=== PATIENT | female | born 1945 | race Caucasian/White ===

== ENCOUNTER 2018-09-28 13:22 | Inpatient (IN) ==
[2018-09-28] MEDS ORDERED: CARDIZEM IV ONE (13:48)
[2018-09-28] MEDS ORDERED: CARDIZEM 125 MG in NS 100 ML IV SCH (14:00)
[2018-09-28] MEDS ORDERED: NS 1,000 ML ONE ×2 (14:07→18:38)
[2018-09-28] MEDS ORDERED: CARDIZEM ONE (14:07)
--- NOTE | 2018-09-28 14:13 | EKG Report ---
Test Performed on : 09/28/2018 1:27:31 PM Test Reason : chest pain Blood Pressure : / mmHG Vent. Rate : 190 BPM Atrial Rate : 208 BPM P-R Int : 000 ms QRS Dur : 066 ms QT Int : 228 ms P-R-T Axes : 000 063 233 degrees QTc Int : 405 ms Atrial fibrillation. with rapid ventricular response. ST & T wave abnormality, consider inferolateral ischemia Abnormal ECG When compared with ECG of 30-JAN-2018 00:57, Atrial fibrillation. has replaced Sinus rhythm. Vent. rate has increased BY 126 BPM Non-specific change in ST segment in Inferior leads ST now depressed in Lateral leads T wave inversion now evident in Inferior leads T wave inversion now evident in Lateral leads Unconfirmed Result
[2018-09-28] MEDS ORDERED: LANOXIN ONE (14:17)
[2018-09-28 14:20] LABS: BASO# 0.04 X1000 (0.0-0.2); BASO% 0.3 % (0.0-0.8); EOS# 0.08 X1000 (0.0-0.7); EOS% 0.6 % (0.0-10.0); HEMATOCRIT 37.1 % (37.0-47.0); HEMOGLOBIN 11.2 g/dL (12.0-16.0); IMM GRAN# 0.05 X1000 (0.0-0.04); IMM GRAN% 0.4 % (0.0-0.5); LYMPH% 14.4 % (20.5-51.1); MCH 25.8 PG (27-31); MCHC 30.2 g/dL (33-37); MCV 85.5 FL (81-99); MONO# 1.48 X1000 (0.11-0.59); MONO% 10.7 % (1.7-9.3); MPV 10.1 FL (7.4-10.4); NEUT# 10.22 X1000 (1.4-6.5); NEUT% 73.6 % (42.2-75.2); PLT 475 X1000 (130-400); RBC 4.34 XMIL (4.2-5.4); RDW 17.5 % (11.5-14.5); WBC 13.87 X1000 (4.8-10.8)
[2018-09-28] MEDS ORDERED: LANOXIN IV ONE ×2 (14:21→18:23)
[2018-09-28] MEDS ORDERED: LOPRESSOR IV ONE ×2 (14:21→14:46)
--- NOTE | 2018-09-28 14:23 | Diag Imaging Result Doc PS360 ---
EXAM: CHEST-1 VIEW HISTORY: chest pain TECHNIQUE: Chest single view COMPARISON: 01/30/2018 FINDINGS: Poor inspiratory effort. There is vascular distention. No consolidation. No pleural effusions identified. Right hemidiaphragm is elevated. There is a left-sided pacemaker. IMPRESSION: Mild pulmonary edema. Electronically signed by Avery Morales 09/28/2018 2:21 PM
[2018-09-28] MEDS ORDERED: LOPRESSOR ONE (14:29)
[2018-09-28 14:38] LABS: INR 1.07; PROTIME 14.8 Seconds (11.0-16.0); PTT HEPARIN PROTOCOL 30.7 Seconds
[2018-09-28 14:48] LABS: ALB/GLOB RATIO 1.6; ALBUMIN 3.9 g/dL (3.5-5.0); CALCIUM 7.5 mg/dL (8.8-10.2); POTASSIUM 3.5 mmol/L (3.5-5.1); TOTAL BILIRUBIN 0.81 mg/dL (0.20-1.00); TOTAL PROTEIN 6.4 g/dL (6.3-8.3)
[2018-09-28 14:51] LABS: URINE SOURCE CATH
[2018-09-28 15:00] LABS: BILIRUBIN URINE SMALL (NEGATIVE); BLOOD URINE SMALL (NEGATIVE); COLOR YELLOW; GLUCOSE URINE NEGATIVE (NEGATIVE); KETONE URINE TRACE mg/dL (NEGATIVE); LEUKOCYTES URINE MODERATE (NEGATIVE); NITRITE URINE NEGATIVE (NEGATIVE); PH URINE 5.5; PROTEIN URINE TRACE mg/dL (NEGATIVE); SP GRAVITY URINE 1.013; TURBIDITY URINE HAZY (CLEAR); UROBILINOGEN URINE 4 mg/dL (NORMAL)
[2018-09-28 15:01] LABS: UR EPITHELIAL CELLS >10 /HPF (<10); URINE BACTERIA 4+ /HPF; URINE RBC <10 /HPF (<10); URINE WBC <10 /HPF (<10)
[2018-09-28] MEDS: LEVOPHED 8 MG in D5 1/2 NS 250 ML IV SCH ×2 (15:29→16:08)
[2018-09-28] MEDS ORDERED: LOVENOX 1 MG/KG SUBQ ONE (16:09)
[2018-09-28] MEDS ORDERED: LOVENOX SUBQ ONE (16:30)
[2018-09-28] MEDS ORDERED: CORDARONE 360 MG/D5W 360 MG/200 ML IV.SOLN IV ONE (18:24)
--- NOTE | 2018-09-28 18:56 | PROVIDER DOCUMENTATION ---
This chart was entered by Mary Villareal Scribe, acting as scribe for Tera Maddox MD. HPI-Chest Pain - General Chief Complaint: Chest Pain Stated Complaint: chest pain Time Seen by Provider: 09/28/18 13:30 Source: patient, EMS Unable to obtain history due to:: urgency Allergies/Adverse Reactions: Patient Allergies Allergy/AdvReac Type Severity Reaction Status Date / Time No Known Allergies Allergy Verified 09/28/18 14:08 Home Medications: Home Medication List Medication Instructions Recorded Confirmed Last Taken Type Baclofen 20 mg PO Q6H 04/29/17 01/30/18 04/28/17 History CephALEXIN [Keflex] 250 mg PO DAILY 04/29/17 01/30/18 04/28/17 History Duloxetine [Cymbalta] 60 mg PO DAILY 04/29/17 01/30/18 04/28/17 History Fexofenadine [Faina] 180 mg PO DAILY 04/29/17 01/30/18 04/28/17 History Furosemide [Lasix] 40 mg PO DAILY 04/29/17 01/30/18 04/28/17 History LISINOpril [Prinivil] 5 mg PO DAILY 04/29/17 01/30/18 04/28/17 History Metoprolol [Lopressor] 25 mg PO DAILY 04/29/17 01/30/18 04/28/17 History Pantoprazole [Protonix] 40 mg PO HS 04/29/17 01/30/18 04/28/17 History ATORVAstatin [Lipitor] 10 mg PO DAILY 01/30/18 01/30/18 Unknown History Folic Acid 1 mg PO DAILY 01/30/18 01/30/18 Unknown History Furosemide [Lasix] 40 mg PO DAILY #30 tab 01/30/18 Unknown Rx Levofloxacin [Levaquin] 750 mg PO DAILY #7 tab 01/30/18 Unknown Rx Methotrexate 10 mg PO DIRECTED 01/30/18 01/30/18 Unknown History Potassium Chloride 20 meq PO DAILY 01/30/18 01/30/18 Unknown History Prednisone 1 mg PO EVERY OTHER DAY 01/30/18 01/30/18 Unknown History - History of Present Illness-CP Nature of Presenting Problem: 73 yof presents to the ed via ems with unknown afib with rvr. per ems pt fell at snf this am and c/o chest pain, when pt was checked it was noted afib with rvr Location: reports: substernal Chest Pain Radiation: reports: no radiation Quality of Pain: reports: dull Severity in ED: moderate Onset/Duration: this afternoon Timing: still present, intermittent Context/Activities at Onset: reports: light activity Modifying Factors: improves with: nothing Associated Symptoms: denies: abdominal pain, diaphoresis, dizziness, shortness of breath, syncope, vomiting Nitro Today/Relief: no nitro taken today Aspirin Treatment Today: 325 mg x 1, provided by ED Similar Symptoms Previously?: No Recently Seen Here or By Another Healthcare Provider: Yes Review of Systems - Adult - REVIEW OF SYSTEMS - ADULT ROS:: limited per condition Constitutional: denies: chills, fever Eyes: reports: no symptoms reported Ears, Nose, Mouth & Throat: reports: no symptoms reported Cardiovascular: reports: see HPI, chest pain, irregular heart rate, palpitations . denies: syncope Respiratory: denies: cough, shortness of breath, wheezing Gastrointestinal: denies: abdominal pain, diarrhea, nausea, vomiting Genitourinary: reports: see HPI, frequent UTI's Musculoskeletal: denies: back pain, neck pain Integumentary: reports: no symptoms reported Neurological: denies: dizziness/vertigo, headache/migraines, loss of balance, numbness, paresthesia, seizure, slurred speech Psychiatric: reports: no symptoms reported Endocrine: reports: no symptoms reported Hematologic/Lymphatic: reports: no symptoms reported Allergic/Immunologic: reports: no symptoms reported All Other Systems: Reviewed and Negative Past History - Adult - PAST MEDICAL HISTORY-ADULT Review of Records: reports: Old Records Reviewed, Nursing Assessment Review, Medications Reviewed, Social history reviewed & non-contributory. Cardiovascular: reports: HTN, hyperlipidemia, pacemaker Respiratory: reports: denies history Gastrointestinal: reports: denies history Obstetrical/Gynecological: reports: denies history Genitourinary: reports: chronic UTI's Musculoskeletal: reports: arthritis, chronic pain Neurological: reports: CVA, stroke deficits Psychiatric: reports: denies history - PRIOR SURGERIES/PROCEDURES Surgical/Procedure History: reports: reviewed, not pertinent - IMMUNIZATION STATUS Childhood Immunizations: See Nurse Assessment Flu Vaccine: See Nurse Assessment - FAMILY HISTORY Family History: reviewed, not pertinent - SOCIAL HISTORY Smoking: non-smoker Substance Use: denies Living Situation: care facility Physical Exam-General - PHYSICAL EXAM-ADULT Initial Vital Signs Reviewed: Yes - CONSTITUTIONAL General Appearance: alert, mild distress - EYES Eyes: PERRL/EOMI, pink conjunctivae - HEAD, EARS, NOSE, MOUTH & THROAT HENMT: moist mucous membranes, normal ENT inspection - NECK Neck: non-tender, full range of motion, supple, normal inspection - RESPIRATORY Respiratory: chest non-tender, lungs clear, normal breath sounds - CARDIOVASCULAR Cardiovascular: normal peripheral pulses, irregularly irregular (afib with rvr) - GASTROINTESTINAL (ABDOMEN) Abdominal Exam: normal bowel sounds, soft, no organomegaly, no pulsatile mass - LYMPHATIC Lymphatic: no adenopathy - MUSCULOSKELETAL Back Exam: normal inspection, no CVA tenderness, no vertebral tenderness Extremity: normal inspection, no calf tenderness, pelvis stable, swelling (BLE edema) - SKIN Integumentary: normal turgor, warm/dry, pallor - NEUROLOGIC Neurologic: grossly normal, no motor/sensory deficits - PSYCHIATRIC Psych/Mental Status: normal mood/affect, normal thought content, normal thought process, oriented x 3 - HEART Score HEART Score: History: Moderately Suspicious HEART Score: ECG: Non-Specific Repolarization Disturbance/LBBB/PM HEART Score: Age: > or = 65 Years HEART Score: Risk Factors for Atherosclerotic Disease: 1 or 2 Risk Factors HEART Score: Troponin: < or = Normal Limit Total HEART Score:: 5 Progress - PLAN OF CARE/RESULTS Progress/Plan/Lab Results: Vital Signs - 8 hr 09/28/18 14:23 09/28/18 14:26 09/28/18 14:30 Pulse Rate 156 H 145 H 133 H Respiratory Rate Blood Pressure 112/77 O2 Sat by Pulse Oximetry 99 99 09/28/18 14:31 09/28/18 14:37 09/28/18 14:38 Pulse Rate 147 H 153 H 147 H Respiratory Rate Blood Pressure 112/68 99/76 O2 Sat by Pulse Oximetry 98 100 100 09/28/18 14:40 09/28/18 14:46 09/28/18 14:50 Pulse Rate 158 H 165 H 164 H Respiratory Rate Blood Pressure 102/63 O2 Sat by Pulse Oximetry 100 98 99 09/28/18 15:00 09/28/18 15:01 09/28/18 15:02 Pulse Rate 169 H 163 H 146 H Respiratory Rate Blood Pressure 72/49 81/46 O2 Sat by Pulse Oximetry 99 99 99 09/28/18 15:10 09/28/18 15:11 09/28/18 15:14 Pulse Rate 171 H 157 H 155 H Respiratory Rate 17 15 20 Blood Pressure 66/56 88/76 O2 Sat by Pulse Oximetry 95 95 98 09/28/18 15:15 09/28/18 15:20 09/28/18 15:21 Pulse Rate 144 H 169 H 182 H Respiratory Rate 19 15 18 Blood Pressure 93/71 67/58 O2 Sat by Pulse Oximetry 94 L 96 95 09/28/18 15:25 09/28/18 15:29 09/28/18 15:30 Pulse Rate 169 H 169 H 169 H Respiratory Rate 17 17 16 Blood Pressure 63/48 94/64 O2 Sat by Pulse Oximetry 94 L 97 98 09/28/18 15:31 09/28/18 15:37 09/28/18 15:40 Pulse Rate 170 H 163 H 149 H Respiratory Rate 16 22 25 H Blood Pressure 116/98 139/96 O2 Sat by Pulse Oximetry 98 99 99 09/28/18 15:41 09/28/18 15:46 Pulse Rate 161 H 137 H Respiratory Rate 24 21 Blood Pressure 165/95 169/109 O2 Sat by Pulse Oximetry 97 98 Laboratory Results - last 24 hr 09/28/18 09/28/18 09/28/18 14:06 14:06 14:06 WBC 13.87 H RBC 4.34 Hgb 11.2 L Hct 37.1 MCV 85.5 MCH 25.8 L MCHC 30.2 L RDW Std Deviation 17.5 H Plt Count 475 H MPV 10.1 Immature Gran % (Auto) 0.4 Neut % (Auto) 73.6 Lymph % (Auto) 14.4 L [place] % (Auto) 10.7 H Eos % (Auto) 0.6 Baso % (Auto) 0.3 Immature Gran # (Auto) 0.05 H Neut # (Auto) 10.22 H Lymph # (Auto) 2.00 [place] # (Auto) 1.48 H Eos # (Auto) 0.08 Baso # (Auto) 0.04 PT INR PTT (Heparin Protocol) Sodium 145 Potassium 3.5 Chloride 101 Carbon Dioxide 24 L Anion Gap 20 BUN 16 Creatinine 1.0 H Estimated GFR/1.73 m2 54 BUN/Creatinine Ratio 16 Glucose 148 H Calculated Osmolality 293 Calcium 7.5 L Total Bilirubin 0.81 AST 11 ALT 10 Alkaline Phosphatase 143 H Troponin T Zvh-[id number]-Ecvzozeyijl Pept 6252 H Total Protein 6.4 Albumin 3.9 Globulin 2.5 Albumin/Globulin Ratio 1.6 Urine Source Urine Color Urine Turbidity Urine pH Ur Specific [place] Urine Protein Ur Glucose (Stick) Ur Ketones (Stick) Urine Blood Urine Nitrite Urine Bilirubin Urobilinogen Dipstick Urine Leukocytes Urine WBC (Auto) Urine RBC (Auto) U Epithel Cells (Auto) Urine Bacteria (Auto) 09/28/18 09/28/18 09/28/18 14:06 14:06 14:46 WBC RBC Hgb Hct MCV MCH MCHC RDW Std Deviation Plt Count MPV Immature Gran % (Auto) Neut % (Auto) Lymph % (Auto) [place] % (Auto) Eos % (Auto) Baso % (Auto) Immature Gran # (Auto) Neut # (Auto) Lymph # (Auto) [place] # (Auto) Eos # (Auto) Baso # (Auto) PT 14.8 INR 1.07 PTT (Heparin Protocol) 30.7 Sodium Potassium Chloride Carbon Dioxide Anion Gap BUN Creatinine Estimated GFR/1.73 m2 BUN/Creatinine Ratio Glucose Calculated Osmolality Calcium Total Bilirubin AST ALT Alkaline Phosphatase Troponin T 0.024 Gmm-R-Sfahxgwlcuw Pept Total Protein Albumin Globulin Albumin/Globulin Ratio Urine Source CATH Urine Color YELLOW Urine Turbidity HAZY Urine pH 5.5 Ur Specific [place] 1.013 Urine Protein TRACE A Ur Glucose (Stick) NEGATIVE Ur Ketones (Stick) TRACE A Urine Blood SMALL A Urine Nitrite NEGATIVE Urine Bilirubin SMALL A Urobilinogen Dipstick 4 A Urine Leukocytes MODERATE A Urine WBC (Auto) <10 Urine RBC (Auto) <10 U Epithel Cells (Auto) >10 A Urine Bacteria (Auto) 4+ Orders Category Date Time Status Admit - [facility] Routine AdmDCTranf 09/28/18 17:09 Active Activity - Up with Assistance ORDERED Care 09/28/18 17:09 Active Intake and Output-Strict ORDERED Care 09/28/18 17:09 Active Nursing- MD Consult Request ROUTINE Care 09/28/18 17:29 Active Vital Signs Order Q 4-HR ASSESS Care 09/28/18 17:09 Active Z-Document. for Tele Applied ORDERED Care 09/28/18 17:14 Active Physician/Provider Consults Routine Cons 09/28/18 17:29 Ordered Heart Healthy Diet Diet 09/28/18 17:14 Active cxr [CHEST-1 VIEW] [RAD] Stat Exams 09/28/18 13:46 Completed CBC WITH ELECTRONIC DIFF [HEME] Stat Lab 09/28/18 14:06 Completed CBC WITH NO DIFF [HEME] Routine Lab 09/29/18 05:00 Uncollected CK PROFILE [SP CHEM] Q6H Lab 09/28/18 18:00 Uncollected CK PROFILE [SP CHEM] Q6H Lab 09/29/18 00:00 Uncollected COMPREHENSIVE METABOLIC PANEL [CHEM] Routine Lab 09/29/18 05:00 Uncollected COMPREHENSIVE METABOLIC PANEL [CHEM] Stat Lab 09/28/18 14:06 Completed PRO B-NATRIURETIC PEPTIDE Stat Lab 09/28/18 14:06 Completed PT [PROTIME WITH INR] [COAG] Stat Lab 09/28/18 14:06 Completed PTT HEPARIN PROTOCOL [COAG] Stat Lab 09/28/18 14:06 Completed TROPONIN T Q6H Lab 09/28/18 18:00 Uncollected TROPONIN T Q6H Lab 09/29/18 00:00 Uncollected TROPONIN T Stat Lab 09/28/18 14:06 Completed TSH Timed Lab 09/28/18 18:00 Uncollected URINALYSIS [URINALYSIS] Stat Lab 09/28/18 14:46 Completed 0.9% Sodium Chloride Inj [Ns] 1,000 ml Med 09/28/18 14:07 Discontinued .ROUTE As directed 0.9% Sodium Chloride Inj [Ns] 100 ml Med 09/28/18 14:00 Discontinued Diltiazem [Cardizem] 125 mg IV As Directed mls/hr Dextrose 5%-0.45% NaCl Inj [D5 1/2 Ns] 250 ml Med 09/28/18 15:15 Active Norepinephrine [Levophed] 8 mg IV As Directed mls/hr Digoxin [Lanoxin] Med 09/28/18 14:21 Discontinued 250 microgm IV NOW ONE Digoxin [Lanoxin] Med 09/28/18 14:17 Discontinued 500 microgm .ROUTE .STK-MED ONE Diltiazem [Cardizem] Med 09/28/18 13:48 Discontinued 20 mg IV NOW ONE Diltiazem [Cardizem] Med 09/28/18 14:07 Discontinued 25 mg .ROUTE .STK-MED ONE Enoxaparin 1 mg/kg [Lovenox 1 mg/kg] Med 09/28/18 16:09 Discontinued 1 each SUBQ NOW ONE Enoxaparin [Lovenox] Med 09/28/18 16:30 Discontinued 110 mg SUBQ NOW ONE Metoprolol [Lopressor] Med 09/28/18 14:29 Discontinued 5 mg .ROUTE .STK-MED ONE Metoprolol [Lopressor] Med 09/28/18 14:21 Discontinued 5 mg IV NOW ONE Metoprolol [Lopressor] Med 09/28/18 14:46 Discontinued 5 mg IV NOW ONE Telemetry [OM.EQ] Routine Oth 09/28/18 17:09 Active EKG [EKG] Stat Ther 09/28/18 13:45 Draft EKG [EKG] Stat Ther 09/29/18 08:00 Ordered Echo Spec/Color Dop W/O Contra Routine Ther 09/29/18 08:[address] Stout called back advising to give Digoxin 0.5mg and start amiodarone drip. Also advised was to do lopressor 5mg iv q5 for added rate control as needed. This was also discussed with Dr Astorga. Result Diagrams: 09/28/18 14:06 09/28/18 14:06 - REASSESSMENT Reassessment #1 Time Reassessed: 13:55 Status: unchanged Reassessment Comment: at bedside Reassessment #2 Time Reassessed: 14:34 Status: improving Reassessment Comment: HR 156 down from 193 Reassessment #3 Time Reassessed: 15:13 (66/56 HR 162) Status: worsening Reassessment Comment: at bedside - EKG 1 Time of EKG reading by physician:: 13:27 EKG Read and Signed by:: Tera Maddox EKG Interpretation (*Must complete 3 of following elements*): Abnormal Rate: 190 Rhythm: afib with rvr [place]: normal QRS: normal SD Interval: normal Prior EKG Comparison: no prior EKG Comments: st and t wave abnormality, consider inferolateral ischemia - XRAY 1 XRAY: Bilateral XRAY Study: Chest Impression: See EMR Report (EXAM: CHEST-1 VIEW HISTORY: chest pain TECHNIQUE: Chest single view COMPARISON: 01/30/2018 FINDINGS: Poor inspiratory effort. There is vascular distention. No consolidation. No pleural effusions identified. Right hemidiaphragm is elevated. There is a left-sided pacemaker. IMPRESSION: Mild pulmonary edema. Electronically signed by Avery Morales 09/28/2018 2:21 PM 09/28/18 1421 Interpreting Physician: Avery Morales MD Dictated Date/Time: 09/28/18 1420 cc: Tera Maddox MD; Jose M Spivey MD) - CONSULTS/PCP/HOSPITALIST Notification #1 *Consult/PCP/Hospitalist*: spoke with estelle NIEVES for cardio Time Discussed: 14:33 Reason/Comments: phone consult Consult Disposition: other (Pt discussed with Estelle for Cardiology Dr Boyd who advised to try digoxin and lopressor. Pt had improved slightly with Hr coming down to 140-160's. Shortly after pts HR increased back to 180's and cardio was again called for recommendation. I was told that they (Estelle Herrera NP) was reluctant to make further recommendations until official consult was made. Pt was discussed with Isabel NIEVES for Hospitalist who agreed to admit.) #2 Consult: hospitalist Time Discussed: 15:53 Reason/Comments: afib Consult Disposition: Admit #3 Consult: Dr Stout Time Discussed: 18:00 Reason/Comments: Paged. Departure - Departure Date of Disposition Decision: 09/28/18 Time of Disposition Decision: 15:56 (chest pain) DIAGNOSIS: Chest pain Qualifiers: Chest pain type: unspecified Qualified Code(s): R07.9 - Chest pain, unspecified Afib Qualifiers: Atrial fibrillation type: unspecified Qualified Code(s): I48.91 - Unspecified atrial fibrillation CHF (congestive heart failure) Qualifiers: Heart failure type: unspecified Heart failure chronicity: unspecified Qualified Code(s): I50.9 - Heart failure, unspecified Disposition: ADMITTED INPATIENT 09 Certified Medical Emergency: Emergent Condition: Stable - Critical Care Note This patient required my direct & personal management of CC.: Yes Total Time (mins): 42 Critical Care Statement: This patient required my direct personal management to treat or rule out processes, the absence of which, could potentiallly result in sudden, clinically significant life or limb threatening deterioration. Attestation - Physician/ LILY Attestation Patient care was provided by Advanced Practice Provider:: No The physician spent face to face time with patient:: Yes Advanced Practice Provider documentation review:: Supervising physician onsite and consulted in the evaluation and care of this patient. The physician did have a face to face encounter with the patient. This chart was documented by the indicated scribe, (Mary Villareal Scribe) and accurately reflects the services I performed and decisions made by me, Tera Maddox MD, as attested by the provider's signature.
--- NOTE | 2018-09-28 19:07 | HISTORY AND PHYSICAL ---
CHIEF COMPLAINT: Tachycardia and chest pain. HISTORY OF PRESENT ILLNESS: This is a 73-year-old female who lives at a local assisted living, who was reportedly in her normal state of health. She was found by the assisted living staff to be short of breath, complaining of chest pain and she had tachycardia; therefore, EMS was called and she was brought in for evaluation. On arrival to the emergency room, she was found to be in atrial fibrillation/RVR with rates in the 130s to 150s. Blood pressures were in the 60s, 70s, 80s systolic. norepinephrine was started per the ER MD for an increase in blood pressure. Chest x-ray showed mild pulmonary edema. PAST MEDICAL HISTORY: 1. 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 2. Hyperlipidemia. 3. Hypertension. 4. Reported recurrent UTI. 5. Rheumatoid arthritis. PAST SURGICAL HISTORY: Pacemaker, although at this point we are unsure exactly what led to this. SOCIAL HISTORY: She denies alcohol, tobacco or illicit drug use. She does live at an assisted living facility locally. ALLERGIES: No known drug allergies. HOME MEDICATIONS: A list will be obtained by the nursing staff. Once verified, we will review and restart as appropriate. REVIEW OF SYSTEMS: Discussed with the patient, with pertinent positives stated in the HPI. She denied any dizziness or syncope, any productive cough, nausea, vomiting, diarrhea, constipation or black or bloody vomitus or stools, any hematuria, dysuria, frequency or urgency. PHYSICAL EXAMINATION: GENERAL: A 73-year-old female who is lying in the bed in no distress. VITAL SIGNS: Blood pressure is 165/90 with a heart rate of 137, respirations are 21, temperature is 97.8 degrees, with O2 saturations 97% to 99%. CARDIOVASCULAR: Irregularly irregular rate and rhythm. S1 and S2 appreciated. PULMONARY: Breath sounds are diminished. Chest rises and falls symmetrically with respiration. Chest wall is nontender to palpation. GASTROINTESTINAL: Abdomen is soft, nontender, nondistended. Bowel sounds in all 4 quadrants. NEUROLOGIC: She is alert. She appears oriented, although speech is hard to follow. She does follow commands. She nods yes and no, and attempts to answer questions. LABORATORY DATA: WBC is 13.8 with hemoglobin 11.2, hematocrit 37.1 and platelets of 475,000. INR is 1.07. Sodium 145, potassium 3.5, BUN 16, creatinine 1 with a glucose of 148. ProBNP is 6252. Urinalysis reveals moderate leukocytes with less than 10 white and red blood cells. She does have greater than 10 epithelial cells, which very well could be consistent with contamination. It is noted she does have a history of Klebsiella UTI, but this was in 2018. DIAGNOSTIC DATA: Chest x-ray revealed mild pulmonary edema. ASSESSMENT AND PLAN: 1. New-onset atrial fibrillation with rapid ventricular response. We have consulted Dr. Stout with Cardiology. She will be admitted to intensive care unit, placed on telemetry. We will continue with the current medications. 2. History of cerebrovascular accident. Aware. 3. Leukocytosis. She does have a history of urinary tract infection. We will obtain a urine culture. 4. Presumed urinary tract infection. She is noted to have extended-spectrum beta-lactamase- positive Klebsiella urinary tract infection in 01/2018. She was susceptible to Levaquin and amikacin. We will obtain blood cultures, urine cultures, and start Levaquin. Further antibiotics will be culture-driven. 5. Hypertension. At present she is hypotensive. 6. Hyperlipidemia. Aware. We will obtain an electrocardiogram in the morning, as well as an echocardiogram. Of note, the patient is scheduled for a Lexiscan on 10/11 through Cardiology. Further treatments pending hospital course. Dictated by CHASE Huntley for Mundo Delvalle MD This chart was documented by, CHASE Huntley and accurately reflects the services performed, treatment plan and medical decisions as attested by the providers signature Mundo Delvalle MD. 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
[2018-09-28] MEDS ORDERED: LOPRESSOR IV PRN (19:44)
[2018-09-28] MEDS ORDERED: NS 250 ML IV ONE (19:47)
[2018-09-28] MEDS ORDERED: 1/2 NS 500 ML IV SCH (20:00)
[2018-09-28] MEDS ORDERED: 1/2 NS 1,000 ML IV SCH (20:00)
--- NOTE | 2018-09-28 20:05 | CONSULTATION ---
DATE OF CONSULTATION: 09/28/2018 IMPRESSION: 1. New onset atrial fibrillation with rapid ventricular rate. Patient with low blood pressure during periods of elevated heart rate. 2. 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 3. Hypertension. 4. Hyperlipidemia. 5. Rheumatoid arthritis. 6. Recurrent urinary tract infections. 7. Status post dual-chamber permanent pacemaker. ALLERGIES: She has no known drug allergies. MEDICATIONS PRIOR TO ADMISSION: As listed. SOCIAL HISTORY: 1. She currently resides in a halfway. She does not smoke nor use alcohol. She does have a past history of previous cigarette use. 2. Status post permanent pacemaker. RECOMMENDATIONS: 1. Give additional intravenous digoxin. 2. Given tendency for low blood pressure, initiate intravenous amiodarone for rate control. 3. Intravenous metoprolol as needed. 4. Gentle intravenous hydration. Clinically, she does not appear to be in volume overload and appears to be possibly dry. HISTORY: This 73-year-old white female, with past history of hypertension, hyperlipidemia, previous cerebrovascular accident with right hemiparesis and abnormal speech, who resides in a halfway, was transferred to the hospital after she developed sudden weakness and shortness of breath. She was found to have tachycardia. EMS was summoned and brought her to the emergency room. She was found to be in atrial fibrillation with rapid ventricular rate. Blood pressure was low. The patient was given digoxin and Lopressor. Despite this, she continued with tachycardia and was started on pressor support. She has subsequently been started on intravenous amiodarone. Additional intravenous digoxin has been given as well as intravenous metoprolol. Heart rate is starting to come down. She denies any chest pain to me. She is not aware of any previous cardiac problems. She reports that she has had a tendency for being thirsty for several days. PAST MEDICAL HISTORY: 1. Hypertension. 2. Hyperlipidemia. 3. Previous cerebrovascular accident with right hemiparesis and abnormal speech. 4. Rheumatoid arthritis. 5. Current urinary tract infections. 6. Status post permanent pacemaker with dual-chamber device. FAMILY HISTORY: Negative for premature coronary disease. REVIEW OF SYSTEMS: Pulmonary: Noteworthy for dyspnea, starting abruptly this morning. There has been no orthopnea. Gastrointestinal: Negative. Constitutional: Negative. Remainder of review of systems negative/noncontributory, with 14 total systems reviewed. PHYSICAL EXAMINATION: General: This is an obese elderly white female in no distress. Vital Signs: Blood pressure 142/67, heart rate 140 and irregular, with electrocardiogram monitor showing atrial fibrillation, and oxygen saturation 99% on room air. HEENT: Extraocular movements intact. Mucous membranes are dry. Neck: Supple. Neck veins are flat. Chest: Clear to auscultation. Cardiac: Irregular tachycardia without appreciable murmur or gallop. Abdomen: Soft. Bowel sounds are normal. Extremities: Chronic venous stasis changes, more so in the right lower extremity. There is trace edema, more so in the right lower extremity. Neurologic: Reveals her to be alert and oriented. Speech is slurred/dysarthric. Right hemiparesis is present. PERTINENT DATA: A 12-lead electrocardiogram demonstrates atrial fibrillation with rapid ventricular rate and nonspecific ST and T-wave abnormality. Laboratory data includes white blood cell count 13.87, hematocrit 37.1, hemoglobin 11.2, platelet count 475,000. Prothrombin time 14.8, INR 1.07, PTT 30.7. Sodium 145, potassium 3.5, chloride 101, carbon dioxide 24, BUN 16, creatinine 1.0, glucose 148. Troponin T is 0.024. Albumin 3.9. Chest x-ray is poor inspiration. There are no acute infiltrates appreciated. cc: Cirilo Stout MD
[2018-09-29] MEDS ORDERED: CORDARONE 540 MG in D5W 289.2 ML IV ONE (00:24)
[2018-09-29 06:55] LABS: HEMATOCRIT 33.6 % (37.0-47.0); HEMOGLOBIN 9.9 g/dL (12.0-16.0); MCH 25.5 PG (27-31); MCHC 29.5 g/dL (33-37); MCV 86.6 FL (81-99); MPV 10.3 FL (7.4-10.4); RBC 3.88 XMIL (4.2-5.4); RDW 17.3 % (11.5-14.5); WBC 12.93 X1000 (4.8-10.8)
--- NOTE | 2018-09-29 07:32 | EKG Report ---
Test Performed on : 09/29/2018 06:48:24 AM Test Reason : a fib, rvr Blood Pressure : / mmHG Vent. Rate : 068 BPM Atrial Rate : 068 BPM P-R Int : 172 ms QRS Dur : 066 ms QT Int : 436 ms P-R-T Axes : 000 071 127 degrees QTc Int : 463 ms Atrial-paced rhythm Septal infarct , age undetermined Abnormal ECG When compared with ECG of 28-SEP-2018 13:27, (Unconfirmed) Electronic atrial pacemaker has replaced Atrial fibrillation. Vent. rate has decreased BY 122 BPM T wave inversion no longer evident in Lateral leads Confirmed by Melissa LEIJA, Juan Carlos ([id number]) on 09/29/2018 8:53:55 AM
[2018-09-29 07:33] LABS: AGAP 17; ALB/GLOB RATIO 1.5; ALBUMIN 3.4 g/dL (3.5-5.0); ALKALINE PHOSPHATASE 129 U/L (32-104); BUN 13 mg/dL (8-22); CHLORIDE 103 mmol/L (98-107); COSMO 293; CREATININE 0.6 mg/dL (0.5-0.9); ESTIMATED GFR > 60; GLUCOSE 245 mg/dL (70-104); GOT 11 U/L (10-30); GPT 10 U/L (10-36); POTASSIUM 3.7 mmol/L (3.5-5.1); SODIUM 143 mmol/L (136-145); TCO2 23 mmol/L (25-35); TOTAL BILIRUBIN 1.23 mg/dL (0.20-1.00); TOTAL PROTEIN 5.6 g/dL (6.3-8.3)
[2018-09-29 07:55] LABS: CALCIUM 6.7 mg/dL (8.8-10.2)
[2018-09-29] MEDS ORDERED: 1/2 NS 1,000 ML IV SCH (09:22)
[2018-09-29] MEDS: LIORESAL PO SCH ×3 (09:45→21:33)
[2018-09-29] MEDS ORDERED: CYMBALTA PO SCH (09:45)
--- NOTE | 2018-09-29 09:50 | PROGRESS NOTE ---
DATE: 09/29/2018 SUBJECTIVE: The patient is lying comfortably in bed, she is still complaining of some shortness of breath but compared with yesterday she feels much better. She is tolerating p.o. She has expressive aphasia due to previous stroke, right-sided hemiparesis, as well. Cardiology Department on board. Rate controlled. OBJECTIVE: Vital Signs: Temperature 97.9 degrees, pulse 82, respiratory rate 18, blood pressure 159/77, oxygen saturation 100% on 2 L of nasal cannula. HEENT: Head normocephalic. No trauma. PERRLA. Neck: Supple. No JVD. No masses. Central trachea. Chest: Coarse breath sounds bilaterally with some rhonchi at the bases. Abdomen: Soft, nontender, nondistended. No hepatosplenomegaly. Extremities: No edema, no clubbing, no cyanosis. Neurological: The patient is alert. She is following commands, but she has expressive aphasia and right-sided hemiparesis. LABORATORY: WBC 12.9, hemoglobin 9.9, hematocrit 33.6, platelets 378,000. Sodium 143, potassium 3.7, chloride 103, bicarbonate 23, BUN 13, creatinine 0.6, glucose 245, calcium 6.7, AST 11, ALT 10, alkaline phosphatase 129, albumin 3.4. ASSESSMENT AND PLAN: 1. New onset atrial fibrillation with RVR. Cardiology Department following this patient closely. She was placed on a amiodarone drip and the rate has been controlled. Blood pressure was dropping yesterday and we used Levophed to keep it elevated, but now she is off pressors. We will continue with the same management. She is tolerating p.o. as well. She seems to be hydrated. I will decrease the IV fluids from 75 to 21 just to keep a little bit running and hopefully in the future, I will stop it completely. 2. History of CVA with right-sided hemiparesis and expressive aphasia. Aware. 3. Leukocytosis likely secondary to urinary tract infection. Urinalysis showed bacteria 4+ with moderate leukocyte count. I will ask for a urine culture. 4. Hypocalcemia. Albumin level is 3.4, so probably the calcium is low but I will get an ionized calcium to rule it out. 5. Possible urinary tract infection. She had a past medical history of ESBL Klebsiella pneumonia urinary tract infection. As per the patient, she does not have symptoms at this moment, so I will wait for the urine culture. Urinalysis did not show nitrates and the WBC count was less than 10. I will repeat the urinalysis and as well in the near future. 6. Hypertension. Actually the patient was hypotensive. We will monitor for now. 7. Hyperlipidemia. Aware. This patient seems to be doing better. She is tolerating p.o. Rate controlled. Blood pressure is stable. I will continue following the recommendations of Cardiology Department. We will reconcile the medications so I can put this patient back on her home medications. At this moment, her rate is atrial and paced. I will wait for the ionized calcium. cc: Mundo Delvalle MD
--- NOTE | 2018-09-29 10:00 | Diag Imaging Result Doc PS360 ---
EXAM: CHEST-PORTABLE 09/29/2018 HISTORY: SOB TECHNIQUE: AP portable at 0952 COMMENT: The inspiration is suboptimal. There is some ill-defined perihilar opacity bilaterally which may indicate mild pulmonary edema. Overall the appearance the chest has not changed significantly since 09/28/2018. IMPRESSION: Minimal pulmonary edema. Electronically signed by Melquiades Maldonado 09/29/2018 9:58 AM
[2018-09-29] MEDS: CYMBALTA PO SCH (11:21)
--- NOTE | 2018-09-29 13:47 | ECHO REPORT ---
ORDER DATE: 09/29/2018 INDICATION: Chest pain, tachycardia, atrial fibrillation, obesity, history of stroke, hypertension, hyperlipidemia. FINDINGS: 1. The right atrium appears normal in size at 3 cm. Linear echodensity consistent with device leads is noted in the right heart chambers. 2. Mild tricuspid regurgitation with RV systolic pressure of 46. 3. There is questionable mild dilation of the right ventricle with normal RV size. 4. Trace pulmonic insufficiency. 5. Mild left atrial enlargement with a dimension of 4.1 cm. 6. No mitral valve prolapse. Mild mitral regurgitation. No mitral stenosis. 7. Normal LV size, end-diastolic dimension of 4.6 cm. Endocardial borders are difficult to visualize and I do not believe there is any significant degree of left ventricular hypertrophy. Normal LV systolic function. Estimated EF of 55% with normal wall motion. 8. The aortic valve opens well. It is trileaflet. There is no evidence of stenosis or insufficiency. 9. The aorta appears normal in visualized segments. 10. No pericardial effusion seen. 11. Patient appears to be in sinus rhythm during the course of this study. cc: MD Rula Whitehead CRNP
[2018-09-29] MEDS ORDERED: CALCIUM GLUCONATE 4.65 MEQ in NS 50 ML IV ONE (13:57)
--- NOTE | 2018-09-29 18:45 | PROGRESS NOTE ---
DATE: 09/29/2018 CARDIOLOGY FOLLOWUP NOTE: SUBJECTIVE: Patient continues without chest discomfort or dyspnea. She has converted back to sinus rhythm. OBJECTIVE: Vital Signs: Blood pressure 140/82, heart rate 92. Oxygen saturation 97-98%. There is no significant jugular venous distention. Chest is clear to auscultation. Cardiac: Reveals a regular rate and rhythm without appreciable murmur or gallop. Extremities without edema. LABORATORY DATA: Includes a white blood cell count of 12.93, hematocrit 33.6, hemoglobin 9.9, platelet count 378,000. Sodium 143, potassium 3.7, chloride 103, carbon dioxide 23, BUN 13, creatinine 0.6, glucose 245. Albumin 3.4. Initial troponin 0.01. Followup troponin 0.025. Echocardiography indicates mild tricuspid regurgitation with mild pulmonary hypertension. Pacemaker lead evident in right ventricle. Normal left ventricular ejection fraction and wall motion. IMPRESSION: 1. Atrial fibrillation with rapid ventricular rate. Patient has converted back to sinus rhythm. 2. Status post previous cerebrovascular accident with right-sided hemiparesis and abnormal speech. 3. Hypertension. 4. Hyperlipidemia. 5. Rheumatoid arthritis. 6. Status post dual-chamber permanent pacemaker. RECOMMENDATIONS: 1. Transition to oral amiodarone to suppress atrial fibrillation. 2. Continue Lovenox for now. 3. Consideration to be given to long-term anticoagulation with Eliquis. cc: Cirilo Stout MD
[2018-09-29] MEDS ORDERED: CALMOSEPTINE OINTMENT TOP PRN (19:36)
[2018-09-29] MEDS ORDERED: ZOFRAN IV PRN (19:51)
[2018-09-29] MEDS: ROCEPHIN 1 GM in NS 50 ML IV SCH (20:01)
[2018-09-29] MEDS ORDERED: LOVENOX SUBQ SCH (21:00)
[2018-09-29] MEDS: PROTONIX PO SCH (21:33)
[2018-09-29] MEDS: LIPITOR PO SCH (21:33)
[2018-09-30] MEDS: LIORESAL PO SCH ×4 (04:04→21:04)
--- NOTE | 2018-09-30 06:46 | Diag Imaging Result Doc PS360 ---
EXAM: CHEST-PORTABLE HISTORY: dyspnea TECHNIQUE: Portable chest single view COMPARISON: 09/29/2018 FINDINGS: Improved inspiratory effort. There is pulmonary edema. Heart is borderline mildly prominent. Small left pleural effusion. The right hemidiaphragm is elevated. There is a left-sided pacemaker. IMPRESSION: Pulmonary edema Electronically signed by Avery Morales 09/30/2018 6:44 AM
[2018-09-30 08:05] LABS: BASO# 0.02 X1000 (0.0-0.2); BASO% 0.2 % (0.0-0.8); EOS# 0.12 X1000 (0.0-0.7); HEMATOCRIT 30.9 % (37.0-47.0); HEMOGLOBIN 9.2 g/dL (12.0-16.0); IMM GRAN# 0.02 X1000 (0.0-0.04); IMM GRAN% 0.2 % (0.0-0.5); LYMPH# 0.89 X1000 (1.2-3.4); LYMPH% 7.6 % (20.5-51.1); MCH 25.8 PG (27-31); MCHC 29.8 g/dL (33-37); MCV 86.6 FL (81-99); MONO# 0.76 X1000 (0.11-0.59); MONO% 6.5 % (1.7-9.3); MPV 9.7 FL (7.4-10.4); NEUT# 9.86 X1000 (1.4-6.5); NEUT% 84.5 % (42.2-75.2); PLT 345 X1000 (130-400); RBC 3.57 XMIL (4.2-5.4); RDW 17.2 % (11.5-14.5); WBC 11.67 X1000 (4.8-10.8)
--- NOTE | 2018-09-30 08:21 | PROGRESS NOTE ---
DATE: 09/30/2018 SUBJECTIVE: This patient is not complaining of chest pain or shortness of breath. Chest x-ray showed pulmonary edema and left-sided pacemaker, small left pleural effusion. I will put this patient on Lasix 40 IV daily. She is on Lasix at home 40 p.o. daily. Since this patient was admitted due to atrial fibrillation with RVR. She was placed on anticoagulation, and I will stop the Lovenox and put her on Eliquis twice a day 5 mg b.i.d. Pending lab work. OBJECTIVE: Vital Signs: Temperature 98.8 degrees, pulse 93, respiratory rate 20, blood pressure 131/58, oxygen saturation 96% on 2 L of nasal cannula. HEENT: Head normocephalic, no trauma. PERRLA. Neck: Supple. No JVD. No masses. Central trachea. Chest: Coarse breath sounds bilaterally with some rhonchi and rales at the bases. Abdomen: Soft, nontender, nondistended. No hepatosplenomegaly. Extremities: No edema, no clubbing, no cyanosis. Neurological examination: The patient is alert. She is following commands. She is able to answer all my questions, she is able to say yes and no, she is following commands. She has a previous stroke with right-sided hemiparesis. LABORATORY: Pending lab work at this moment. ASSESSMENT AND PLAN: 1. New onset atrial fibrillation with rapid ventricular response. Cardiology Department following this patient. She was placed on amiodarone and I will transition this patient from Lovenox to Eliquis 5 mg oral twice a day; she is tolerating oral. No chest pain or shortness of breath. 2. Right lower extremity redness with possible cellulitis. I will place this patient on ceftriaxone. White blood cell count is slightly elevated at 13 two days ago and 12.9 yesterday, but it looks like she has been taking prednisone at home. We also ordered a venous Doppler ultrasound to rule out deep vein thrombosis. 3. History of cerebrovascular accident with right-sided hemiparesis and expressive aphasia, aware. 4. Leukocytosis. There is a possibility of cellulitis and urinary tract infection, even though the urine culture has been negative. We will continue with ceftriaxone. 5. Hypocalcemia. Calcium has been replaced yesterday. 6. Possible urinary tract infection as above. 7. Hypertension; actually this patient was hypotensive upon admission. At this moment, the blood pressure has been stable, mostly in the 120s today. It looks like it dropped a little bit during the night to the 80s and 90s. 8. Hyperlipidemia, aware. CRITICAL CARE TIME: 35 minutes. cc: Mundo Delvalle MD
[2018-09-30 08:57] LABS: AGAP 12; BUN 5 mg/dL (8-22); CHLORIDE 104 mmol/L (98-107); COSMO 284; CREATININE 0.6 mg/dL (0.5-0.9); ESTIMATED GFR > 60; GLUCOSE 162 mg/dL (70-104); POTASSIUM 3.2 mmol/L (3.5-5.1); SODIUM 142 mmol/L (136-145); TCO2 26 mmol/L (25-35)
[2018-09-30] MEDS: LASIX IV SCH (08:57)
[2018-09-30] MEDS: CORDARONE PO SCH ×3 (08:58→16:49)
[2018-09-30] MEDS: CYMBALTA PO SCH (08:58)
[2018-09-30] MEDS: ELIQUIS PO SCH ×2 (08:58→20:35)
[2018-09-30] MEDS: FOLIC ACID PO SCH (08:58)
[2018-09-30] MEDS ORDERED: CALCIUM GLUCONATE 4.65 MEQ in NS 50 ML IV ONE (10:11)
[2018-09-30] MEDS ORDERED: KLOR-CON PO ONE (10:12)
--- NOTE | 2018-09-30 15:49 | PROGRESS NOTE ---
DATE: 09/30/2018 SUBJECTIVE: Patient continues without chest discomfort or dyspnea on supplemental oxygen per nasal cannula. OBJECTIVE: Vital Signs: Blood pressure 126/66, heart rate 90 with ECG monitor showing sinus rhythm. Oxygen saturation 99 to 100 percent on nasal cannula oxygen at 2 L/minute. There is no significant jugular venous distention. Chest: Is clear to auscultation bilaterally. Cardiac exam: Reveals a regular rate and rhythm without appreciable murmur or gallop. There is no evidence of peripheral edema. LABORATORY DATA: Includes a white blood cell count 11.67, hematocrit 30.9, hemoglobin 9.2, platelet count 345,000. Sodium 142, potassium 3.2, chloride 104, carbon dioxide 26, BUN 5, creatinine 0.6, glucose 162. IMPRESSION: 1. Atrial fibrillation with rapid ventricular rate. Patient has converted back to sinus rhythm on intravenous amiodarone. She continues on oral amiodarone. 2. Status post previous cerebrovascular accident with right-sided hemiparesis and abnormal speech. 3. Suspect congestive heart failure with preserved left ventricular ejection fraction currently. The patient being diuresed. 4. Hypertension. 5. Hyperlipidemia. 6. Rheumatoid arthritis. 7. Status post dual chamber pacemaker. RECOMMENDATIONS: 1. Continue oral amiodarone. 2. Continue Lovenox for now. 3. Conservative cardiovascular plans overall. Consider merits of long-term anticoagulation with Eliquis. cc: Cirilo Stout MD
[2018-09-30] MEDS: ROCEPHIN 1 GM in NS 50 ML IV SCH (20:34)
[2018-09-30] MEDS: PROTONIX PO SCH (20:35)
[2018-09-30] MEDS: LIPITOR PO SCH (20:35)
[2018-10-01] MEDS: LIORESAL PO SCH ×4 (04:45→20:26)
[2018-10-01 06:21] LABS: BASO# 0.02 X1000 (0.0-0.2); BASO% 0.2 % (0.0-0.8); EOS# 0.33 X1000 (0.0-0.7); EOS% 3.1 % (0.0-10.0); HEMATOCRIT 30.9 % (37.0-47.0); HEMOGLOBIN 9.2 g/dL (12.0-16.0); IMM GRAN# 0.02 X1000 (0.0-0.04); IMM GRAN% 0.2 % (0.0-0.5); LYMPH# 0.97 X1000 (1.2-3.4); LYMPH% 9.2 % (20.5-51.1); MCH 25.8 PG (27-31); MCHC 29.8 g/dL (33-37); MCV 86.8 FL (81-99); MONO# 1.03 X1000 (0.11-0.59); MONO% 9.8 % (1.7-9.3); MPV 10.1 FL (7.4-10.4); NEUT# 8.14 X1000 (1.4-6.5); NEUT% 77.5 % (42.2-75.2); PLT 322 X1000 (130-400); RBC 3.56 XMIL (4.2-5.4); RDW 17.1 % (11.5-14.5); WBC 10.51 X1000 (4.8-10.8)
[2018-10-01 07:16] LABS: AGAP 15; ALB/GLOB RATIO 1.2; ALBUMIN 3.1 g/dL (3.5-5.0); ALKALINE PHOSPHATASE 122 U/L (32-104); BUN 5 mg/dL (8-22); CALCIUM 7.2 mg/dL (8.8-10.2); CHLORIDE 99 mmol/L (98-107); COSMO 281; CREATININE 0.5 mg/dL (0.5-0.9); ESTIMATED GFR > 60; GLUCOSE 151 mg/dL (70-104); GOT 9 U/L (10-30); GPT 9 U/L (10-36); MAGNESIUM 1.1 mg/dL (1.5-2.7); POTASSIUM 3.1 mmol/L (3.5-5.1); SODIUM 141 mmol/L (136-145); TCO2 27 mmol/L (25-35); TOTAL BILIRUBIN 2.18 mg/dL (0.20-1.00); TOTAL PROTEIN 5.7 g/dL (6.3-8.3)
[2018-10-01] MEDS ORDERED: MAGNESIUM SULFATE 2 GM/S.W.I. 2 GM/50 ML IVPB IV ONE (07:24)
[2018-10-01] MEDS ORDERED: KLOR-CON PO ONE (07:24)
[2018-10-01] MEDS: LASIX IV SCH (08:08)
[2018-10-01] MEDS: INVANZ 1 GM/NS 1 GM/50 ML IVPB IV SCH (08:09)
[2018-10-01] MEDS: CYMBALTA PO SCH (08:09)
[2018-10-01] MEDS: FOLIC ACID PO SCH (08:09)
[2018-10-01] MEDS: CORDARONE PO SCH ×3 (08:10→18:35)
[2018-10-01] MEDS: ELIQUIS PO SCH ×2 (08:10→20:26)
--- NOTE | 2018-10-01 10:50 | PROGRESS NOTE ---
DATE: 10/01/2018 SUBJECTIVE: This patient is not complaining of chest pain or shortness of breath. She is feeling better. She has a paced rhythm. She is tolerating p.o. I do believe she is okay to be transferred to the floor. OBJECTIVE: Vital Signs: Temperature 97.4 degrees, pulse 84, respiratory rate 18, blood pressure 159/90, oxygen saturation 98 on 2 L of nasal cannula. HEENT: Head normocephalic, no trauma. PERRLA. Neck: Supple. No JVD. No masses. Central trachea. Chest: Coarse breath sounds at the bases with some rhonchi at the bases as well. Abdomen: Soft, nontender, nondistended. No hepatosplenomegaly. Extremities: No edema, no clubbing, no cyanosis. Neurological examination: The patient is alert. She is following commands. She is able to answer my questions with a yes or no answer. She had a previous stroke with right-sided hemiparesis and speech problems. LABORATORY: WBC 10.5, hemoglobin 9.2, hematocrit 30.9, platelet 322. Sodium 141, potassium 3.1, chloride 99, bicarbonate 27. BUN 5, creatinine 0.5, glucose 151, calcium 7.2, magnesium 1.1. AST 9, ALT 9, alkaline phosphatase 122, albumin 3.1. MICROBIOLOGY: Urine culture showed E coli ESBL positive. ASSESSMENT AND PLAN: 1. New onset atrial fibrillation with rapid ventricular response. Cardiology Department following this patient. She was placed on amiodarone, now she is on Eliquis 5 mg twice a day. No chest pain or shortness of breath. 2. Right lower extremity redness with possible cellulitis. Continue with antibiotics. White blood count is normal today. 3. Extended spectrum beta lactamase Escherichia coli urinary tract infection. I have placed this patient on ertapenem, and I will continue with the same management. 4. History of cerebrovascular accident with right-sided hemiparesis and expressive aphasia, aware. 5. Leukocytosis, resolved. 6. Hypocalcemia. This is better. We will continue to monitor. 7. Hypertension. Actually, this patient was hypotensive upon admission, and at that moment she received some pressors. At this moment, the blood pressure has been mostly in the 140s, 150s. I will continue to monitor for now. 8. Hyperlipidemia, aware. 9. Hypokalemia with hypomagnesemia. I will replace both electrolytes. cc: Mundo Delvalle MD
[2018-10-01] MEDS: LIPITOR PO SCH (20:26)
[2018-10-01] MEDS: PROTONIX PO SCH (20:26)
[2018-10-01] MEDS: TYLENOL PO PRN (23:55)
[2018-10-02] MEDS: LIORESAL PO SCH ×4 (05:59→21:31)
--- NOTE | 2018-10-02 07:28 | Diag Imaging Result Doc PS360 ---
EXAM: CHEST-PORTABLE HISTORY: dyspnea TECHNIQUE: Portable chest single view COMPARISON: 09/30/2018 FINDINGS: Poor inspiratory effort. No cardiomegaly. There is a left-sided pacemaker. Pulmonary edema remains. No pleural effusions identified. Mild elevation of the right hemidiaphragm. IMPRESSION: No improvement in the pulmonary edema. Electronically signed by Avery Morales 10/02/2018 7:25 AM
[2018-10-02 07:54] LABS: AGAP 11; ALB/GLOB RATIO 1.1; ALBUMIN 3.2 g/dL (3.5-5.0); ALKALINE PHOSPHATASE 132 U/L (32-104); BUN 6 mg/dL (8-22); CALCIUM 7.6 mg/dL (8.8-10.2); CHLORIDE 103 mmol/L (98-107); COSMO 287; CREATININE 0.6 mg/dL (0.5-0.9); ESTIMATED GFR > 60; GLUCOSE 138 mg/dL (70-104); GOT 9 U/L (10-30); GPT 8 U/L (10-36); POTASSIUM 3.7 mmol/L (3.5-5.1); SODIUM 144 mmol/L (136-145); TCO2 30 mmol/L (25-35); TOTAL BILIRUBIN 1.55 mg/dL (0.20-1.00); TOTAL PROTEIN 6.2 g/dL (6.3-8.3)
[2018-10-02] MEDS: FOLIC ACID PO SCH (09:51)
[2018-10-02] MEDS: INVANZ 1 GM/NS 1 GM/50 ML IVPB IV SCH (09:52)
[2018-10-02] MEDS: CYMBALTA PO SCH (09:52)
[2018-10-02] MEDS: CORDARONE PO SCH ×3 (09:52→17:36)
[2018-10-02] MEDS: ELIQUIS PO SCH ×2 (09:53→21:31)
[2018-10-02] MEDS: LASIX IV SCH ×2 (09:53→21:31)
--- NOTE | 2018-10-02 13:38 | PROGRESS NOTE ---
DATE: 10/02/2018 SUBJECTIVE: This patient seems to be doing better, she is complaining of some shortness of breath, x-ray showed pulmonary edema. I have increased the dose of the Lasix from once a day to twice a day IV and also I will place a Sheldon catheter, I will monitor this patient vital signs and output. OBJECTIVE: Vital Signs: Temperature 98.4 degrees, pulse 76, respiratory rate 15, blood pressure 137/59, oxygen saturation 98 on 2 L of nasal cannula. HEENT: Head normocephalic. No trauma. PERRLA. Neck: Supple. No JVD. No masses. Central trachea. Chest: Coarse breath sounds at the bases with some rhonchi at the bases as well. Abdomen: Soft, nontender, nondistended. No hepatosplenomegaly. Extremities: No edema, no clubbing, no cyanosis. Neurologic: The patient is alert. She is following commands. She is able to answer some of my questions with yes or no answer. She has a previous stroke with right-sided hemiparesis and speech problems, expressive aphasia. LABORATORY: Sodium 144, potassium 3.7, chloride 103, bicarbonate 30, BUN 6, creatinine 0.6, glucose 138, calcium 7.6, AST 9, ALT 8, alkaline phosphatase 132, albumin 3.2. ASSESSMENT AND PLAN: 1. New onset atrial fibrillation with rapid ventricular response, Cardiology Department following this patient. Now she has been placed on amiodarone. She is on Eliquis twice a day. No chest pain but a little bit of shortness of breath and pulmonary edema on the new x-ray. 2. Right lower extremity redness with possible cellulitis. Continue with antibiotics. 3. Extended spectrum beta-lactamase Escherichia coli. I have placed this patient on ertapenem, continue with same management. 4. History of cerebrovascular accident with right-sided hemiparesis and expressive aphasia, aware. 5. Leukocytosis resolved. 6. Hypocalcemia. This is better. We will continue to monitor. 7. Hypertension, stable. 8. Hyperlipidemia, aware. 9. Hypokalemia with hypomagnesemia. INCOMPLETE REPORT -- DICTATION ENDS HERE. cc: Mundo Delvalle MD
[2018-10-02] MEDS: LIPITOR PO SCH (21:30)
[2018-10-02] MEDS: PROTONIX PO SCH (21:31)
[2018-10-03] MEDS: CORDARONE PO SCH ×2 (05:33→18:13)
[2018-10-03] MEDS: LIORESAL PO SCH ×4 (05:33→22:46)
--- NOTE | 2018-10-03 07:04 | Diag Imaging Result Doc PS360 ---
EXAM: CHEST-PORTABLE HISTORY: dyspnea TECHNIQUE: Portable chest single view COMPARISON: 10/02/2018 FINDINGS: The lungs are slightly better expanded on the current study. The right hemidiaphragm is elevated. No cardiomegaly. There is vascular distention. No pleural effusions identified. There is a left-sided pacemaker. IMPRESSION: Improved inspiratory effort. No change in the pulmonary edema. Electronically signed by Avery Morales 10/03/2018 7:02 AM
[2018-10-03 07:29] LABS: BASO# 0.02 X1000 (0.0-0.2); BASO% 0.2 % (0.0-0.8); EOS# 0.38 X1000 (0.0-0.7); EOS% 3.6 % (0.0-10.0); HEMATOCRIT 31.5 % (37.0-47.0); HEMOGLOBIN 9.4 g/dL (12.0-16.0); IMM GRAN# 0.04 X1000 (0.0-0.04); IMM GRAN% 0.4 % (0.0-0.5); LYMPH# 1.12 X1000 (1.2-3.4); LYMPH% 10.7 % (20.5-51.1); MCH 26.2 PG (27-31); MCHC 29.8 g/dL (33-37); MCV 87.7 FL (81-99); MONO# 0.98 X1000 (0.11-0.59); MONO% 9.4 % (1.7-9.3); MPV 9.8 FL (7.4-10.4); NEUT# 7.88 X1000 (1.4-6.5); NEUT% 75.7 % (42.2-75.2); PLT 390 X1000 (130-400); RBC 3.59 XMIL (4.2-5.4); RDW 17.4 % (11.5-14.5); WBC 10.42 X1000 (4.8-10.8)
[2018-10-03 07:48] LABS: AGAP 12; ALB/GLOB RATIO 1.1; ALBUMIN 3.2 g/dL (3.5-5.0); ALKALINE PHOSPHATASE 129 U/L (32-104); BUN 9 mg/dL (8-22); CALCIUM 7.3 mg/dL (8.8-10.2); CHLORIDE 94 mmol/L (98-107); COSMO 278; CREATININE 0.6 mg/dL (0.5-0.9); ESTIMATED GFR > 60; GLUCOSE 168 mg/dL (70-104); GOT 10 U/L (10-30); GPT 8 U/L (10-36); MAGNESIUM 1.5 mg/dL (1.5-2.7); POTASSIUM 3.5 mmol/L (3.5-5.1); SODIUM 138 mmol/L (136-145); TCO2 32 mmol/L (25-35); TOTAL BILIRUBIN 1.05 mg/dL (0.20-1.00); TOTAL PROTEIN 6.1 g/dL (6.3-8.3)
[2018-10-03] MEDS: INVANZ 1 GM/NS 1 GM/50 ML IVPB IV SCH (08:31)
[2018-10-03] MEDS: CYMBALTA PO SCH (08:31)
[2018-10-03] MEDS: LASIX IV SCH ×2 (08:31→22:46)
[2018-10-03] MEDS: FOLIC ACID PO SCH (08:31)
[2018-10-03] MEDS: ELIQUIS PO SCH ×2 (08:32→22:46)
--- NOTE | 2018-10-03 08:55 | PROGRESS NOTE ---
DATE: 10/03/2018 SUBJECTIVE: This patient is feeling better but she is still complaining of shortness of breath. X-ray still shows pulmonary edema. I will repeat the chest x-ray tomorrow again. I increased the dose of the Lasix yesterday. Kidney function has been stable. She is tolerating p.o. Heart rate has been stable as well as the vital signs. She is not on home O2. OBJECTIVE: Vital Signs: Temperature 98.2 degrees, pulse 80, respiratory rate 18, blood pressure 121/53, oxygen saturation 97% on 2 L of nasal cannula. HEENT: Head normocephalic no trauma PERRLA. Neck: Supple. No JVD. No masses. Central trachea. Chest: Coarse breath sounds bilaterally with some rhonchi and rales at the bases. Abdomen: Soft, nontender, nondistended. No hepatosplenomegaly. Extremities: No edema, no clubbing, no cyanosis. Neurological: The patient is alert. She is following commands. She is able to answer some of my questions with a yes and no answer. She had a previous stroke with right-sided hemiparesis and expressive aphasia. LABORATORY: WBC 10.4, hemoglobin 9.4, hematocrit 31.5, platelets 390,000. Sodium 138, potassium 3.5, chloride 94, bicarbonate 32, BUN 9, creatinine 0.6 glucose 168, calcium 7.3, albumin 3.4. ASSESSMENT AND PLAN: 1. New onset atrial fibrillation with rapid ventricular rate. Cardiology Department following this patient. She has been placed on amiodarone and Eliquis. She is not complaining of chest pain, but she is complaining of shortness of breath. There is pulmonary edema on the x-ray. I will repeat the x-ray tomorrow. I have increased the dose of the Lasix yesterday. I will monitor the urine output. A Sheldon catheter has been placed as well. 2. Right lower extremity redness with possible cellulitis, continue with antibiotics. 3. Extended spectrum Beta lactamase Escherichia coli. I have placed this patient on Ertapenem. I will continue with the same management. Infectious Disease Department has been consulted. 4. History of cerebrovascular accident with right-sided hemiparesis and expressive aphasia, aware. 5. Leukocytosis, resolved. 6. Hypocalcemia better. 7. Hypertension, stable. 8. Hyperlipidemia, aware. 9. Hypokalemia with hypomagnesemia, resolved. 10. We will continue diuresing this patient. I do believe she will be ready to go home in the next 48 hours if all the symptoms resolve. She is not on home O2. Pending Infectious Disease department recommendations. I have requested physical therapy evaluation as well. cc: Mundo Delvalle MD
[2018-10-03] MEDS: LIPITOR PO SCH (22:46)
[2018-10-03] MEDS: PROTONIX PO SCH (22:46)
[2018-10-04] MEDS: LIORESAL PO SCH ×4 (04:12→21:53)
[2018-10-04] MEDS: CORDARONE PO SCH ×2 (05:02→17:50)
[2018-10-04 07:10] LABS: BASO# 0.03 X1000 (0.0-0.2); BASO% 0.3 % (0.0-0.8); EOS# 0.32 X1000 (0.0-0.7); EOS% 3.3 % (0.0-10.0); HEMATOCRIT 32.8 % (37.0-47.0); HEMOGLOBIN 9.7 g/dL (12.0-16.0); IMM GRAN# 0.02 X1000 (0.0-0.04); IMM GRAN% 0.2 % (0.0-0.5); LYMPH% 14.5 % (20.5-51.1); MCH 26.1 PG (27-31); MCHC 29.6 g/dL (33-37); MCV 88.2 FL (81-99); MONO# 1.01 X1000 (0.11-0.59); MONO% 10.4 % (1.7-9.3); MPV 9.6 FL (7.4-10.4); NEUT# 6.89 X1000 (1.4-6.5); NEUT% 71.3 % (42.2-75.2); PLT 397 X1000 (130-400); RBC 3.72 XMIL (4.2-5.4); RDW 17.3 % (11.5-14.5); WBC 9.67 X1000 (4.8-10.8)
[2018-10-04 07:35] LABS: AGAP 13; ALB/GLOB RATIO 0.9; ALKALINE PHOSPHATASE 131 U/L (32-104); BUN 12 mg/dL (8-22); CHLORIDE 94 mmol/L (98-107); COSMO 279; CREATININE 0.6 mg/dL (0.5-0.9); ESTIMATED GFR > 60; GLUCOSE 160 mg/dL (70-104); GOT 10 U/L (10-30); GPT 9 U/L (10-36); POTASSIUM 3.6 mmol/L (3.5-5.1); SODIUM 138 mmol/L (136-145); TCO2 31 mmol/L (25-35); TOTAL BILIRUBIN 0.93 mg/dL (0.20-1.00); TOTAL PROTEIN 6.2 g/dL (6.3-8.3)
--- NOTE | 2018-10-04 07:40 | Diag Imaging Result Doc PS360 ---
EXAM: CHEST-PORTABLE INDICATION: dyspnea TECHNIQUE: One view COMPARISON: 10/15/2018 FINDINGS: There is stable elevation of the right hemidiaphragm. Right basilar atelectasis is unchanged. There is pulmonary venous congestion and mild interstitial edema that is stable. No new consolidation is identified. Cardiac silhouette is stable. IMPRESSION: Essentially stable chest. Electronically signed by Tomas Townsend 10/04/2018 7:38 AM
[2018-10-04] MEDS: FOLIC ACID PO SCH (09:49)
[2018-10-04] MEDS: ELIQUIS PO SCH ×2 (09:49→21:53)
[2018-10-04] MEDS: CYMBALTA PO SCH (09:49)
[2018-10-04] MEDS: LASIX IV SCH ×2 (09:49→21:53)
[2018-10-04] MEDS: INVANZ 1 GM/NS 1 GM/50 ML IVPB IV SCH (09:49)
--- NOTE | 2018-10-04 14:05 | PROGRESS NOTE ---
DATE: 10/04/2018 SUBJECTIVE: Patient reports doing better. Denies any chest pain. Denies any sensation of palpitations. Denies any fever or chills. OBJECTIVE: Vital Signs: Temperature 97.5 degrees, heart rate 68, respiratory rate 18, blood pressure 127/54, O2 saturation 97% on nasal cannula at 2 L per minute. General Examination: This is a chronically ill-appearing, 73-year-old, female lying in bed, in no acute distress. HEENT: Head is normocephalic and atraumatic. Neck: No JVD noted. No carotid bruits. No lymphadenopathy. No thyromegaly. Cardiovascular Examination: S1 and S2 heard. Irregularly irregular. No murmurs, gallops, or rubs noted. Respiratory Examination: Coarse breath sounds still present in both pulmonary bases with some rhonchi as well. The patient is not using any accessory muscles or having work of breathing. Abdomen: Soft, nontender to palpation. Nondistended. Bowel sounds present. No organomegaly. Extremities: No clubbing, cyanosis, or edema. Peripheral pulses present in both legs. Neurological Examination: The patient is alert and oriented x3. Moves 4 extremities. 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 Laboratory Data: White cell count 9.67, hemoglobin 9.7, hematocrit 32.8 platelets 397,000. ASSESSMENT AND PLAN: 1. New onset atrial fibrillation with rapid ventricular response. Heart rate has been controlled appropriately with amiodarone. The patient is also on Eliquis. The patient is not symptomatic, not complaining of any chest pain or shortness of breath or palpitations. We will continue with the same management. 2. Pulmonary edema. Yesterday, we needed to increase the dose of Lasix to 40 mg intravenous every 12 hours. Clinically, this patient is doing better. The x-ray shows a stable chest. We will continue with the same management. 3. Right lower extremity cellulitis. We will continue with antibiotics. 4. Urinary tract infection secondary to Escherichia coli positive extended-spectrum B-lactamase. The patient is on ertapenem. Infectious disease has been consulted for further management. 5. History of cerebrovascular accident. The patient has right-sided hemiparesis and expressive aphasia. Aware. 6. Hypocalcemia, resolved. 7. Disposition. At this point, we will continue with the same management. She is requiring 2 L of oxygen by nasal cannula. We will continue with physical therapy. I think this patient will be ready to be discharged in the next 24 to 48 hours. cc: Emir Forrest MD
--- NOTE | 2018-10-04 18:52 | INFECTIOUS DISEASE CONSULT REP ---
DATE: 10/04/2018 CONCLUSION: I have been asked to see this patient regarding an extended-spectrum beta-lactamase producing E. coli urinary tract infection. She indeed did grow an extended-spectrum beta- lactamase producing E. coli in her urine culture; however, she had no symptoms or signs of a urinary tract infection. The patient has an expressive aphasia but I managed to communicate with her. When I asked her the following things, she answered me by shaking her head yes or no. She did not have dysuria. She did not have flank pain. She did not have fever or chills. Then I asked her if in the past she had urinary tract infections that had caused her to have dysuria, flank pain, fever or chills, and she indicated to me that she did indeed have urinary tract infections and did have some of the symptoms that I mentioned above; therefore, my final conclusion is that the patient does have an extended-spectrum beta-lactamase producing E. coli urinary tract infection, but it is totally asymptomatic. Also the patient is being treated for a cellulitis of the right leg. When I examined her legs, the right leg was not swollen. It had a little bit of a pinkish discoloration, and I got information from the patient by her shaking her head yes or no that the discoloration of the leg is the normal color she has on that leg and it has been that color for a long time. On my physical exam the leg was not tender, it was not warmer than the other leg and it was not swollen. It was not tender, and it usually had that pinkish color. The other leg that did not have any infection in it was the same size as the leg that had the pinkish discoloration. RECOMMENDATIONS: Because the patient has a totally asymptomatic urinary tract infection, it does not require antibiotic treatment. Also, as regarding her leg that was thought to have cellulitis, I do not think that it is cellulitis; therefore, for both of these entities the patient does not need antibiotic therapy and I have discontinued ertapenem. The patient has asymptomatic bacteriuria and she does not have cellulitis of the leg, and therefore I am discontinuing ertapenem and the patient does not need any further antibiotics at this time. PAST MEDICAL HISTORY: Positive for prior CVA with a right-sided weakness and speech impediment. The speech impediment is expressive aphasia. The patient also has hyperlipidemia, hypertension, a history of urinary tract infections and rheumatoid arthritis. PAST SURGICAL HISTORY: Positive for placement of a pacemaker. SOCIAL HISTORY: The patient does not drink alcoholic beverages, smoke cigarettes or use illicit drugs. She lives at an assisted living facility. ALLERGIES: She has no drug allergies. MEDICATIONS: Home medications included the following: Lipitor, baclofen, Cymbalta, Faina, Lasix, Prinivil, Glucophage, methotrexate, metoprolol, Protonix and prednisone. The dose of prednisone, however, is only 10 mg daily. REVIEW OF SYSTEMS: Eyes and ears: I asked the patient if she had any problems seeing or hearing, and she shook her head no. Respiratory: She indicated to me she does not have a cough or shortness of breath. Cardiac: She was admitted to the hospital because of atrial fibrillation with a rapid ventricular response. GI: The patient indicates she did not have nausea, vomiting or diarrhea. Genitourinary: See present illness. That is the extent I did of the review of systems. PHYSICAL EXAMINATION: Vital signs: Temperature is 97.8 degrees, pulse 82, respirations 18, blood pressure 127/59. Generally, this is a healthy-appearing elderly female. She is obese, however. She is 5 feet 6 inches tall and weighs 202 pounds. Head, eyes, ears, nose and throat: She does not have any drainage from her nose or ears. She does not have any patches on her tongue. She can hear my spoken words and she can see near objects. Neck: There is no stiffness. Lungs clear to auscultation. Heart rate is regular. Abdomen is soft and nontender. Neurologic: The patient has an expressive aphasia and a left hemiparesis. Extremities: The patient's right leg was a little bit pinkish in color. It was not swollen. It was not tender and it was not any bigger size than the other leg. The right leg also was not warmer than the other leg. Thank you for the consult. cc: Ward Car MD
[2018-10-04] MEDS: LIPITOR PO SCH (21:53)
[2018-10-04] MEDS: PROTONIX PO SCH (21:53)
[2018-10-05] MEDS: LIORESAL PO SCH ×4 (03:43→21:54)
[2018-10-05] MEDS: CORDARONE PO SCH (06:36)
[2018-10-05 07:17] LABS: BASO# 0.03 X1000 (0.0-0.2); BASO% 0.3 % (0.0-0.8); EOS# 0.28 X1000 (0.0-0.7); EOS% 3.2 % (0.0-10.0); HEMOGLOBIN 9.8 g/dL (12.0-16.0); IMM GRAN# 0.03 X1000 (0.0-0.04); IMM GRAN% 0.3 % (0.0-0.5); LYMPH# 1.34 X1000 (1.2-3.4); LYMPH% 15.2 % (20.5-51.1); MCH 25.9 PG (27-31); MCHC 29.7 g/dL (33-37); MCV 87.3 FL (81-99); MONO# 0.99 X1000 (0.11-0.59); MONO% 11.2 % (1.7-9.3); MPV 9.6 FL (7.4-10.4); NEUT# 6.16 X1000 (1.4-6.5); NEUT% 69.8 % (42.2-75.2); PLT 419 X1000 (130-400); RBC 3.78 XMIL (4.2-5.4); RDW 17.4 % (11.5-14.5); WBC 8.83 X1000 (4.8-10.8)
[2018-10-05 07:40] LABS: AGAP 15; BUN 14 mg/dL (8-22); CHLORIDE 94 mmol/L (98-107); COSMO 288; CREATININE 0.6 mg/dL (0.5-0.9); ESTIMATED GFR > 60; GLUCOSE 182 mg/dL (70-104); POTASSIUM 3.3 mmol/L (3.5-5.1); SODIUM 142 mmol/L (136-145); TCO2 33 mmol/L (25-35)
[2018-10-05] MEDS: CYMBALTA PO SCH (09:54)
[2018-10-05] MEDS: ELIQUIS PO SCH ×2 (09:54→21:54)
[2018-10-05] MEDS: FOLIC ACID PO SCH (09:55)
[2018-10-05] MEDS: LASIX IV SCH (09:56)
--- NOTE | 2018-10-05 10:27 | CARDIOLOGY PROGRESS NOTE ---
DATE: 10/05/2018 SUBJECTIVE: Patient continues without chest discomfort or dyspnea and is currently on supplemental oxygen. OBJECTIVE: Vital Signs: Blood pressure 133/54, heart rate 68 with ECG monitor showing atrial paced rhythm, oxygen saturation measured on room air 97%. There is no significant jugular venous distention. Chest is clear to auscultation. Cardiac exam reveals a regular rate and rhythm without appreciable murmur or gallop. Extremities are without edema. LABORATORY DATA: Includes a white blood cell count 8.83, hematocrit 33.0, hemoglobin 9.8, platelet count 419,000. Sodium 142, potassium 3.3, chloride 94, carbon dioxide 33, BUN 14, creatinine 0.6, glucose 182. IMPRESSION: 1. Atrial fibrillation. Patient continues in sinus rhythm on amiodarone. 2. Status post previous cerebrovascular accident with right hemiparesis and abnormal speech. 3. Hypertension. 4. Hyperlipidemia. 5. Rheumatoid arthritis. 6. Status post dual-chamber permanent pacemaker. RECOMMENDATIONS: 1. Reduce amiodarone 200 mg daily at this point. 2. Continue anticoagulation with Eliquis as tolerated. 3. The patient appears to be euvolemic presently. Further diuresis does not appear to be needed. 4. Reasonable for patient to transition back to assisted living soon. I will see further on an as-needed basis. cc: Cirilo Stout MD
--- NOTE | 2018-10-05 14:46 | PROGRESS NOTE ---
DATE: 10/05/2018 INTERVAL HISTORY: The patient's atrial fibrillation remains controlled. Right-sided weakness and largely nonfluent aphasia, stable. Respiratory status stable to slightly improved. Remains stable off of antibiotics. No new complaints. REVIEW OF SYSTEMS: Twelve point review of systems negative except as per interval history. LABS: WBC 8.8, hemoglobin 9.8, hematocrit 33.0, platelets 419,000. Sodium 142, potassium 3.3, chloride 94, BUN 14, creatinine 0.6, glucose 182. VITAL SIGNS: T-max 98.0, pulse 72, respirations 17, blood pressure 137/56, O2 saturation 97% on room air. PHYSICAL EXAMINATION: General: No acute distress. Vital signs: As above. HEENT: Normocephalic, atraumatic. Moist mucous membranes. No cervical adenopathy. Cardiovascular: Irregular rhythm but normal rate. No murmurs noted. Pulmonary: Slight bibasilar crackles but otherwise clear to auscultation bilaterally. Abdomen: Soft, nontender, nondistended. Bowel sounds positive. Extremities: Peripheral pulses intact. No clubbing, cyanosis, or edema. Neurologic: Cranial nerves grossly intact aside from largely nonfluent aphasia. Patient can give single word answers usually. Right hemiparesis, stable. No acute focal deficits identified. Psychiatric: Normal mood and affect. Awake and alert. ASSESSMENT AND PLAN: 1. New onset atrial fibrillation with rapid ventricular response. Heart rate has been controlled with amiodarone. Patient on Eliquis for stroke prophylaxis. Largely asymptomatic at this point. Continue current therapy. 2. Pulmonary edema, likely related to mild pulmonary hypertension. Transitioned to home p.o. Lasix. X-ray stable. Continue to monitor. 3. Right lower extremity cellulitis, resolved. Monitoring off antibiotics. 4. Asymptomatic bacteriuria. Cultures growing ESBL E. coli but on discussion with Infectious Disease, it is felt that this represents asymptomatic bacteriuria rather than a urinary tract infection. Off of antibiotics. 5. History of cerebrovascular accident with residual right hemiparesis and nonfluent aphasia. Stable. 6. Hypokalemia, mild. We will replete and monitor. 7. Hypocalcemia, resolved. 8. Disposition. Largely stable at this point. If no signs of new or worsening infection develop and oxygen requirements remain minimal to 0, then may be able to go back to assisted living tomorrow.
[2018-10-05] MEDS: LIPITOR PO SCH (21:54)
[2018-10-05] MEDS: PROTONIX PO SCH (21:54)
[2018-10-06] MEDS: LIORESAL PO SCH ×4 (02:56→22:00)
[2018-10-06 08:14] LABS: AGAP 14; BUN 11 mg/dL (8-22); CALCIUM 8.6 mg/dL (8.8-10.2); CHLORIDE 94 mmol/L (98-107); COSMO 286; CREATININE 0.6 mg/dL (0.5-0.9); ESTIMATED GFR > 60; GLUCOSE 161 mg/dL (70-104); POTASSIUM 3.9 mmol/L (3.5-5.1); SODIUM 142 mmol/L (136-145); TCO2 34 mmol/L (25-35)
[2018-10-06] MEDS: CYMBALTA PO SCH (10:28)
[2018-10-06] MEDS: ELIQUIS PO SCH ×2 (10:28→22:00)
[2018-10-06] MEDS: CORDARONE PO SCH (10:28)
[2018-10-06] MEDS: LASIX PO SCH (10:28)
[2018-10-06] MEDS: FOLIC ACID PO SCH (10:28)
--- NOTE | 2018-10-06 11:15 | Extremity Venous Study ---
PROCEDURE NAME: Venous U/S Bilateral Legs - 09/29/2018 PROCEDURE PERFORMED: Bilateral lower extremity venous duplex and color flow imaging study using the Compario vivid E9 ultrasound system with a 9 L-D transducer. REFERRING PHYSICIAN: Dr. Astorga. A 73-year-old female. [employer] USER INTERFACE DEVELOPER: Antoinette Rosa RVT. INDICATIONS: Bilateral lower extremity pain and swelling, suggestive of deep venous thrombosis. FINDINGS: The right common femoral vein and its branches, deep and superficial femoral veins were satisfactorily imaged. They had flow through them and were compressible. Right popliteal vein and the deep veins below the right knee were all compressible and had flow through them. The superficial veins of the right lower extremity were compressible throughout their length. The left common femoral vein and its branches, deep and superficial femoral veins were also satisfactorily imaged. They had flow through them and were compressible. Left popliteal vein and the deep veins below the left knee were all compressible and had flow through them. The superficial veins of the left lower extremity were compressible throughout their length. INTERPRETATION: No evidence of acute deep or superficial venous thrombosis of the bilateral lower extremities. cc: MD Mundo Olson MD
--- NOTE | 2018-10-06 15:00 | PROGRESS NOTE ---
DATE: 10/06/2018 INTERVAL HISTORY: Atrial fibrillation remains well controlled. Respiratory status baseline. No new complaints. No acute events overnight. REVIEW OF SYSTEMS: Twelve point review of systems negative except as per interval history. LABORATORY: Potassium 3.9, sodium 142, creatinine 0.6, glucose 161. VITAL SIGNS: T-max 98.0 degrees, pulse 62, respirations 17, blood pressure 127/55, O2 saturation 98% on 2 L by nasal cannula. PHYSICAL EXAMINATION: General: No acute distress. Vital signs: As above. HEENT: Normocephalic, atraumatic. Moist mucous membranes. No cervical adenopathy. Cardiovascular: Irregular rhythm but normal rate. No murmurs noted. Pulmonary: Largely clear to auscultation bilaterally. Abdomen: Soft, nontender, nondistended. Bowel sounds positive. Extremities: Peripheral pulses intact. No clubbing, cyanosis, or edema. Neurologic: Cranial nerves grossly intact aside from largely nonfluent aphasia. The patient can give single word answers, but frequently has to correct herself. Right hemiparesis stable. No new focal deficits identified. Psychiatric: Normal mood and affect. Awake, alert, cooperative. ASSESSMENT AND PLAN: 1. Atrial fibrillation with rapid ventricular response. Heart rate controlled with amiodarone. We will continue amiodarone with Eliquis for stroke prophylaxis. 2. Pulmonary edema. Largely resolved at this point. Transitioned to home p.o. Lasix and appears to be doing well. 3. Right lower extremity cellulitis, resolved. 4. Asymptomatic bacteriuria. Cultures growing ESBL E. coli. After discussion with the patient and ID, it was felt that this represented asymptomatic bacteriuria rather than a UTI. Doing well off antibiotics. 5. History of cerebrovascular accident with residual right hemiparesis and nonfluent aphasia, stable. 6. Hypokalemia. Improved status post repletion. Monitor. 7. Hypocalcemia, resolved. 8. Disposition. After discussion with the patient and family, they desire rehab placement. Anticipate discharge once bed is obtained, hopefully tomorrow.
[2018-10-06] MEDS: PROTONIX PO SCH (21:59)
[2018-10-06] MEDS: LIPITOR PO SCH (22:00)
[2018-10-07] MEDS: TYLENOL PO PRN (02:21)
[2018-10-07] MEDS: LIORESAL PO SCH ×3 (03:49→15:39)
[2018-10-07] MEDS: CYMBALTA PO SCH (09:50)
[2018-10-07] MEDS: CORDARONE PO SCH (09:51)
[2018-10-07] MEDS: ELIQUIS PO SCH (09:51)
[2018-10-07] MEDS: FOLIC ACID PO SCH (09:51)
[2018-10-07] MEDS: LASIX PO SCH (09:51)
--- NOTE | 2018-10-07 10:58 | DISCHARGE SUMMARY ---
ADMISSION DATE: 09/28/2018 DISCHARGE DATE: 10/07/2018 PRIMARY CARE PHYSICIAN: Dr. Jose M Spivey. ADMISSION DIAGNOSES: 1. New onset atrial fibrillation with rapid ventricular response. 2. History of cerebrovascular accident. 3. Leukocytosis with history of urinary tract infection. 4. Presumed urinary tract infection. 5. Hypertension. 6. Hyperlipidemia. DISCHARGE DIAGNOSES: 1. Atrial fibrillation with rapid ventricular response, now rate controlled. 2. Pulmonary edema, resolved. 3. Right lower extremity cellulitis, resolved. 4. An asymptomatic bacteria. Cultures growing an extended spectrum beta lactamase Escherichia coli. 5. History of cerebrovascular accident with right residual hemiparesis and nonfluent aphasia, stable. 6. Hypokalemia, resolved. 7. Hypocalcemia, resolved. SUMMARY OF FINDINGS: This is a 73-year-old female, who resided at a local assisted living, found by the staff being short of breath, complaining of chest pain and tachycardia. Therefore, EMS brought her in for evaluation. She was found to be in atrial fibrillation with RVR in the rate of 130 to 150. Blood pressures were in the 60s, 70s and 80s systolic. Norepinephrine was started in the ER. Chest x-ray showed mild pulmonary edema. We consulted Cardiology. Placed her in intensive care initially. She was noted to have a presumed UTI with a culture that grew out an ESBL positive E coli. We did an echocardiogram on 09/29/2018 that showed an ejection fraction of 55% with a normal left ventricular systolic function. We did consult Infectious Disease also, who felt that her leg was not a cellulitis, felt that the patient had an asymptomatic bacteria and that she did not have cellulitis of the leg. So, he discontinued her ertapenem and did not need any further antibiotics at this time. She is rate controlled currently, and it is felt that she can safely be discharged to rehab today. DISCHARGE MEDICATIONS: Eliquis 5 mg p.o. b.i.d. #60 with 1 refill, baclofen 20 mg p.o. q. 6 hours, Duloxetine 120 mg p.o. daily, folic acid 1 mg p.o. daily, Protonix 40 mg p.o. at bedtime, a new prescription for amiodarone 200 mg p.o. b.i.d., fexofenadine 180 mg p.o. daily, Lasix 40 mg p.o. at bedtime, lisinopril 5 mg p.o. daily, metformin 500 mg p.o. b.i.d., methotrexate 2.5 mg 5 tablets p.o. as directed, metoprolol 25 mg p.o. daily, and potassium 20 mEq p.o. at bedtime. FOLLOWUP: She has an appointment with Cardiology on 11/17/2018 at 1:15. She also needs to follow up with Infectious Disease once her rehab is completed, and with her primary care once rehab is completed. TIME SPENT WITH PATIENT: This a 35 minute discharge. Dictated by CHASE Fair for Man Douglas MD cc: CHASE Fair MD Agree with above. the following is my own face to face assessment. respiratory symptoms resolved, no further infection, afib rate controlled. residual stroke symptoms stable. ok for discharge to SNF. MTDD
[2018-10-07 16:17] VITALS: BP 115/58
== END 2018-10-07 18:27 | DRG 308 ==
LOC: SUPCPDRO → ED 13:22 → EDIPHOLD 17:30 → SUATTDRO 17:30 → ICU 09-29 13:42 → 3N 10-02 01:33
PROVIDERS: ATTEND Internal Medicine
CPT/HCPCS: 51701; 71010; 71045; 80048; 80053; 81001; 82330; 82550; 82948; 83735; 83880; 84443; 84484; 85025; 85027; 85610; 85730; 87077; 87088; 87186; 93005; 93306; 93970; 94761; 96365; 96366; 96372; 96375; 96376; 97110; 97163; 99285; 99291; A9270; C8929; J0282; J0610; J0696; J1160; J1335; J1650; J1940; J2405; J3475; J7030; J7040; J7060; P9612; Q9957; XXXXX

== ENCOUNTER 2018-10-30 08:02 | Inpatient (IN) ==
[2018-10-30] MEDS ORDERED: NS 1,000 ML IV ONE (08:09)
--- NOTE | 2018-10-30 08:09 | PROVIDER DOCUMENTATION ---
HPI-Neurological Disorder - General Stated Complaint: AMS Time Seen by Provider: 10/30/18 08:06 Source: EMS, [facility] records (Assisted living records) Allergies/Adverse Reactions: Patient Allergies Allergy/AdvReac Type Severity Reaction Status Date / Time No Known Allergies Allergy Verified 09/28/18 14:08 Home Medications: Home Medication List Medication Instructions Recorded Confirmed Last Taken Type Baclofen 20 mg PO Q6H 04/29/17 09/29/18 09/28/18 History Fexofenadine [Faina] 180 mg PO DAILY 04/29/17 09/29/18 1 Day Ago History ~09/28/18 Furosemide [Lasix] 40 mg PO QHS 04/29/17 09/29/18 1 Day Ago History ~09/28/18 LISINOpril [Prinivil] 5 mg PO DAILY 04/29/17 09/29/18 1 Day Ago History ~09/28/18 Pantoprazole [Protonix] 40 mg PO HS 04/29/17 09/29/18 1 Day Ago History ~09/28/18 ATORVAstatin [Lipitor] 10 mg PO QHS 01/30/18 09/29/18 1 Day Ago History ~09/28/18 Folic Acid 1 mg PO DAILY 01/30/18 09/29/18 09/28/18 History Methotrexate 5 tab PO DIRECTED 01/30/18 09/29/18 09/28/18 History Potassium Chloride 20 meq PO QHS 01/30/18 09/29/18 1 Day Ago History ~09/28/18 Metformin [Glucophage] 500 mg PO BID CC 09/29/18 09/29/18 1 Day Ago History ~09/28/18 Metoprolol Succinate E.r. [Toprol 25 mg PO DAILY 09/29/18 09/29/18 1 Day Ago History Xl] ~09/28/18 Amiodarone [Cordarone] 200 mg PO BID@0600,1800 #60 tab 10/05/18 Unknown Rx Apixaban [Eliquis] 5 mg PO BID #60 tab 10/05/18 Unknown Rx Duloxetine [Cymbalta] 120 mg PO DAILY #30 cap 10/07/18 Unknown Rx - History of Present Illness-Neuro Nature of Presenting Problem: Patient recently transferred from rehab back to assisted living noted to have AMS after breakfast this morning, lethargic, minimally responsive. 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 No change in meds, no recent trauma, no fever. EMS report d-stick 222 en route. History is limited as patient does not have family at bedside. Severity: reports: moderate Onset/Duration: reports: 1-3 hours ago Timing: reports: still present Context: reports: found unresponsive by [facility] staff (assisted living. EMS reports patient will open eyes and withdraw to pain) Character of Altered Mental Status: reports: decreased responsiveness Any recent trauma/injury?: reports: none Cognitive Baseline: alert but confused Gait Baseline: unable to walk (uses wheel chair) Associated Symptoms: reports: denies symptoms Similar Symptoms Previously?: No Recently seen or treated by another doctor?: Yes (Admitted here 09/28, D/C to Rehab 10/11) Review of Systems - Adult - REVIEW OF SYSTEMS - ADULT ROS:: unobtainable per condition (from patient EMS answers some questions, Assisted Living Center notes reviewed) Constitutional: reports: no symptoms reported Eyes: reports: no symptoms reported Ears, Nose, Mouth & Throat: reports: no symptoms reported Cardiovascular: reports: no symptoms reported Respiratory: reports: no symptoms reported Gastrointestinal: reports: no symptoms reported Genitourinary: reports: no symptoms reported Musculoskeletal: reports: no symptoms reported Integumentary: reports: no symptoms reported Neurological: reports: see HPI, slurred speech Psychiatric: reports: no symptoms reported Endocrine: reports: no symptoms reported Hematologic/Lymphatic: reports: no symptoms reported Allergic/Immunologic: reports: no symptoms reported All Other Systems: Reviewed and Negative Past History - Adult - PAST MEDICAL HISTORY-ADULT Review of Records: reports: Old Records Reviewed (Including last ad mission/discharge last month), Nursing Assessment Review, Medications Reviewed, Social history reviewed & non-contributory. Major Childhood Illnesses: reports: denies history Cardiovascular: reports: A-Fib, HTN, hyperlipidemia, pacemaker Respiratory: reports: denies history Gastrointestinal: reports: denies history Obstetrical/Gynecological: reports: denies history Genitourinary: reports: denies history Musculoskeletal: reports: denies history Neurological: reports: CVA, stroke deficits Psychiatric: reports: denies history Endocrine/Immune: reports: denies history Other Conditions: reports: denies history, other (UTI) - PRIOR SURGERIES/PROCEDURES Surgical/Procedure History: reports: reviewed, not pertinent - IMMUNIZATION STATUS Childhood Immunizations: UTD Flu Vaccine: UTD - FAMILY HISTORY Family History: reviewed, not pertinent - SOCIAL HISTORY Smoking: non-smoker Substance Use: none/never Alcohol Use Frequency: never Living Situation: care facility Physical Exam- Neurological - Physical Exam-Neuro Initial Vital Signs Reviewed: Yes (VSSAF) General Appearance: no apparent distress, lethargic (open eyes to loud noise, pain) Eye Exam: bilateral eye: normal inspection, PERRL, EOMI HENMT: normocephalic/atraumatic, other (dry mucous membranes). negative: moist mucous membranes Head Injury: no evidence of injury Neck: non-tender, full range of motion, supple, normal inspection Respiratory: chest non-tender, lungs clear, normal breath sounds, no pleuratic chest pain, no respiratory distress Cardiovascular: regular rate, rhythm, gallop/S3 Abdominal Exam: normal bowel sounds, non tender, soft, no organomegaly, no pulsatile mass Lymphatic: no adenopathy Peripheral Pulses: radial (R): 2+, radial (L): 2+ Extremity: normal range of motion, non-tender, normal inspection, no pedal edema evp general counsel Exam: normal hearing, other (aphasic) Motor/Sensory: positive Babinski's sign, weak motor strength RUE, weak motor strength RLE Neurologic: evp general counsel II-XII nml as tested, grossly normal, no motor/sensory deficits Integumentary: normal color, normal turgor, warm/dry Psych/Mental Status: depressed affect - Glascow Coma Scale Best Eye Response: (3) open to voice Best Verbal Response: (2) incomprehsible sounds Best Motor Response: (4) withdraws to pain Total Glascow Score: 9 Progress - PLAN OF CARE/RESULTS Progress/Plan/Lab Results: Vital Signs - 8 hr 10/30/18 08:40 Temperature 97.9 F Pulse Rate 66 Respiratory Rate 18 Blood Pressure 134/48 O2 Sat by Pulse Oximetry 95 Laboratory Results - last 24 hr 10/30/18 10/30/18 10/30/18 08:30 09:12 09:12 WBC 13.98 H RBC 4.16 L Hgb 10.9 L Hct 35.5 L MCV 85.3 MCH 26.2 L MCHC 30.7 L RDW Std Deviation 18.1 H Plt Count 448 H MPV 10.5 H Immature Gran % (Auto) 0.3 Neut % (Auto) 83.1 H Lymph % (Auto) 11.0 L Butler % (Auto) 5.4 Eos % (Auto) 0.1 Baso % (Auto) 0.1 Immature Gran # (Auto) 0.04 Neut # (Auto) 11.60 H Lymph # (Auto) 1.54 Butler # (Auto) 0.76 H Eos # (Auto) 0.02 Baso # (Auto) 0.02 Specimen Type Sample Site pH pCO2 pO2 HCO3 Base Excess Oxyhemoglobin ABG O2 Sat (Calculated) ABG O2 Saturation ABG Carboxyhemoglobin ABG Methemoglobin Cornelius Test A-a O2 Difference Total Hemoglobin Lactate FiO2 % Sodium 140 Potassium 5.2 H Chloride 100 Carbon Dioxide 20 L Anion Gap 20 BUN 42 H Creatinine 2.1 H Estimated GFR/1.73 m2 23 BUN/Creatinine Ratio 20 Glucose 198 H POC Glucose Calculated Osmolality 295 Calcium 8.6 L Magnesium 1.6 Total Bilirubin 0.89 AST 8 L ALT 8 L Alkaline Phosphatase 127 H Creatine Kinase 56 Troponin T 0.010 Total Protein 7.6 Albumin 4.3 Globulin 3.3 Albumin/Globulin Ratio 1.3 Urine Source Urine Color Urine Turbidity Urine pH Ur Specific [place] Urine Protein Ur Glucose (Stick) Ur Ketones (Stick) Urine Blood Urine Nitrite Urine Bilirubin Urobilinogen Dipstick Urine Leukocytes Urine WBC (Auto) Urine RBC (Auto) U Epithel Cells (Auto) Urine Bacteria (Auto) 10/30/18 10/30/18 10/30/18 09:17 09:25 09:40 WBC RBC Hgb Hct MCV MCH MCHC RDW Std Deviation Plt Count MPV Immature Gran % (Auto) Neut % (Auto) Lymph % (Auto) Butler % (Auto) Eos % (Auto) Baso % (Auto) Immature Gran # (Auto) Neut # (Auto) Lymph # (Auto) Butler # (Auto) Eos # (Auto) Baso # (Auto) Specimen Type ARTERIAL Sample Site R BRACHIAL pH 7.36 pCO2 40 pO2 81 HCO3 22.8 Base Excess -2.7 Oxyhemoglobin 94.8 L ABG O2 Sat (Calculated) 13.8 L ABG O2 Saturation 96.3 ABG Carboxyhemoglobin 0.70 ABG Methemoglobin 0.8 Cornelius Test YES A-a O2 Difference 19.0 Total Hemoglobin 10.3 L Lactate 2.80 H FiO2 % 21.0 Sodium Potassium Chloride Carbon Dioxide Anion Gap BUN Creatinine Estimated GFR/1.73 m2 BUN/Creatinine Ratio Glucose POC Glucose 160 H Calculated Osmolality Calcium Magnesium Total Bilirubin AST ALT Alkaline Phosphatase Creatine Kinase Troponin T Total Protein Albumin Globulin Albumin/Globulin Ratio Urine Source CATH Urine Color YELLOW Urine Turbidity HAZY Urine pH 5.0 Ur Specific [place] 1.011 Urine Protein TRACE A Ur Glucose (Stick) NEGATIVE Ur Ketones (Stick) TRACE A Urine Blood NEGATIVE Urine Nitrite NEGATIVE Urine Bilirubin NEGATIVE Urobilinogen Dipstick NORMAL Urine Leukocytes MODERATE A Urine WBC (Auto) 10-20 A Urine RBC (Auto) <10 U Epithel Cells (Auto) <10 Urine Bacteria (Auto) 1+ Orders Category Date Time Status Sheldon Cath Insertion ORDERED Care 10/30/18 08:06 Active Saline Loc NOW Care 10/30/18 08:07 Active CHEST-PORTABLE [RAD] Stat Exams 10/30/18 08:[address] HEAD W/O CONTRAST [CT] Stat Exams 10/30/18 08:08 Completed ABG [RESP] Routine Lab 10/30/18 09:25 Completed ALCOHOL BLOOD Stat Lab 10/30/18 09:17 Received BLOOD CULTURE [BLDCUL] Stat Lab 10/30/18 08:30 Ordered CBC WITH ELECTRONIC DIFF [HEME] Stat Lab 10/30/18 09:12 Completed CK PROFILE [SP CHEM] Stat Lab 10/30/18 09:12 Completed COMPREHENSIVE METABOLIC PANEL [CHEM] Stat Lab 10/30/18 09:12 Completed LACTATE, PLASMA [CHEM] Stat Lab 10/30/18 08:30 Received MAGNESIUM [CHEM] Stat Lab 10/30/18 09:12 Completed PRO B-NATRIURETIC PEPTIDE Stat Lab 10/30/18 09:17 Received PROTIME WITH INR [COAG] Stat Lab 10/30/18 09:17 Received PTT [COAG] Stat Lab 10/30/18 09:17 Received TROPONIN T Stat Lab 10/30/18 08:30 Completed TSH Stat Lab 10/30/18 09:17 Received URINALYSIS W/POSS RFLX CULT [URINALYSIS] Stat Lab 10/30/18 09:17 Completed URINE DRUG SCREEN Stat Lab 10/30/18 09:17 Received 0.9% Sodium Chloride Inj [Ns] 1,000 ml Med 10/30/18 08:09 Discontinued IV 999 mls/hr Meropenem [Merrem] 1 gm Med 10/30/18 09:51 Active 0.9% Sodium Chloride Inj [Ns] 50 ml IV NOW EKG [EKG] Stat Ther 10/30/18 08:07 Ordered Result Diagrams: 10/30/18 09:12 10/30/18 09:12 - REASSESSMENT Reassessment #1 Time Reassessed: 09:53 Status: unchanged (minimally changed after IVF bolus. Patient does not meet criteria for sepsis. Given IV Merrem for complicated UTI) - EKG 1 Time of EKG reading by physician:: 08:20 EKG Read and Signed by:: Hernandez Parker Rate: 68 Rhythm: NSR [place]: normal QRS: other (First degree AV block, prolonged QTc, atrial paced rhythm) MD Interval: prolonged ST Wave: non-specific ST changes Prior EKG Comparison: unchanged from prior () - XRAY 1 XRAY Study: Chest (read by me at 0918) Impression: Abnormal (pacemaker, elevated right hemidiaphragm, atelectasis right base, calcified aortic ring, nothing acute) - CT/MRI 1 CT Study: Head Impression: Abnormal, See EMR Report (EXAM: CT HEAD W/O CONTRAST INDICATION: ams TECHNIQUE: This exam was performed using automated exposure control, adjustment of mA or kV according to patient size, and/or use of iterative reconstruction technique. COMPARISON: None. FINDINGS: There is encephalomalacia in the left frontal lobe and left parietal lobe in the MCA distribution. There is no definite acute infarct given the limited sensitivity of CT versus MRI. There is no discrete intracranial mass, mass effect, or intracranial hemorrhage. The surrounding soft tissues and bony structures are essentially unremarkable. IMPRESSION: Left MCA distribution encephalomalacia. No evidence of acute intracranial pathology by CT. Electronically signed by Tomas Townsend 10/30/2018 9:03 AM 10/30/18 0903 Interpreting Physician: Tomas Townsend MD Dictated Date/Time: 10/30/18 0902 cc: Hernandez Parker MD; Jose M Spivey MD) - CONSULTS/PCP/HOSPITALIST Notification #1 *Consult/PCP/Hospitalist*: CHASE Yanez Time Discussed: 09:54 (Medeiros) Consult Disposition: Admit Departure - Departure Date of Disposition Decision: 10/30/18 Time of Disposition Decision: 09:54 DIAGNOSIS: Complicated UTI (urinary tract infection) Altered mental status, unspecified Qualifiers: Altered mental status type: somnolence Qualified Code(s): R40.0 - Somnolence Disposition: ADMITTED INPATIENT 09 Certified Medical Emergency: Emergent Condition: Fair Referrals and Follow-Ups: Jose M Spivey MD [Primary Care Provider] - - Critical Care Note This patient required my direct & personal management of CC.: No Attestation - Physician/ LILY Attestation Patient care was provided by Advanced Practice Provider:: No The physician spent face to face time with patient:: Yes Advanced Practice Provider documentation review:: Supervising physician onsite and consulted in the evaluation and care of this patient. The physician did have a face to face encounter with the patient. - NIH Stroke Scale NIH Type: Initial Evaluation Level of Consciousness: 2-Stuporous, requires repeat stimulation to attend LOC Questions (ask month and age): 2-Both Incorrect LOC Commands (ask to open & close eyes;make a fist, let go): 1-Obeys One Correctly Best Gaze (horizontal eye movement): 0-Normal Visual (use finger movement, counting or visual threat): 0-No Visual Loss Facial Palsy (show teeth or raise eyebrows & close eyes tght: 1-Minor Paralysis Motor Function-left arm: 2-Some Effort Against [place] Motor Function-right arm: 4-No Movement Motor Function-left le-Some Effort Against [place] Motor Function-right le-No Movement Limb Ataxia([id number], or heel to gu): 0-No Ataxia Sensory(pin prick to face,arms,trunk,legs-compare side/side): 1-Mild to Moderate Decrease in Sensation Best Language(name item/read sentence.Ex-Down to Earth): 2-Severe Aphasia Dysarthria(Pt read words or say words Ex.Mama,Tip-Top,Thanks: 2-Near Unintelligible Extinction and Inattention: 0-Normal NIH Total Score: 23 Modified Dinesh Score Criteria: 5-severe disability Stroke tPA Guidelines - Inclusion Criteria for IV tPA 18 years old or older: Yes Ischemic stroke with measurable deficit: No Onset <3 hours ago *OR* 3-4.5 hours ago: Yes - Exclusion Criteria for IV tPA Evidence of intracranial hemorrhage on CT: No Presentation suggest SAH: No CT reveals defined area of hypodensity: No Evidence of AVM, neoplasm, aneurysm: No Seizure at stroke onset: No Active internal bleeding or acute trauma: No Platelet Count Less Than 100,000: No Heparin Within Last 48 HRS (PTT >Lab normal limits): No INR > 1.7 (warfarin use): No Use IIB/IIIA inhibitors within 24 hours: Yes Serious Head Trauma Within Last 3 Months: No Arterial Puncture Within Last 7 Days: No Lumbar Puncture Within Last 7 Days: No Repeated systolic Blood Pressure >185 or Diastolic >110: No - Additional Exclusion Criteria for IV tPA Currently on Coumadin: No Patient older than 80: No Prior stroke and diabetes: No Baseline NIHSS score > 25: No - Consultation Consent given by:: unable to obtain Candidate for:: NOT A CANDIDATE (recent stroke)
--- NOTE | 2018-10-30 09:05 | Diag Imaging Result Doc PS360 ---
EXAM: CT HEAD W/O CONTRAST INDICATION: ams TECHNIQUE: This exam was performed using automated exposure control, adjustment of mA or kV according to patient size, and/or use of iterative reconstruction technique. COMPARISON: None. FINDINGS: There is encephalomalacia in the left frontal lobe and left parietal lobe in the MCA distribution. There is no definite acute infarct given the limited sensitivity of CT versus MRI. There is no discrete intracranial mass, mass effect, or intracranial hemorrhage. The surrounding soft tissues and bony structures are essentially unremarkable. IMPRESSION: Left MCA distribution encephalomalacia. No evidence of acute intracranial pathology by CT. Electronically signed by Tomas Townsend 10/30/2018 9:03 AM
[2018-10-30 09:16] LABS: BASO# 0.02 X1000 (0.0-0.2); BASO% 0.1 % (0.0-0.8); EOS# 0.02 X1000 (0.0-0.7); EOS% 0.1 % (0.0-10.0); HEMATOCRIT 35.5 % (37.0-47.0); HEMOGLOBIN 10.9 g/dL (12.0-16.0); IMM GRAN# 0.04 X1000 (0.0-0.04); IMM GRAN% 0.3 % (0.0-0.5); LYMPH# 1.54 X1000 (1.2-3.4); MCH 26.2 PG (27-31); MCHC 30.7 g/dL (33-37); MCV 85.3 FL (81-99); MONO# 0.76 X1000 (0.11-0.59); MONO% 5.4 % (1.7-9.3); MPV 10.5 FL (7.4-10.4); NEUT% 83.1 % (42.2-75.2); PLT 448 X1000 (130-400); RBC 4.16 XMIL (4.2-5.4); RDW 18.1 % (11.5-14.5); WBC 13.98 X1000 (4.8-10.8)
--- NOTE | 2018-10-30 09:24 | Diag Imaging Result Doc PS360 ---
EXAM: CHEST-PORTABLE INDICATION: AMS TECHNIQUE: One view COMPARISON: 10/04/2018 FINDINGS: There is stable elevation of the right hemidiaphragm. Pulmonary venous congestion and interstitial edema seen on the previous study has improved and has essentially resolved. There is no discrete pleural fluid collection or pneumothorax. The cardiomediastinal silhouette and central vasculature are grossly unremarkable. The pacemaker is in stable position. IMPRESSION: No evidence of acute pathology by plain radiograph. Electronically signed by Tomas Townsend 10/30/2018 9:21 AM
[2018-10-30 09:31] LABS: ALB/GLOB RATIO 1.3; ALBUMIN 4.3 g/dL (3.5-5.0); CALCIUM 8.6 mg/dL (8.8-10.2); CREATININE 2.1 mg/dL (0.5-0.9); MAGNESIUM 1.6 mg/dL (1.5-2.7); POTASSIUM 5.2 mmol/L (3.5-5.1); TOTAL BILIRUBIN 0.89 mg/dL (0.20-1.00); TOTAL PROTEIN 7.6 g/dL (6.3-8.3)
[2018-10-30 09:33] LABS: ALLEN TEST YES; BE -2.7 mmoll (-3.0-3.0); BLOOD TYPE ARTERIAL; HCO3-(ACT) 22.8 mmoll (20.0-26.0); METHB 0.8 % (0.0-1.5); O2(CT) 13.8 mL/dL (15.0-23.0); O2HB 94.8 % (95.0-99.0); PCO2(98.6) 40 mmHg (35-45); PO2(98.6) 81 mmHg (60-100); SAMPLE BLOOD; SAO2 96.3 % (95.0-100.0); THB 10.3 g/dL (11.5-17.4); pH(98.6) 7.36 (7.35-7.45)
[2018-10-30 09:34] LABS: URINE SOURCE CATH
[2018-10-30 09:44] LABS: BILIRUBIN URINE NEGATIVE (NEGATIVE); BLOOD URINE NEGATIVE (NEGATIVE); COLOR YELLOW; GLUCOSE URINE NEGATIVE (NEGATIVE); KETONE URINE TRACE mg/dL (NEGATIVE); LEUKOCYTES URINE MODERATE (NEGATIVE); NITRITE URINE NEGATIVE (NEGATIVE); PROTEIN URINE TRACE mg/dL (NEGATIVE); SP GRAVITY URINE 1.011; TURBIDITY URINE HAZY (CLEAR); UROBILINOGEN URINE NORMAL (NORMAL)
[2018-10-30 09:48] LABS: UR EPITHELIAL CELLS <10 /HPF (<10); URINE BACTERIA 1+ /HPF; URINE RBC <10 /HPF (<10)
[2018-10-30] MEDS ORDERED: MERREM 1 GM in NS 50 ML IV ONE (09:51)
[2018-10-30 09:57] LABS: INR 1.56; PROTIME 19.9 Seconds (11.0-16.0)
[2018-10-30 09:58] LABS: PTT 36.1 Seconds (22.3-41.8)
[2018-10-30 10:15] LABS: UR AMPHETAMINES QUAL NONE DETECTED (NONE DETECT); UR BARBITUATES QUAL NONE DETECTED (NONE DETECT); UR BENZODIAZEPIN QUAL NONE DETECTED (NONE DETECT); UR CANNABINOIDS QUAL NONE DETECTED (NONE DETECT); UR COCAINE QUAL NONE DETECTED (NONE DETECT); UR METHADONE QUAL NONE DETECTED (NONE DETECT); UR OPIATES QUAL NONE DETECTED (NONE DETECT); UR OXYCODONE QUAL NONE DETECTED (NONE DETECT); UR PCP QUAL NONE DETECTED (NONE DETECT)
[2018-10-30] MEDS ORDERED: ZOFRAN IV PRN (10:22)
--- NOTE | 2018-10-30 13:19 | Diag Imaging Result Doc PS360 ---
EXAM: US RENAL 2 (RETROPER) COMPLETE INDICATION: VANESSA, TECHNIQUE: COMPARISON: None. FINDINGS: The kidneys are grossly normal in echotexture with no discrete renal mass or hydronephrosis. The right kidney measures 11.4 cm and the left kidney measures 11.5 cm in the greatest longitudinal axes. Right renal cortex measures up to 0.9 cm and the left renal cortex measures up to 1.2 cm in thickness. There is a Sheldon catheter in the urinary bladder and the bladder is nondistended. IMPRESSION: Unremarkable renal ultrasound. Electronically signed by Tomas Townsend 10/30/2018 1:17 PM
--- NOTE | 2018-10-30 13:38 | HISTORY AND PHYSICAL ---
CHIEF COMPLAINT: Altered mental status and confusion for three hours. HISTORY OF PRESENT ILLNESS: The patient is aphasic and is not able to verbalize, although she understands and has expressive aphasia. The history was obtained from emergency records. I also called the patient's daughter to get history. Apparently, the patient was admitted for atrial fibrillation with a rapid ventricular rate in September of 2018 at [facility] and was discharged to rehab, where she did okay. She went back to her assisted living facility where she has been living since 2017. Three days prior to presentation, around October 26, apparently the assisted living facility had noticed that the patient had not been eating or drinking well and she had lost some weight. However, the patient had reported that she did not like the food and that is why she was not eating. This morning the assisted living facility staff noticed that the patient was very drowsy, confused and really not responding, so they sent her to the emergency room. In the emergency room she was found to be hemodynamically stable. Her initial lab work had suggested leukocytosis and pyuria with acute kidney injury. She was given intravenous fluids and antibiotics. The hospitalist team was consulted for further management. At the time of my evaluation, the patient appears not to be in any acute distress, however, she is not able to verbalize. REVIEW OF SYSTEM: The patient can indicate yes or no by nodding her head and accordingly she denies any chest pain or shortness of breath. Negative for nausea, vomiting, and abdominal pain. Negative for headache or dizziness. Negative for tingling or numbness. She denies any burning urination, however, she says that she has polyuria, however, her responses were inconsistent, I will again obtain this tomorrow. Other components of history obtained from records. PAST MEDICAL HISTORY: 1. CVA of left frontoparietal region in 2012, status post expressive aphasia and right-sided upper and lower extremity weakness. 2. History of essential hypertension. 3. History of atrial fibrillation with rapid ventricular rate on Eliquis. 4. History of reported recurrent UTI with last episode at last admission in September of 2018 because of ESBL, which was not treated as it was asymptomatic. 5. History of rheumatoid arthritis. PAST SURGICAL HISTORY: Pacemaker, the patient was suppose to get it checked this week, however, she came to this hospital. FAMILY HISTORY: Not contributory. SOCIAL HISTORY: She does not have current alcohol, tobacco, or illicit drug use. She lives in assisted living facility. Her baseline status, she is aphasic. She has right upper and lower extremity weakness, however, she can eat using her left hand by herself if food is presented to her. With help she is able to get out of bed and sit in a motorized wheelchair and she can operate the wheelchair by herself. ALLERGIES: No known drug allergies. HOME MEDICATIONS: It is not reconciled appropriately at the moment. However, according to previous discharge summary she was on: Eliquis 5 mg b.i.d., baclofen 20 mg every 6 hours, duloxetine 120 mg daily, folic acid 1 mg daily, Protonix 40 mg at bedtime, amiodarone 200 mg b.i.d., fexofenadine 180 mg daily, Lasix 40 mg at bedtime, lisinopril 5 mg daily, metformin 500 mg b.i.d., methotrexate 2.5 mg 5 tablets every week, metoprolol 25 mg daily and potassium 20 mEq at bedtime. PHYSICAL EXAMINATION: VITAL SIGNS: Currently she is afebrile with temperature of 98 degrees, pulse 62, respiratory rate 14, blood pressure 127/70, saturating 96% on room air. GENERAL: She does not appear in any acute distress. HEENT: Oral cavity is dry. LUNGS: Air entry bilaterally equal. No wheeze, rhonchi or crackles. CARDIAC: S1, S2 normal. No murmur, rub, or gallop. She has a left-sided pacemaker. ABDOMEN: Soft, nontender. EXTREMITIES: No lower extremity edema. She has urine catheter in place. She is not able to wiggle her right upper or lower extremities. However, she is able to wiggle her left hand and left leg. She is not able to raise them above ground level. She is able to answer yes or no with a blink. LABS: Suggestive of leukocytosis, normocytic anemia, thrombocytosis, normal coagulation, except INR of 1.5, pyuria, hyperkalemia, and acute kidney injury. MICROBIOLOGY: Blood culture and urine culture are in lab. IMAGING STUDIES: Chest x-ray on admission did not have any acute pathology. Head CT had detected old left-sided encephalomalacia affecting the frontoparietal region. ASSESSMENT AND PLAN: 1. Acute encephalopathy, likely metabolic. 2. Acute kidney injury, likely due to volume depletion and use of Lasix as well as VIDHYA inhibitors. 3. Metabolic encephalopathy contributed by uremia as well as use of antihistamines and muscle relaxants. 4. Recent episode of atrial fibrillation with rapid ventricular rate. Currently rate is well controlled. Status post pacemaker in the past. 5. Pyuria with prior history of extended spectrum beta-lactamase- likely due to acute cystitis. 6. H/o AFib with RVR: PLAN: I will start the patient on intravenous fluid resuscitation. Will follow up with serial BMP. Since the symptoms of urinary tract infection are inconsistent at the moment, I will start her on intravenous meropenem and will reassess the symptoms tomorrow. I will hold her lisinopril and Lasix and resume most of her home medications, except for those which have a sedating effect. I will keep the patient on a GI soft diet. Resume her amiodarone, metoprolol. Keep her on lovenox until kidney function recovers.I called the patient's daughter, who is the surrogate decision maker. I discussed the plan with her and answered all of her questions. cc: Malik Medeiros MD MTDD
[2018-10-30] MEDS: TOPROL XL PO SCH (16:05)
[2018-10-30] MEDS: NS 1,000 ML IV SCH (16:07)
[2018-10-30] MEDS: HUMALOG SUBQ SCH ×3 (16:20→22:25)
[2018-10-30] MEDS ORDERED: LOVENOX SUBQ SCH (18:00)
[2018-10-30] MEDS: MERREM 500 MG in NS 50 ML IV SCH (18:45)
[2018-10-30] MEDS: LIPITOR PO SCH (22:24)
[2018-10-30] MEDS: CORDARONE PO SCH (22:24)
[2018-10-30] MEDS: PROTONIX PO SCH (22:24)
[2018-10-31] MEDS: MERREM 500 MG in NS 50 ML IV SCH ×2 (05:55→17:23)
[2018-10-31 06:15] LABS: BASO# 0.03 X1000 (0.0-0.2); BASO% 0.3 % (0.0-0.8); EOS# 0.15 X1000 (0.0-0.7); EOS% 1.3 % (0.0-10.0); HEMATOCRIT 32.6 % (37.0-47.0); HEMOGLOBIN 9.9 g/dL (12.0-16.0); IMM GRAN# 0.03 X1000 (0.0-0.04); IMM GRAN% 0.3 % (0.0-0.5); LYMPH# 1.46 X1000 (1.2-3.4); LYMPH% 12.8 % (20.5-51.1); MCH 26.1 PG (27-31); MCHC 30.4 g/dL (33-37); MONO# 0.92 X1000 (0.11-0.59); MONO% 8.1 % (1.7-9.3); MPV 10.2 FL (7.4-10.4); NEUT# 8.78 X1000 (1.4-6.5); NEUT% 77.2 % (42.2-75.2); PLT 388 X1000 (130-400); RBC 3.79 XMIL (4.2-5.4); WBC 11.37 X1000 (4.8-10.8)
[2018-10-31 06:45] LABS: ALB/GLOB RATIO 1.2; ALBUMIN 3.7 g/dL (3.5-5.0); POTASSIUM 4.4 mmol/L (3.5-5.1); TOTAL BILIRUBIN 0.9 mg/dL (0.20-1.00); TOTAL PROTEIN 6.8 g/dL (6.3-8.3)
[2018-10-31] MEDS: HUMALOG SUBQ SCH ×4 (06:57→21:14)
[2018-10-31] MEDS: ZYVOX 600 MG/D5W 600 MG/300 ML IVPB IV SCH ×2 (08:30→21:09)
[2018-10-31] MEDS: FOLIC ACID PO SCH (08:30)
[2018-10-31] MEDS: CORDARONE PO SCH ×2 (08:31→21:09)
[2018-10-31] MEDS: TOPROL XL PO SCH (08:31)
--- NOTE | 2018-10-31 10:59 | EKG Report ---
Test Performed on : 10/30/2018 08:09:28 AM Test Reason : ams Blood Pressure : / mmHG Vent. Rate : 068 BPM Atrial Rate : 000 BPM P-R Int : 204 ms QRS Dur : 076 ms QT Int : 480 ms P-R-T Axes : 000 055 052 degrees QTc Int : 510 ms Atrial-paced rhythm with occasional premature ventricular complexes. Prolonged QT Abnormal ECG When compared with ECG of 29-SEP-2018 06:48, premature ventricular complexes. are now present Criteria for Septal infarct are no longer present ST elevation now present in Inferior leads ST no longer depressed in Lateral leads Nonspecific T wave abnormality, improved in Inferior leads Nonspecific T wave abnormality no longer evident in Anterolateral leads Unconfirmed Result
[2018-10-31] MEDS ORDERED: LIORESAL PO PRN (12:08)
--- NOTE | 2018-10-31 12:30 | PROGRESS NOTE ---
DATE: 10/31/2018 INTERVAL HISTORY: No acute events except 1 of the 2 blood cultures was growing gram-positive cocci, and she was started on linezolid on the floor. She did not have any acute events, and her vitals were unremarkable. Her leukocytosis was going down. SUBJECTIVE: Currently, at the time of my evaluation, the patient appears much more alert, awake, and she is following simple commands like giving me her hand for pulse check, raising her left leg and touching my hand. She is able to say yes or no with blink of eyes, which is pretty much her baseline. She denies any urinary burning, urinary frequency, or excessive nocturia. VITALS: Temperature 98 degrees, pulse 59, respiratory rate 14, blood pressure 116/49, and saturating 100% on room air. PHYSICAL EXAMINATION: General: She does not appear in any acute distress. Oral cavity is moist. Lungs: Air entry bilaterally equal. No wheezing, rhonchi or crackles. S1, S2 normal. No murmur, rub or gallop. She had a left-sided pacemaker. Abdomen: Soft, nontender. No lower extremity edema. She has urine catheter in place. She is able to raise her left upper and lower extremity above ground level. She is able to say yes or no with the blink of eyes. She is not able to move right upper or right lower extremity. She does not have any obvious facial droop. LABORATORY: Improving leukocytosis, normocytic anemia, and normal platelet count. BMP suggestive of resolution of hyperkalemia, improved acute kidney injury. Microbiology: Urine culture growing gram-negative rods. Blood culture 1 of the 2 is positive for gram-positive cocci. ASSESSMENT AND PLAN: 1. Acute encephalopathy likely metabolic due to acute kidney injury and volume depletion now resolved. Continue intravenous fluids until tonight, and follow up BMP tomorrow. I will also remove Sheldon catheter tomorrow morning. 2. Acute kidney injury due to volume depletion, and use of Lasix as well as VIDHYA inhibitors. Continue to hold these medications. Plan as mentioned above, and follow up BMP. 3. Others: I am holding her antihistaminic and muscle relaxants because of acute encephalopathy on presentation. I am adding them as tolerated as she is complaining of right foot pain at the moment. 4. History of atrial fibrillation with rapid ventricular rate. Currently, rate is well controlled. EKG is suggestive of atrially paced rhythm with occasional premature atrial complexes and prolonged QTc, however, it is of poor quality. Her troponin on admission was 0.01. I will continue her on metoprolol, and will resume her home Eliquis tonight. 5. Suspected urinary tract infection with positive blood culture. Today, patient specifically denies any urinary symptoms so I will wait for final blood culture results. If they are negative, I will discontinue antibiotics. Meanwhile, I have her on intravenous meropenem and linezolid. 6. Others: Continue folic acid for history of normocytic anemia, pantoprazole for chronic GERD. 7. Disposition. Patient remains inside the hospital as I await final blood culture results. Depending on that, I would anticipate discharge in the next 24 to 48 hours to assisted living facility. I had called the patient's daughter yesterday and informed her about patient's course, and had answered all of her questions. cc: Malik Medeiros MD
[2018-10-31] MEDS: NS 1,000 ML IV SCH ×2 (17:25→17:30)
[2018-10-31] MEDS: PROTONIX PO SCH (21:09)
[2018-10-31] MEDS: ELIQUIS PO SCH (21:10)
[2018-10-31] MEDS: LIPITOR PO SCH (21:10)
[2018-11-01] MEDS: MERREM 500 MG in NS 50 ML IV SCH (05:02)
[2018-11-01] MEDS: ZYVOX 600 MG/D5W 600 MG/300 ML IVPB IV SCH (08:53)
[2018-11-01] MEDS: FOLIC ACID PO SCH (08:56)
[2018-11-01] MEDS: TOPROL XL PO SCH (08:56)
[2018-11-01] MEDS: CORDARONE PO SCH (08:56)
[2018-11-01] MEDS: HUMALOG SUBQ SCH ×2 (08:56→10:57)
[2018-11-01] MEDS: ELIQUIS PO SCH (08:56)
[2018-11-01] MEDS ORDERED: CALMOSEPTINE OINTMENT TOP ONE (10:18)
[2018-11-01 15:09] VITALS: BP 149/56
--- NOTE | 2018-11-01 17:43 | DISCHARGE SUMMARY ---
ADMISSION DATE: 10/30/2018 DISCHARGE DATE: 11/01/2018 ADDENDUM: This is an addendum to discharge summary dictated by the nurse practitioner. I agree with the most components of discharge summary. In brief, Ms. Shields is a 73-year-old lady who was sent from assisted living facility for confusion. This was likely related to acute renal failure, and acute encephalopathy in the setting of multiple medication use. Her acute renal failure is likely related to use of VIDHYA inhibitors and Lasix. I stopped those medications, and give her intravenous fluids and kidney function has resolved, and the kidney function has improved. At the time of discharge, she is alert. She is able to communicate by blinking of her eyes, and she appears to be at baseline. Currently, she denies any complaints. VITAL SIGNS: Temperature 98 degrees, pulse 71, respiratory rate 18, blood pressure 150/55, and saturating 96% on room air. PHYSICAL EXAMINATION: General: At discharge, she does not appear in any acute distress. Oral cavity is moist. Lungs: Air entry bilaterally equal. No wheezing, rhonchi or crackles. Heart: S1, S2 normal. No murmur or gallop. She has a left-sided pacemaker. Abdomen: Soft, nontender. Extremities: No lower extremity edema. She does not have any urine in catheter. Neurologic: She is able to raise left upper and left lower extremity above ground level on verbal commands. She is able to say yes or no with blink of eyes. She is not able to move right upper and right lower extremity. She does not have any facial droop. LABORATORY: No new labs today. Her BMP slip has been provided. DISCHARGE INSTRUCTIONS: She will be provided a BMP slip to follow up with repeat kidney function. Her urine culture did detect ESBL. However, she did not have any urinary symptoms so it was not treated. Noticeably, she did have Klebsiella ESBL organisms on previous urine cultures as well. However, they were not treated considering she never had symptoms of it. I had informed patient's daughter during this hospitalization, plan of care, and answered all of her questions. cc: MD KATINA Bowen
--- NOTE | 2018-11-01 17:52 | DISCHARGE SUMMARY ---
ADMISSION DATE: 10/30/2018 DISCHARGE DATE: 11/01/2018 PRIMARY CARE PHYSICIAN: Dr. Jose M Spivey. ADMISSION DIAGNOSES: 1. Acute encephalopathy, likely metabolic. 2. Acute kidney injury, likely due to volume depletion and use of Lasix as well as VIDHYA inhibitors. 3. Metabolic encephalopathy contributed by uremia as well as antihistamines and muscle relaxants. 4. History of atrial fibrillation with RVR, currently rate controlled. 5. Pyuria with previous history of ESBL likely due to acute cystitis. DISCHARGE DIAGNOSES: 1. Acute encephalopathy, likely metabolic due to acute kidney injury and volume depletion, now resolved. 2. Acute kidney injury due to volume depletion and use of Lasix as well as VIDHYA inhibitors. 3. History of atrial fibrillation with RVR, currently rate controlled. 4. Suspected urinary tract infection with positive blood culture that was a coag-negative staph, but urine culture grew out Klebsiella pneumoniae. SUMMARY OF FINDINGS: This is a 73-year-old female, who is aphasic and not able to verbalize with expressive aphasia, who lives in an assisted living facility where she has been since 2017. Apparently, they had noticed at the assisted living facility the patient had not been eating or drinking well, that she had lost some weight. On the morning of arrival, they noticed that the patient was very drowsy, confused and really not responding so they sent her to the emergency room. Her initial laboratory data showed a bump in her white blood cell count at 13.98. Her BUN was 42 with a creatinine of 2.1. It was noted that she was on diuretics and VIDHYA inhibitors so those were held. She was given IV hydration. She was also found to have a Klebsiella UTI, and was placed on IV antibiotics. Her kidney function is currently back to normal. She has been being treated appropriately for her UTI, and it is felt that she can return to assisted living today. DISCHARGE MEDICATIONS: 1. Eliquis 5 mg p.o. b.i.d. 2. Lipitor 10 mg p.o. at bedtime. 3. Folic Acid 1 mg p.o. daily. 4. Pantoprazole 40 mg p.o. at bedtime. 5. Amiodarone 200 mg p.o. b.i.d. 6. Baclofen 10 mg p.o. q.8 hours p.r.n. 7. Fluoxetine 60 mg p.o. daily. 8. Metformin 500 mg p.o. b.i.d. 9. Methotrexate 2.5 mg 5 tablets as directed. 10. Metoprolol 25 mg p.o. daily. DISCHARGE INSTRUCTIONS: She will need a BMP in the next 5 days. She will follow up with her primary care physician in 1 to 2 weeks and call the office for an appointment. TIME SPENT: This a 33 minute discharge. Dictated by CHASE Fair for Malik Medeiros MD cc: CHASE Fair MD Brian R. James, MD I agree with most components of discharge summary mentioned above. A separate addendum has been dictated. KATINA
== END 2018-11-01 15:52 | DRG 682 ==
LOC: SUPCPDRO → ED 08:02 → 4N 10:39
PROVIDERS: ATTEND Internal Medicine
CPT/HCPCS: 51702; 70450; 71010; 71045; 76770; 80053; 80101; 80301; 80307; 80320; 80324; 80345; 80346; 80353; 80358; 80361; 80365; 81001; 82055; 82550; 82805; 82948; 83605; 83735; 83880; 83992; 84443; 84484; 85025; 85610; 85730; 87040; 87077; 87088; 87186; 93005; 96365; 97110; 97163; 97166; 97530; 99285; A9270; G0431; G0434; G0479; G0480; G6040; J1650; J1815; J2020; J2185; J7030; XXXXX

== ENCOUNTER 2018-11-07 20:21 | Observation (INO) ==
--- NOTE | 2018-11-07 21:37 | Diag Imaging Result Doc PS360 ---
EXAM: CHEST-PORTABLE HISTORY: AMS, rt side chest pain likely from fall, TECHNIQUE: Portable chest single view COMPARISON: 10/30/2018 FINDINGS: The lungs are well expanded. No pneumothorax. The right hemidiaphragm is elevated. The heart is not enlarged. There is a left-sided pacemaker. The vessels are not distended. There are no infiltrates. No effusion identified. IMPRESSION: Negative exam. Electronically signed by Avery Morales 11/07/2018 9:34 PM
[2018-11-07 23:08] LABS: BASO# 0.05 X1000 (0.0-0.2); BASO% 0.4 % (0.0-0.8); EOS# 0.23 X1000 (0.0-0.7); EOS% 1.6 % (0.0-10.0); HEMATOCRIT 27.8 % (37.0-47.0); HEMOGLOBIN 8.6 g/dL (12.0-16.0); IMM GRAN# 0.05 X1000 (0.0-0.04); IMM GRAN% 0.4 % (0.0-0.5); LYMPH# 1.89 X1000 (1.2-3.4); LYMPH% 13.4 % (20.5-51.1); MCH 26.5 PG (27-31); MCHC 30.9 g/dL (33-37); MCV 85.5 FL (81-99); MONO# 1.42 X1000 (0.11-0.59); MONO% 10.1 % (1.7-9.3); NEUT# 10.42 X1000 (1.4-6.5); NEUT% 74.1 % (42.2-75.2); PLT 478 X1000 (130-400); RBC 3.25 XMIL (4.2-5.4); WBC 14.06 X1000 (4.8-10.8)
[2018-11-07 23:18] LABS: ALB/GLOB RATIO 1.2; ALBUMIN 3.8 g/dL (3.5-5.0); CALCIUM 8.2 mg/dL (8.8-10.2); CREATININE 1.1 mg/dL (0.5-0.9); POTASSIUM 4.3 mmol/L (3.5-5.1); TOTAL BILIRUBIN 0.71 mg/dL (0.20-1.00)
[2018-11-07] MEDS ORDERED: MORPHINE IV ONE (23:18)
[2018-11-08] MEDS ORDERED: NS 1,000 ML IV ONE (00:10)
[2018-11-08] MEDS ORDERED: ROCEPHIN 1 GM in NS 50 ML IV ONE (00:10)
[2018-11-08 00:14] LABS: URINE SOURCE CATH
[2018-11-08 00:31] LABS: BILIRUBIN URINE NEGATIVE (NEGATIVE); BLOOD URINE NEGATIVE (NEGATIVE); COLOR YELLOW; GLUCOSE URINE NEGATIVE (NEGATIVE); KETONE URINE TRACE mg/dL (NEGATIVE); LEUKOCYTES URINE LARGE (NEGATIVE); NITRITE URINE POSITIVE (NEGATIVE); PH URINE 5.5; PROTEIN URINE 50 mg/dL (NEGATIVE); SP GRAVITY URINE 1.031; TURBIDITY URINE HAZY (CLEAR); UROBILINOGEN URINE 2 mg/dL (NORMAL)
[2018-11-08 00:45] LABS: UR EPITHELIAL CELLS <10 /HPF (<10); URINE BACTERIA 4+ /HPF; URINE RBC <10 /HPF (<10); URINE WBC TNTC /HPF (<10)
[2018-11-08 00:46] LABS: URINE CASTS WAXY PRESENT; URINE CRYSTALS NONE SEEN; URINE SMALL ROUND CELLS RENAL PRESENT; URINE YEAST PRESENT
--- NOTE | 2018-11-08 01:43 | PROVIDER DOCUMENTATION ---
This chart was entered by Isela Townsend Scribe, acting as scribe for Ameya Sauceda MD. HPI-General Adult - General Chief Complaint: Altered Mental Status Stated Complaint: RIGHT SIDED PAIN SECONDARY TO FALL Time Seen by Provider: 11/07/18 21:02 Source: patient Allergies/Adverse Reactions: Patient Allergies Allergy/AdvReac Type Severity Reaction Status Date / Time No Known Allergies Allergy Verified 09/28/18 14:08 Home Medications: Home Medication List Medication Instructions Recorded Confirmed Last Taken Type Pantoprazole [Protonix] 40 mg PO HS 04/29/17 10/30/18 1 Day Ago History ~09/28/18 ATORVAstatin [Lipitor] 10 mg PO QHS 01/30/18 10/30/18 1 Day Ago History ~09/28/18 Folic Acid 1 mg PO DAILY 01/30/18 10/30/18 09/28/18 History Methotrexate 5 tab PO DIRECTED 01/30/18 10/30/18 09/28/18 History Metformin [Glucophage] 500 mg PO BID CC 09/29/18 10/30/18 1 Day Ago History ~09/28/18 Metoprolol Succinate E.r. [Toprol 25 mg PO DAILY 09/29/18 10/30/18 1 Day Ago History Xl] ~09/28/18 Amiodarone [Cordarone] 200 mg PO BID@0600,1800 #60 tab 10/05/18 10/30/18 Unknown Rx Apixaban [Eliquis] 5 mg PO BID #60 tab 10/05/18 10/30/18 Unknown Rx Baclofen 10 mg PO Q8H PRN #0 11/01/18 10/30/18 09/28/18 Rx Duloxetine [Cymbalta] 60 mg PO DAILY #30 cap 11/01/18 10/30/18 Unknown Rx - History of Present Illness -Gen Adult Nature of Presenting Problems: 73 yof c/o pt is confused and per ems and rn, pt is from assisted living facility. pain and pressure under rt breast poss due to fall around 1300 yesterday. pt has superficial skin lesions on rt hand. rn from pt assisted living facility was spoken to and sts pt has been sob rec and fell from wheelchair yest. pt has hx of expressive aphasia from prev cva and rt side weakness. Review of Systems - Adult - REVIEW OF SYSTEMS - ADULT Constitutional: reports: no symptoms reported Eyes: reports: no symptoms reported Ears, Nose, Mouth & Throat: reports: no symptoms reported Cardiovascular: reports: see HPI, chest pain (under rt breast from poss fall) Respiratory: reports: no symptoms reported. denies: dyspnea on exertion, shortness of breath, wheezing Gastrointestinal: reports: no symptoms reported. denies: abdominal pain, diarrhea, nausea, vomiting Genitourinary: reports: no symptoms reported Musculoskeletal: reports: no symptoms reported Integumentary: reports: see HPI, other (leisons on rt hand). denies: hives, hair loss, itching Neurological: reports: see HPI, loss of balance (fall 1300). denies: dizziness/vertigo, seizure, slurred speech, syncope, tremors Past History - Adult - PAST MEDICAL HISTORY-ADULT Review of Records: reports: Old Records Reviewed, Nursing Assessment Review, Medications Reviewed, Social history reviewed & non-contributory. Major Childhood Illnesses: reports: denies history Cardiovascular: reports: A-Fib, HTN, hyperlipidemia, pacemaker Respiratory: reports: denies history Gastrointestinal: reports: denies history Obstetrical/Gynecological: reports: denies history Genitourinary: reports: denies history Musculoskeletal: reports: denies history Neurological: reports: CVA, stroke deficits Psychiatric: reports: denies history Endocrine/Immune: reports: denies history Other Conditions: reports: other (UTI) - PRIOR SURGERIES/PROCEDURES Surgical/Procedure History: reports: reviewed, not pertinent - IMMUNIZATION STATUS Childhood Immunizations: UTD Flu Vaccine: UTD - FAMILY HISTORY Family History: reviewed, not pertinent - SOCIAL HISTORY Smoking: non-smoker Substance Use: none/never Physical Exam-General - PHYSICAL EXAM-ADULT Initial Vital Signs Reviewed: Yes - CONSTITUTIONAL General Appearance: alert, mild distress. negative: lethargic, slow to respond, obtunded - EYES Eyes: PERRL/EOMI, pink conjunctivae - HEAD, EARS, NOSE, MOUTH & THROAT HENMT: normocephalic/atraumatic, moist mucous membranes, normal ENT inspection - NECK Neck: non-tender, full range of motion, supple, normal inspection - RESPIRATORY Respiratory: chest non-tender, lungs clear, normal breath sounds - CARDIOVASCULAR Cardiovascular: normal peripheral pulses, regular rate, rhythm - CHEST (BREASTS) Chest/Breast: tenderness (to palp under rt breast). negative: no tenderness, nipple discharge, mass/lump noted - GASTROINTESTINAL (ABDOMEN) Abdominal Exam: normal bowel sounds, non tender, soft - MUSCULOSKELETAL Back Exam: normal inspection, no CVA tenderness, no vertebral tenderness Extremity: no pedal edema, no calf tenderness Peripheral Pulses: radial (R): 2+, radial (L): 2+ - SKIN Integumentary: normal color, normal turgor, warm/dry - NEUROLOGIC Neurologic: no motor/sensory deficits, other (confused). negative: grossly normal, aphasia, EOM palsy, facial droop - PSYCHIATRIC Psych/Mental Status: anxious, other (Oriented to self, president but not to place and time.). negative: normal mood/affect, normal thought content, normal thought process, paranoid, tearful Progress - PLAN OF CARE/RESULTS Progress/Plan/Lab Results: Orders Category Date Time Status CBC WITH DIFF [HEME] Stat Lab 11/07/18 21:17 Uncollected COMPREHENSIVE METABOLIC PANEL [CHEM] Stat Lab 11/07/18 21:17 Uncollected LACTATE, PLASMA [CHEM] Stat Lab 11/07/18 21:17 Uncollected TROPONIN T Stat Lab 11/07/18 21:18 Ordered TROPONIN T Stat Lab 11/07/18 21:19 Uncollected URINALYSIS [URINALYSIS] Stat Lab 11/07/18 21:17 Uncollected Result Diagrams: 11/07/18 22:42 11/07/18 22:42 - EKG 1 Time of EKG reading by physician:: 23:36 EKG Read and Signed by:: Ameya Sauceda EKG Interpretation (*Must complete 3 of following elements*): Abnormal Rate: 63 Rhythm: atrial paced rhythm QRS: other (low voltage qrs) FL Interval: normal - XRAY 1 XRAY: Bilateral XRAY Study: Chest ( EXAM: CHEST-PORTABLE HISTORY: AMS, rt side chest pain likely from fall, TECHNIQUE: Portable chest single view COMPARISON: 10/30/2018 FINDINGS: The lungs are well expanded. No pneumothorax. The right hemidiaphragm is elevated. The heart is not enlarged. There is a left-sided pacemaker. The vessels are not distended. There are no infiltrates. No effusion identified. IMPRESSION: Negative exam. Electronically signed by Avery Morales 11/07/2018 9:34 PM) Impression: Normal Comparison with other Films: no changes - CONSULTS/PCP/HOSPITALIST Notification #1 *Consult/PCP/Hospitalist*: Dr. Jesus Spivey Time Discussed: 00:22 Consult Disposition: Admit (Hx, PE and patient care discussed, accepted.) Departure - Departure Date of Disposition Decision: 11/08/18 Time of Disposition Decision: 00:22 DIAGNOSIS: Leukocytosis Qualifiers: Leukocytosis type: unspecified Qualified Code(s): D72.829 - Elevated white blood cell count, unspecified Altered mental status Qualifiers: Altered mental status type: unspecified Qualified Code(s): R41.82 - Altered mental status, unspecified Fall Qualifiers: Encounter type: initial encounter Qualified Code(s): W19.XXXA - Unspecified fall, initial encounter Disposition: ADMITTED INPATIENT 09 Certified Medical Emergency: Emergent Condition: Stable Referrals and Follow-Ups: Jose M Spivey MD [Primary Care Provider] - - Critical Care Note This patient required my direct & personal management of CC.: No Attestation - Physician/ LILY Attestation Patient care was provided by Advanced Practice Provider:: No The physician spent face to face time with patient:: Yes Advanced Practice Provider documentation review:: Supervising physician onsite and consulted in the evaluation and care of this patient. The physician did have a face to face encounter with the patient. This chart was documented by the indicated scribe, (Isela Townsend, Taliaibmolly) and accurately reflects the services I performed and decisions made by me, Ameya Guerra MD, as attested by the provider's signature.
[2018-11-08] MEDS ORDERED: MORPHINE IV PRN (01:50)
[2018-11-08] MEDS ORDERED: NS 1,000 ML IV SCH (01:50)
[2018-11-08] MEDS ORDERED: ROCEPHIN 1 GM in NS 50 ML IV SCH (02:00)
--- NOTE | 2018-11-08 05:05 | HISTORY AND PHYSICAL ---
PRIMARY CARE PHYSICIAN: Unknown. CHIEF COMPLAINT: Fall. HISTORY OF PRESENTING ILLNESS: A 73-year-old female with a history of a CVA with right-sided weakness and aphasia, hypertension, chronic atrial fibrillation and rheumatoid arthritis, who was sent from the assisted living facility after she had a fall from her wheelchair. She developed some pain under her right rib region. She was evaluated in the emergency department. Her history was difficult to obtain due to patient being aphasic, however, she was able to state that she was having pain under her right rib region. Due to her presenting symptoms, it was thought that we will place her for observation for further evaluation and management. At the time of my examination, the patient was able to deny any headache, fever, chills, hemoptysis, shortness of breath or any weight changes. PAST MEDICAL HISTORY: Includes CVA, hypertension, chronic atrial fibrillation, rheumatoid arthritis. PAST SURGICAL HISTORY: Hysterectomy, pacemaker. ALLERGIES: No known drug allergies. CURRENT MEDICATIONS: Include: 1. Amiodarone 200 mg p.o. b.i.d. 2. Eliquis 5 mg p.o. b.i.d. 3. Lipitor 10 mg p.o. at bedtime. 4. Baclofen 10 mg p.o. q.8 hours. 5. Cymbalta 60 mg p.o. daily. 6. Folic acid 1 mg p.o. daily. 7. Metformin 500 mg p.o. b.i.d. 8. Methotrexate 5 mg as directed. 9. Metoprolol 25 mg p.o. daily. 10. Pantoprazole 40 mg p.o. at bedtime. SOCIAL HISTORY: She is a former smoker. Admits to social alcohol use. Denies any illicit drug use. FAMILY HISTORY: No history of coronary disease. REVIEW OF SYSTEMS: Fourteen point review of systems is as in HPI. Other systems negative. PHYSICAL EXAMINATION: GENERAL: The patient is resting comfortably, however, complains of pain under her right rib region. VITAL SIGNS: Temperature 97.6 degrees, pulse 60, respirations 25, blood pressure 149/63. HEENT: Extraocular movements intact. PERRLA. NECK: No masses. CHEST: Clear to auscultation. There is tenderness in the right rib region. CARDIOVASCULAR: Regular rate and rhythm. ABDOMEN: Soft. Positive bowel sounds. EXTREMITIES: Trace edema. NEUROLOGIC: She is awake, alert. She is aphasic. : No bladder distention. SKIN: Warm. LABORATORIES AND STUDIES: WBCs 14.06, hemoglobin 8.6, hematocrit 27.8, platelets 478,000. Sodium 140, potassium 4.3, chloride 102, CO2 22, BUN is 14, creatinine is 1.1, glucose is 102. Troponin 0.010. ASSESSMENT: A 73-year-old female with a history of cerebrovascular accident with right-sided weakness and expressive aphasia, hypertension, chronic atrial fibrillation and rheumatoid arthritis, who was sent from the assisted living facility after she had a fall. She had been complaining of pain her right rib region. She was evaluated in the emergency department due to her presenting symptoms. We will place her for observation, further evaluation and management. ASSESSMENT: 1. Status post fall. 2. Right rib region pain. 3. Cerebrovascular accident with residual right-sided weakness and expressive aphasia. 4. Leukocytosis. 5. Urinary tract infection. 6. Diabetes mellitus type 2. PLAN: 1. We will admit patient to medical floor with telemetry. 2. Continue with supportive treatment with gentle hydration and pain control. 3. Continue to monitor laboratories. 4. We will check urine cultures. Start patient on IV antibiotics. 5. The patient is already on anticoagulation. That will suffice for DVT prophylaxis. 6. We will continue to follow and reassess and make further recommendation based on patient's clinical course. cc: Jesus Spivey MD
[2018-11-08] MEDS: HUMULIN R SUBQ SCH ×4 (06:39→23:30)
--- NOTE | 2018-11-08 07:05 | Diag Imaging Result Doc PS360 ---
EXAM: CT HEAD/C-SPINE W/O CONTRAST 11/08/2018 HISTORY: Fall, confusion, poor Hx TECHNIQUE: This exam was performed using automated exposure control, adjustment of mA or kV according to patient size, and/or use of iterative reconstruction technique. COMMENT: The current examination is compared with 10/30/2018. There is extensive encephalomalacia in the posterior parietal lobe on the left which was present previously. There is no evidence of mass effect or bleed. No abnormal extra-axial fluid collections are present. There is hyperostosis of the calvarium. There are calcifications in the left vertebral and both internal carotid arteries. There is no evidence of acute bony abnormality. The paranasal sinuses are clear. There is an empty sella. Cervical spine: There is degenerative disc disease with posterior and anterior osteophyte formation at the C5-6 and C6-7 levels. There is hypertrophic facet disease on the left at C3-4 and apparent ankylosis of the facets at C2-3. No evidence of fracture or subluxation is present. There are no previous studies available for comparison. IMPRESSION: 1. Chronic ischemic changes. 2. Mild degenerative disc and facet disease. Electronically signed by Melquiades Maldonado 11/08/2018 7:03 AM
--- NOTE | 2018-11-08 07:20 | EKG Report ---
Test Performed on : 11/07/2018 11:36:24 PM Test Reason : CP Blood Pressure : / mmHG Vent. Rate : 063 BPM Atrial Rate : 063 BPM P-R Int : 184 ms QRS Dur : 076 ms QT Int : 470 ms P-R-T Axes : 091 040 026 degrees QTc Int : 480 ms Atrial-paced rhythm Low voltage QRS Abnormal ECG When compared with ECG of 30-OCT-2018 08:09, (Unconfirmed) premature ventricular complexes. are no longer present Unconfirmed Result
[2018-11-08] MEDS ORDERED: LIORESAL PO PRN (10:04)
--- NOTE | 2018-11-08 11:12 | PROGRESS NOTE ---
DATE: 11/08/2018 SUBJECTIVE: This morning, Ms. Shields refers to be feeling a lot better. Still has some pain under the right breast. OBJECTIVE: Vital Signs: Blood pressure is 117/49, pulse is 69, respirations are 14, temperature is 97.8 degrees, patient was saturating about 95 or 94% on room air. General Examination: Ms. Shields is a 73-year-old, female. She is in bed. No distress. HEENT: Mucosa is pink and moist. Anicteric. Acyanotic. Neck: Supple. Chest: Clear to auscultation. No crepitations. No rhonchi. Cardiovascular: Regular rate and rhythm. Abdomen: Soft. It is distended but nontender. Bowel sounds are present but hypoactive. Extremities: No pedal edema. WEIGHT LOSS CONSULTANT: The patient is awake, alert. She has a motor aphasia and has a dense right-sided hemiplegia. Musculoskeletal: There is some tenderness on palpating under the right breast. Laboratory Data: From yesterday has been reviewed. WBC was 14.06. There is no lab work for this morning. Glucose is 103. Review of Imaging Studies: A chest x-ray was negative. A CT scan of the head and cervical spine showed mild degenerative disk and facet disease. There are chronic ischemic changes. ASSESSMENT: 1. Musculoskeletal pain to the right anterior ribcage. Chest x-ray did not show any fracture. This happened after a mechanical fall. 2. 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 3. Leukocytosis, likely due to underlying urinary tract infection. 4. Diabetes mellitus, controlled. 5. Suspected constipation. We will start the patient on a bowel regimen. PLAN: In general, I think Ms. Shields seems to be fairly stable. We have changed her antibiotics to ertapenem because her previous urine culture did show an ESBL Klebsiella. We have also restarted her back on her home medications. I have consulted PT this morning and we also consulted social work for possible rehab placement. DISPOSITION: I understand Ms. Shields lives at assisted living. With her stroke and all her other comorbidities, and the fact that she is, for the most part, total care, I think she is going to be needing more care than what she gets at her assisted living. I think she is going to be needing usp care. For now, however, I think she will benefit from rehab to see if she can regain some functions to be able to be on her own. We will get social work to look for a rehab placement for Ms. Shields. cc: Christian Lopez MD I have called and updated daughter about mother's current medical state. MTDD
[2018-11-08] MEDS: INVANZ 0.5 GM in NS 50 ML IV SCH (11:56)
[2018-11-08] MEDS: CORDARONE PO SCH ×2 (16:33→18:02)
[2018-11-08] MEDS ORDERED: TYLENOL PO PRN (16:44)
[2018-11-08 16:45] LABS: URINE SOURCE CATH
[2018-11-08 16:48] LABS: BILIRUBIN URINE NEGATIVE (NEGATIVE); BLOOD URINE NEGATIVE (NEGATIVE); COLOR YELLOW; GLUCOSE URINE NEGATIVE (NEGATIVE); KETONE URINE NEGATIVE (NEGATIVE); LEUKOCYTES URINE NEGATIVE (NEGATIVE); NITRITE URINE POSITIVE (NEGATIVE); PH URINE 5.5; PROTEIN URINE NEGATIVE (NEGATIVE); SP GRAVITY URINE 1.004; TURBIDITY URINE CLEAR (CLEAR); UROBILINOGEN URINE NORMAL (NORMAL)
[2018-11-08 16:49] LABS: UR EPITHELIAL CELLS <10 /HPF (<10); URINE BACTERIA NEGATIVE /HPF; URINE RBC <10 /HPF (<10); URINE WBC <10 /HPF (<10)
[2018-11-08] MEDS ORDERED: LIPITOR PO SCH (21:00)
[2018-11-08] MEDS ORDERED: PROTONIX PO SCH (21:00)
[2018-11-08] MEDS: ELIQUIS PO SCH (23:26)
[2018-11-09 06:26] LABS: BASO# 0.01 X1000 (0.0-0.2); BASO% 0.2 % (0.0-0.8); EOS# 0.44 X1000 (0.0-0.7); EOS% 6.7 % (0.0-10.0); HEMATOCRIT 29.8 % (37.0-47.0); HEMOGLOBIN 8.8 g/dL (12.0-16.0); LYMPH# 0.74 X1000 (1.2-3.4); LYMPH% 11.3 % (20.5-51.1); MCH 25.6 PG (27-31); MCHC 29.5 g/dL (33-37); MCV 86.6 FL (81-99); MONO# 0.56 X1000 (0.11-0.59); MONO% 8.5 % (1.7-9.3); MPV 9.4 FL (7.4-10.4); NEUT# 4.81 X1000 (1.4-6.5); NEUT% 73.3 % (42.2-75.2); PLT 420 X1000 (130-400); RBC 3.44 XMIL (4.2-5.4); RDW 18.1 % (11.5-14.5); WBC 6.56 X1000 (4.8-10.8)
[2018-11-09 06:47] LABS: IRON SATURATION 7 %; TIBC 242 ug/dL; TOTAL IRON 16 ug/dL (49-151); UNBOUND IRON 226 ug/dL (112-346)
[2018-11-09] MEDS: HUMULIN R SUBQ SCH ×2 (06:51→11:12)
[2018-11-09] MEDS: CORDARONE PO SCH (07:04)
[2018-11-09 07:19] LABS: AGAP 12; BUN 8 mg/dL (8-22); CALCIUM 7.7 mg/dL (8.8-10.2); CHLORIDE 106 mmol/L (98-107); COSMO 285; CREATININE 0.7 mg/dL (0.5-0.9); ESTIMATED GFR > 60; GLUCOSE 120 mg/dL (70-104); POTASSIUM 3.6 mmol/L (3.5-5.1); SODIUM 143 mmol/L (136-145); TCO2 25 mmol/L (25-35)
--- NOTE | 2018-11-09 07:25 | Diag Imaging Result Doc PS360 ---
EXAM: KUB ABDOMEN INDICATION: SBO TECHNIQUE: 2 views COMPARISON: None. FINDINGS: There are nonspecific bowel gas and stool patterns. There is a fair amount of stool in the colon which could represent mild constipation. There is no obstructive pattern by plain radiograph. There is no evidence of large volume free abdominal gas. Cholecystectomy clips are noted. IMPRESSION: Nonspecific abdomen with possible mild constipation. Electronically signed by Tomas Townsend 11/09/2018 7:23 AM
[2018-11-09 07:30] VITALS: BP 130/50
[2018-11-09 07:57] LABS: FERRITIN 27 ng/mL (13-150)
[2018-11-09] MEDS ORDERED: VENOFER 200 MG in NS 100 ML IV ONE (08:22)
[2018-11-09] MEDS ORDERED: LACTULOSE PO ONE (08:25)
[2018-11-09] MEDS ORDERED: METHOTREXATE PO SCH (09:00)
[2018-11-09] MEDS ORDERED: FOLIC ACID PO SCH (09:00)
[2018-11-09] MEDS ORDERED: MIRALAX PO SCH (09:00)
[2018-11-09] MEDS ORDERED: CYMBALTA PO SCH (09:00)
[2018-11-09] MEDS ORDERED: TOPROL XL PO SCH (09:00)
[2018-11-09] MEDS: ELIQUIS PO SCH (10:21)
[2018-11-09] MEDS: INVANZ 0.5 GM in NS 50 ML IV SCH (11:12)
--- NOTE | 2018-11-09 22:26 | DISCHARGE SUMMARY ---
ADMISSION DATE: 11/08/2018 DISCHARGE DATE: 11/09/2018 DISPOSITION: Back to [facility]. FOLLOWUP: With Dr. Patric Salguero. CONSULTATIONS DURING THIS ADMISSION: None. IMAGING STUDIES OF SIGNIFICANCE: A chest x-ray was negative. A CT scan of the head and cervical spine showed chronic ischemic changes. Mild degenerative disc and facet disease. A KUB showed a nonspecific abdomen with possible mild constipation. ADMISSION DIAGNOSES: 1. Status post fall. 2. Right rib region pain. 3. Cerebrovascular accident with right-sided weakness. 4. Leukocytosis. DIAGNOSES AT THE TIME OF DISCHARGE: 1. Musculoskeletal pain to the right anterior ribcage after mechanical fall. X-rays were negative for any rib fractures. 2. History of with right-sided hemiplegia associated with expressive aphasia. 3. Diabetes mellitus, controlled. 4. Constipation. 5. Iron deficiency. 6. Rfmfzhrj-prljavwk-mptv-lactamase Escherichia coli in the urine. The patient denied any symptoms. I think this is an asymptomatic bacteriuria. She was, however, given 2 doses of Invanz and a couple of other antibiotics initially, but I do not think patient needs any more antibiotics. 7. Diabetes mellitus. 8. Atrial fibrillation, currently rate controlled on amiodarone, metoprolol and Eliquis for stroke prophylaxis. DISCHARGE MEDICATIONS: 1. Pantoprazole 40 mg p.o. at bedtime. 2. Folic acid 1 mg daily. 3. Methotrexate 5 mg p.o. daily. 4. Atorvastatin 10 mg at bedtime. 5. Metformin 500 b.i.d. 6. Metoprolol 25 mg p.o. daily. 7. Eliquis 5 mg b.i.d. 8. Amiodarone 200 mg b.i.d. 9. Baclofen 100 mg p.o. daily. 10. Duloxetine 60 mg p.o. daily. 11. Ferrous gluconate 324 p.o. daily. 12. MiraLAX 17 grams p.o. daily. PRESENTING COMPLAINT: Fall. HISTORY OF PRESENTING COMPLAINT: Ms. Shields is a 73-year-old female with a history of CVA, right-side hemiplegia with aphasia, chronic atrial fibrillation, and rheumatoid arthritis, who presented to the emergency department after falling from her wheelchair. She did complain of pain under her right rib region. X-rays were done which did not show any fracture. Patient was subsequently admitted for pain control and other comorbidities management. HOSPITAL COURSE: Ms. Shields was admitted to the medical floor and was adequately hydrated. Pain was managed, and she felt remarkably better. She did have physical therapy also evaluating her, and she was able to participate actively with physical therapy. I spoke extensively with the daughter over the phone as well, and I updated her about her mother's current state of health. Ms. Shields has had multiple urine cultures that show Klebsiella and E coli. The recent was Klebsiella, which was the same pathogen in 2018. She denied any symptoms, so I think this is probably just an asymptomatic bacteriuria. Initially, she was started on ceftriaxone and was changed to Invanz, but I think she does not need any more antibiotics. I have discontinue the Invanz. Ms. Shields was also found to be remarkably iron deficient with a ferritin level of 27 and percent saturation of 7. She was given 1 infusion of iron Venofer and was discharged on oral iron replacement. She has been advised to follow up with her primary care doctor, Dr. Jose M Spivey. All the discharge instructions were discussed with her, and she voiced understanding. Ms Shields is going to be discharged back to her assisted living at [facility]. DISCHARGE VITAL SIGNS: Blood pressure is 130/50, pulse is 73, respirations 20, temperature 98.5 degrees. DISCHARGE CONDITION: She is clinically stable. She has been tolerating her meals. She has not had any bowel movement yet, but she is on a bowel regimen. Time spent for discharge is 37 minutes. cc: MD Jose M Quezada MD
== END 2018-11-09 14:00 ==
LOC: SUPCPDRO → 4N 20:21 → ED 20:21 → SUATTDRO 11-08 02:26
PROVIDERS: ATTEND Internal Medicine
CPT/HCPCS: 70450; 71010; 71045; 72125; 74000; 74018; 80048; 80053; 81001; 82607; 82728; 82746; 82948; 83540; 83550; 83605; 83880; 84484; 85025; 87088; 93005; 97162; 97530; A9270; J0696; J1335; J1756; J2270; J7030; J8610; XXXXX

== ENCOUNTER 2018-11-11 09:54 | Inpatient (IN) ==
--- NOTE | 2018-11-11 10:46 | Diag Imaging Result Doc PS360 ---
EXAM: CHEST-1 VIEW INDICATION: choking episode, ? aspiration TECHNIQUE: One view COMPARISON: 11/07/2018 FINDINGS: There is stable elevation of the right hemidiaphragm. There is a right pleural effusion that is moderate to large in size. There is adjacent right basilar atelectasis and/or infiltrate. The left lung is clear. The cardiomediastinal silhouette and central vasculature are grossly unremarkable. The pacemaker is in stable position. No radiopaque foreign body projects over the chest. IMPRESSION: Moderate to large size right pleural effusion with right basilar atelectasis and/or infiltrate. Electronically signed by Tomas Townsend 11/11/2018 10:44 AM
[2018-11-11 10:55] LABS: BASO# 0.01 X1000 (0.0-0.2); BASO% 0.1 % (0.0-0.8); EOS# 0.01 X1000 (0.0-0.7); EOS% 0.1 % (0.0-10.0); HEMATOCRIT 26.9 % (37.0-47.0); HEMOGLOBIN 8.1 g/dL (12.0-16.0); IMM GRAN# 0.06 X1000 (0.0-0.04); IMM GRAN% 0.3 % (0.0-0.5); LYMPH# 0.54 X1000 (1.2-3.4); LYMPH% 2.8 % (20.5-51.1); MCHC 30.1 g/dL (33-37); MCV 86.5 FL (81-99); MONO# 0.45 X1000 (0.11-0.59); MONO% 2.3 % (1.7-9.3); MPV 9.6 FL (7.4-10.4); NEUT# 18.26 X1000 (1.4-6.5); NEUT% 94.4 % (42.2-75.2); RBC 3.11 XMIL (4.2-5.4); RDW 18.2 % (11.5-14.5); WBC 19.33 X1000 (4.8-10.8)
[2018-11-11 11:14] LABS: LYMPHS 3 % (21-51); MONO 2 % (1-9); SEGS 95 % (42-75)
[2018-11-11 11:15] LABS: ANISOCYTOSIS 1+
[2018-11-11 11:17] LABS: PLT 531 X1000 (130-400)
[2018-11-11 11:21] LABS: AGAP 16; ALB/GLOB RATIO 1.3; ALBUMIN 3.4 g/dL (3.5-5.0); ALKALINE PHOSPHATASE 99 U/L (32-104); BUN 8 mg/dL (8-22); CALCIUM 7.9 mg/dL (8.8-10.2); CHLORIDE 101 mmol/L (98-107); COSMO 279; CREATININE 0.9 mg/dL (0.5-0.9); ESTIMATED GFR > 60; GLUCOSE 213 mg/dL (70-104); GOT 21 U/L (10-30); GPT 12 U/L (10-36); POTASSIUM 4.5 mmol/L (3.5-5.1); SODIUM 137 mmol/L (136-145); TCO2 20 mmol/L (25-35); TOTAL PROTEIN 6.1 g/dL (6.3-8.3)
[2018-11-11 11:57] LABS: URINE SOURCE CATH
[2018-11-11 12:03] LABS: BILIRUBIN URINE NEGATIVE (NEGATIVE); BLOOD URINE NEGATIVE (NEGATIVE); COLOR YELLOW; GLUCOSE URINE NEGATIVE (NEGATIVE); KETONE URINE NEGATIVE (NEGATIVE); LEUKOCYTES URINE MODERATE (NEGATIVE); NITRITE URINE NEGATIVE (NEGATIVE); PH URINE 5.5; PROTEIN URINE 50 mg/dL (NEGATIVE); SP GRAVITY URINE 1.016; TURBIDITY URINE HAZY (CLEAR); UROBILINOGEN URINE NORMAL (NORMAL)
[2018-11-11 12:08] LABS: UR EPITHELIAL CELLS >10 /HPF (<10); URINE BACTERIA NEGATIVE /HPF; URINE RBC <10 /HPF (<10); URINE WBC 20-40 /HPF (<10)
[2018-11-11 12:19] LABS: URINE CASTS EPITHELIAL PRESENT; URINE YEAST PRESENT
[2018-11-11] MEDS ORDERED: NS 1,000 ML IV ONE (13:32)
[2018-11-11] MEDS: MERREM 1 GM in NS 50 ML IV SCH (14:10)
[2018-11-11] MEDS ORDERED: NS IV ONE (14:19)
--- NOTE | 2018-11-11 14:19 | Diag Imaging Result Doc PS360 ---
EXAM: CT THORAX W/O CONTRAST HISTORY: new large effusion TECHNIQUE: CT chest without contrast COMPARISON: None. FINDINGS: There is a large right-sided pleural effusion with compressive atelectasis. Possible underlying infiltrates in the right middle and lower lobes. Mild shift of the mediastinum to the left. There is debris in the lower right hemithorax. No left pleural effusion. Borderline mildly prominent heart. There is a left-sided pacemaker. Moderate atherosclerosis. There is a 7 mm nodule superiorly in the left lower lobe. There are multiple right lateral rib fractures. These appear to involve the third through the eighth ribs. No pneumothorax. IMPRESSION: Large right effusion likely containing hemorrhage inferiorly with multiple right rib fractures and prominent right lung atelectasis. This exam was performed using automated exposure control, adjustment of mA or kV according to patient size, and/or use of iterative reconstruction technique. Electronically signed by Avery Morales 11/11/2018 2:16 PM
[2018-11-11] MEDS ORDERED: VANCOMYCIN IV PER PHARMACY MISC SCH (14:30)
[2018-11-11 14:52] LABS: ALLEN TEST YES; BE -1.8 mmoll (-3.0-3.0); BLOOD TYPE ARTERIAL; HCO3-(ACT) 23.5 mmoll (20.0-26.0); O2(CT) 10.5 mL/dL (15.0-23.0); O2HB 92.8 % (95.0-99.0); PCO2(98.6) 38 mmHg (35-45); PO2(98.6) 68 mmHg (60-100); SAMPLE BLOOD; SAO2 94.4 % (95.0-100.0); pH(98.6) 7.39 (7.35-7.45)
[2018-11-11] MEDS ORDERED: XOPENEX NEB INH PRN (14:52)
[2018-11-11 14:55] LABS: MODALITY CANNULA
[2018-11-11] MEDS ORDERED: SOLU-CORTEF IV SCH (15:00)
--- NOTE | 2018-11-11 15:10 | EKG Report ---
Test Performed on : 11/11/2018 3:06:42 PM Test Reason : resp distress Blood Pressure : / mmHG Vent. Rate : 065 BPM Atrial Rate : 065 BPM P-R Int : 180 ms QRS Dur : 074 ms QT Int : 514 ms P-R-T Axes : 013 057 063 degrees QTc Int : 534 ms Atrial-paced rhythm Prolonged QT Abnormal ECG When compared with ECG of 07-NOV-2018 23:36, (Unconfirmed) No significant change was found Confirmed by Ryne LEIJA, Sukhdev Hayden ([id number]) on 11/14/2018 9:27:46 AM
[2018-11-11] MEDS: PROTONIX IV SCH (15:18)
--- NOTE | 2018-11-11 15:21 | HISTORY AND PHYSICAL ---
PRIMARY CARE PHYSICIAN: Dr. Jose M Spivey CHIEF COMPLAINT: Choking episode. HISTORY OF PRESENT ILLNESS: Ms. Shields is a 73-year-old female with a history of stroke and right-sided hemiparesis and dysphasia. She was recently discharged, status post fall with right rib pain, leukocytosis and asymptomatic bacteriuria with ESBL positive E. coli in the urine. She was discharged to [facility] assisted living. She comes back today after an apparent choking episode while she was eating breakfast. There is no one at bedside to verify the events of this morning; however, review of the chart shows that she had about a [id number] choking spell and had difficulty breathing and was emergently sent here. She did not lose pulse or become apneic. In the ER she had a chest x-ray done which showed a large right pleural effusion which is new from her last admission. She has a white count of 19,000 with mild acidosis and a lactic acid of 4.2. We have decided to CT her chest which shows multiple right rib fractures and large right hemothorax without evidence of pneumothorax. She is tachypneic but is afebrile, however, she is in mild respiratory distress. So, given all of the above, we are going to admit her to the ICU. PAST MEDICAL HISTORY: 1. CVA with right-sided hemiparesis with dysphasia. 2. Chronic atrial fibrillation on anticoagulation. 3. Hypertension. 4. Rheumatoid arthritis. 5. Folic acid deficiency. 6. Type 2 diabetes not requiring insulin. 7. GERD. SOCIAL HISTORY: She quit smoking some time ago. No current tobacco, alcohol or drug use. She has family, but they are not at the bedside currently. FAMILY HISTORY: Noncontributory. REVIEW OF SYSTEMS: Unable to obtain. ALLERGIES: No known drug allergies. HOME MEDICATIONS: Amiodarone 200 mg b.i.d.; folic acid 1 mg daily; Glucophage 500 mg p.o. b.i.d.; Imodium 2 mg p.o. t.i.d. p.r.n.; Lipitor 10 mg p.o. q bedtime; methotrexate as directed; Milk of Magnesia 30 mL p.o. daily; Mucinex 600 mg 1-2 tabs p.o. b.i.d.; prednisone 1 mg every other day; Protonix 40 mg p.o. q bedtime; Toprol XL 25 mg daily; Tylenol 650 mg p.r.n.; Tramadol 50 mg p.o. b.i.d.; Baclofen 10 mg p.o. q 8 hours; Cymbalta 60 mg daily; Eliquis 5 mg p.o. b.i.d.; iron gluconate 324 mg p.o. daily; MiraLAX 17 grams daily. PHYSICAL EXAMINATION: VITAL SIGNS: Blood pressure 114/65; heart rate 72; respiratory rate 18; O2 sat 97% on nasal cannula; temperature 97.4. GENERAL: This is a morbidly obese female lying in the hospital bed in mild to moderate respiratory distress. NEUROLOGICAL: She has right-sided hemiparesis and is severely dysphasic. She follows commands appropriately with the left arm and left leg. She is able to wiggle her right fingers and right toes. HEENT: Head is atraumatic and normocephalic. Her pupils are equal, round and reactive to light. Oral mucosa is dry. NECK: Trachea is midline. There is no JVD. CHEST: Severely diminished over the right lung base. CARDIOVASCULAR: Irregular rate and rhythm. S1 and S2 are noted. GASTROINTESTINAL: Slightly distended and tender to palpation. Bowel sounds are hypoactive. DIAGNOSTIC DATA: CT of the chest shows large right effusion likely containing hemorrhage inferiorly with multiple right rib fractures and prominent right lung atelectasis. Chest x-ray moderate to large size right pleural effusion and/or infiltrate. WBC 19.33, hemoglobin 8.1, hematocrit 26.9, platelet count 531,000, sodium 137, potassium 4.5, chloride 101, C02 20, anion gap 16, BUN 8, creatinine 0.9, glucose 213, calcium 7.9. LFTs negative. Troponin negative. Albumin 3.4, lactic acid 4.2. UA shows moderate leukocytes and 20-40 WBCs but greater than 10 epi cells. ASSESSMENT AND PLAN: 1. Acute respiratory distress: Initially felt to be secondary to possible choking episode this morning; but after review of imaging, she has what appears to be a large right hemithorax likely secondary to rib fractures complicated by Eliquis therapy. She is on supplemental 02. We are going to get a blood gas. We have drawn blood cultures, and we are going to start meropenem as she did have ESBL E. positive Klebsiella pneumoniae in the urine earlier this month. We will also add vancomycin as she was hospitalized recently. Lactic acid production likely due to bleeding diathesis. 2. Right hemithorax: Surgery has been consulted. Will check daily chest x-rays and follow closely. Eliquis will have to go on hold as this is likely a complication of that. 3. Anemia: Her hemoglobin is 8.1 but appears to be chronic and baseline, slightly lower than her discharge. We will go ahead and type and screen her and transfuse if necessary. Iron studies last time showed she was iron deficient; but, given the sepsis, we will hold off on any IV iron. We will also order FFP. 4. History of ESBL positive Klebsiella pneumoniae UTI: Meropenem is infusing. 5. Chronic atrial fibrillation: EKG is pending. Will trend cardiac enzymes. Echocardiogram done on 09/29 showed EF of 55% without major valvular abnormalities. 6. History of stroke with right-sided hemiparesis and severe dysphasia: Her neurologic status does not appear to be different than baseline. However, given the choking episode and likely aspiration, will need to get speech involved and do a swallow study if one has not been done recently. . DVT prophylaxis with SCDs. Critical care time with the patient is greater than 1 hour. Dictated by CHASE Jeffries for Christian Lopez MD cc: CHASE Jeffries MD [facility]
--- NOTE | 2018-11-11 15:21 | PROVIDER DOCUMENTATION ---
This chart was entered by Edilma Silva Scribe, acting as scribe for Mingo Verdugo MD. HPI-General Adult - General Chief Complaint: Seizure Stated Complaint: CHOKED ON FOOD Time Seen by Provider: 11/11/18 10:11 Source: patient, EMS Allergies/Adverse Reactions: Patient Allergies Allergy/AdvReac Type Severity Reaction Status Date / Time No Known Allergies Allergy Verified 09/28/18 14:08 Home Medications: Home Medication List Medication Instructions Recorded Confirmed Last Taken Type Pantoprazole [Protonix] 40 mg PO HS 04/29/17 11/11/18 1 Day Ago History ~09/28/18 ATORVAstatin [Lipitor] 10 mg PO QHS 01/30/18 11/11/18 1 Day Ago History ~09/28/18 Folic Acid 1 mg PO DAILY 01/30/18 11/11/18 09/28/18 History Methotrexate 12.5 tab PO DIRECTED 01/30/18 11/11/18 09/28/18 History Metformin [Glucophage] 500 mg PO BID CC 09/29/18 11/11/18 1 Day Ago History ~09/28/18 Metoprolol Succinate E.r. [Toprol 25 mg PO DAILY 09/29/18 11/11/18 1 Day Ago History Xl] ~09/28/18 Apixaban [Eliquis] 5 mg PO BID #60 tab 10/05/18 11/11/18 Unknown Rx Baclofen 10 mg PO Q8H PRN #0 11/01/18 11/11/18 09/28/18 Rx Duloxetine [Cymbalta] 60 mg PO DAILY #30 cap 11/01/18 11/11/18 Unknown Rx Ferrous Gluconate 324 mg PO DAILY #120 tab 11/09/18 11/11/18 Unknown Rx Polyethylene Glycol 3350 [Miralax] 17 gm PO DAILY powder, packet 11/09/18 11/11/18 Unknown Rx Acetaminophen [Tylenol] 650 mg PO Q4H PRN 11/11/18 11/11/18 Unknown History Amiodarone [Cordarone] 200 mg PO BID 11/11/18 11/11/18 Unknown History Guaifenesin E.r. [Mucinex] 1 - 2 tab PO BID PRN 11/11/18 11/11/18 Unknown History Loperamide [Imodium] 2 mg PO TID PRN 11/11/18 11/11/18 Unknown History Magnesium Hydroxide [Milk of 30 ml PO DAILY PRN 11/11/18 11/11/18 Unknown History Magnesia] Ondansetron HCl [Zofran] 4 mg PO Q6H PRN 11/11/18 11/11/18 Unknown History Prednisone 1 mg PO DIRECTED 11/11/18 11/11/18 Unknown History Tramadol [Ultram] 50 mg PO BID PRN 11/11/18 11/11/18 Unknown History - History of Present Illness -Gen Adult Nature of Presenting Problems: 73 y/o female presents to ED with seizure-like activity onset just prior to arrival. EMS reports she was eating breakfast and began choking, then had a brief 10 second episode of seizure-like activity. Pt is currently living at [facility] assisted living due to a recent fall. Pt has hx CVA, aphasia, and spasticity of the R side. Pt currently being treated for UTI. Pt is alert and oriented. Location of Pain/Injury: reports: none Pain Radiation: reports: no radiation Quality of Pain: reports: none Severity: reports: mild Onset/Duration: reports: just prior to arrival Timing: reports: gone now Context/Activities at Onset: reports: eating Modifying Factors: improves with: nothing Associated Symptoms: reports: seizure, other (choking) Similar Symptoms Previously?: No Recently seen or treated by another doctor?: No Review of Systems - Adult - REVIEW OF SYSTEMS - ADULT Constitutional: denies: chills, fever Eyes: reports: no symptoms reported Ears, Nose, Mouth & Throat: reports: other (choking). denies: epistaxis Cardiovascular: denies: chest pain, palpitations Respiratory: denies: cough, shortness of breath Gastrointestinal: denies: abdominal pain, diarrhea, nausea, vomiting Genitourinary: reports: no symptoms reported Musculoskeletal: denies: back pain, joint pain Integumentary: reports: no symptoms reported Neurological: reports: seizure. denies: dizziness/vertigo Psychiatric: reports: no symptoms reported Endocrine: reports: no symptoms reported Hematologic/Lymphatic: reports: no symptoms reported Allergic/Immunologic: reports: no symptoms reported All Other Systems: Reviewed and Negative Past History - Adult - PAST MEDICAL HISTORY-ADULT Review of Records: reports: Old Records Reviewed, Nursing Assessment Review, Medications Reviewed Major Childhood Illnesses: reports: denies history Cardiovascular: reports: A-Fib, CHF, HTN, hyperlipidemia, pacemaker Respiratory: reports: denies history Gastrointestinal: reports: denies history Obstetrical/Gynecological: reports: denies history Genitourinary: reports: denies history, dialysis Musculoskeletal: reports: denies history Neurological: reports: CVA, stroke deficits Psychiatric: reports: denies history Endocrine/Immune: reports: denies history, Diabetes Other Conditions: reports: denies history, other (UTI) - PRIOR SURGERIES/PROCEDURES Surgical/Procedure History: reports: reviewed, not pertinent, pacemaker - IMMUNIZATION STATUS Childhood Immunizations: UTD Flu Vaccine: UTD - FAMILY HISTORY Family History: reviewed, not pertinent - SOCIAL HISTORY Smoking: non-smoker Substance Use: none/never Alcohol Use Frequency: never Living Situation: care facility Physical Exam-General - PHYSICAL EXAM-ADULT Initial Vital Signs Reviewed: Yes - CONSTITUTIONAL General Appearance: appears well, alert, anxious - EYES Eyes: PERRL/EOMI, pink conjunctivae - HEAD, EARS, NOSE, MOUTH & THROAT HENMT: normocephalic/atraumatic, moist mucous membranes, normal ENT inspection - NECK Neck: non-tender, full range of motion - RESPIRATORY Respiratory: chest non-tender, lungs clear, normal breath sounds, increased rate - CARDIOVASCULAR Cardiovascular: normal peripheral pulses, regular rate, rhythm - GASTROINTESTINAL (ABDOMEN) Abdominal Exam: normal bowel sounds, non tender, soft - MUSCULOSKELETAL Back Exam: normal inspection, no CVA tenderness Extremity: normal range of motion, non-tender, other (AFO brace present) - SKIN Integumentary: normal color, warm/dry - NEUROLOGIC Neurologic: grossly normal, aphasia (residual from previous CVA), other (spasticity on R side residual from previous CVA) - PSYCHIATRIC Psych/Mental Status: normal mood/affect, normal thought content, normal thought process, anxious Progress - PLAN OF CARE/RESULTS Progress/Plan/Lab Results: Vital Signs - 8 hr 11/11/18 10:09 Temperature 98.1 F Pulse Rate 67 Respiratory Rate 26 H Blood Pressure 99/58 O2 Sat by Pulse Oximetry 88 L Orders Category Date Time Status Cardiac Monitoring DIRECTED Care 11/11/18 11:12 Active Notify MD of + Sepsis Screen NOW Care 11/11/18 11:12 Active Notify Physician As Ordered Care 11/11/18 11:12 Active CHEST-1 VIEW [RAD] Stat Exams 11/11/18 10:21 Completed BLOOD CULTURE [BLDCUL] Stat Lab 11/11/18 11:08 Results CBC WITH DIFF [HEME] Stat Lab 11/11/18 10:35 Completed CK PROFILE [SP CHEM] Stat Lab 11/11/18 10:35 Completed COMPREHENSIVE METABOLIC PANEL [CHEM] Stat Lab 11/11/18 10:35 Completed LACTATE, PLASMA [CHEM] Lab 11/11/18 14:15 Uncollected LACTATE, PLASMA [CHEM] Lab 11/11/18 17:15 Uncollected LACTATE, PLASMA [CHEM] Q3H Lab 11/11/18 11:08 Completed PTT [COAG] Stat Lab 11/11/18 10:35 Completed TROPONIN T Stat Lab 11/11/18 10:35 Completed URINALYSIS W/POSS RFLX CULT [URINALYSIS] Stat Lab 11/11/18 11:46 Completed URINE MANUAL MICROSCOPIC [URINALYSIS] Stat Lab 11/11/18 11:46 Completed Oxygen Device Stat Oth 11/11/18 11:12 Active Laboratory Tests 11/11/18 11/11/18 11/11/18 10:35 10:35 10:35 WBC 19.33 H RBC 3.11 L Hgb 8.1 L Hct 26.9 L MCV 86.5 MCH 26.0 L MCHC 30.1 L RDW Std Deviation 18.2 H Plt Count 531 H MPV 9.6 Immature Gran % (Auto) 0.3 Neut % (Auto) 94.4 H Lymph % (Auto) 2.8 L Barren % (Auto) 2.3 Eos % (Auto) 0.1 Baso % (Auto) 0.1 Immature Gran # (Auto) 0.06 H Neut # (Auto) 18.26 H Lymph # (Auto) 0.54 L Barren # (Auto) 0.45 Eos # (Auto) 0.01 Baso # (Auto) 0.01 Segmented Neutrophils 95 H Lymphocytes 3 L Monocytes 2 Anisocytosis 1+ Macrocytosis 1+ PTT (Actin FS) Sodium 137 Potassium 4.5 Chloride 101 Carbon Dioxide 20 L Anion Gap 16 BUN 8 Creatinine 0.9 Estimated GFR/1.73 m2 > 60 BUN/Creatinine Ratio 9 Glucose 213 H Calculated Osmolality 279 Calcium 7.9 L Total Bilirubin 1.00 AST 21 ALT 12 Alkaline Phosphatase 99 Creatine Kinase 57 Troponin T Total Protein 6.1 L Albumin 3.4 L Globulin 2.7 Albumin/Globulin Ratio 1.3 Plasma Lactate Urine Source Urine Color Urine Turbidity Urine pH Ur Specific [place] Urine Protein Ur Glucose (Stick) Ur Ketones (Stick) Urine Blood Urine Nitrite Urine Bilirubin Urobilinogen Dipstick Urine Leukocytes Urine WBC (Auto) Urine RBC (Auto) U Epithel Cells (Auto) Urine Bacteria (Auto) Urine Crystals Small Round Cells Urine Casts Urine Yeast-like Cells 11/11/18 11/11/18 11/11/18 10:35 10:35 11:08 WBC RBC Hgb Hct MCV MCH MCHC RDW Std Deviation Plt Count MPV Immature Gran % (Auto) Neut % (Auto) Lymph % (Auto) Barren % (Auto) Eos % (Auto) Baso % (Auto) Immature Gran # (Auto) Neut # (Auto) Lymph # (Auto) Barren # (Auto) Eos # (Auto) Baso # (Auto) Segmented Neutrophils Lymphocytes Monocytes Anisocytosis Macrocytosis PTT (Actin FS) 34.2 Sodium Potassium Chloride Carbon Dioxide Anion Gap BUN Creatinine Estimated GFR/1.73 m2 BUN/Creatinine Ratio Glucose Calculated Osmolality Calcium Total Bilirubin AST ALT Alkaline Phosphatase Creatine Kinase Troponin T < 0.010 Total Protein Albumin Globulin Albumin/Globulin Ratio Plasma Lactate 4.2 H Urine Source Urine Color Urine Turbidity Urine pH Ur Specific [place] Urine Protein Ur Glucose (Stick) Ur Ketones (Stick) Urine Blood Urine Nitrite Urine Bilirubin Urobilinogen Dipstick Urine Leukocytes Urine WBC (Auto) Urine RBC (Auto) U Epithel Cells (Auto) Urine Bacteria (Auto) Urine Crystals Small Round Cells Urine Casts Urine Yeast-like Cells 11/11/18 11:46 WBC RBC Hgb Hct MCV MCH MCHC RDW Std Deviation Plt Count MPV Immature Gran % (Auto) Neut % (Auto) Lymph % (Auto) Barren % (Auto) Eos % (Auto) Baso % (Auto) Immature Gran # (Auto) Neut # (Auto) Lymph # (Auto) Barren # (Auto) Eos # (Auto) Baso # (Auto) Segmented Neutrophils Lymphocytes Monocytes Anisocytosis Macrocytosis PTT (Actin FS) Sodium Potassium Chloride Carbon Dioxide Anion Gap BUN Creatinine Estimated GFR/1.73 m2 BUN/Creatinine Ratio Glucose Calculated Osmolality Calcium Total Bilirubin AST ALT Alkaline Phosphatase Creatine Kinase Troponin T Total Protein Albumin Globulin Albumin/Globulin Ratio Plasma Lactate Urine Source CATH Urine Color YELLOW Urine Turbidity HAZY Urine pH 5.5 Ur Specific [place] 1.016 Urine Protein 50 A Ur Glucose (Stick) NEGATIVE Ur Ketones (Stick) NEGATIVE Urine Blood NEGATIVE Urine Nitrite NEGATIVE Urine Bilirubin NEGATIVE Urobilinogen Dipstick NORMAL Urine Leukocytes MODERATE A Urine WBC (Auto) 20-40 A Urine RBC (Auto) <10 U Epithel Cells (Auto) >10 A Urine Bacteria (Auto) NEGATIVE Urine Crystals Not Reportable Small Round Cells Not Reportable Urine Casts EPITHELIAL PRESENT Urine Yeast-like Cells PRESENT Result Diagrams: 11/11/18 15:05 11/11/18 10:35 - REASSESSMENT Reassessment #1 Time Reassessed: 12:21 Status: other (Increased lactate noted from 11/07. New pleural effusion noted on chest x-ray.) - EKG 1 Time of EKG reading by physician:: 15:06 EKG Read and Signed by:: Mingo Verdugo EKG Interpretation (*Must complete 3 of following elements*): Abnormal Rate: 65 Rhythm: Atrial-paced [place]: normal QRS: normal IA Interval: prolonged ST Wave: normal - XRAY 1 XRAY Study: Chest Impression: Abnormal (FINDINGS: There is stable elevation of the right hemidiaphragm. There is a right pleural effusion that is moderate to large in size. There is adjacent right basilar atelectasis and/or infiltrate. The left lung is clear. The cardiomediastinal silhouette and central vasculature are mally sly unremarkable. The pacemaker is in stable position. No radiopaque foreign body projects over the chest. IMPRESSION: Moderate to large size right pleural effusion with right basilar atelectasis and/or infiltrate. Electronically signed by Tomas Townsend 11/11/2018 10:44 AM) - CONSULTS/PCP/HOSPITALIST Notification #1 *Consult/PCP/Hospitalist*: CHASE Castellanos for Dr. Lopez Time Discussed: 13:25 Reason/Comments: Pleural effusion; lactate Consult Disposition: Admit Departure - Departure Date of Disposition Decision: 11/11/18 Time of Disposition Decision: 15:00 DIAGNOSIS: Pleural effusion, Complicated UTI (urinary tract infection), Seizure, Asphyxia by inhalation of food Disposition: ADMITTED INPATIENT 09 Certified Medical Emergency: Emergent Condition: Critical - Critical Care Note This patient required my direct & personal management of CC.: Yes Total Time (mins): 45 Critical Care Statement: This patient required my direct personal management to treat or rule out processes, the absence of which, could potentiallly result in sudden, clinically significant life or limb threatening deterioration. Attestation - Physician/ LILY Attestation Patient care was provided by Advanced Practice Provider:: No The physician spent face to face time with patient:: Yes Advanced Practice Provider documentation review:: Supervising physician onsite and consulted in the evaluation and care of this patient. The physician did have a face to face encounter with the patient. This chart was documented by the indicated scribe, (Edilma Silva Scribe) and accurately reflects the services I performed and decisions made by me, Mingo Verdugo MD, as attested by the provider's signature.
[2018-11-11 15:25] LABS: INR 1.79; PROTIME 22.1 Seconds (11.0-16.0)
--- NOTE | 2018-11-11 15:25 | Diag Imaging Result Doc PS360 ---
EXAM: KUB ABDOMEN HISTORY: abd pain TECHNIQUE: Portable supine abdomen single view COMPARISON: 11/09/2018 FINDINGS: Considerable decrease in the stool within the colon on the current exam. No bowel obstruction. No organomegaly. Mild scoliosis with degenerative spine changes. The gallbladder has been removed. IMPRESSION: No acute abnormality. Electronically signed by Avery Morales 11/11/2018 3:22 PM
[2018-11-11] MEDS: XOPENEX NEB INH SCH ×3 (15:31→23:25)
[2018-11-11 15:33] LABS: HEMATOCRIT 24.5 % (37.0-47.0); HEMOGLOBIN 7.3 g/dL (12.0-16.0)
[2018-11-11] MEDS: HUMULIN R SUBQ SCH ×2 (16:00→21:00)
[2018-11-11] MEDS ORDERED: VANCOMYCIN 2 GM in NS 500 ML IV ONE (17:00)
[2018-11-11] MEDS: SOLU-CORTEF IV SCH ×2 (18:13→23:47)
[2018-11-11] MEDS ORDERED: NS 500 ML ONE (18:34)
[2018-11-11] MEDS ORDERED: NS 250 ML ONE (19:22)
--- NOTE | 2018-11-11 20:06 | HISTORY AND PHYSICAL ---
HISTORY OF PRESENT ILLNESS: Ms. Yessenia Shields was discharged from the hospital just about 2 days ago. On that occasion, she presented because of a fall with a trauma to the right side. A chest x-ray which was done on admission was completely negative. She was observed for 2 days in the hospital and was sent back to [place]. On that occasion, I was the same attending who took care of her. I spoke extensively with the daughter who resides in [place]. She came back today because of some shortness of breath and some history of choking on the food. On presentation, she was evaluated. A detailed H and P has already been dictated, but she was found to be slightly hypotensive, hypoxemic and initial chest x-ray showed moderate to large size right pleural effusion and right basilar atelectasis and/or infiltrate. A CT scan was done which shows a large right effusion likely containing hemorrhage and there is also multiple right rib fractures and prominent right lung atelectasis. PHYSICAL EXAMINATION: VITAL SIGNS: Her current vitals shows a blood pressure is 107/56, pulse of 65, respirations 24. LUNGS: Her physical exam is significant for remarkably reduced entry into the right lung field. The patient looks to be splinting. ABDOMEN: There is some tenderness to abdominal palpation. Abdomen is grossly distended, but there is no rebound or guarding. S7: She still has a right-sided hemiplegia and occasional expressive aphasia. CURRENT LABS: Shows hemoglobin is 8.1. The discharge hemoglobin 2 days ago was 8.8. Her white cell count is 19.33. Discharge was 6.56, and her chemistry is grossly unremarkable. Lactate is 4.2, however, lactate on the ABG is 1.8. I think that was probably done after she had been hydrated. ASSESSMENT: 1. Acute hypoxemic respiratory failure likely due to the hemothorax. 2. Blunt trauma to the chest a couple days ago which has resulted into a traumatic hemothorax with multiple fractures and this has been compounded by the fact that the patient is on Eliquis. Anticoagulation has been withheld. We are giving the patient 1 unit of fresh frozen plasma and we will serially follow up on her hemoglobin and hematocrit and transfuse her accordingly. 3. Anemia. The patient did have iron deficiency, but I think this is more compounded to the fact that she is acutely bleeding into her right hemothorax. As I said, we are going to group and crossmatch and transfuse her as needed. 4. History of atrial fibrillation. Currently rate controlled and history of previous cerebrovascular accident with right-sided hemiplegia sequela and expressive aphasia. PLAN: Ms. Shields will be admitted to the ICU. We will get surgery to evaluate the possibility of the hemothorax evacuation. We will also get Pulmonary Medicine to evaluate her. Ms. Shields has a very high potential for endotracheal intubation. We will keep her in the ICU for close monitoring. Please refer to the details of the H and P dictated by the BINDER COVERSTITCH in the chart. Critical time spent 45 minutes cc: Christian Lopez MD MTDLaura
[2018-11-11 20:59] LABS: CK-MB 2.34 ng/mL (0.0-5.0)
[2018-11-11] MEDS ORDERED: OFIRMEV 1000 MG/ISOTONIC SOLN 1,000 MG/100 ML BOTTLE IV ONE (22:48)
[2018-11-11] MEDS: CORDARONE PO SCH (23:47)
[2018-11-12] MEDS: MERREM 1 GM in NS 50 ML IV SCH ×3 (02:56→15:50)
[2018-11-12] MEDS: XOPENEX NEB INH SCH ×6 (03:25→23:40)
[2018-11-12] MEDS ORDERED: NS 1,000 ML IV SCH (06:00)
[2018-11-12] MEDS: HUMULIN R SUBQ SCH ×4 (06:30→20:41)
--- NOTE | 2018-11-12 07:10 | Diag Imaging Result Doc PS360 ---
EXAM: CHEST-PORTABLE 11/12/2018 HISTORY: Dyspnea TECHNIQUE: AP portable at 0533 COMMENT: There is increased volume of pleural fluid on the right with worsened compressive atelectasis of the right lung. There is some shift of the mediastinum to the left. The left lung is otherwise unchanged in appearance since the previous study of 11/11/2018. IMPRESSION: Worsening right pleural effusion. Electronically signed by Melquiades Maldonado 11/12/2018 7:08 AM
--- NOTE | 2018-11-12 07:52 | PULMONOLOGY CONSULTATION ---
DATE: 11/11/2018 REQUESTING PHYSICIAN: Dr. Lopez. REASON FOR CONSULTATION: Hemothorax. HISTORY OF PRESENT ILLNESS: Ms. Shields is a 73-year-old white female with a history of stroke and right hemiparesis with expressive aphasia, who was admitted to the hospital 10/30/2018 with altered mental status and urinary tract infection, and then readmitted 11/08/2018 after she slid out of wheelchair and landed on her right side. She was subsequently discharged home. The patient re-presented to the emergency room 11/11/2018 with some choking and a seizure-like activity around breakfast. The patient had a chest x-ray which revealed a new right-sided pleural effusion, and a CT scan was performed which reveals a large right-sided pleural effusion, multiple rib fractures, and blood clot in the right hemithorax. The patient also has a 7 mm nodule in the left lower lobe. PAST MEDICAL HISTORY: 1. Stroke with right-sided weakness and aphasia. 2. Rheumatoid arthritis. 3. Chronic atrial fibrillation on amiodarone therapy and Eliquis. 4. Dyslipidemia. 5. Rheumatoid arthritis. SOCIAL HISTORY: Prior tobacco use. Occasional alcohol use. FAMILY HISTORY: Noncontributory to current presentation. REVIEW OF SYSTEMS: Difficult with patient's expressive aphasia, although she does report some shortness of breath and right-sided pain. PHYSICAL EXAMINATION: General: Reveals a well-developed, well-nourished, white female with mild work of breathing. Vital Signs: Blood pressure 104/59, heart rate 69, respiratory rate 29, oxygen saturation 95%. HEENT: Pupils are equal and reactive. Oropharynx is clear. Neck: Supple. Chest: Reveals significant decreased breath sounds on the right. Cardiac Exam: S1, S2. Abdomen: Soft without hepatosplenomegaly. Extremities: Without edema. No definite pulsus paradoxus identified at the bedside. LABS AND X-RAYS: CT scan reveals mild shift to the mediastinum, large effusion with debris in the right hemithorax consistent with clotted blood. Arterial blood gas on 2 L per nasal cannula reveals a pH 7.39, pCO2 of 38, PO2 of 68. Sodium 137, potassium 4.5, chloride 101, bicarbonate 20, BUN 8, creatinine 0.9. IMPRESSION: A 73-year-old with rheumatoid arthritis, chronic anticoagulation, who has: 1. Multiple rib fractures. 2. Hemothorax. 3. Chronic anticoagulation. 4. Acute hypoxemic respiratory failure. 5. Mild mediastinal shift without evidence of clinical tamponade. RECOMMENDATIONS: 1. Hold anticoagulation. 2. Agree with consulting General Surgery. The patient will likely require a chest tube or a thoracoscopy. 3. Continue oxygen for hypoxemic respiratory failure. cc: Patric Saldaña MD
[2018-11-12] MEDS: CORDARONE PO SCH ×2 (08:34→20:41)
[2018-11-12] MEDS: TOPROL XL PO SCH (08:34)
[2018-11-12] MEDS: SOLU-CORTEF IV SCH ×2 (08:34→15:50)
[2018-11-12] MEDS: FOLIC ACID PO SCH (08:35)
--- NOTE | 2018-11-12 08:53 | GENERAL SURGERY CONSULTATION ---
DATE: 11/11/2018 HISTORY OF PRESENT ILLNESS: This is a 73-year-old female with a recent stroke, hemiparesis, and dysphagia. She is at [facility]. She had a fall several days ago for which she was discharged, but had some choking spells today, difficulty breathing, came to the ER where CT scan showed a large right effusion with multiple rib fractures. She has had some tachypnea, O2 requirements in the emergency department. Overall, has been hemodynamically stable. History is mostly obtained per the record. I attempted to call family but they did not answer. MEDICAL HISTORY: CVA, right hemiparesis with dysphagia and aphasia. Chronic atrial fibrillation on anticoagulation with Eliquis. Hypertension, rheumatoid arthritis, folate deficiency, type 2 diabetes, gastroesophageal reflux. Does have a history of smoking. PAST SURGICAL HISTORY: Left-sided pacemaker. SOCIAL HISTORY: No tobacco, alcohol or drugs. No family currently, but does apparently have an attentive daughter who is her power of professor of [employer]. FAMILY HISTORY: Reviewed and noncontributory. REVIEW OF SYSTEMS: Not obtainable. MEDICATIONS: Includes Eliquis. PHYSICAL EXAMINATION: Vital Signs: On exam, temperature is 97.6, pulse 74, blood pressure 120/56, oxygen saturation 97% on 3 to 4 L. General: She is alert, in no acute distress. HEENT: No scleral icterus. No cervical mass. Cardiovascular: Normal rate. Pulmonary: Nonlabored respirations, but slightly tachypneic. Chest: Equal chest rise. There is no significant bruising, but there is tenderness to her right chest. Abdomen: Soft, nontender. Integument: Warm and dry. Psychiatric: Appropriate affect. Peripheral vascular: Does have 2+ lower extremity edema bilaterally. Lymphatic: No cervical adenopathy. Neurological: She is expressively aphasic with weakness and contracture of the right arm. LABS: White count is 19, hematocrit 24, platelets 531. INR is 1.79. Creatinine 0.9. Troponins were less than 0.01. Lactate was 2.6. Urinalysis positive for moderate leukocyte. Reviewed her CT scan of the chest that shows a large right effusion, multiple rib fractures and apparent hematocrit level and fluid in the chest. ASSESSMENT AND PLAN: This is a 73-year-old female with right-sided effusion, related to multiple rib fractures several weeks ago. She is anticoagulated. Unclear the last time she has had her Eliquis. I will plan for video-assisted drainage with bronchoscopy tomorrow. I have discussed with Dr. Saldaña. Will keep her n.p.o., I will post her. I do need to try to get in touch with the family. I have tried to call. They have been unavailable, but we will continue to try this. Otherwise, continue medical management. She may ultimately need transfusions given her marginal hematocrit currently, and I would continue to follow these closely. cc: Sarah Chow MD
[2018-11-12 09:01] LABS: ALB/GLOB RATIO 1.3; ALBUMIN 3.2 g/dL (3.5-5.0); CREATININE 1.7 mg/dL (0.5-0.9); MAGNESIUM 1.4 mg/dL (1.5-2.7); POTASSIUM 4.3 mmol/L (3.5-5.1); TOTAL BILIRUBIN 1.98 mg/dL (0.20-1.00); TOTAL PROTEIN 5.6 g/dL (6.3-8.3)
[2018-11-12 09:02] LABS: BASO# 0.01 X1000 (0.0-0.2); CALCIUM 7.1 mg/dL (8.8-10.2); HEMATOCRIT 22.5 % (37.0-47.0); HEMOGLOBIN 7.2 g/dL (12.0-16.0); IMM GRAN# 0.11 X1000 (0.0-0.04); IMM GRAN% 0.5 % (0.0-0.5); LYMPH% 5.5 % (20.5-51.1); MCH 27.7 PG (27-31); MCV 86.5 FL (81-99); MONO% 10.1 % (1.7-9.3); MPV 9.8 FL (7.4-10.4); NEUT# 19.89 X1000 (1.4-6.5); NEUT% 83.9 % (42.2-75.2); RDW 16.6 % (11.5-14.5); WBC 23.71 X1000 (4.8-10.8)
[2018-11-12 09:06] LABS: INR 1.61; PROTIME 20.4 Seconds (11.0-16.0)
--- NOTE | 2018-11-12 09:52 | PROGRESS NOTE ---
DATE: 11/12/2018 SUBJECTIVE: This morning Ms. Shields refers to be feeling a little better. She is still slightly tachypneic but she says that she feels slightly stronger. Ms. Shields has been given 2 units of PRBC and 1 FFP. OBJECTIVE: Vital Signs: Currently her blood pressure is 106/92, pulse 75, and respirations 22. The patient is saturating 100%. General: Ms. Shields is a 73-year-old female. She is in bed. She still looks slightly pale and tachypneic. HEENT: Mucosa is pale. Chest: Air entry is bilaterally reduced, more so to the right posterior lung field all the way to the apex. There is dullness to percussion to the right hemithorax. Abdomen: Soft. Extremities: No pedal edema. 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 She still has right side hemiplegia. ASSESSMENT: 1. Acute hypoxemic respiratory failure. The patient continues to be on nasal cannula for oxygenation. O2 saturation has significantly improved. 2. Blunt trauma to chest a couple of days ago resulting into a traumatic hemothorax with multiple fractures. This patient is pending surgery evaluation. 3. Anemia of acute blood loss. The patient is status post 2 units of packed red blood cells transfusion. 4. History of atrial fibrillation, currently rate controlled. 5. Eliquis anticoagulation for atrial fibrillation. This has been withheld because of a life- threatening bleed in the pleural space. 6. History of cerebrovascular accident with right side hemiplegia and expressive aphasia noted. In general, Ms. Shields seems to be fairly stable but critically sick. She is pending Surgery and Pulmonary Medicine evaluation today. Her recent chest x-ray this morning seems to suggest worsening of the right thorax findings with almost a complete opacification of the right side. I think Ms. Shields will need chest tube placement for drainage of this hemothorax. However, we will be waiting and will be pending recommendations from Surgery and from Pulmonary Medicine with regards to the management of that. Anticoagulation has been withheld and fresh frozen plasma has been given. cc: Christian Lopez MD
[2018-11-12 09:57] LABS: PLT 467 X1000 (130-400)
[2018-11-12 09:58] LABS: ANISOCYTOSIS 1+; LARGE PLATELETS 1+; LYMPHS 6 % (21-51); MONO 9 % (1-9); POLYCHROM 1+; SEGS 85 % (42-75)
[2018-11-12] MEDS ORDERED: AMIDATE ONE (10:52)
[2018-11-12] MEDS ORDERED: NORCURON ONE (10:56)
[2018-11-12] MEDS ORDERED: QUELICIN (DOSE) ONE (10:56)
[2018-11-12] MEDS ORDERED: MARCAINE 0.25% PF/EPI 1:200,000 ONE (11:41)
[2018-11-12] MEDS ORDERED: LR 1,000 ML ONE (11:41)
[2018-11-12 11:58] LABS: HEMOGLOBIN 7.5 g/dL (12.0-16.0)
[2018-11-12] MEDS ORDERED: BRIDION ONE (13:52)
[2018-11-12] MEDS: PROTONIX IV SCH (14:23)
[2018-11-12] MEDS: SODIUM CHLORIDE 0.9% INJ SCH (14:23)
--- NOTE | 2018-11-12 14:40 | Diag Imaging Result Doc PS360 ---
EXAM: CHEST-PORTABLE 11/12/2018 HISTORY: post chest tube TECHNIQUE: AP portable upright at 1429 COMMENT: Compared to 11/12/2018 at 0533, the right pleural effusion has been evacuated with a chest tube. There is still some residual atelectasis in the mid and lower lung field. There is atelectasis in the lingula and left lower lobe which is worse than on the previous study. IMPRESSION: Improved right pleural effusion. Worsened left-sided atelectasis. Electronically signed by Melquiades Maldonado 11/12/2018 2:37 PM
[2018-11-12] MEDS: D5 NS 1,000 ML IV SCH (14:50)
[2018-11-12] MEDS: MORPHINE IV PRN (16:26)
[2018-11-12] MEDS: ZYVOX PO SCH (20:41)
[2018-11-12] MEDS ORDERED: VANCOMYCIN 1.5 GM in NS 250 ML IV SCH (23:00)
[2018-11-13] MEDS: MERREM 1 GM in NS 50 ML IV SCH ×4 (01:02→16:15)
[2018-11-13] MEDS: SOLU-CORTEF IV SCH ×3 (01:02→16:44)
[2018-11-13] MEDS: XOPENEX NEB INH SCH ×6 (03:25→22:35)
[2018-11-13] MEDS: D5 NS 1,000 ML IV SCH (04:26)
[2018-11-13 05:47] LABS: BASO# 0.01 X1000 (0.0-0.2); EOS# 0.04 X1000 (0.0-0.7); EOS% 0.2 % (0.0-10.0); HEMATOCRIT 24.5 % (37.0-47.0); HEMOGLOBIN 8.1 g/dL (12.0-16.0); IMM GRAN# 0.07 X1000 (0.0-0.04); IMM GRAN% 0.3 % (0.0-0.5); LYMPH# 0.81 X1000 (1.2-3.4); LYMPH% 3.8 % (20.5-51.1); MCH 28.2 PG (27-31); MCHC 33.1 g/dL (33-37); MCV 85.4 FL (81-99); MONO# 2.05 X1000 (0.11-0.59); MONO% 9.7 % (1.7-9.3); MPV 9.9 FL (7.4-10.4); NEUT# 18.09 X1000 (1.4-6.5); PLT 347 X1000 (130-400); RBC 2.87 XMIL (4.2-5.4); RDW 16.4 % (11.5-14.5); WBC 21.07 X1000 (4.8-10.8)
[2018-11-13] MEDS: HUMULIN R SUBQ SCH ×4 (06:03→20:59)
--- NOTE | 2018-11-13 06:07 | GENERAL SURGERY PROGRESS NOTE ---
DATE: 11/12/2018 SUBJECTIVE: Hemodynamically stable overnight. OBJECTIVE: She does have persistent O2 requirement of 2 L, in the high 90s. No tachycardia. Blood pressure 129/61. She is slightly tachypneic, but no respiratory distress. LABORATORY DATA: I reviewed her labs. Hematocrit is 22, down slightly. White count is 23. INR is 1.61. Creatinine is up to 1.7. Bilirubin is up 1.98. ASSESSMENT AND PLAN: This is a 73-year-old female with right-sided hemothorax following a fall with rib fractures. She has an increase in effusion on the right with some shift. I have talked to the daughter extensively. I have recommended video-assisted drainage of this effusion, possible thoracotomy and bronchoscopy today. I discussed the risks of bleeding, infection, prolonged intubation, persistence of her condition and anticipated recovery. Daughter understands and consents. We will go to the operating room today. cc: Sarah Chow MD
[2018-11-13 06:09] LABS: ALBUMIN 2.5 g/dL (3.5-5.0); CREATININE 1.2 mg/dL (0.5-0.9); MAGNESIUM 1.3 mg/dL (1.5-2.7); POTASSIUM 4.1 mmol/L (3.5-5.1); TOTAL BILIRUBIN 1.23 mg/dL (0.20-1.00); TOTAL PROTEIN 4.9 g/dL (6.3-8.3)
[2018-11-13 06:33] LABS: CALCIUM 6.6 mg/dL (8.8-10.2)
[2018-11-13] MEDS ORDERED: CALCIUM GLUCONATE 1 GM in NS 50 ML IV ONE (06:44)
--- NOTE | 2018-11-13 07:08 | Diag Imaging Result Doc PS360 ---
EXAM: CHEST-PORTABLE 11/13/2018 HISTORY: Dyspnea TECHNIQUE: AP portable at 0546 COMMENT: There is a chest tube on the right. There is residual loculated fluid or pleural thickening on the right with elevation the right hemidiaphragm. There is somewhat worsened atelectasis or pneumonia in the right lower lobe and middle lobe. There is some improvement in subsegmental atelectasis in the lingula compared to 11/12/2018. IMPRESSION: Worsened atelectasis or pneumonia right lower lobe and middle lobe. Improved lingular atelectasis. Electronically signed by Melquiades Maldonado 11/13/2018 7:06 AM
[2018-11-13] MEDS: CORDARONE PO SCH ×2 (08:12→20:58)
[2018-11-13] MEDS: ZYVOX PO SCH ×2 (08:12→20:59)
[2018-11-13] MEDS: FOLIC ACID PO SCH (08:12)
[2018-11-13] MEDS: TOPROL XL PO SCH (08:18)
--- NOTE | 2018-11-13 08:23 | PULMONOLOGY PROGRESS NOTE ---
DATE: 11/12/2018 SUBJECTIVE: The patient is somnolent following surgical procedure. She is breathing comfortably off ventilation. OBJECTIVE: Vital Signs: The patient has been afebrile for the last 24 hours. Blood pressure 100/47, heart rate 68, respiratory rate 19, oxygen saturation 92%. HEENT: Pupils are equal and reactive. Oropharynx is clear. Neck is supple. Chest reveals diminished breath sounds on the right but improved compared to yesterday's exam. Cardiac Examination: S1-S2. Abdomen is soft without hepatosplenomegaly. Extremities are without edema. Laboratories: Postprocedure chest x-ray has been ordered and is pending. IMPRESSION: A 73-year-old with rheumatoid arthritis, chronic anticoagulation with: 1. Hemothorax status post chest tube placement. 2. Hemothorax. 3. Chronic anticoagulation. 4. Acute hypoxemic respiratory failure. PLANS: 1. Initiate incentive spirometry. 2. Chest x-ray following surgical procedure. 3. Oxygen as needed for acute hypoxemic respiratory failure. 4. Recommend initiating physical therapy and ambulating the patient as soon as possible to prevent deconditioning. cc: Patric Saldaña MD
--- NOTE | 2018-11-13 08:29 | OPERATIVE NOTE ---
PROCEDURE DATE: 11/12/2018 PREOPERATIVE DIAGNOSIS: Rib fractures with right hemothorax. POSTOPERATIVE DIAGNOSIS: Rib fractures with right hemothorax. PROCEDURES PERFORMED: 1. Video-assisted thoracoscopic drainage of right hemothorax with 36-Uzbek chest tube placement. 2. Bronchoscopy. 3. Right subclavian line triple-lumen catheter placement. SURGEON: Dr. Arjun Chow. ESTIMATED BLOOD LOSS: 50 mL with greater than 3 L of sanguinous fluid from the right hemithorax. ANESTHESIA: General. INDICATIONS: This is a female 73-year-old female who is chronically anticoagulated, who had a fall about a week ago. She presented with increasing work of breathing, presyncope, anemia, and was found to have a massive right hemothorax. OPERATIVE FINDINGS: 1. Bronchoscopy showed extrinsic compression of all bronchi of the right side, limiting examination, difficulty passing the scope through the mainstem bronchus, but no obvious endobronchial lesions. 2. Left upper, lingular, and lower lobes appeared normal. 3. There was greater than 3 L of serosanguineous fluid with clot in the right chest. No obvious bleeding, but oozing from multiple surfaces noted. OPERATIVE NOTE: Risks, benefits, alternatives were discussed with the patient's daughter, who has power of commonwealth attorney, and she consented to the procedure. She was seen preoperatively, surgical site was marked. She was taken to the operating room, placed supine position. General anesthesia was induced. She was intubated with a single-lumen tube and bronchoscopy was performed after a time- out. She was on scheduled antibiotics. After bronchoscopy her right chest was prepped with chlorhexidine and draped. She was placed in Trendelenburg position. Using aleksandar landmarks we accessed subclavian vein on first past. Dark nonpulsatile blood was noted on return. The "j" wire would not thread but the glide wire went easily. Skin incision was made tract was dilated and 7 tunisian triple lumen catheter was advance. All ports withdrew and flushed with out resistance. Line was secured with silk suture. Dressing applied. At this point , we exchanged the tube for a double-lumen endotracheal tube. the right lung, was isolated and then placed her in left lateral decubitus position. She tolerated all this well. An axillary roll was placed and all bony prominences were padded, and she was on a amato bag and secured to the bed. At this point, her right chest was prepped with chlorhexidine and draped. We made an incision midaxillary line several rib spaces below a potential thoracotomy incision, and entered the chest in open controlled fashion. A large amount of old sanguinous appearing blood was evacuated with Yankauer suction, and a VATS trocar was placed. We inspected and we noted that there was still a moderate amount of retained hemothorax. We placed an additional 5 mm trocar anteriorly, and using ring forceps, we evacuated a large amount of clot. We suctioned all this until clear and irrigated. There was no obvious sources of bleeding, but there were some bruising of the chest wall consistent with her known rib fractures. A 36-Uzbek chest tube was placed through our VATS trocar incision apically and posteriorly, and was confirmed under direct visualization to be in good position. At this point, we inflated the lung, had good expansion of all lobes of the lung and removed our remaining trocars. Closed the skin with surgical clips. The chest tube was secured with 0 silk suture. Dressing was applied. She tolerated it well, was extubated, and transferred to ICU. I did speak with the family. cc: Sarah Chow MD [facility]
[2018-11-13] MEDS ORDERED: MAGNESIUM SULFATE 4 GM/S.W.I. 4 GM/100 ML IVPB IV ONE (09:30)
[2018-11-13] MEDS: D5 1/2 NS + KCL 20 MEQ 1,000 ML IV SCH (10:44)
[2018-11-13] MEDS ORDERED: BLISTEX MEDICATED BERRY LIP BALM TOP PRN (11:12)
[2018-11-13] MEDS: MORPHINE IV PRN (11:38)
[2018-11-13] MEDS: MUCOMYST 20% INH SCH ×2 (11:45→19:59)
--- NOTE | 2018-11-13 12:16 | PROGRESS NOTE ---
DATE: 11/13/2018 SUBJECTIVE: This morning, Ms. Shields is seen in the ICU. She is more alert, more interacting. She refers to be feeling a lot better. Ms. Shields went for a video-assisted thoracoscopic drainage of the right hemothorax yesterday. I understand 3 L of serosanguineous fluid was obtained immediately after access was gotten into the pleural space. OBJECTIVE: Vital Signs: This morning, her blood pressure is 106/52, pulse is 68, respirations are 17, temperature is 98.3 degrees. General Examination: Ms. Shields is a 73-year-old, female. She is in bed. She does not seem distressed. Mucosa is pink, slightly dry. Anicteric. Acyanotic. Neck is supple. Respiratory System: Air entry is reduced to the right posterior lung field. There is good air entry in the left. There are some crackles in both lung lind. Cardiovascular: Regular rate and rhythm. GI: Abdomen is soft. It is nontender. Bowel sounds present. Extremities: No pedal edema. 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 The patient has residual right-sided hemiplegia. Musculoskeletal: There is a chest tube in the right hemithorax. There is about 400 mL of sanguinous drainage in the collecting tube. Is and Os: Urine output was about 310. Laboratory Data: WBC is 21.07, hemoglobin is 8.1, platelet count of 347,000. Chemistry is also reviewed. Sodium is 146, potassium is 4.1, chloride is 110, creatinine is down to 1.2. Magnesium is remarkably low. We are going to replenish that. So far, blood cultures have been negative. Urine culture is showing yeast. ASSESSMENT: 1. Acute hypoxemic respiratory failure. Patient is on nasal cannula at this time and she is saturating well. 2. Blunt trauma to chest resulting into traumatic hemothorax with multiple fractures. Patient is status post video-assisted thoracoscopic drainage of the right hemothorax yesterday. Three liters of sanguineous fluid were obtained. This morning, a chest x-ray shows improvement but there is, however, residual loculated fluid or pleural thickening on the right with elevation of the hemidiaphragm. 3. Anemia of acute blood loss. The patient is status post 4 units of packed red blood cell transfusion and 1 fresh frozen plasma. Hemoglobin and hematocrit are fairly stable this morning. 4. Eliquis anticoagulation for atrial fibrillation. This has been withheld because of hemothorax. 5. History of cerebrovascular accident with right-sided hemiplegia and expressive aphasia noted. 6. Hypernatremia with hyperchloremia. We have changed the current fluids to half-normal saline with D5 and baseline potassium. 7. Hypomagnesemia, has been replenished. 8. Acute kidney injury, improving. PLAN: In general, Ms. Shields seems to be doing better. She is breathing a whole lot better. However, chest x-ray this morning still shows some fluid in the right lung. We will wait for surgery evaluation of the chest tube and then go from there. Patient is being seen also by pulmonary medicine. cc: Christian Lopez MD
[2018-11-13] MEDS: SODIUM CHLORIDE 0.9% INJ SCH (14:00)
[2018-11-13] MEDS: PROTONIX IV SCH (14:00)
--- NOTE | 2018-11-13 16:14 | PULMONOLOGY PROGRESS NOTE ---
DATE: 11/13/2018 SUBJECTIVE: The patient is awake, alert, and conversant. She has a fair cough effort. OBJECTIVE: Vital Signs: The patient is afebrile for the last 24 hours. Blood pressure 103/45, heart rate 67, respiratory rate 20, oxygen saturation 94% on 2 L per nasal cannula. HEENT: Pupils are equal and reactive. Oropharynx appears clear. Neck: Supple. Chest: Reveals diminished breath sounds right base with chest tube in good position. No air leak identified. Cardiac: S1-S2. Abdomen: Soft without hepatosplenomegaly. Extremities: Without edema. LABORATORIES: No new microbiology data. White blood count 21,000, hemoglobin 8.1, platelet count 347,000. Chest x-ray reveals decreased atelectasis in the lingula, but worsened atelectasis at the right base. IMPRESSION: A 73-year-old with 1. Hemothorax status post chest tube placement. 2. Atelectasis versus pneumonia at the right lung base. 3. Chronic anticoagulation. 4. Acute hypoxic respiratory failure. DISCUSSION: A 73-year-old with problems outlined above. The patient is currently on antibiotics which should treat a right basilar pneumonia. I suspect that she has atelectasis/reexpansion edema which should improve over the next 2 to 3 days. RECOMMENDATIONS: 1. Continue incentive spirometry. 2. Continue bronchial hygiene with nebulizer therapy. Dr. Chow has added Mucomyst which should help thin secretions. 3. Physical therapy. 4. Diet as tolerated. 5. Anticipate transfer to the floor soon. cc: Patric Saldaña MD
--- NOTE | 2018-11-13 21:31 | GENERAL SURGERY PROGRESS NOTE ---
DATE: 11/13/2018 SUBJECTIVE: She is sleeping this morning. Not really conversant. Chest tube output has decreased. No air leak. OBJECTIVE: She has been afebrile without tachycardia. I have reviewed her labs. Hematocrit has stabilized. Her x-ray shows some collapse of the lower lobes, most likely related to mucus plugging, but no obvious effusion. ASSESSMENT AND PLAN: This is a female status post evacuation of right hemothorax. We will work aggressively with the pulmonary toileting with mucolytics. Percussive therapy today. She may ultimately need a bronchoscopy. We will follow her closely. Keep her chest tube to suction for now. cc: Sarah Chow MD
[2018-11-14] MEDS: MERREM 1 GM in NS 50 ML IV SCH ×3 (01:15→20:29)
[2018-11-14] MEDS: SOLU-CORTEF IV SCH ×3 (02:14→18:19)
[2018-11-14] MEDS: D5 1/2 NS + KCL 20 MEQ 1,000 ML IV SCH (02:21)
[2018-11-14] MEDS: XOPENEX NEB INH SCH ×6 (03:40→23:13)
[2018-11-14 06:49] LABS: BASO# 0.02 X1000 (0.0-0.2); BASO% 0.1 % (0.0-0.8); EOS# 0.19 X1000 (0.0-0.7); HEMATOCRIT 23.9 % (37.0-47.0); HEMOGLOBIN 7.7 g/dL (12.0-16.0); IMM GRAN# 0.09 X1000 (0.0-0.04); IMM GRAN% 0.5 % (0.0-0.5); LYMPH# 1.05 X1000 (1.2-3.4); LYMPH% 5.6 % (20.5-51.1); MCH 28.4 PG (27-31); MCHC 32.2 g/dL (33-37); MCV 88.2 FL (81-99); MPV 9.7 FL (7.4-10.4); NEUT# 15.76 X1000 (1.4-6.5); NEUT% 83.8 % (42.2-75.2); PLT 350 X1000 (130-400); RBC 2.71 XMIL (4.2-5.4); RDW 18.3 % (11.5-14.5); WBC 18.81 X1000 (4.8-10.8)
--- NOTE | 2018-11-14 06:58 | Diag Imaging Result Doc PS360 ---
EXAM: CHEST-PORTABLE HISTORY: Dyspnea TECHNIQUE: Portable chest single view COMPARISON: 11/13/2018 FINDINGS: No change in the right-sided chest tube or in the right portacatheter. There is a left pacemaker. Poor inspiratory effort. There are bilateral infiltrates. The heart is not enlarged. Small right pleural effusion. IMPRESSION: No interval improvement. Electronically signed by Avery Morales 11/14/2018 6:55 AM
[2018-11-14 07:07] LABS: ALB/GLOB RATIO 1.1; ALBUMIN 2.7 g/dL (3.5-5.0); ALKALINE PHOSPHATASE 71 U/L (32-104); GOT 9 U/L (10-30); GPT 11 U/L (10-36); MAGNESIUM 2.4 mg/dL (1.5-2.7); TOTAL BILIRUBIN 0.91 mg/dL (0.20-1.00); TOTAL PROTEIN 5.1 g/dL (6.3-8.3)
[2018-11-14 07:08] LABS: AGAP 11; BUN 13 mg/dL (8-22); CHLORIDE 107 mmol/L (98-107); COSMO 284; CREATININE 0.8 mg/dL (0.5-0.9); ESTIMATED GFR > 60; GLUCOSE 185 mg/dL (70-104); POTASSIUM 3.9 mmol/L (3.5-5.1); SODIUM 140 mmol/L (136-145); TCO2 22 mmol/L (25-35)
[2018-11-14 07:15] LABS: CALCIUM 6.8 mg/dL (8.8-10.2)
[2018-11-14] MEDS: HUMULIN R SUBQ SCH ×4 (07:40→20:29)
[2018-11-14] MEDS: MUCOMYST 20% INH SCH ×2 (08:06→19:25)
--- NOTE | 2018-11-14 08:29 | EKG Report ---
Test Performed on : 11/11/2018 3:45:46 PM Test Reason : REPEAT Blood Pressure : / mmHG Vent. Rate : 064 BPM Atrial Rate : 064 BPM P-R Int : 152 ms QRS Dur : 074 ms QT Int : 478 ms P-R-T Axes : 081 058 055 degrees QTc Int : 493 ms Atrial-paced rhythm Nonspecific T wave abnormality Prolonged QT Abnormal ECG When compared with ECG of 11-NOV-2018 15:06, (Unconfirmed) No significant change was found Unconfirmed Result
[2018-11-14] MEDS: MORPHINE IV PRN (09:18)
[2018-11-14] MEDS: ZYVOX PO SCH ×2 (09:25→20:29)
[2018-11-14] MEDS: TOPROL XL PO SCH (09:26)
[2018-11-14] MEDS: FOLIC ACID PO SCH (09:26)
[2018-11-14] MEDS: CORDARONE PO SCH ×2 (09:26→20:29)
[2018-11-14] MEDS: MIRALAX PO SCH (14:14)
--- NOTE | 2018-11-14 15:01 | PROGRESS NOTE ---
DATE: 11/14/2018 SUBJECTIVE: This morning Ms. Shields was seen in her hospital bed. Her daughter from [place] was at the bedside at the time of the encounter. Ms. Shields refers to be feeling a little better. She, however, said she has not had any bowel movement, and she would appreciate any laxative that will help her move her bowels. OBJECTIVE: Vital signs: Blood pressure is 126/49, pulses 74, respirations 20, and temperature is 97.9. General: Ms. Shields is a 73-year-old female. She was in bed in no distress. Mucosa is pink and moist. Anicteric. Acyanotic. Neck: Supple. Chest: There is good air entry bilaterally. No crepitations. No rhonchi. Cardiovascular: Regular rate and rhythm. No murmurs, no rubs, no gallops. GI: Abdomen is soft. Distended. Bowel sounds are present but hypoactive. 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 She has residual right-side hemiplegia. Musculoskeletal: There is a chest tube in the right hemithorax. LABORATORY: The patient's I's and O's, urine output was 590. Chest tube drainage was 370 in 24 hours. Laboratory Data has also been reviewed. Her WBC is currently 18.81, hemoglobin is 7.7, platelet count of 350,000. Chemistry is also reviewed and is remarkably is completely normal. A chest x-ray this morning showed no interval improvement. ASSESSMENT: 1. Acute hypoxemic respiratory failure on presentation improved. 2. Blunt trauma to chest resulting in traumatic hemothorax with multiple rib fractures. The patient is status post video-assisted thoracoscopic drainage of the right hemothorax. Surgery is on board and will follow up with further recommendations from them as to when the chest tube can be removed. 3. Anemia of acute blood loss. Patient is status post 4 PRBC transfusion, and 1 FFP. Hemoglobin and hematocrit is fairly stable. We are going to continue to be tracking this. If it goes below 7, we will transfuse accordingly. 4. Eliquis anticoagulation for atrial fibrillation. This has been withheld because of hemothorax. 5. History of CVA with right-sided hemiplegia and expressive aphasia noted. 6. Hypernatremia with hyperchloremia, resolved. IV fluid has been discontinued. 7. Acute kidney injury, resolved. 8. Suspected right lower lobe pneumonia versus infected hematoma. The patient's white cell count is improving on the current antimicrobial coverage. We plan to continue the current antibiotics. 9. Chronic steroid use. The patient has been on prednisone as one of her home medications for a very long time. She is currently on stress doses of hydrocortisone. 10. History of rheumatoid arthritis. The patient is on methotrexate and prednisone. 11. Constipation. We have started the patient on a bowel regimen. 12. Resident of Assisted Living. DISPOSITION: It is going to depend on the rest of the hospital course. I think Ms. Shields will need to be discharged to rehab to get her a lot stronger, and prevent these falls at the assisted living. I spoke with her daughter this morning. The daughter is under the impression that Ms. Shields has very good care at the [facility], and her preference will be for her mom to go back to the assisted living. We will wait for her current medical issues to be over (the chest tube removed and participates actively with physical therapy, and then we will make a decision if she can go back or she needs to go to a rehab). cc: Christian Lopez MD
[2018-11-14] MEDS: PROTONIX IV SCH (15:38)
[2018-11-14] MEDS: GLYCERIN ADULT PR ONE ×2 (15:45→18:19)
--- NOTE | 2018-11-14 16:14 | GENERAL SURGERY PROGRESS NOTE ---
DATE: 11/14/2018 SUBJECTIVE: No events overnight. She was moved to the floor from the ICU. No fevers. No tachycardia. OBJECTIVE: Vital signs: Blood pressure this morning was 124/39, oxygen is 96% on 3 L. General: She is still quite somnolent but arousable, baseline neurologically from a conversing standpoint. Chest: Chest tube is in place. There is serosanguineous drainage, but only a minimal amount the last 24 hours. No air leak. LABS: I reviewed her labs. White count is down to 18, hematocrit 23. Creatinine 0.8, down from 1.2. I reviewed her x-ray this morning. It shows improved aeration of the right lower lobe, no pneumothorax. ASSESSMENT AND PLAN: This is a 73-year-old female with a right hemothorax following rib fractures. We will keep her chest tube for now. Aggressive pulmonary toileting. Pending the output, we will determine timing of removal. It is still 200 to 300 over last 48 hours per 24 period. cc: Sarah Chow MD
--- NOTE | 2018-11-14 22:02 | PULMONOLOGY PROGRESS NOTE ---
DATE: 11/14/2018 SUBJECTIVE: The patient is awake, alert and conversant. She is currently doing a nebulizer treatment. She reports she has had a good day. OBJECTIVE: Vital Signs: The patient has been afebrile for the last 24 hours. Blood pressure 126/52, heart rate 68, respiratory rate 20, oxygen saturation 100% on 2 L per nasal cannula. HEENT: Pupils are equal and reactive. Oropharynx appears clear. Neck: Supple. Chest: Reveals chest tube in right hemithorax. It currently is draining bloody fluid. LABORATORIES: White blood count 18.8, hemoglobin 7.7, platelet count 350,000. Chest x-ray reveals continued infiltrates at the right base with small right effusion. IMPRESSION: A 73-year-old with: 1. Hemothorax. 2. Chest tube placement following thoracoscopy. 3. Chronic anticoagulation. 4. Acute hypoxemic respiratory failure. 5. Blood loss anemia. PLAN: 1. Continue incentive spirometry. 2. Continue chest tube per Dr. Chow pending decrease in bloody secretions. 3. Continue physical therapy. 4. Daily hemoglobin levels. Would transfuse if hemoglobin drops less than 7. cc: Patric Saldaña MD
[2018-11-15] MEDS: SOLU-CORTEF IV SCH ×3 (01:08→16:27)
[2018-11-15] MEDS: XOPENEX NEB INH SCH ×6 (03:33→23:45)
[2018-11-15] MEDS: MERREM 1 GM in NS 50 ML IV SCH ×3 (05:02→20:35)
[2018-11-15 06:08] LABS: BASO# 0.01 X1000 (0.0-0.2); BASO% 0.1 % (0.0-0.8); EOS# 0.01 X1000 (0.0-0.7); EOS% 0.1 % (0.0-10.0); HEMATOCRIT 25.4 % (37.0-47.0); HEMOGLOBIN 7.8 g/dL (12.0-16.0); IMM GRAN# 0.08 X1000 (0.0-0.04); IMM GRAN% 0.5 % (0.0-0.5); LYMPH# 0.67 X1000 (1.2-3.4); LYMPH% 4.1 % (20.5-51.1); MCH 27.8 PG (27-31); MCHC 30.7 g/dL (33-37); MCV 90.4 FL (81-99); MONO# 0.86 X1000 (0.11-0.59); MONO% 5.3 % (1.7-9.3); MPV 9.9 FL (7.4-10.4); NEUT# 14.74 X1000 (1.4-6.5); NEUT% 89.9 % (42.2-75.2); PLT 354 X1000 (130-400); RBC 2.81 XMIL (4.2-5.4); RDW 18.6 % (11.5-14.5); WBC 16.37 X1000 (4.8-10.8)
--- NOTE | 2018-11-15 06:49 | Diag Imaging Result Doc PS360 ---
CHEST-PORTABLE - 11/15/2018 INDICATION: Dyspnea COMPARISON: 11/14/2018 FINDINGS: Stable left-sided chest tube in good position. No pneumothorax or significant pleural effusion. Lung volumes remain low. Stable dense consolidation throughout the right lung base. The left lung remains clear. Heart size is normal. Stable right central line. IMPRESSION: No complication or change from prior. Electronically signed by Bhargav Bonner 11/15/2018 6:47 AM
[2018-11-15 06:56] LABS: AGAP 11; ALBUMIN 2.8 g/dL (3.5-5.0); BUN 12 mg/dL (8-22); CALCIUM 7.1 mg/dL (8.8-10.2); CHLORIDE 105 mmol/L (98-107); COSMO 281; CREATININE 0.6 mg/dL (0.5-0.9); ESTIMATED GFR > 60; GLUCOSE 201 mg/dL (70-104); PHOSPHORUS 2.2 mg/dL (2.7-4.5); POTASSIUM 4.6 mmol/L (3.5-5.1); SODIUM 138 mmol/L (136-145); TCO2 22 mmol/L (25-35)
[2018-11-15] MEDS: HUMULIN R SUBQ SCH ×4 (06:56→22:27)
[2018-11-15] MEDS: MUCOMYST 20% INH SCH ×2 (08:07→19:15)
[2018-11-15] MEDS: MIRALAX PO SCH (09:53)
[2018-11-15] MEDS: ZYVOX PO SCH ×2 (09:54→20:35)
[2018-11-15] MEDS: TOPROL XL PO SCH (09:54)
[2018-11-15] MEDS: FOLIC ACID PO SCH (09:55)
[2018-11-15] MEDS: CORDARONE PO SCH ×2 (09:55→20:35)
[2018-11-15] MEDS: PROTONIX PO SCH (11:56)
[2018-11-15] MEDS: CALMOSEPTINE OINTMENT TOP PRN (16:24)
--- NOTE | 2018-11-15 16:57 | PROGRESS NOTE ---
DATE: 11/15/2018 SUBJECTIVE: Ms. Shields reports she is feeling better. This is a 73-year-old white female with a history of stroke, right-sided hemiparesis, and dysphagia, recently discharged status post fall with right rib pain, leukocytosis, asymptomatic bacteruria, had ESBL positive E. coli in the urine. Discharged to [facility] and then came back after an apparent choking episode while eating breakfast. No one at the bedside to verify the events. However, review of the chart shows that she had about 10 to 15 second choking spell, difficulty breathing, and was sent to the emergency room. She did not lose a pulse or become apneic. In the ER chest x-ray was done and showed large right pleural effusion which was new from her last admission. She had a white count of 19,000, mild acidosis, lactic acid of 4.2. Did a CT of her chest which showed multiple right rib fractures and large right hemothorax without evidence of pneumothorax. She was in mild respiratory distress. PAST MEDICAL HISTORY: 1. CVA, right-sided hemiparesis with dysphagia. 2. Chronic atrial fibrillation, on anticoagulation. 3. Hypertension. 4. Rheumatoid arthritis. 5. Folic acid deficiency. 6. Type 2 diabetes, not requiring insulin. 7. Gastroesophageal reflux disease. She was admitted with acute respiratory distress secondary to possible choking episode, right hemothorax, history of asymptomatic extended spectrum beta lactamase positive Klebsiella pneumoniae UTI, was infusing meropenem, chronic atrial fibrillation, and history of old stroke with right-sided hemiparesis and severe dysphagia. She has showed steady improvement, feels much better today, no complaints, breathing comfortably. OBJECTIVE: Vital signs: Temp 98 degrees, pulse 70, respirations 20, blood pressure 128/53. HEENT: Pupils are equal and round. Lungs: Clear in all lung ilnd. Cardiovascular: Regular rhythm and rate without murmur or S3. Abdomen: Soft. Skin: Warm and dry. Urine output was 1300 mL. IMAGING: Chest x-ray: No complication. She has stable left-sided chest tube in good position. No pneumothorax. No significant pleural effusion. Left lung volumes remain low. Stable dense consolidation throughout the right lung base. Left lung remains clear. ASSESSMENT AND PLAN: 1. Hemothorax. Continue incentive spirometry. Continue chest tube. Followed by Dr. Chow. Pending decrease in bloody secretions. 2. Chronic anticoagulation. 3. Acute hypoxemic respiratory failure which has improved. 4. Blood loss anemia. Her hematocrit is 25 and hemoglobin 7.8, which are stable. Chemistries: Sodium 138, potassium 4.6, chloride 105, BUN 12, creatinine 0.6. Blood sugars 201, 204, 169, 171. cc: Cornelius Gonsales MD
--- NOTE | 2018-11-15 18:27 | GENERAL SURGERY PROGRESS NOTE ---
DATE: 11/15/2018 SUBJECTIVE: She is more alert this morning. Physical therapy is in her room. Chest tube is in place. Minimal serosanguineous output. No air leak. OBJECTIVE: On exam, right chest tube in place. IMAGING: Chest x-ray shows persistent consolidations in the right lower lobe but good expansion and no obvious recurrent effusion. ASSESSMENT AND PLAN: This is a 73-year-old female with right-sided hemothorax, possibly some degree of pulmonary contusion, pneumonia. Pulmonary is following. We will water-seal her chest tube today. Repeat an x-ray tomorrow. cc: Sarah Chow MD
[2018-11-16] MEDS: SOLU-CORTEF IV SCH ×3 (01:27→16:28)
[2018-11-16] MEDS: XOPENEX NEB INH SCH ×6 (03:43→23:37)
--- NOTE | 2018-11-16 03:45 | PULMONOLOGY PROGRESS NOTE ---
DATE: 11/15/2018 SUBJECTIVE: The patient is without complaints, but does have some difficulty with expressive aphasia. She appears to be comfortable. OBJECTIVE: Vital signs: The patient is afebrile. Blood pressure 128/53, heart rate 70, respiratory rate 20, O2 saturation 97% on 2 L per nasal cannula. HEENT: Pupils are equal and reactive. Oropharynx is clear. Neck: Supple. Chest: Reveals rhonchi at the right base. Cardiac: S1, S2. Abdomen: Soft. Extremities: Without edema. LABORATORIES: Chest x-ray reveals continued consolidation at the right base. Pleural effusion appears to be well drained. White blood count 16.4, hemoglobin 7.8, platelet count 354,000. IMPRESSION: A 73-year-old with 1. Hemothorax. 2. Ongoing infiltrate right lung base. 3. Chronic anticoagulation. 4. Acute hypoxemic failure. 5. Blood loss anemia. RECOMMENDATIONS: 1. Continue chest tube management per Dr. Chow. Overall amount of output appears to be decreasing and her hemoglobin appears stable. 2. Continue bronchial hygiene. 3. Continue physical therapy. Hopefully, with mobilization and removal of chest tube, her chest x-ray will rapidly improve. 4. Wean oxygen as tolerated. cc: Patric Saldaña MD
[2018-11-16] MEDS: MERREM 1 GM in NS 50 ML IV SCH ×3 (05:17→22:07)
[2018-11-16] MEDS: CALMOSEPTINE OINTMENT TOP PRN (05:17)
[2018-11-16] MEDS: HUMULIN R SUBQ SCH ×3 (07:01→22:24)
--- NOTE | 2018-11-16 07:37 | Diag Imaging Result Doc PS360 ---
EXAM: CHEST-PORTABLE INDICATION: Dyspnea TECHNIQUE: One view COMPARISON: 11/15/2018 FINDINGS: The right chest tube and right central line are in stable positions. No residual pneumothorax can be identified by plain radiograph. The dense right basilar consolidation is stable to marginally improved. No new consolidation is identified. Cardiac silhouette is stable. IMPRESSION: Stable to marginal improvement of dense consolidation at the right lung base. Electronically signed by Tomas Townsend 11/16/2018 7:35 AM
[2018-11-16] MEDS: MUCOMYST 20% INH SCH ×2 (08:25→19:40)
[2018-11-16] MEDS: TOPROL XL PO SCH (11:04)
[2018-11-16] MEDS: CORDARONE PO SCH ×2 (11:04→22:10)
[2018-11-16] MEDS: FOLIC ACID PO SCH (11:05)
[2018-11-16] MEDS: MIRALAX PO SCH (11:05)
[2018-11-16] MEDS: PROTONIX PO SCH (11:05)
[2018-11-16] MEDS: ZYVOX PO SCH ×2 (11:05→22:11)
--- NOTE | 2018-11-16 13:45 | PROGRESS NOTE ---
DATE: 11/16/2018 SUBJECTIVE: Ms. Shields is feeling better and would like to go back to assisted living if possible tomorrow, so we will get them to evaluate. OBJECTIVE: Remains afebrile, temperature 97.9 degrees, pulse 67, respirations 16, blood pressure 141/64. Pupils are equal and round. Lungs are clear in all lung lind. Cardiovascular Examination: Regular rhythm and rate without murmur or S3. Abdomen is soft. Skin is warm and dry. Urine output is 1900 mL. Blood sugar 175, 176, 224. Chest x-ray, stable to marginal improvement of dense consolidation in the right lung base. ASSESSMENT AND PLAN: 1. Hemothorax, ongoing infiltrate in right lung base. Patient on chronic anticoagulation. Presented with acute hypoxemic failure. Doing much better. 2. Blood-loss anemia noted, which blood counts are stable. 3. Chest tube management per Dr. Chow. Continue bronchial hygiene. Continue physical therapy. 4. Right-sided hemothorax, possibly some type of pulmonary contusion and underlying pneumonia so continue treatment. 5. She may not be ready tomorrow but I think we are getting close. Will want the chest tube out before we begin to explore possibilities. cc: Cornelius Gonsales MD
--- NOTE | 2018-11-16 14:40 | GENERAL SURGERY PROGRESS NOTE ---
DATE: 11/16/2018 SUBJECTIVE: No fevers. No tachycardia. She is sleeping this morning. No air leak. Persistent drainage from her chest tube, 430 out. Reviewed her x-ray. There is improving expansion of the lower lobes of the lung. ASSESSMENT AND PLAN: This is a 73-year-old female with a right-sided hemothorax. She apparently has pneumonia as well. Hemothorax seems to be resolved. The consolidations and atelectasis of her lower lobes are improving with pulmonary toileting and antibiotics. Will continue to follow along. My partners will cover for me while I am out the next couple of days. cc: Sarah Chow MD
[2018-11-16] MEDS: MORPHINE IV PRN (22:23)
[2018-11-17] MEDS: SOLU-CORTEF IV SCH ×3 (01:20→18:25)
[2018-11-17] MEDS: HUMULIN R SUBQ SCH ×5 (01:25→22:12)
--- NOTE | 2018-11-17 03:39 | PULMONOLOGY PROGRESS NOTE ---
DATE: 11/16/2018 SUBJECTIVE: The patient is awake, alert. She is now sitting in a chair. She appears to be comfortable. She has a marginal cough effort. OBJECTIVE: Vital Signs: The patient has been afebrile for the last 24 hours. Blood pressure 145/53, heart rate 61, respiratory rate 16, oxygen saturation 99% on 2 L. HEENT: Pupils are equal and reactive. Oropharynx appears clear. Neck: Supple. Chest: Reveals diminished breath sounds right base. Cardiac: S1, S2. Abdomen: Soft. Extremities: Without edema. LABORATORIES: Chest x-ray reveals marginal improvement in the right lung base. White blood count 16,000, hemoglobin 7.8, platelet count 354,000. IMPRESSION: A 73-year-old with 1. Hemothorax. 2. Ongoing infiltrate at the right lung base with marginal improvement. This may represent re- expansion, lung injury, or pneumonia. 3. Chronic anticoagulation. 4. Acute hypoxemic respiratory failure. 5. Blood loss anemia. RECOMMENDATIONS: 1. Continue chest tube management per [facility]. Hopefully, this can be removed soon. 2. Continue bronchial hygiene. 3. Continue mobilization of the patient. 4. Wean oxygen as tolerated. cc: Patric Saldaña MD
[2018-11-17] MEDS: XOPENEX NEB INH SCH ×6 (03:40→22:41)
[2018-11-17] MEDS: MERREM 1 GM in NS 50 ML IV SCH ×3 (05:14→20:43)
--- NOTE | 2018-11-17 06:52 | Diag Imaging Result Doc PS360 ---
CHEST-PORTABLE - 11/17/2018 INDICATION: Dyspnea COMPARISON: 11/16/2018 FINDINGS: Stable right chest tube and right central line. No pneumothorax. Stable dense consolidation at the right lung base. Stable cardiomegaly and pulmonary vascular congestion. Stable left-sided dual-chamber pacemaker. IMPRESSION: No change from prior. Electronically signed by Bhargav Bonner 11/17/2018 6:50 AM
[2018-11-17] MEDS: MUCOMYST 20% INH SCH ×2 (07:58→19:25)
--- NOTE | 2018-11-17 09:04 | GENERAL SURGERY PROGRESS NOTE ---
DATE: 11/17/2018 SUBJECTIVE: Patient seems to be doing okay. OBJECTIVE: Vital Signs: The patient is currently afebrile. Her vital signs are stable. General Examination: No acute distress. Resting comfortably. HEENT: Normocephalic, atraumatic. Pupils equal, round, reactive to light. Mucous membranes moist. Oropharynx benign. Neck: Supple. Trachea midline. Cardiovascular: Regular rate and rhythm. Lungs: No air leak noted in the chest tube. Chest tube has had over 200 out so far today and 400 out yesterday. Abdomen: Soft, nontender, nondistended. Extremities: Moves all extremities. Neurologic: Grossly intact. Skin: No signs of jaundice. Vascular: All extremities perfused. Imaging: Reviewed from yesterday and chest x-ray from this morning is pending. ASSESSMENT AND PLAN: A 73-year-old female with right-sided hemothorax. Right-sided hemothorax. At this time, the majority of the hemothorax seems to be resolved but she is still having a significant amount of drainage. We would like to see the drainage decrease prior to pulling it. We will monitor it another day. Hopefully, the output will decrease and we can pull the chest tube. cc: Rush Larsen MD
[2018-11-17] MEDS: CORDARONE PO SCH (11:23)
[2018-11-17] MEDS: FOLIC ACID PO SCH (11:24)
[2018-11-17] MEDS: TOPROL XL PO SCH (11:25)
[2018-11-17] MEDS: PROTONIX PO SCH (11:26)
[2018-11-17] MEDS: MIRALAX PO SCH ×2 (11:26→11:29)
[2018-11-17] MEDS: ZYVOX PO SCH ×2 (11:26→20:47)
--- NOTE | 2018-11-17 13:42 | PROGRESS NOTE ---
DATE: 11/17/2018 SUBJECTIVE: Ms. Shields is sitting up in a chair, feeling better. OBJECTIVE: Temperature is 97.3 degrees, pulse 60, respirations 18, blood pressure 124/48. Pupils are equal and round. Lungs are clear in all lung lind. Cardiovascular Examination: Regular rhythm and rate without murmur or S3. Abdomen is soft. Skin is warm and dry. Urine output is 1900 mL. Blood sugar 172, 198, 200. X-ray, no change from yesterday. She seems to be doing better. ASSESSMENT AND PLAN: 1. Hemothorax, seems to be resolved but she still has a significant amount of drainage. I would like to see the drainage decrease so continue chest tube. 2. Ongoing infiltrates in lung base, marginal improvement. May represent reexpansion, lung injury, or pneumonia. 3. Chronic anticoagulation. 4. Acute hypoxemic respiratory failure. 5. Blood loss anemia, seems to be stable and improving. 6. Continue present medications. Getting meropenem 1 g intravenous every 8 hours. cc: Cornelius Gonsales MD
[2018-11-17] MEDS: MORPHINE IV PRN (20:43)
[2018-11-18] MEDS: XOPENEX NEB INH SCH ×6 (03:33→23:41)
[2018-11-18] MEDS: MERREM 1 GM in NS 50 ML IV SCH ×3 (03:45→20:19)
[2018-11-18] MEDS: SOLU-CORTEF IV SCH ×3 (03:45→18:24)
[2018-11-18 06:12] LABS: EOS# 0.01 X1000 (0.0-0.7); EOS% 0.1 % (0.0-10.0); HEMATOCRIT 29.2 % (37.0-47.0); HEMOGLOBIN 8.8 g/dL (12.0-16.0); IMM GRAN# 0.07 X1000 (0.0-0.04); IMM GRAN% 0.7 % (0.0-0.5); LYMPH# 0.48 X1000 (1.2-3.4); LYMPH% 4.6 % (20.5-51.1); MCH 27.6 PG (27-31); MCHC 30.1 g/dL (33-37); MCV 91.5 FL (81-99); MONO# 0.65 X1000 (0.11-0.59); MONO% 6.2 % (1.7-9.3); MPV 9.3 FL (7.4-10.4); NEUT# 9.28 X1000 (1.4-6.5); NEUT% 88.4 % (42.2-75.2); PLT 427 X1000 (130-400); RBC 3.19 XMIL (4.2-5.4); RDW 17.9 % (11.5-14.5); WBC 10.49 X1000 (4.8-10.8)
[2018-11-18 06:30] LABS: PHOSPHORUS 2.8 mg/dL (2.7-4.5)
--- NOTE | 2018-11-18 06:54 | Diag Imaging Result Doc PS360 ---
CHEST-PORTABLE - 11/18/2018 INDICATION: abnormal exam COMPARISON: 11/17/2018 FINDINGS: Stable right chest tube. Stable right central line. Stable pacemaker. Stable cardiomegaly and pulmonary vascular congestion. Stable substantial infiltrate in the right lung base. No pneumothorax or significant pleural effusion. IMPRESSION: No change from prior. Electronically signed by Bhargav Bonner 11/18/2018 6:52 AM
[2018-11-18] MEDS: MUCOMYST 20% INH SCH ×2 (07:28→19:27)
--- NOTE | 2018-11-18 08:38 | PULMONOLOGY PROGRESS NOTE ---
DATE: 11/17/2018 SUBJECTIVE: The patient is awake, alert, and conversant. She has some aphasia. She has a marginal cough effort. OBJECTIVE: Vital Signs: The patient has been afebrile for the last 24 hours. Blood pressure 134/64, heart rate 57, respiratory rate 16, oxygen saturation 99% on nasal cannula. HEENT: Pupils are equal and reactive. Oropharynx appears clear. Neck: Supple. Chest: Reveals diminished breath sounds right anterior base. Cardiac: Exam S1-S2. Abdomen: Soft. Extremities: Without edema. LABORATORY DATA: Chest x-ray reveals some consolidation with partial aeration at the right base. There has been improvement over the last 4 days without significant improvement over the last 24 hours. No new blood culture data. No chemistry or CBC today. IMPRESSION: A 73-year-old with 1. Hemothorax. 2. Slowly resolving consolidation at the right lung likely related to reexpansion injury or pneumonia. 3. Chronic anticoagulation. 4. Acute hypoxemic respiratory failure. 5. Blood loss anemia. RECOMMENDATIONS: 1. Continue chest tube management per [facility]. This is being left in place due to ongoing drainage. 2. Continue bronchial hygiene. 3. Follow up chemistries and chest x-ray tomorrow. 4. Wean oxygen as tolerated. 5. Transfuse patient when hemoglobin level less than 7. cc: Patric Saldaña MD
[2018-11-18] MEDS: CORDARONE PO SCH (09:32)
[2018-11-18] MEDS: ZYVOX PO SCH ×2 (09:32→20:19)
[2018-11-18] MEDS: PROTONIX PO SCH (09:32)
[2018-11-18] MEDS: FOLIC ACID PO SCH (09:32)
[2018-11-18] MEDS: MIRALAX PO SCH (09:32)
[2018-11-18] MEDS: TOPROL XL PO SCH (09:32)
--- NOTE | 2018-11-18 10:37 | PROGRESS NOTE ---
DATE: 11/18/2018 SUBJECTIVE: She is feeling better. Breathing is better, comfortable. OBJECTIVE: Vital Signs: Afebrile, temperature 97.3 degrees, pulse 66, respirations 24, and blood pressure 161/72. HEENT: Pupils are equal. Lungs: Clear in all lung lind. Cardiovascular: Regular rate without murmur or S3. Abdomen: Soft. Skin: Warm and dry. Urine output is 1900 mL. Chest x-ray really no change. Still has a chest tube in the right chest. ASSESSMENT AND PLAN: 1. Hemothorax, slowly resolving, right lung likely consolidation due to expansion injury or pneumonia. Continue present treatment. 2. Chronic anticoagulation. 3. Acute hypoxemic respiratory failure. 4. Blood loss anemia. Continue to follow blood count, looks good. We will continue current orders. Continue medication, on meropenem 1 g q.8, Zyvox 600 mg IV q.12, Cordarone 200 mg p.o. daily. cc: Cornelius Gonsales MD
--- NOTE | 2018-11-18 10:44 | GENERAL SURGERY PROGRESS NOTE ---
DATE: 11/18/2018 SUBJECTIVE: Patient seems to be doing okay. OBJECTIVE: Vital Signs: Patient is currently afebrile. Her vital signs are stable. General: No acute distress. HEENT: Normocephalic, atraumatic. Pupils equal, round, reactive to light. Mucous membranes moist. Oropharynx benign. Neck: Supple. Trachea midline. Cardiovascular: Regular rate and rhythm. Lungs: No air leak noted in chest tube but still had over 200 out recorded. Abdomen: Soft, nontender, nondistended. Extremities: Moves all extremities. Neurologic: Grossly intact. Skin: No signs of jaundice. Vascular: All extremities perfused. LABORATORY: None this morning as of yet. ASSESSMENT/PLAN: 73-year-old female with right-sided hemothorax. 1. Right-sided hemothorax. At this time, her output still is above what I would feel comfortable in pulling the chest tube out, but it is decreasing. 2. We will continue to monitor. 3. Hopefully, she can have her chest tube removed this weekend. cc: Rush Larsen MD
[2018-11-18] MEDS: HUMULIN R SUBQ SCH ×4 (11:57→21:24)
[2018-11-18] MEDS: MORPHINE IV PRN (16:09)
[2018-11-19] MEDS: XOPENEX NEB INH SCH ×6 (03:35→23:08)
[2018-11-19] MEDS: SOLU-CORTEF IV SCH ×3 (03:47→18:32)
[2018-11-19] MEDS: MERREM 1 GM in NS 50 ML IV SCH ×3 (03:49→21:15)
[2018-11-19] MEDS: HUMULIN R SUBQ SCH ×4 (06:52→21:17)
--- NOTE | 2018-11-19 07:07 | Diag Imaging Result Doc PS360 ---
EXAM: CHEST-1 VIEW HISTORY: SOB TECHNIQUE: Chest single view COMPARISON: 11/18/2018 FINDINGS: No change in the right-sided chest tube, right subclavian catheter, and left pacemaker. The heart remains enlarged. Pulmonary edema is less pronounced. Infiltrates and atelectasis remain in the right base. IMPRESSION: Mild interval improvement. Electronically signed by Avery Morales 11/19/2018 7:05 AM
[2018-11-19] MEDS: MUCOMYST 20% INH SCH ×2 (07:14→19:44)
[2018-11-19] MEDS: CORDARONE PO SCH (09:29)
[2018-11-19] MEDS: FOLIC ACID PO SCH (09:30)
[2018-11-19] MEDS: TOPROL XL PO SCH (09:30)
[2018-11-19] MEDS: ZYVOX PO SCH ×2 (09:30→21:15)
[2018-11-19] MEDS: MIRALAX PO SCH (09:30)
[2018-11-19] MEDS: PROTONIX PO SCH (09:30)
--- NOTE | 2018-11-19 09:56 | PROGRESS NOTE ---
DATE: 11/19/2018 SUBJECTIVE: Ms. Shields had some company that just came in from [place]. She does feel better. She was eating her breakfast and seemed to be breathing comfortably. Chest tube is in place on the right side and still with some drainage. OBJECTIVE: Vital Signs: She remains afebrile. Temperature is 98.8, pulse 65, respirations 16, and blood pressure 143/52. HEENT: Pupils are equal and round. Lungs: Clear in all lung lind. Cardiovascular: Regular rhythm and rate without murmur or S3. Abdomen: Soft. Skin: Warm and dry. Urine output: 4100 to 4200 mL. Chest x-ray: Mild interval improvement. Blood cultures: The urine grew out some yeast, 40,000 to 50,000 colony count. ASSESSMENT AND PLAN: 1. Hemothorax, slowly resolving. Right lung likely consolidation due to expansion injury or pneumonia. Continue the chest tube. It is still draining. 2. Chronic anticoagulation. 3. Acute hypoxemic respiratory failure. 4. Blood loss anemia. Continue present measures. I do not see any change. The plan is to go back to assisted living once the chest tube is out. She is on Zyvox 600 mg every 12 hours, Cordarone 200 mg p.o. daily, meropenem 1 g IV every 8 hours, MiraLAX 17 g p.o. daily, and Protonix 40 mg p.o. daily. cc: Cornelius Gonsales MD
[2018-11-19] MEDS ORDERED: XOPENEX NEB ONE (10:56)
[2018-11-19] MEDS ORDERED: IMODIUM PO ONE (15:52)
--- NOTE | 2018-11-19 21:54 | GENERAL SURGERY PROGRESS NOTE ---
DATE: 11/19/2018 SUBJECTIVE: The patient complains of diarrhea. She has had multiple episodes for the last several days. She denies abdominal pain. She says she continues to have some shortness of breath but it is not worse than normal. OBJECTIVE: She is afebrile. Vital signs are stable.General: She is awake and alert. No acute distress. Respiratory: Bilateral breath sounds. There is no air leak in her chest tube but she has more than 200 in her tube. In fact, it was recorded as 1690 mL, although I do not think this is accurate and it is bloody in nature. ASSESSMENT AND PLAN: A 73-year-old female with right hemothorax. We will continue the tube to drainage. I will order her some antidiarrhea medicine. cc: Ayad Allison MD
[2018-11-20] MEDS: SOLU-CORTEF IV SCH ×3 (02:45→19:33)
[2018-11-20] MEDS: XOPENEX NEB INH SCH ×5 (03:20→19:30)
[2018-11-20] MEDS: MERREM 1 GM in NS 50 ML IV SCH ×3 (04:01→21:28)
[2018-11-20] MEDS: HUMULIN R SUBQ SCH ×4 (06:56→21:28)
[2018-11-20] MEDS: MUCOMYST 20% INH SCH ×2 (07:24→19:30)
--- NOTE | 2018-11-20 07:30 | Diag Imaging Result Doc PS360 ---
EXAM: CHEST-1 VIEW HISTORY: SOB TECHNIQUE: Chest single view COMPARISON: 11/19/2018 FINDINGS: No change in the right-sided chest tube or right portacatheter. There is a left-sided pacemaker. There are infiltrates and atelectasis in the lower right lung. No pneumothorax. The heart remains enlarged. The overall appearance of the chest is similar to the prior exam. IMPRESSION: Stable chest. Electronically signed by Avery Morales 11/20/2018 7:28 AM
[2018-11-20] MEDS: ZYVOX PO SCH ×2 (10:59→21:28)
[2018-11-20] MEDS: FOLIC ACID PO SCH (10:59)
[2018-11-20] MEDS: CORDARONE PO SCH (10:59)
[2018-11-20] MEDS: TOPROL XL PO SCH (10:59)
[2018-11-20] MEDS: PROTONIX PO SCH (11:00)
[2018-11-20] MEDS: IMODIUM PO PRN (11:03)
--- NOTE | 2018-11-20 14:21 | GENERAL SURGERY PROGRESS NOTE ---
DATE: 11/20/2018 SUBJECTIVE: The patient reports continued diarrhea, but no other changes. OBJECTIVE: She is afebrile. Vital signs are stable.General: She is awake, alert, and oriented x3. No acute distress. Respiratory: Bilateral breath sounds. No increased work of breathing. Her chest tube has 145 mL of bloody fluid on the right. ASSESSMENT AND PLAN: 1. A 73-year-old female with right hemothorax. This is slowly improving. We will continue the chest tube another day. 2. She has diarrhea, and Imodium was ordered for that. cc: Ayad Allison MD
[2018-11-20] MEDS: CALMOSEPTINE OINTMENT TOP PRN (21:28)
[2018-11-21] MEDS: XOPENEX NEB INH SCH ×7 (00:15→22:42)
[2018-11-21] MEDS: SOLU-CORTEF IV SCH ×3 (03:40→18:40)
[2018-11-21] MEDS: MERREM 1 GM in NS 50 ML IV SCH ×3 (03:40→20:15)
[2018-11-21] MEDS: CALMOSEPTINE OINTMENT TOP PRN (03:41)
[2018-11-21] MEDS: IMODIUM PO PRN (04:32)
[2018-11-21] MEDS: TYLENOL PO PRN (04:32)
[2018-11-21] MEDS: HUMULIN R SUBQ SCH ×4 (06:57→22:19)
[2018-11-21] MEDS: MUCOMYST 20% INH SCH ×2 (07:33→19:08)
--- NOTE | 2018-11-21 07:52 | Diag Imaging Result Doc PS360 ---
EXAM: CHEST-1 VIEW HISTORY: SOB TECHNIQUE: Portable chest single view COMPARISON: 11/20/2018 FINDINGS: No change in the right-sided chest tube. No pneumothorax. There are infiltrates and atelectasis in the lower right lung similar to the prior exam. Cardiomegaly remains. No change in the right-sided portacatheter or left pacemaker. Mild central vascular prominence. IMPRESSION: Stable chest. Electronically signed by Avery Morales 11/21/2018 7:50 AM
--- NOTE | 2018-11-21 11:29 | PROGRESS NOTE ---
DATE: 11/21/2018 SUBJECTIVE: Ms. Shields he is breathing comfortably. She is listening to her audio Bible on auditory on audio and seemed to be focused on that. No complaints. Bowels are moving. She is eating. OBJECTIVE: Temperature 98.4 degrees, pulse 60, respirations 16, blood pressure 132/60. Pupils are equal and round. Lungs are clear in all lung lind. Cardiovascular Examination: Regular rhythm and rate without murmur or S3. Urine output was 2200 mL. Blood sugar 278, 179, 150. Chest x-ray, stable chest. No change in right-sided chest tube. No pneumothorax. There are infiltrates and atelectasis in the lower right lung, similar to prior exam. No change in right- sided Port-A-Cath or left pacemaker. Mild central vascular prominence. ASSESSMENT AND PLAN: 1. Right hemothorax, slowly improving. Continue chest tube. Still pretty good output. 2. Diarrhea, on Imodium. 3. On chronic anticoagulation. 4. Acute hypoxemic respiratory failure, which is improved. 5. Blood loss anemia. Hematocrit is 29, hemoglobin 8.8. 6. Blood sugars 278, 216, 179. REVIEW OF ORDERS: I do not see any change. Wants to go back to assisted living but we will need to take out her chest tube first. No growth from blood cultures. She is on Zyvox which she has been on since the , so I will stop the Zyvox. She is on meropenem, since the . We will continue meropenem. cc: Cornelius Gonsales MD
--- NOTE | 2018-11-21 11:59 | GENERAL SURGERY PROGRESS NOTE ---
DATE: 11/21/2018 SUBJECTIVE: Improvement in her mental status. From pulmonary standpoint, she is on 2 L. Right chest tube is in place with persistent serosanguineous output, 370 documented. No air leak. I reviewed her labs. ASSESSMENT AND PLAN: A 73-year-old female with right-sided hemothorax. We will continue for now given output. I suspect that this will downtrend, otherwise pulmonary toileting and physical therapy. She is on antibiotics. cc: Sarah Chow MD
[2018-11-21] MEDS: CORDARONE PO SCH (12:08)
[2018-11-21] MEDS: PROTONIX PO SCH (12:08)
[2018-11-21] MEDS: TOPROL XL PO SCH (12:08)
[2018-11-21] MEDS: FOLIC ACID PO SCH (12:09)
[2018-11-21] MEDS ORDERED: LUBRIDERM LOTION TOP PRN (16:45)
[2018-11-22] MEDS: TYLENOL PO PRN ×2 (03:14→22:00)
[2018-11-22] MEDS: XOPENEX NEB INH SCH ×6 (03:26→23:44)
[2018-11-22] MEDS: SOLU-CORTEF IV SCH ×4 (03:45→19:00)
[2018-11-22] MEDS: MERREM 1 GM in NS 50 ML IV SCH ×3 (04:31→21:48)
[2018-11-22 06:09] LABS: EOS# 0.05 X1000 (0.0-0.7); EOS% 0.4 % (0.0-10.0); HEMATOCRIT 29.2 % (37.0-47.0); HEMOGLOBIN 8.9 g/dL (12.0-16.0); IMM GRAN# 0.09 X1000 (0.0-0.04); IMM GRAN% 0.7 % (0.0-0.5); LYMPH% 8.2 % (20.5-51.1); MCH 27.7 PG (27-31); MCHC 30.5 g/dL (33-37); MONO# 1.26 X1000 (0.11-0.59); MONO% 9.3 % (1.7-9.3); MPV 9.9 FL (7.4-10.4); NEUT# 10.98 X1000 (1.4-6.5); NEUT% 81.4 % (42.2-75.2); PLT 344 X1000 (130-400); RBC 3.21 XMIL (4.2-5.4); RDW 17.8 % (11.5-14.5); WBC 13.48 X1000 (4.8-10.8)
[2018-11-22 06:57] LABS: AGAP 11; BUN 18 mg/dL (8-22); CALCIUM 7.4 mg/dL (8.8-10.2); CHLORIDE 98 mmol/L (98-107); COSMO 275; CREATININE 0.6 mg/dL (0.5-0.9); ESTIMATED GFR > 60; GLUCOSE 128 mg/dL (70-104); POTASSIUM 4.5 mmol/L (3.5-5.1); SODIUM 136 mmol/L (136-145); TCO2 27 mmol/L (25-35)
[2018-11-22] MEDS: HUMULIN R SUBQ SCH ×4 (07:00→21:48)
--- NOTE | 2018-11-22 07:15 | Diag Imaging Result Doc PS360 ---
EXAM: CHEST-1 VIEW 11/22/2018 HISTORY: SOB TECHNIQUE: AP portable at 0554 COMMENT: There is a right subclavian central venous catheter with its tip in the superior vena cava. There is a pacemaker on the left. There are patchy areas of alveolar opacity and probable atelectasis in the right lung. There is a chest tube on the right. The left lung is slightly clearer than it was on 11/21/2018. The lungs are not quite as well-expanded as on the previous study. The possibility of slightly worsened atelectasis in the right upper lobe is suggested. IMPRESSION: Worsened right-sided atelectasis. Otherwise stable since 11/21/2018. Electronically signed by Melquiades Maldonado 11/22/2018 7:13 AM
[2018-11-22] MEDS: MUCOMYST 20% INH SCH ×2 (07:31→19:37)
[2018-11-22] MEDS: CORDARONE PO SCH (11:30)
[2018-11-22] MEDS: TOPROL XL PO SCH (11:30)
[2018-11-22] MEDS: FOLIC ACID PO SCH (11:30)
[2018-11-22] MEDS: PROTONIX PO SCH (11:31)
--- NOTE | 2018-11-22 14:00 | PROGRESS NOTE ---
DATE: 11/22/2018 SUBJECTIVE: Ms. Shields is sitting up in the chair. She is resting comfortably. Easy to arouse. Listening to her audio on her computer. PHYSICAL EXAMINATION: Temperature 97.6 degrees, pulse 62, respirations 18, blood pressure 128/45. Pupils are equal and round. Lungs are clear in all lung lind. Cardiovascular Examination: Regular rhythm and rate without murmur or S3. Abdomen is soft. Skin is warm and dry. ASSESSMENT AND PLAN: 1. Worsened right-sided atelectasis on chest x-ray since 11/21/2018. She seems to be breathing more comfortably. She continues to have pretty good output from chest tube. 2. Diarrhea, loose stools. 3. Chronic anticoagulation. 4. Acute hypoxemic respiratory failure, which has improved. 5. Blood loss anemia. Hematocrit 29, hemoglobin 8.8. 6. Diabetes mellitus. Sugar is under good control. LABORATORY DATA: White count 13,480 hematocrit is 29, hemoglobin 8.9, platelet count 344,000. Sodium 136, potassium 4.5, chloride 98, BUN 18, creatinine 0.6. Blood sugars 160, 128, 131, 165. REVIEW OF ORDERS: So looking over orders, I do not see any change at this point. She is on Cordarone 200 mg a day. She is getting acetylcysteine 20% breathing treatments. She is getting folic acid 1 mg a day. She is on Humulin regular sliding scale, meropenem 1 g q.8, metoprolol 25 mg daily, Protonix 40 mg p.o. q.24 hours. cc: Cornelius Gonsales MD
[2018-11-22] MEDS ORDERED: STERILE WATER INJ. INJ ONE (14:14)
[2018-11-22] MEDS ORDERED: CATHFLO IV ONE (14:14)
--- NOTE | 2018-11-22 14:35 | GENERAL SURGERY PROGRESS NOTE ---
DATE: 11/22/2018 SUBJECTIVE: Clinically overall about the same. No fevers. No tachycardia. OBJECTIVE: Chest: Chest tube is in placed, persistent serosanguineous drainage. No air leak. IMAGING: I reviewed her x-ray. It shows improving consolidation in the right lower lobe. Chest tube put out 180 yesterday. ASSESSMENT AND PLAN: This is a 73-year-old female with right-sided hemothorax. Will continue chest tube drainage for now. Suspect we can begin removing this in the next day or 2, but she is still having some expansion issues of her lower lobe, but no jose antonio pneumothorax. Aggressive pulmonary toileting which is difficult in a post CVA patient. Will follow along. cc: Sarah Chow MD
--- NOTE | 2018-11-22 22:32 | PULMONOLOGY PROGRESS NOTE ---
DATE: 11/22/2018 SUBJECTIVE: The patient is awake and alert. She has some expressive aphasia, but does respond to questions. She reports she is tired from having the chest tube in place. She continues to have some dark drainage from the chest tube. OBJECTIVE: Vital Signs: The patient has been afebrile over the last 24 hours. Blood pressure 119/68, heart rate 64, respiratory rate 14, oxygen saturation 95% on room air. HEENT: Pupils are equal and reactive. Oropharynx is clear. Neck: Supple. Chest: Reveals decreased breath sounds at the right base. Cardiac: S1, S2. Abdomen: Soft. Extremities: Without edema. LABORATORIES: Some fluctuation and infiltrates in the right base. Chest tube is in position. Chest x-ray does look better than x-ray 3 to 4 days ago. IMPRESSION: A 73-year-old with 1. Hemothorax. 2. Slowly resolving consolidation at the right base. 3. Rib fracture while on chronic anticoagulation. 4. Acute hypoxemic respiratory failure. RECOMMENDATION: 1. Continue chest tube management per general surgery. 2. Continue bronchial hygiene. 3. Check coagulation numbers tomorrow. 4. Continue to monitor hemoglobin level and transfuse if she is less than 7. cc: Patric Saldaña MD
[2018-11-23] MEDS: XOPENEX NEB INH SCH ×5 (03:19→19:26)
[2018-11-23] MEDS: MERREM 1 GM in NS 50 ML IV SCH ×3 (05:10→21:46)
[2018-11-23] MEDS: HUMULIN R SUBQ SCH ×4 (06:48→21:45)
--- NOTE | 2018-11-23 06:53 | Diag Imaging Result Doc PS360 ---
EXAM: CHEST-1 VIEW HISTORY: SOB TECHNIQUE: Portable chest single view COMPARISON: 11/22/2018 FINDINGS: No change in the right-sided chest tube, right subclavian line, and left pacemaker. No pneumothorax. There are infiltrates in the mid and lower right lung similar to the prior exam. Pulmonary edema remains and the heart is enlarged. The overall appearance is similar to the prior exam. IMPRESSION: Stable chest Electronically signed by Avery Morales 11/23/2018 6:50 AM
[2018-11-23 06:54] LABS: INR 1.1; PROTIME 15.1 Seconds (11.0-16.0); PTT 25.8 Seconds (22.3-41.8)
[2018-11-23] MEDS: MUCOMYST 20% INH SCH ×2 (07:28→19:27)
[2018-11-23] MEDS: TOPROL XL PO SCH (10:23)
[2018-11-23] MEDS: FOLIC ACID PO SCH (10:23)
[2018-11-23] MEDS: PREDNISONE PO SCH (10:23)
[2018-11-23] MEDS: CORDARONE PO SCH (10:23)
[2018-11-23] MEDS: PROTONIX PO SCH (13:53)
--- NOTE | 2018-11-23 15:50 | PROGRESS NOTE ---
DATE: 11/23/2018 SUBJECTIVE: Ms. Shields reports she is feeling better. She is breathing comfortably. Remains afebrile. OBJECTIVE: Vital signs: Temperature 98.6 degrees, pulse 70, respirations 18, blood pressure 138/68. HEENT: Pupils are equal and round. Lungs: Clear in all lind. Cardiovascular: Regular rhythm and rate without murmur or S3. Abdomen: Soft. Skin: Warm and dry. Urine output is 2500 mL. IMAGING: Chest x-ray from this morning appears to be stable. No change in right-sided chest tube, right subclavian line, left pacemaker. No pneumothorax. There are infiltrates in the mid and lower right lung similar to prior exam. ASSESSMENT AND PLAN: Hemothorax, slowly resolving, consolidation right base, right rib fracture while on chronic anticoagulation, acute hypoxemic respiratory failure. She is improving. Chest tube still draining. Her hope is to get back to assisted living but we will need to get the chest tube out and continue to work on physical therapy. Continue bronchial hygiene. Check anticoagulation numbers. Her ProTime is 15.1. REVIEW OF ORDERS: Getting amiodarone 200 mg a day, folic acid 1 mg a day, Xopenex inhalation treatments, meropenem 1 g q.8 hours, prednisone 10 mg a day. cc: Cornelius Gonsales MD
--- NOTE | 2018-11-23 21:23 | GENERAL SURGERY PROGRESS NOTE ---
DATE: 11/23/2018 SUBJECTIVE: Seems more alert. No fevers. No tachycardia. Oxygen saturation is 100% when she is on room air. OBJECTIVE: In general, she is alert. Chest tube continues to put out quite a lot of serosanguineous output, 150 recorded, down from 190 yesterday. There is no air leak. It is to water seal. Hematocrit is stable at 29. INR is 1.10. Creatinine 0.6. I reviewed her x-rays from today; it is overall stable. ASSESSMENT AND PLAN: This is a 73-year-old female with a right-sided hemothorax related to rib fractures, persistent chest tube output. If it continues to downtrend, which it has been, we can hopefully remove it in the next 24 to 48 hours. Otherwise, continue pulmonary toileting. cc: Sarah Chow MD
[2018-11-23] MEDS: TYLENOL PO PRN (23:51)
[2018-11-24] MEDS: XOPENEX NEB INH SCH ×7 (00:06→23:15)
[2018-11-24] MEDS: MERREM 1 GM in NS 50 ML IV SCH ×3 (03:50→21:10)
--- NOTE | 2018-11-24 06:40 | Diag Imaging Result Doc PS360 ---
CHEST-1 VIEW - 11/24/2018 INDICATION: SOB COMPARISON: 11/23/2018 FINDINGS: Stable right chest tube and chest port. Stable pacemaker. Stable significant consolidation throughout the right lung base. No pneumothorax or significant pleural effusion. Heart size remains top normal. IMPRESSION: No change from prior. Electronically signed by Bhargav Bonner 11/24/2018 6:38 AM
[2018-11-24] MEDS: HUMULIN R SUBQ SCH ×4 (06:45→21:36)
[2018-11-24] MEDS: MUCOMYST 20% INH SCH ×2 (07:52→19:43)
[2018-11-24] MEDS: CORDARONE PO SCH (08:36)
[2018-11-24] MEDS: TOPROL XL PO SCH (08:36)
[2018-11-24] MEDS: PREDNISONE PO SCH (08:36)
[2018-11-24] MEDS: FOLIC ACID PO SCH (08:37)
[2018-11-24] MEDS: PROTONIX PO SCH (13:52)
--- NOTE | 2018-11-24 18:17 | PROGRESS NOTE ---
DATE: 11/24/2018 SUBJECTIVE: This patient is resting comfortably in bed, but she is still complaining of right sided pain. She has a right chest tube that is working fine and still draining. Surgery Department on board. She does have a history of atrial fibrillation and the anticoagulation has been stopped due to her recent rib fracture and bleeding. We will continue to monitor. OBJECTIVE: Vital Signs: Temperature 98.4 degrees, pulse 70, respiratory rate 18, blood pressure 125/40, oxygen saturation 100% on 2 L of nasal cannula. HEENT: Head normocephalic. No trauma. PERRLA. Neck: Supple. No JVD. No masses. Central trachea. Chest: She does have a right- sided chest tube which is painful to palpation. Decreased breath sounds on the right base mostly with some crepitus. Abdomen: Soft, nontender, nondistended. No hepatosplenomegaly. Extremities: No edema, no clubbing, no cyanosis. Neurological: This patient has right-sided hemiparesis and expressive aphasia. Other than that, she seems to be stable. LABORATORY: Glucose 182. ASSESSMENT AND PLAN: 1. Right-sided hemothorax related to rib fracture, status post chest tube placement, which is still having some output. Surgery Department on board as well as Pulmonary Department. She seems to be doing better. She is still complaining of some pain in that area. We will continue to monitor. Hopefully, we can pull this tube out in the next 24 to 48 hours or previously. 2. 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 Aware. No changes. 3. Hypertension, stable. Continue to monitor. 4. Hyperlipidemia. Aware. 5. History of atrial fibrillation, previously admitted due to rapid ventricular response on previous hospitalization. Aware. She has not been on anticoagulation due to her recent rib fracture and bleeding. 6. X-ray done today showed a stable right chest tube and chest port, pacemaker, stable significant consolidation throughout the right lung base, no pneumothorax or significant pleural effusion, and heart size remains top-normal. Basically, no change from prior x-ray. 7. The patient is doing better. She is still having some draining with through the chest tube. Surgery Department on board. Hopefully, the tube can be removed any time soon. She is coming from [facility], which is an assisted living. We will continue to monitor. cc: Mundo Delvalle MD
[2018-11-24] MEDS: TYLENOL PO PRN (21:20)
--- NOTE | 2018-11-25 03:12 | PULMONOLOGY PROGRESS NOTE ---
DATE: 11/24/2018 SUBJECTIVE: The patient is awake and alert. She has some aphasia but appears appropriate and attempts to respond to all questions. OBJECTIVE: The patient has been afebrile for the last 24 hours. Blood pressure 125/40, heart rate 70, respiratory rate 18, oxygen saturation 100% on nasal cannula.HEENT: Pupils are equal and reactive. Oropharynx appears clear. Neck: Supple. Chest: Reveals chest tube in good position. Decreased breath sounds right base. Cardiac: S1, S2. Abdomen: Soft and obese. Extremities: Without edema. LABORATORIES: Chest x-ray reveals chest tube in good position. Continue consolidation in the right base without significant change. IMPRESSION: A 73-year-old with 1. Hemithorax. 2. Continued consolidation with slow improvement at the right base. 3. Rib fractures while on anticoagulation. 4. Acute hypoxemic respiratory failure. RECOMMENDATIONS: 1. Continue bronchial hygiene and encourage incentive spirometry. 2. Attempt to balance intake and output. 3. Chest tube management per Dr. Arjun Chow. Hopefully, chest tube can be removed soon. 4. Continue to monitor hemoglobin and transfuse if hemoglobin level drops less 7, but she has not needed any transfusions in the last 12 days. cc: Patric Saldaña MD
[2018-11-25] MEDS: XOPENEX NEB INH SCH ×5 (03:15→19:30)
[2018-11-25] MEDS: MERREM 1 GM in NS 50 ML IV SCH ×3 (04:48→20:28)
[2018-11-25] MEDS ORDERED: LASIX IV ONE ×2 (05:00→22:00)
[2018-11-25] MEDS: TYLENOL PO PRN ×2 (06:46→20:28)
[2018-11-25 07:13] LABS: BASO# 0.01 X1000 (0.0-0.2); EOS# 0.45 X1000 (0.0-0.7); EOS% 2.2 % (0.0-10.0); HEMATOCRIT 28.3 % (37.0-47.0); HEMOGLOBIN 8.7 g/dL (12.0-16.0); IMM GRAN# 0.33 X1000 (0.0-0.04); IMM GRAN% 1.6 % (0.0-0.5); LYMPH# 1.21 X1000 (1.2-3.4); MCHC 30.7 g/dL (33-37); MONO% 19.9 % (1.7-9.3); MPV 9.8 FL (7.4-10.4); NEUT# 14.13 X1000 (1.4-6.5); NEUT% 70.3 % (42.2-75.2); PLT 310 X1000 (130-400); RBC 3.11 XMIL (4.2-5.4); RDW 17.9 % (11.5-14.5); WBC 20.13 X1000 (4.8-10.8)
--- NOTE | 2018-11-25 07:33 | Diag Imaging Result Doc PS360 ---
EXAM: CHEST-1 VIEW 11/25/2018 HISTORY: SOB TECHNIQUE: AP portable at 0636 COMMENT: There is a right-sided chest tube. There is a right subclavian central venous catheter with its tip in the superior vena cava. There is a left-sided pacemaker. There is cardiomegaly. There is a right pleural fluid collection and/or pleural thickening. Compared to 11/24/2018 there is worsening opacification of the right lung. Some of this may be due to atelectasis but there is dense alveolar opacity as well. There may be interstitial pulmonary edema in the left lung. The lungs are not as well-expanded in general as on the previous study. IMPRESSION: Right-sided atelectasis and pneumonia superimposed on pulmonary edema. Pleural thickening and/or loculated pleural effusion on the right. Electronically signed by Melquiades Maldonado 11/25/2018 7:31 AM
[2018-11-25 07:36] LABS: AGAP 10; BUN 10 mg/dL (8-22); CALCIUM 7.5 mg/dL (8.8-10.2); CHLORIDE 97 mmol/L (98-107); COSMO 282; CREATININE 0.6 mg/dL (0.5-0.9); ESTIMATED GFR > 60; GLUCOSE 135 mg/dL (70-104); POTASSIUM 3.8 mmol/L (3.5-5.1); SODIUM 141 mmol/L (136-145); TCO2 34 mmol/L (25-35)
[2018-11-25] MEDS: HUMULIN R SUBQ SCH ×4 (08:10→23:01)
[2018-11-25] MEDS: MUCOMYST 20% INH SCH ×2 (08:30→19:30)
[2018-11-25 08:38] LABS: BANDS 4 % (0-1); LARGE PLATELETS 1+; LYMPHS 2 % (21-51); MONO 8 % (1-9); SEGS 86 % (42-75)
[2018-11-25] MEDS: PREDNISONE PO SCH (11:41)
[2018-11-25] MEDS: CORDARONE PO SCH (11:41)
[2018-11-25] MEDS: TOPROL XL PO SCH (11:41)
[2018-11-25] MEDS: FOLIC ACID PO SCH (11:41)
[2018-11-25] MEDS: PROTONIX PO SCH (13:12)
--- NOTE | 2018-11-25 18:33 | PROGRESS NOTE ---
DATE: 11/25/2018 SUBJECTIVE: Patient resting comfortably in bed. She is still complaining of right-sided chest pain. X-ray showed right-sided atelectasis and pneumonia superimposed on pulmonary edema, pleural thickening, and/or loculated pleural effusion on the right. Pulmonary Department on board as well as Surgery Department. OBJECTIVE: Vital Signs: Temperature 97.9 degrees, pulse 72, respiratory rate 16, blood pressure 114/36, oxygen saturation 97% on 3 L of nasal cannula. HEENT: Head normocephalic. No trauma. PERRLA. Neck: Supple. No JVD. No masses. Central trachea. Chest: She does have a right- sided chest tube. It is painful to palpation. Decreased breath sounds on the right base, mostly some crepitus. Abdomen: Soft, nontender, nondistended. No hepatosplenomegaly. Extremities: No edema, no clubbing, no cyanosis. Neurological: This patient has right-sided weakness and expressive aphasia, no changes. LABORATORY: WBC 20.1, hemoglobin 8.7, hematocrit 28.3, platelets 310,000. Sodium 141, potassium 3.8, chloride 97, bicarbonate 34, BUN 10, creatinine 0.6, glucose 135, calcium 7.5. ASSESSMENT AND PLAN: 1. Right-sided hemothorax related to rib fracture, status post chest tube placement, which is still having some output. Surgery Department on board as well as Pulmonary Department. She seems to be stable. We will continue with the same management. White blood cell count is around 20, which can be a combination of underlying pneumonia and steroid use. We will continue with the same treatment. 2. 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 No changes. 3. Hypertension, stable. 4. Hyperlipidemia, aware. 5. History of atrial fibrillation, previously admitted due to rapid ventricular response as well on previous hospitalizations, aware. She has not been on blood thinner due to her recent rib fracture and bleeding. Likely, this patient will spend a few more days hospitalized. Surgery Department and Pulmonary Department on board. Chest x-ray still showing fluid and probably infiltrates as well. White blood cell count increased, even though she has been on meropenem. Zyvox has been added to her medications. cc: Mundo Delvalle MD
[2018-11-25] MEDS: ZYVOX 600 MG/D5W 600 MG/300 ML IVPB IV SCH (21:25)
--- NOTE | 2018-11-25 21:53 | PULMONOLOGY PROGRESS NOTE ---
DATE: 11/25/2018 SUBJECTIVE: The patient is awake, alert, and conversant. She has aphasia so her responses are delayed. She has a marginal cough effort. She is without specific complaints. OBJECTIVE: Vital Signs: The patient has been afebrile for the last 24 hours. Blood pressure 107/38, heart rate 65, respiratory rate 16, oxygen saturation 96% on 2 L per nasal cannula. HEENT: Pupils are equal and reactive. Oropharynx is clear. Neck: Supple. Chest: Reveals crackles in both lung bases. Cardiac exam: S1, S2. Abdomen: Soft. Extremities: Without edema. LABORATORIES: White blood count 20,000, hemoglobin 8.7, platelet count 310,000. Sodium 141, potassium 3.8, chloride 97, bicarbonate 34, BUN 10, creatinine 0.6. IMAGING: Chest x-ray reveals significant increased infiltrates on the right with cardiomegaly and interstitial edema on the left. IMPRESSION: A 73-year-old with: 1. Hemothorax. 2. Pneumonia. 3. Pulmonary edema. 4. Rib fractures. 5. Acute hypoxemic respiratory failure. DISCUSSION: A 73-year-old with problems outlined above. Her oxygen requirements have not increased despite change in chest x-ray. She does not have audible rhonchi, although this could represent an infectious process. RECOMMENDATIONS: 1. Increase gram-positive coverage given worsening chest x-ray. 2. Continue to balance intake and output with Lasix as needed. 3. Chest tube management per Dr. Chow. 4. Follow up chest x-ray tomorrow morning. cc: Patric Saldaña MD
[2018-11-26] MEDS: XOPENEX NEB INH SCH ×6 (03:30→23:30)
[2018-11-26] MEDS: MERREM 1 GM in NS 50 ML IV SCH ×3 (05:24→21:23)
[2018-11-26 07:41] LABS: HEMATOCRIT 25.3 % (37.0-47.0); HEMOGLOBIN 7.6 g/dL (12.0-16.0); MCH 27.9 PG (27-31); MPV 10.3 FL (7.4-10.4); RBC 2.72 XMIL (4.2-5.4); RDW 18.5 % (11.5-14.5); WBC 16.52 X1000 (4.8-10.8)
[2018-11-26] MEDS: HUMULIN R SUBQ SCH ×4 (07:45→21:56)
--- NOTE | 2018-11-26 07:51 | Diag Imaging Result Doc PS360 ---
CHEST-1 VIEW - 11/26/2018 INDICATION: SOB COMPARISON: 11/25/2018 FINDINGS: Stable right chest tube. Stable right chest port. Stable pacemaker. Stable infiltrate throughout the right lung diffusely. No pneumothorax or significant pleural effusion. Stable mild edema throughout the left lung. Stable cardiomegaly. IMPRESSION: No change from prior. Electronically signed by Bhargav Bonner 11/26/2018 7:48 AM
[2018-11-26 08:05] LABS: AGAP 13; ALBUMIN 2.7 g/dL (3.5-5.0); ALKALINE PHOSPHATASE 101 U/L (32-104); BUN 9 mg/dL (8-22); CALCIUM 7.4 mg/dL (8.8-10.2); CHLORIDE 93 mmol/L (98-107); COSMO 274; CREATININE 0.5 mg/dL (0.5-0.9); ESTIMATED GFR > 60; GLUCOSE 126 mg/dL (70-104); GOT 10 U/L (10-30); GPT 13 U/L (10-36); MAGNESIUM 1.7 mg/dL (1.5-2.7); PHOSPHORUS 3.2 mg/dL (2.7-4.5); POTASSIUM 4.1 mmol/L (3.5-5.1); SODIUM 137 mmol/L (136-145); TCO2 31 mmol/L (25-35); TOTAL BILIRUBIN 1.89 mg/dL (0.20-1.00); TOTAL PROTEIN 5.4 g/dL (6.3-8.3)
[2018-11-26] MEDS: MUCOMYST 20% INH SCH ×2 (08:10→19:25)
[2018-11-26] MEDS: ZYVOX 600 MG/D5W 600 MG/300 ML IVPB IV SCH ×2 (09:05→21:57)
[2018-11-26] MEDS: CORDARONE PO SCH (09:06)
[2018-11-26] MEDS: FOLIC ACID PO SCH (09:06)
[2018-11-26] MEDS: PREDNISONE PO SCH (10:55)
[2018-11-26] MEDS: TOPROL XL PO SCH (10:55)
[2018-11-26] MEDS: PROTONIX PO SCH (11:00)
--- NOTE | 2018-11-26 14:51 | PROGRESS NOTE ---
DATE: 11/26/2018 SUBJECTIVE: When I evaluated this patient she was sitting at the bedside, she is still complaining of some chest discomfort on the right side, x-ray about the same compared with yesterday. Pulmonary Department as well as Surgery Department on board. OBJECTIVE: Vital Signs: Temperature 98.2 degrees, pulse 73, respiratory rate 20, blood pressure 111/43, oxygen saturation 98 on 2 L of nasal cannula. HEENT: Head normocephalic. No trauma. PERRLA. Neck: Supple. No JVD. No masses. Central trachea. Chest: Right-sided chest tube painful to palpation. Decreased breath sounds on the right base mostly with some crepitus. Abdomen: Soft, nontender, nondistended. No hepatosplenomegaly. Extremities: No clubbing, no cyanosis. Neurological: The patient has some right-sided weakness and expressive aphasia, no changes. LABORATORY: WBC 16.5, hemoglobin 7.6, hematocrit 25.3, platelets 273,000. Sodium 137, potassium 4.1, chloride 93, bicarbonate 31, BUN 9, creatinine 0.5, glucose 126, calcium 7.4, magnesium 1.7, albumin 2.7. ASSESSMENT AND PLAN: 1. Right-sided hemothorax related to rib fracture status post chest tube placement, Surgery Department on board as well as Pulmonary Department. She seems to be stable but the x-ray looks about the same compared with yesterday, white blood cell count decreased compared with yesterday and this can be a combination of underlying pneumonia and steroid use. Will continue with same management for now. 2. History of cerebrovascular accident with right-sided weakness and expressive aphasia aware. 3. Hypertension, stable. 4. Hyperlipidemia aware. 5. History of atrial fibrillation with also previous history of rapid ventricular response, she is not on anticoagulation due to her recent rib fracture and bleeding. 6. Possible underlying pneumonia, WBC trending down after increasing the amount of antibiotics. Pulmonary Department on board. Will continue to monitor. No fever or chills at this moment. 7. Physical deconditioning and generalized weakness, aware. Physical therapy on board. cc: Mundo Delvalle MD
[2018-11-26] MEDS: TYLENOL PO PRN (18:13)
--- NOTE | 2018-11-26 20:52 | PULMONOLOGY PROGRESS NOTE ---
DATE: 11/26/2018 SUBJECTIVE: The patient is awake, alert and conversant. She has some expressive aphasia. She appears comfortable. OBJECTIVE: Chest tube output 70 mL or less. BP 111/43, heart rate 73, respiratory rate 18, oxygen saturation 98%. HEENT: Pupils are equal and reactive. Oropharynx is clear. Neck: Supple. Chest: Reveals crackles throughout the right lung base. Cardiac: S1-S2. Abdomen: Soft without hepatosplenomegaly. Extremities: Are without edema. LABORATORIES: Chest x-ray reveals continued infiltrate to the right lung. White blood count 16.52, hemoglobin 7.6, platelet count 273,000. IMPRESSION: A 73-year-old with 1. Hemothorax. 2. Pneumonia. 3. Pulmonary edema. 4. Rib fractures. 5. Acute hypoxemic respiratory failure. PLAN: 1. Continue broad-spectrum gram-positive and gram-negative coverage. 2. Continue to balance intake and output. 3. Anticipate chest tube removal soon. 4. Will obtain noncontrast CT scan given persistent infiltrates. cc: Patric Saldaña MD
--- NOTE | 2018-11-26 22:22 | GENERAL SURGERY PROGRESS NOTE ---
DATE: 11/26/2018 Ms Shields has put out about 70 mL in her chest tube. Otherwise, she is about the same. We will continue with chest tube drainage for now. cc: Nicolas Rosales MD
[2018-11-27] MEDS: XOPENEX NEB INH SCH ×6 (02:50→23:25)
[2018-11-27] MEDS: MERREM 1 GM in NS 50 ML IV SCH ×3 (04:45→22:14)
[2018-11-27 07:25] LABS: BASO# 0.01 X1000 (0.0-0.2); BASO% 0.1 % (0.0-0.8); EOS# 0.37 X1000 (0.0-0.7); EOS% 2.8 % (0.0-10.0); HEMATOCRIT 25.6 % (37.0-47.0); HEMOGLOBIN 7.8 g/dL (12.0-16.0); IMM GRAN# 0.16 X1000 (0.0-0.04); IMM GRAN% 1.2 % (0.0-0.5); LYMPH# 1.16 X1000 (1.2-3.4); LYMPH% 8.8 % (20.5-51.1); MCH 27.9 PG (27-31); MCHC 30.5 g/dL (33-37); MCV 91.4 FL (81-99); MONO# 2.59 X1000 (0.11-0.59); MONO% 19.5 % (1.7-9.3); MPV 10.2 FL (7.4-10.4); NEUT# 8.96 X1000 (1.4-6.5); NEUT% 67.6 % (42.2-75.2); PLT 298 X1000 (130-400); RDW 18.1 % (11.5-14.5); WBC 13.25 X1000 (4.8-10.8)
--- NOTE | 2018-11-27 07:33 | Diag Imaging Result Doc PS360 ---
CHEST-1 VIEW - 11/27/2018 INDICATION: SOB COMPARISON: 11/26/2018 FINDINGS: Stable right chest tube in good position. Stable right central line and left pacemaker. Lung volumes are improved. There is definitely improved aeration of the left lung. There is also slightly improved expansion of the right upper lung. No pneumothorax or large effusion. Stable mild cardiomegaly and pulmonary vascular congestion. IMPRESSION: Improved lung volumes. Improved bilateral infiltrates. No new abnormality. Electronically signed by Bhargav Bonner 11/27/2018 7:31 AM
[2018-11-27] MEDS: HUMULIN R SUBQ SCH ×4 (07:46→23:03)
[2018-11-27 07:48] LABS: AGAP 10; BUN 8 mg/dL (8-22); CALCIUM 7.6 mg/dL (8.8-10.2); CHLORIDE 98 mmol/L (98-107); COSMO 275; CREATININE 0.5 mg/dL (0.5-0.9); ESTIMATED GFR > 60; GLUCOSE 115 mg/dL (70-104); POTASSIUM 4.1 mmol/L (3.5-5.1); SODIUM 138 mmol/L (136-145); TCO2 30 mmol/L (25-35)
--- NOTE | 2018-11-27 08:30 | Diag Imaging Result Doc PS360 ---
CT THORAX W/O CONTRAST - 11/27/2018 INDICATION: hemothorax COMPARISON: 11/11/2018 FINDINGS: There is a large bore right chest tube in good position with the tip in the posterior apex. There is a moderate right pleural effusion is probably loculated in multiple locations diffusely. There is also severe right hemidiaphragm elevation up to the level of the aortic valve. There is significant passive atelectasis of the posterior lateral right lung. On the left side, there is a stable granuloma in the left lower lobe at the left lung remains clear and well expanded. There is a left-sided pacemaker in good position. Right PICC line is in good position. There is mild body wall edema. There are nondisplaced fractures of the lateral right fourth-seventh ribs. IMPRESSION: 1. Several small loculations of pleural fluid on the right. Chest tube is in good position. 2. Significant atelectasis of the right lung as a result. 3. Nondisplaced right rib fractures. This exam was performed using automated exposure control, adjustment of mA or kV according to patient size, and/or use of iterative reconstruction technique Electronically signed by Bhargav Bonner 11/27/2018 8:28 AM
--- NOTE | 2018-11-27 08:56 | GENERAL SURGERY PROGRESS NOTE ---
DATE: 11/27/2018 Ms. Shields is afebrile. Hemodynamics were good. She has had really minimal drainage out her chest tube. Her CT today shows significant improvement compared to pre chest tube. Her pleural space has not completely cleared but it is significantly better. I am not sure that the chest tube continues to serve a value now. We will see how much she drains over the next 24 hours and a decision will be made about continued chest tube drainage or not. cc: Nicolas Rosales MD
[2018-11-27] MEDS: MUCOMYST 20% INH SCH (12:08)
[2018-11-27] MEDS: FOLIC ACID PO SCH (12:11)
[2018-11-27] MEDS: PREDNISONE PO SCH (12:11)
[2018-11-27] MEDS: TOPROL XL PO SCH (12:11)
[2018-11-27] MEDS: CORDARONE PO SCH (12:11)
[2018-11-27] MEDS: PROTONIX PO SCH (12:18)
[2018-11-27] MEDS: ZYVOX 600 MG/D5W 600 MG/300 ML IVPB IV SCH (12:22)
[2018-11-27] MEDS ORDERED: LASIX IV ONE (13:44)
--- NOTE | 2018-11-27 13:48 | PROGRESS NOTE ---
DATE: 11/27/2018 SUBJECTIVE: This patient is resting comfortably in bed. She still has the chest tube. We had a CT scan done that showed several small loculations of pleural fluid on the right, the chest tube is in good position, significant atelectasis of the right lung as a result, and nondisplaced right rib fractures. Surgery department on board. We will continue to monitor. The decision to remove the tube depends on the amount of fluid coming out in the next 24 hours but we will monitor. OBJECTIVE: Vital Signs: Temperature 97.6 degrees, pulse 80, respiratory rate 29, blood pressure 115/50, oxygen saturation 100% on 2 L of nasal cannula. HEENT: Head normocephalic. No trauma. PERRLA. Neck: Supple. No JVD. No masses. Central trachea. Chest: Right- sided chest tube in place. It is not painful at this moment. Decreased breath sounds at the right base mostly with some crepitus. Abdomen: Soft, nontender, nondistended. No hepatosplenomegaly. Extremities: No clubbing, no cyanosis. Neurological Examination: The patient is alert. She is following commands. She does have right-sided weakness with some expressive aphasia, no changes. Laboratory: WBC 13.2, hemoglobin 7.8, hematocrit 25.6, platelets 298,000. Sodium 138, potassium 4.1, chloride 98, bicarbonate 30, BUN 8, creatinine 0.5, glucose 115, calcium 7.6. ASSESSMENT AND PLAN: 1. Right-sided hemothorax related to rib fractures, status post chest tube placement. Surgery department on board as well as pulmonary department. She seems to be stable. She is not complaining of pain at this moment. Chest CT scan done today showed several small loculations of pleural fluid on the right with significant atelectasis on the right lung, nondisplaced rib fractures, and the chest tube is in good position. We will wait for pulmonary and surgery department recommendations. 2. 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 3. Hypertension, stable. 4. Hyperlipidemia, aware. 5. History of atrial fibrillation, on anticoagulation. Anticoagulation has been stopped due to her recent bleeding and recent rib fracture as well. 6. Possible underlying pneumonia. WBC trending down after adding more antibiotics to her regimen. 7. Physical deconditioning and generalized weakness, aware. Physical therapy on board. cc: Mundo Delvalle MD MTDD
[2018-11-27] MEDS: TYLENOL PO PRN (15:49)
--- NOTE | 2018-11-27 16:22 | PULMONOLOGY PROGRESS NOTE ---
DATE: 11/27/2018 SUBJECTIVE: The patient is awake, alert, and conversant. She has some expressive aphasia. She appears to be comfortable. She has a marginal cough ability. OBJECTIVE: Vital Signs: The patient has been afebrile for the last 24 hours. Blood pressure 129/40, heart rate 65, respiratory rate 24, oxygen saturation 94%. HEENT: Pupils are equal and reactive. Oropharynx is clear. Neck: Supple. Chest: Reveals diminished breath sounds right base. Cardiac exam: S1, S2. Abdomen: Soft. Extremities: Reveal no edema. LABORATORIES: White blood count 13.25, hemoglobin 7.8, platelet count 298,000. Sodium 138, potassium 4.1, chloride 98, bicarbonate 30, BUN 8, creatinine 0.5. CT scan of the thorax without contrast reveals chest tube in good position, significant infiltrates right lung base, nondisplaced rib fractures, several small loculations of fluid. IMPRESSION: A 73-year-old with: 1. Hemothorax. 2. Pneumonia. 3. Rib fractures. 4. Acute hypoxemic respiratory failure. DISCUSSION: A 73-year-old with problems outlined above. Her pleural fluid is dark and appears to be old blood and continues to decrease in amount. RECOMMENDATIONS: 1. Continue current antibiotic regimen. 2. Continue bronchial hygiene. 3. Chest tube management per surgery. Hopefully with decreased drainage, her chest tube can come out in the near future. cc: Patric Saldaña MD
[2018-11-28] MEDS: ZYVOX 600 MG/D5W 600 MG/300 ML IVPB IV SCH ×2 (00:41→15:21)
[2018-11-28] MEDS: TYLENOL PO PRN ×2 (01:26→22:01)
[2018-11-28] MEDS: XOPENEX NEB INH SCH ×5 (03:25→19:55)
[2018-11-28] MEDS: MERREM 1 GM in NS 50 ML IV SCH ×3 (04:11→21:36)
--- NOTE | 2018-11-28 07:01 | Diag Imaging Result Doc PS360 ---
CHEST-1 VIEW - 11/28/2018 INDICATION: SOB COMPARISON: 11/27/2018 FINDINGS: Lines and tubes are stable. Stable significant opacification of the right lung base with some infiltrate in the right upper lung zone. The left lung remains clear. Stable cardiomegaly and mild pulmonary vascular congestion. IMPRESSION: No change from prior. Electronically signed by Bhargav Bonner 11/28/2018 6:59 AM
[2018-11-28 07:02] LABS: EOS# 0.37 X1000 (0.0-0.7); EOS% 2.9 % (0.0-10.0); HEMATOCRIT 24.4 % (37.0-47.0); HEMOGLOBIN 7.3 g/dL (12.0-16.0); IMM GRAN# 0.06 X1000 (0.0-0.04); IMM GRAN% 0.5 % (0.0-0.5); LYMPH% 7.9 % (20.5-51.1); MCH 27.2 PG (27-31); MCHC 29.9 g/dL (33-37); MONO# 2.05 X1000 (0.11-0.59); MONO% 16.2 % (1.7-9.3); MPV 10.2 FL (7.4-10.4); NEUT# 9.16 X1000 (1.4-6.5); NEUT% 72.5 % (42.2-75.2); PLT 326 X1000 (130-400); RBC 2.68 XMIL (4.2-5.4); RDW 17.9 % (11.5-14.5); WBC 12.64 X1000 (4.8-10.8)
[2018-11-28 07:28] LABS: AGAP 6; BUN 8 mg/dL (8-22); CALCIUM 7.7 mg/dL (8.8-10.2); CHLORIDE 98 mmol/L (98-107); COSMO 276; CREATININE 0.6 mg/dL (0.5-0.9); ESTIMATED GFR > 60; GLUCOSE 105 mg/dL (70-104); SODIUM 139 mmol/L (136-145); TCO2 35 mmol/L (25-35)
[2018-11-28] MEDS: HUMULIN R SUBQ SCH ×4 (08:01→21:36)
[2018-11-28] MEDS: MUCOMYST 20% INH SCH ×2 (08:53→19:55)
--- NOTE | 2018-11-28 09:19 | PROGRESS NOTE ---
DATE: 11/28/2018 SUBJECTIVE: Patient is resting comfortably in bed. She still has a chest tube. X-ray did not show any changes compared with yesterday. Surgery department and Pulmonary department on board. OBJECTIVE: Vital Signs: Temperature 98.3 degrees, pulse 62, respiratory rate 14, blood pressure 115/48, oxygen saturation 100% on 2 L of nasal cannula. HEENT: Head normocephalic. No trauma. PERRLA. Neck: Supple. No JVD. No masses. Central trachea. Chest: Right-sided chest tube in place. It is not painful to palpation. Decreased breath sounds at the right base, mostly with some crepitus. Abdomen: Soft, nontender, nondistended. No hepatosplenomegaly. Extremities: No clubbing, no cyanosis. Neurological: This patient is alert. She is following commands. She does have right-sided weakness with some expressive aphasia, no changes. LABORATORY DATA: WBC 12.6, hemoglobin 7.3, hematocrit 24.4, platelets 326,000. Sodium 139, potassium 4, chloride 98, bicarbonate 35, BUN 8, creatinine 0.6 glucose 105, calcium 7.7. ASSESSMENT AND PLAN: 1. Right-sided jevon hemothorax related to rib fractures, status post chest tube placement. Surgery Department on board as well as Pulmonary Department. She seems to be stable. She is not complaining of pain. X-ray did not show any big changes compared with yesterday. We will continue to monitor. I will wait for recommendations. 2. 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 3. Hypertension, stable. 4. Hyperlipidemia, aware. 5. History of atrial fibrillation, on chronic anticoagulation. Anticoagulation has been stopped due to her recent bleeding and recent rib fractures as well. 6. Possible underlying pneumonia. WBC trending down after adding more antibiotics. She is not having fever or chills. We will continue to monitor. 7. Physical deconditioning and generalized weakness. Aware. Physical therapy on board. cc: Mundo Delvalle MD
[2018-11-28] MEDS: TOPROL XL PO SCH (11:31)
[2018-11-28] MEDS: FOLIC ACID PO SCH (11:32)
[2018-11-28] MEDS: CORDARONE PO SCH (11:32)
[2018-11-28] MEDS: PREDNISONE PO SCH (11:32)
[2018-11-28] MEDS: PROTONIX PO SCH (11:32)
--- NOTE | 2018-11-28 15:24 | GENERAL SURGERY PROGRESS NOTE ---
DATE: 11/28/2018 SUBJECTIVE: Doing okay. Chest tube output has been minimal daily over the weekend. No fevers, no tachycardia. Oxygen saturation 100% on 2 L. General she is alert. Old serosanguineous appearing fluid in chest tube no air leak, is to water seal. I reviewed her labs. Hematocrit 24, creatinine 0.6. I reviewed her chest x-ray shows overall improved in the right lung with really stable chronic changes. ASSESSMENT/PLAN: 73-year-old female status post drainage of right hemothorax, removed her cat and chest tube placed an occlusive dressing. Will get a chest x-ray later. Continue to follow along. cc: Sarah Chow MD
--- NOTE | 2018-11-28 16:33 | Diag Imaging Result Doc PS360 ---
EXAM: CHEST-PORTABLE 11/28/2018 HISTORY: chest tube was removed TECHNIQUE: AP portable at 1624 COMMENT: There is apparent pleural fluid as well as volume loss and opacity in the right lung particularly the middle lobe and lower lobe. The left lung is largely clear. This has not changed since 558. The right chest tube has been removed. There is no evidence of pneumothorax. IMPRESSION: Residual pleural fluid which may be loculated, atelectasis plus minus pneumonia on the right. Electronically signed by Melquiades Maldonado 11/28/2018 4:30 PM
--- NOTE | 2018-11-28 19:36 | PULMONOLOGY PROGRESS NOTE ---
DATE: 11/28/2018 SUBJECTIVE: The patient is awake and alert. She has had her chest tube removed and reports her pain has markedly diminished on the right side. OBJECTIVE: Patient afebrile for the last 24 hours. Blood pressure 114/28, heart rate 79, respiratory rate 16, oxygen saturation 100%.HEENT: Pupils are equal and reactive. Oropharynx appears clear. Neck: Supple. Chest: Reveals diminished breath sounds right base. Cardiac: S1- S2. Abdomen: Soft. Extremities: Without edema. LABORATORIES: White blood count 12.64, hemoglobin 7.3, platelet count 326,000. Sodium 139, potassium 4.0, chloride 98, bicarbonate 35, BUN 8, creatinine 0.6, glucose 105. IMPRESSION: A 73-year-old with hemothorax, pneumonia, rib fractures, acute hypoxemic respiratory failure. DISCUSSION: A 73-year-old problems outlined above. Her chest tube output was minimal and therefore has been discontinued. RECOMMENDATIONS: 1. Continue antibiotic regimen. Leukocytosis continues to decline. 2. Continue bronchial hygiene. 3. Continue physical therapy. cc: Patric Saldaña MD
[2018-11-29] MEDS: XOPENEX NEB INH SCH ×7 (00:01→23:19)
[2018-11-29] MEDS: ZYVOX 600 MG/D5W 600 MG/300 ML IVPB IV SCH ×3 (01:36→23:24)
--- NOTE | 2018-11-29 06:43 | Diag Imaging Result Doc PS360 ---
EXAM: CHEST-PORTABLE HISTORY: dyspnea TECHNIQUE: Portable chest single view COMPARISON: 11/28/2018 FINDINGS: Poor inspiratory effort. There are infiltrates throughout the right lung with atelectasis. There is also pulmonary edema. The heart is enlarged. No change in the right subclavian portacatheter on the left pacemaker. IMPRESSION: Interval worsening Electronically signed by Avery Morales 11/29/2018 6:41 AM
[2018-11-29 06:47] LABS: AGAP 10; BUN 7 mg/dL (8-22); CALCIUM 7.7 mg/dL (8.8-10.2); CHLORIDE 99 mmol/L (98-107); COSMO 276; CREATININE 0.6 mg/dL (0.5-0.9); ESTIMATED GFR > 60; GLUCOSE 110 mg/dL (70-104); POTASSIUM 4.4 mmol/L (3.5-5.1); SODIUM 139 mmol/L (136-145); TCO2 30 mmol/L (25-35)
[2018-11-29 06:56] LABS: BASO# 0.01 X1000 (0.0-0.2); BASO% 0.1 % (0.0-0.8); EOS# 0.21 X1000 (0.0-0.7); HEMATOCRIT 23.7 % (37.0-47.0); HEMOGLOBIN 7.1 g/dL (12.0-16.0); IMM GRAN# 0.05 X1000 (0.0-0.04); IMM GRAN% 0.5 % (0.0-0.5); LYMPH# 1.21 X1000 (1.2-3.4); LYMPH% 11.7 % (20.5-51.1); MCH 27.1 PG (27-31); MCV 90.5 FL (81-99); MONO# 1.17 X1000 (0.11-0.59); MONO% 11.3 % (1.7-9.3); MPV 9.8 FL (7.4-10.4); NEUT# 7.73 X1000 (1.4-6.5); NEUT% 74.4 % (42.2-75.2); PLT 389 X1000 (130-400); RBC 2.62 XMIL (4.2-5.4); RDW 18.1 % (11.5-14.5); WBC 10.38 X1000 (4.8-10.8)
[2018-11-29] MEDS: HUMULIN R SUBQ SCH ×4 (07:03→22:40)
[2018-11-29] MEDS: MUCOMYST 20% INH SCH ×2 (07:39→19:12)
[2018-11-29] MEDS: MERREM 1 GM in NS 50 ML IV SCH ×3 (07:44→22:39)
[2018-11-29] MEDS: FOLIC ACID PO SCH (08:58)
[2018-11-29] MEDS: TOPROL XL PO SCH (08:58)
[2018-11-29] MEDS: CORDARONE PO SCH (08:58)
[2018-11-29] MEDS: PREDNISONE PO SCH (08:58)
[2018-11-29] MEDS: PROTONIX PO SCH (12:31)
--- NOTE | 2018-11-29 15:59 | PROGRESS NOTE ---
DATE: 11/29/2018 INTERVAL HISTORY: The patient's chest tube has been removed. No significant pain. No significant dyspnea. No acute events overnight. No new complaints. REVIEW OF SYSTEMS: Full review of systems negative except as per interval history. LABS: WBC 10.3, hemoglobin 7.1, hematocrit 23.7, platelets 389,000. His metabolic panel unremarkable aside from glucose 107 to 218. VITALS: T-max 98.4, pulse 76, respirations 16, blood pressure 128/56, O2 sats 98% on 2 L by nasal cannula. IMAGING: Chest x-ray with slight worsening of right-sided effusions. PHYSICAL EXAMINATION: General: No acute distress. Vitals: As above. HEENT: Normocephalic, atraumatic. Moist mucous membranes. No cervical adenopathy. Cardiovascular: Irregular rhythm, but normal rate. No murmurs noted. Pulmonary: Decreased at the right base, otherwise, largely clear to auscultation. Abdomen: Soft, nontender, nondistended. Bowel sounds positive. Extremities: Peripheral pulses intact. No clubbing or cyanosis. Neurologic: Patient with stable expressive aphasia and right-sided weakness. No new focal deficits identified. PSYCHOLOGIC: Patient awake, alert. Difficult to assess orientation given aphasia, but follows all commands well. Communicates with head gestures. ASSESSMENT AND PLAN: 1. Right-sided hemothorax after rib fractures. The patient had a chest tube initially, but removed a day or two ago. Some slight reaccumulation on x-ray, but the patient remains relatively asymptomatic. We will see what Pulmonary and Surgery decide. If it continues to reaccumulate, may need repeat chest tube. 2. 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 Holding home Eliquis currently. Once bleeding issues are resolved, would like to place patient back on Eliquis and aspirin. 3. Hypertension, fairly stable on current therapy. Continue to monitor. 4. Hyperlipidemia. Continue statin. 5. Atrial fibrillation. Holding anticoagulation as above. Restart once bleeding issues are resolved. 6. Possible pneumonia. Leukocytosis essentially resolved at this point. Afebrile. On antibiotics with Zyvox and Merrem. Continue to monitor. 7. Deconditioning and generalized weakness. Fairly stable. Physical Therapy on board. 8. Disposition. Disposed depending on what her chest x-ray and respiratory status do. A chest tube is to be reinserted and may be here for a while yet. If chest x-ray begins improving and blood counts remain stable, then maybe we will transition to p.o. antibiotics and discharge in the next couple days. KATINA
[2018-11-29] MEDS: TYLENOL PO PRN (22:40)
[2018-11-30] MEDS: MERREM 1 GM in NS 50 ML IV SCH ×4 (03:05→23:36)
[2018-11-30] MEDS: XOPENEX NEB INH SCH ×6 (03:41→23:04)
[2018-11-30 05:28] LABS: ALLEN TEST YES; BE 6.6 mmoll (-3.0-3.0); BLOOD TYPE ARTERIAL; HCO3-(ACT) 30.1 mmoll (20.0-26.0); MODALITY CANNULA; O2(CT) 9.9 mL/dL (15.0-23.0); O2HB 98.2 % (95.0-99.0); PCO2(98.6) 39 mmHg (35-45); PO2(98.6) 111 mmHg (60-100); SAMPLE BLOOD; SAO2 100.1 % (95.0-100.0)
[2018-11-30 07:17] LABS: BASO# 0.01 X1000 (0.0-0.2); BASO% 0.1 % (0.0-0.8); EOS# 0.17 X1000 (0.0-0.7); EOS% 1.7 % (0.0-10.0); HEMATOCRIT 24.1 % (37.0-47.0); HEMOGLOBIN 7.1 g/dL (12.0-16.0); IMM GRAN# 0.05 X1000 (0.0-0.04); IMM GRAN% 0.5 % (0.0-0.5); LYMPH# 1.26 X1000 (1.2-3.4); LYMPH% 12.4 % (20.5-51.1); MCH 26.5 PG (27-31); MCHC 29.5 g/dL (33-37); MCV 89.9 FL (81-99); MONO# 1.18 X1000 (0.11-0.59); MONO% 11.6 % (1.7-9.3); MPV 9.4 FL (7.4-10.4); NEUT# 7.48 X1000 (1.4-6.5); NEUT% 73.7 % (42.2-75.2); PLT 434 X1000 (130-400); RBC 2.68 XMIL (4.2-5.4); RDW 18.5 % (11.5-14.5); WBC 10.15 X1000 (4.8-10.8)
[2018-11-30 07:38] LABS: AGAP 13; BUN 9 mg/dL (8-22); CALCIUM 7.9 mg/dL (8.8-10.2); CHLORIDE 100 mmol/L (98-107); COSMO 282; CREATININE 0.6 mg/dL (0.5-0.9); ESTIMATED GFR > 60; GLUCOSE 136 mg/dL (70-104); POTASSIUM 4.3 mmol/L (3.5-5.1); SODIUM 141 mmol/L (136-145); TCO2 28 mmol/L (25-35)
--- NOTE | 2018-11-30 07:58 | Diag Imaging Result Doc PS360 ---
EXAM: CHEST-PORTABLE 11/30/2018 HISTORY: SOB,recent right chest tube removal for hemothorax TECHNIQUE: AP portable at 0441 COMMENT: There is alveolar opacity throughout much of the right lung. There is a right pleural effusion and/or pleural thickening. Compared to 11/29/2018 the left lung is better expanded and clearer. IMPRESSION: Atelectasis and/or pneumonia particularly in the right lower and middle lobes. Cardiomegaly. Electronically signed by Melquiades Maldonado 11/30/2018 7:55 AM
[2018-11-30] MEDS: HUMULIN R SUBQ SCH ×4 (08:05→20:58)
[2018-11-30] MEDS: FOLIC ACID PO SCH (08:26)
[2018-11-30] MEDS: PREDNISONE PO SCH (08:26)
[2018-11-30] MEDS: TOPROL XL PO SCH (08:26)
[2018-11-30] MEDS: MYCOSTATIN POWDER TOP SCH ×2 (08:26→23:35)
[2018-11-30] MEDS: CORDARONE PO SCH (08:26)
[2018-11-30] MEDS: MUCOMYST 20% INH SCH ×2 (08:38→19:55)
[2018-11-30] MEDS: PROTONIX PO SCH (12:10)
[2018-11-30] MEDS: ZYVOX 600 MG/D5W 600 MG/300 ML IVPB IV SCH ×2 (12:10→23:36)
[2018-11-30] MEDS ORDERED: LASIX IV ONE ×2 (13:57→23:00)
--- NOTE | 2018-11-30 14:35 | PROGRESS NOTE ---
DATE: 11/30/2018 INTERVAL HISTORY: Patient with increase in dyspnea and work of breathing early this morning. Chest x-ray obtained showing alveolar opacity through much of the right lung. Right pleural effusion and/or pleural thickening. Left lung actually slightly clearer. The patient was maintaining her oxygenation, but did have increasing tachypnea and visibly increased dyspnea with even minimal exertion or attempted speech. Moved to the ICU for closer observation. ABG largely unremarkable. BNP obtained which was mildly elevated above her previous. Recent echocardiogram with normal EF. No obvious diastolic failure, but did have mildly elevated right-sided pressures. Suspect patient has had recurrence of her previous effusion/hemothorax. Giving a dose of Lasix given elevated BNP to see if this helps at all and awaiting further surgical recommendations. Patient may need a repeat chest tube. REVIEW OF SYSTEMS: Twelve point review of systems negative except as per interval history. LABS: WBC 10.1, hemoglobin 7.1, hematocrit 24.1, platelets 434,000. ABG with pH 7.5, pCO2 39, PO2 111, O2 saturation 98% on 3 L by nasal cannula. Sodium 141, potassium 4.3, bicarbonate 28, BUN 9, creatinine 0.6, glucose 129 to 155. BNP 1,307. Previous BNP is largely from 460 to 857. One previous as high as 6252. IMAGING: Chest x-ray with atelectasis and/or pneumonia in the right lower lobe and middle lobes. Cardiomegaly. VITAL SIGNS: T-max 99.2 degrees, pulse 67, respiratory rate 14 to 28, blood pressure 131/54, O2 saturation 99% on 4 L by nasal cannula. PHYSICAL EXAMINATION: General: No acute distress. Vital signs: As above. HEENT: Normocephalic, atraumatic. Moist mucous membranes. No cervical adenopathy. Cardiovascular: Irregular rhythm but normal rate. No murmurs noted. Pulmonary: Significantly decreased at the right base. Otherwise largely clear to auscultation. Patient with slightly increased respiratory rate even at rest. Becomes markedly dyspneic with any exertion including just saying a few words. Abdomen: Soft, nontender, nondistended. Bowel sounds positive. Extremities: Peripheral pulses intact. No clubbing or cyanosis. Neurologic: Patient with stable expressive aphasia and right-sided weakness. No new focal deficits. Psychiatric: Patient awake, alert. Unable to assess orientation given aphasia, but follows all commands quite well. Communicates with head gestures and occasional single words. ASSESSMENT AND PLAN: 1. Right-sided hemothorax after rib fractures. Patient had chest tube initially but removed a few days ago. Appears to have had some reaccumulation on x-ray and patient more symptomatic this morning. No fever or increasing leukocytosis to suggest worsening pneumonia and patient on antibiotics with Zyvox and Merrem making pneumonia less likely. Suspect reaccumulation of effusion. Pulmonology and Surgery following. We will see what they think. May end up having a repeat CT to clarify. Moving to ICU as above. Giving single dose of Lasix given elevated BNP, although last echo just a couple months ago did not have any significant heart failure. Did have mildly elevated right-sided pressures at that time. 2. 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 Stable. Holding home Eliquis currently. Will likely restart Eliquis and aspirin once current issues resolve. 3. Hypertension. Fairly stable on current therapy. Continue to monitor. 4. Hyperlipidemia. Continue statin. 5. Atrial fibrillation. Remains in controlled atrial fibrillation. Holding anticoagulation as above. 6. Possible pneumonia. Leukocytosis essentially resolved at this point. Remains afebrile. On antibiotics with Zyvox and Merrem, which we will continue. 7. Deconditioning and weakness, fairly stable. Physical therapy on board. Anticipate discharge to rehab once respiratory issues are resolved.
[2018-11-30] MEDS ORDERED: NS 500 ML IV SCH (15:30)
[2018-11-30] MEDS: TYLENOL PO PRN (21:23)
--- NOTE | 2018-11-30 22:26 | PULMONOLOGY PROGRESS NOTE ---
DATE: 11/30/2018 SUBJECTIVE: The patient was transferred down to the intensive care unit for acute shortness of breath. Upon discussion, the patient reports she developed an intractable cough with shortness of breath. She reports her cough has resolved and her breathing has now returned back to its baseline. She has a marginally inadequate cough, but it does not sound wet. OBJECTIVE: The patient is afebrile for the last 24 hours. Blood pressure 120/48, heart rate 64, respiratory rate 24, oxygen saturation 99% on 2 L per nasal cannula.HEENT: Pupils are equal and reactive. Oropharynx is clear. Neck is supple. Chest reveals diminished breath sounds with coarse breath sounds throughout the right chest. Cardiac exam: S1, S2. Abdomen is soft. Extremities are without edema. DIAGNOSTIC DATA: Chest x-ray reveals infiltrate throughout much of the right lung which is unchanged. LABORATORY DATA: White blood count 10.15, hemoglobin 7.1, platelet count 434,000. Sodium 141, potassium 4.3, chloride 100, bicarbonate 28, BUN 9, creatinine 0.6. IMPRESSION: A 73-year-old with: 1. Hemothorax. 2. Pneumonia. 3. Acute hypoxemic respiratory failure. 4. Pleural effusions. 5. Rib fractures. DISCUSSION: A 73-year-old with problems outlined above. She did have a paroxysmal coughing episode earlier today associated with increased shortness of breath. She has improved with time and a dose of Lasix. She reports she has returned to her baseline. She is currently on 2 L per nasal cannula. RECOMMENDATIONS: 1. Continue antibiotics. 2. Continue bronchial hygiene. 3. Attempt to balance intake and output. 4. Continue physical therapy. 5. Follow up chest x-ray tomorrow. cc: Patric Saldaña MD
[2018-12-01] MEDS: XOPENEX NEB INH SCH ×6 (03:19→23:20)
[2018-12-01 05:43] LABS: BASO# 0.02 X1000 (0.0-0.2); BASO% 0.2 % (0.0-0.8); EOS# 0.08 X1000 (0.0-0.7); EOS% 0.8 % (0.0-10.0); HEMATOCRIT 28.4 % (37.0-47.0); HEMOGLOBIN 8.7 g/dL (12.0-16.0); IMM GRAN# 0.04 X1000 (0.0-0.04); IMM GRAN% 0.4 % (0.0-0.5); LYMPH# 1.39 X1000 (1.2-3.4); LYMPH% 13.4 % (20.5-51.1); MCH 26.8 PG (27-31); MCHC 30.6 g/dL (33-37); MCV 87.4 FL (81-99); MONO# 0.93 X1000 (0.11-0.59); MPV 9.4 FL (7.4-10.4); NEUT# 7.88 X1000 (1.4-6.5); NEUT% 76.2 % (42.2-75.2); PLT 442 X1000 (130-400); RBC 3.25 XMIL (4.2-5.4); RDW 18.5 % (11.5-14.5); WBC 10.34 X1000 (4.8-10.8)
[2018-12-01 06:07] LABS: AGAP 14; BUN 9 mg/dL (8-22); CALCIUM 7.9 mg/dL (8.8-10.2); CHLORIDE 95 mmol/L (98-107); COSMO 281; CREATININE 0.7 mg/dL (0.5-0.9); ESTIMATED GFR > 60; GLUCOSE 115 mg/dL (70-104); POTASSIUM 3.6 mmol/L (3.5-5.1); SODIUM 141 mmol/L (136-145); TCO2 32 mmol/L (25-35)
[2018-12-01] MEDS: HUMULIN R SUBQ SCH ×4 (06:21→22:03)
[2018-12-01] MEDS: MUCOMYST 20% INH SCH ×2 (07:59→19:37)
--- NOTE | 2018-12-01 08:28 | Diag Imaging Result Doc PS360 ---
EXAM: CHEST-PORTABLE 12/01/2018 HISTORY: dyspnea, hemothorax, ? pneumonia TECHNIQUE: AP portable at 0812 COMMENT: There is some pleural fluid, some of which is probably loculated in the fissures on the right. There is hazy opacity throughout both lungs with denser areas of opacification and volume loss on the right. The right hemidiaphragm and right heart border are completely obscured. The heart size is enlarged. Compared to 11/30/2018 this has not changed appreciably considering differences in inspiration. IMPRESSION: Pleural fluid collections on the right. The possibility of hemothorax cannot be excluded. Atelectasis and/or pneumonia in the right upper middle and lower lobes. Pulmonary edema and cardiomegaly. Electronically signed by Melquiades Maldonado 12/01/2018 8:26 AM
[2018-12-01] MEDS: MERREM 1 GM in NS 50 ML IV SCH ×2 (08:33→17:20)
[2018-12-01] MEDS: FOLIC ACID PO SCH (08:33)
[2018-12-01] MEDS: PREDNISONE PO SCH (08:33)
[2018-12-01] MEDS: TOPROL XL PO SCH (08:34)
[2018-12-01] MEDS: CORDARONE PO SCH (08:34)
[2018-12-01] MEDS: MYCOSTATIN POWDER TOP SCH ×2 (09:30→22:04)
[2018-12-01] MEDS ORDERED: LASIX IV ONE (10:07)
[2018-12-01] MEDS: PROTONIX PO SCH (12:01)
[2018-12-01] MEDS: ZYVOX 600 MG/D5W 600 MG/300 ML IVPB IV SCH ×2 (12:02→23:38)
--- NOTE | 2018-12-01 16:19 | PROGRESS NOTE ---
DATE: 12/01/2018 INTERVAL HISTORY: The patient's dyspnea and tachypnea are markedly improved with some diuresis yesterday. However, did have new large volume watery diarrhea this morning. C. difficile now positive. Starting on Flagyl. No other acute events overnight. No other new complaints. REVIEW OF SYSTEMS: Twelve point review for history negative except as per interval history. LABS: WBC 10.3, hemoglobin 8.7, hematocrit 28.4, platelets 442,000. Sodium 141, potassium 3.6, bicarb 32, BUN 9, creatinine 0.7, glucose 115-181. C. difficile antigen positive. C. difficile toxin negative. IMAGING: Chest x-ray: Pleural fluid collection on the right, hemothorax not excluded. Atelectasis and/or pneumonia in right upper middle and lower lobes. Pulmonary edema, cardiomegaly. VITAL SIGNS: T-max 98.5 degrees, pulse 69, respirations 17, blood pressure 119/44, O2 saturation 97% on 2 L by nasal cannula. PHYSICAL EXAMINATION: General: No acute distress. Vital signs: As above. HEENT: Normocephalic, atraumatic. Moist mucous membranes. Neck: No cervical adenopathy. Cardiovascular: Irregular rhythm but normal rate. No murmurs noted. Pulmonary: Remains significantly decreased at the right base, otherwise largely clear. Abdomen: Soft, nontender, nondistended. Bowel sounds positive. Extremities: Peripheral pulses intact. No clubbing or cyanosis. Neurologic: Patient with unchanged expressive aphasia and right-sided weakness. No new focal deficits. Psychiatric: Patient awake, alert, cooperative. ASSESSMENT AND PLAN: 1. Right-sided hemothorax after rib fractures. Patient had chest tube removed a few days ago. Appears to likely have some reaccumulation on x-ray. Had increased symptoms of increased cough, tachypnea, dyspnea yesterday but improved after some Lasix. BNP was elevated, although echo just a couple months ago did not have any significant heart failure. Did have mildly elevated right-sided pressures at that time. Patient on Zyvox and Merrem which we will continue. 2. Diarrhea, positive Clostridium difficile antigen. Patient with large volume diarrhea this morning. No abdominal pain but C. difficile antigen was positive. We will start Flagyl empirically. Monitor closely. 3. 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 Holding Eliquis and aspirin currently. 4. Hypertension, fairly stable. Continue monitor. 5. Hyperlipidemia. Continue statin. 6. Atrial fibrillation. Remains rate controlled. Hold anticoagulation as above. 7. Pneumonia. Leukocytosis resolved at this point. Remains afebrile. On antibiotics with Zyvox and Merrem as above. 8. Deconditioning and weakness, fairly stable. Physical therapy on board. Anticipate discharge to rehab once improved. 9. Possible acute on chronic diastolic congestive heart failure. Last echo with normal EF recently, but does appear to have some pulmonary edema and respiratory difficulties yesterday. Responses to Lasix. We will continue Lasix and monitor. 10. Disposition. The patient's acute respiratory issues yesterday now improved. Will move back to regular floor. Continue some diuresis. May be out to rehab Wednesday if other issues stabilize.
[2018-12-01] MEDS: FLAGYL PO SCH ×2 (18:42→18:45)
--- NOTE | 2018-12-01 20:35 | GENERAL SURGERY PROGRESS NOTE ---
DATE: 12/01/2018 SUBJECTIVE: Respiratory symptoms seem to have resolved. No fevers. No tachycardia. She is on 2 L. OBJECTIVE: She is alert. Right chest tube dressing is in place. LABS: White count 10, hematocrit 28. I reviewed her x-ray. ASSESSMENT AND PLAN: This is a 73-year-old female status post right pleural effusion. She had some worsening respiratory symptoms yesterday morning, was transferred to ICU. She seems to be resolved and at her baseline. Her x-ray looks about the same. No plans for further surgical intervention at this juncture. We will continue aggressive pulmonary toileting as we are doing, and following along closely. cc: Sarah Chow MD
--- NOTE | 2018-12-02 00:06 | PULMONOLOGY PROGRESS NOTE ---
DATE: 12/01/2018 SUBJECTIVE: The patient is awake and alert. She has expressive aphasia but appears to be in good spirits. She has no increased work of breathing. She has had an uneventful evening. OBJECTIVE: Vital Signs: The patient has been afebrile for the last 24 hours. Blood pressure 111/43, heart rate 67, respiratory rate 20, oxygen saturation 93% on 2 L per nasal cannula. HEENT: Pupils are equal and reactive. Oropharynx is clear. Neck: Supple. Chest: Reveals diminished breath sounds, right base. Cardiac exam: S1, S2. Abdomen: Soft. Extremities: Reveal trace edema. LABORATORIES: Chest x-ray reveals continued infiltrates in the right mid and right lung base. Left lung is relatively clear. She has a generous cardiac silhouette. White blood count 10.34, hemoglobin 8.7, platelet count 442,000. Sodium 141, potassium 3.6, chloride 95, bicarbonate 32, BUN 9, creatinine 0.9. IMPRESSION: A 73-year-old with: 1. Hemothorax, status post thoracoscopy and chest tube drainage. 2. Pneumonia, with resolution of leukocytosis. 3. Acute hypoxemic respiratory failure. 4. Pleural effusion. 5. Fall with rib fractures which led to the hemothorax. RECOMMENDATIONS: 1. Continue antibiotics. 2. Continue bronchial hygiene. 3. Balance intake and output. 4. Encourage physical therapy. 5. Daily x-rays until she shows evidence of radiographic improvement. cc: Patric Saldaña MD
[2018-12-02] MEDS: MERREM 1 GM in NS 50 ML IV SCH ×3 (01:00→15:14)
[2018-12-02] MEDS: XOPENEX NEB INH SCH ×6 (03:24→23:50)
[2018-12-02] MEDS: HUMULIN R SUBQ SCH ×4 (06:11→21:54)
--- NOTE | 2018-12-02 07:04 | Diag Imaging Result Doc PS360 ---
EXAM: CHEST-PORTABLE 12/02/2018 HISTORY: dyspnea TECHNIQUE: AP portable at 0620 COMMENT: The hazy opacity present over the lungs bilaterally has diminished slightly. There is still cardiomegaly and dense alveolar opacification in the lower portion of the right lung. There may be some loculated pleural fluid on the right. IMPRESSION: Improved pulmonary edema. Residual loculated pleural fluid collection on the right with atelectasis versus pneumonia particularly of the middle and lower lobes. Electronically signed by Melquiades Maldonado 12/02/2018 7:01 AM
[2018-12-02] MEDS: MUCOMYST 20% INH SCH ×2 (07:36→18:29)
[2018-12-02 08:01] LABS: BASO# 0.02 X1000 (0.0-0.2); BASO% 0.2 % (0.0-0.8); EOS# 0.09 X1000 (0.0-0.7); EOS% 0.7 % (0.0-10.0); HEMATOCRIT 29.2 % (37.0-47.0); HEMOGLOBIN 8.7 g/dL (12.0-16.0); IMM GRAN# 0.03 X1000 (0.0-0.04); IMM GRAN% 0.2 % (0.0-0.5); LYMPH# 1.44 X1000 (1.2-3.4); LYMPH% 11.7 % (20.5-51.1); MCH 26.4 PG (27-31); MCHC 29.8 g/dL (33-37); MCV 88.8 FL (81-99); MONO% 8.1 % (1.7-9.3); MPV 9.1 FL (7.4-10.4); NEUT# 9.78 X1000 (1.4-6.5); NEUT% 79.1 % (42.2-75.2); PLT 472 X1000 (130-400); RBC 3.29 XMIL (4.2-5.4); RDW 18.8 % (11.5-14.5); WBC 12.36 X1000 (4.8-10.8)
[2018-12-02 08:33] LABS: MAGNESIUM 1.9 mg/dL (1.5-2.7); PHOSPHORUS 3.3 mg/dL (2.7-4.5)
[2018-12-02 08:35] LABS: AGAP 11; BUN 8 mg/dL (8-22); CALCIUM 7.8 mg/dL (8.8-10.2); CHLORIDE 96 mmol/L (98-107); COSMO 276; CREATININE 0.6 mg/dL (0.5-0.9); ESTIMATED GFR > 60; GLUCOSE 109 mg/dL (70-104); POTASSIUM 3.7 mmol/L (3.5-5.1); SODIUM 139 mmol/L (136-145); TCO2 32 mmol/L (25-35)
[2018-12-02] MEDS: FOLIC ACID PO SCH (09:49)
[2018-12-02] MEDS: FLAGYL PO SCH ×3 (09:50→17:15)
[2018-12-02] MEDS: PREDNISONE PO SCH (09:50)
[2018-12-02] MEDS: CORDARONE PO SCH (09:50)
[2018-12-02] MEDS: MYCOSTATIN POWDER TOP SCH ×2 (09:50→21:54)
[2018-12-02] MEDS: TOPROL XL PO SCH (09:50)
[2018-12-02] MEDS: ZYVOX 600 MG/D5W 600 MG/300 ML IVPB IV SCH (12:27)
[2018-12-02] MEDS: PROTONIX PO SCH (12:27)
--- NOTE | 2018-12-02 14:21 | PROGRESS NOTE ---
DATE: 12/02/2018 INTERVAL HISTORY: Patient remains improved from respiratory standpoint. Aphasia stable. No complaints. No acute events overnight. REVIEW OF SYSTEMS: A 12-point review of systems negative except as per interval history. LABORATORY DATA: WBC 12.3, hemoglobin 8.7, hematocrit 29.2, platelets 472,000. Basic metabolic panel unremarkable aside from glucose 118. IMAGING: Chest x-ray with stable loculated pleural effusion on right base, somewhat improved edema. OBJECTIVE: Vital Signs: T-max 98.6 degrees, pulse 79, respirations 15, blood pressure 110/65, O2 94% on 2 L by nasal cannula. General: No acute distress. HEENT: Normocephalic, atraumatic. Moist mucous membranes. No cervical adenopathy. Cardiovascular: Irregular rhythm but normal rate. No murmurs noted. Pulmonary: Remains decreased at the right base to the mid lung. Otherwise clear. Abdomen: Soft, nontender, nondistended. Bowel sounds positive. Extremities: Peripheral pulses intact. No clubbing or cyanosis. Neurologic: The patient with unchanged right- sided paresis and expressive aphasia. No new focal deficits. Psychiatric: Patient awake, alert, cooperative. ASSESSMENT AND PLAN: 1. Right-sided hemothorax after rib fractures, pulmonary edema. The patient with chest tube out for several days. Appears to have had some reaccumulation on x-ray but does not appear to be worsening over the last 2 or 3 days. Did have some increased symptoms a couple of days ago, but these have essentially resolved with Lasix. BNP was elevated although echo just a couple of months ago did not have any significant heart failure. Did have mildly elevated right- sided pressures at that time. The patient on Zyvox and Merrem which we will continue for now. If she continues to improve, may be able to transition to Levaquin or doxycycline. Pulmonology wishes to see some more improvement in her chest x-ray prior to considering discharge. 2. Diarrhea, positive Clostridium difficile. The patient with low volume diary yesterday, only once, and no abdominal pain or fever, but Clostridium difficile was positive. Giving course of Flagyl empirically. No further diarrhea. 3. 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 Stable off Eliquis and aspirin currently. 4. Hypertension, stable, monitor. 5. Hyperlipidemia continue statin. 6. Atrial fibrillation remains largely rate controlled. 7. Pneumonia. Minimal leukocytosis today, but has been largely resolved for the past few days. We will continue to monitor. On antibiotics as above. 8. Deconditioning/weakness, fairly stable. Physical therapy on board. Anticipate discharge to rehab once improved, possibly Wednesday. 9. Likely acute on chronic diastolic congestive heart failure. Recent echo with normal ejection fraction, but did appear to have some pulmonary edema and respiratory difficulties which have responded well to Lasix. Will monitor closely.
[2018-12-03] MEDS: MERREM 1 GM in NS 50 ML IV SCH ×3 (00:06→18:29)
[2018-12-03] MEDS: ZYVOX 600 MG/D5W 600 MG/300 ML IVPB IV SCH ×2 (00:36→14:11)
[2018-12-03] MEDS: XOPENEX NEB INH SCH ×6 (05:23→23:34)
[2018-12-03] MEDS: HUMULIN R SUBQ SCH ×4 (06:24→21:32)
[2018-12-03 07:10] LABS: BASO% 0.2 % (0.0-0.8); EOS% 1.1 % (0.0-10.0); HEMATOCRIT 28.8 % (37.0-47.0); HEMOGLOBIN 8.7 g/dL (12.0-16.0); IMM GRAN% 0.3 % (0.0-0.5); LYMPH% 12.5 % (20.5-51.1); MCH 26.8 PG (27-31); MCHC 30.2 g/dL (33-37); MCV 88.6 FL (81-99); MPV 8.9 FL (7.4-10.4); NEUT% 76.9 % (42.2-75.2); PLT 455 X1000 (130-400); RBC 3.25 XMIL (4.2-5.4); RDW 18.7 % (11.5-14.5); WBC 12.28 X1000 (4.8-10.8)
[2018-12-03 07:11] LABS: BASO# 0.02 X1000 (0.0-0.2); EOS# 0.13 X1000 (0.0-0.7); IMM GRAN# 0.04 X1000 (0.0-0.04); LYMPH# 1.54 X1000 (1.2-3.4); NEUT# 9.45 X1000 (1.4-6.5)
[2018-12-03 07:37] LABS: AGAP 11; BUN 9 mg/dL (8-22); CALCIUM 8.1 mg/dL (8.8-10.2); CHLORIDE 97 mmol/L (98-107); COSMO 275; CREATININE 0.6 mg/dL (0.5-0.9); ESTIMATED GFR > 60; GLUCOSE 104 mg/dL (70-104); POTASSIUM 3.9 mmol/L (3.5-5.1); SODIUM 138 mmol/L (136-145); TCO2 30 mmol/L (25-35)
[2018-12-03] MEDS: MUCOMYST 20% INH SCH ×2 (07:56→19:24)
[2018-12-03] MEDS: FOLIC ACID PO SCH (08:16)
[2018-12-03] MEDS: TOPROL XL PO SCH (08:16)
[2018-12-03] MEDS: FLAGYL PO SCH ×3 (08:16→18:30)
[2018-12-03] MEDS: CORDARONE PO SCH (08:16)
[2018-12-03] MEDS: PREDNISONE PO SCH (08:17)
[2018-12-03] MEDS: MYCOSTATIN POWDER TOP SCH ×2 (08:17→21:31)
[2018-12-03] MEDS: PROTONIX PO SCH (14:11)
--- NOTE | 2018-12-03 15:02 | PROGRESS NOTE ---
DATE: 12/03/2018 INTERVAL HISTORY: Patient's dyspnea remains largely resolved. No further diarrhea. No acute events overnight. REVIEW OF SYSTEMS: Twelve point review of systems negative except as per interval history. LABORATORY DATA: WBC 12.2, hemoglobin 8.7, hematocrit 28.8, platelets 455,000. Sodium 138, potassium 3.9, BUN 9, creatinine 0.6, glucose 125. VITAL SIGNS: T-max 98.8 degrees, pulse 72, respirations 18, blood pressure 140/58, O2 saturation 100% on 2 L by nasal cannula. PHYSICAL EXAMINATION: General: No acute distress. Vital signs: As above. HEENT: Normocephalic, atraumatic. Moist mucous membranes. No cervical adenopathy. Cardiovascular: Irregular rhythm but normal rate. No murmurs noted. Pulmonary: Decreased breath sounds at right base, essentially unchanged. Otherwise, clear to auscultation. Abdomen: Soft, nontender, nondistended. Bowel sounds positive. Extremities: Peripheral pulses intact. No clubbing or cyanosis. Neurologic: Stable right-sided hemiparesis and expressive aphasia. No new focal deficits. Psychiatric: Awake, alert, cooperative. ASSESSMENT AND PLAN: 1. Right-sided hemothorax due to rib fractures, pulmonary edema. The patient with chest tube out. Some reaccumulation on x-ray of but largely stable at this point. Had some increased symptoms a few days ago, but these have essentially resolved with Lasix. BNP was elevated. Suspect some diastolic CHF. The patient on Zyvox and Merrem currently for possible pneumonia. May be able to transition to Levaquin or doxycycline once Pulmonology is satisfied with her improvement. 2. Diarrhea, positive Clostridium difficile. The patient with watery diarrhea a couple days ago. Only occurred once but Clostridium difficile was positive. Giving course of Flagyl empirically. No further diarrhea. 3. 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 Off Eliquis and aspirin currently. 4. Pneumonia. On antibiotics as above. Continue to monitor. 5. Likely acute on chronic diastolic congestive heart failure. Recent echo with a normal EF. Did appear to have pulmonary edema and respiratory difficulties which responded well to Lasix. Monitor. 6. Hypertension, stable. Monitor. 7. Hyperlipidemia. Continue statin. 8. Atrial fibrillation remains largely rate controlled.
[2018-12-04] MEDS: ZYVOX 600 MG/D5W 600 MG/300 ML IVPB IV SCH ×2 (01:04→17:46)
[2018-12-04] MEDS: MERREM 1 GM in NS 50 ML IV SCH ×3 (01:05→17:46)
[2018-12-04] MEDS: XOPENEX NEB INH SCH ×6 (03:45→23:00)
[2018-12-04] MEDS: HUMULIN R SUBQ SCH ×4 (06:45→21:07)
[2018-12-04] MEDS: MUCOMYST 20% INH SCH ×2 (08:02→19:15)
--- NOTE | 2018-12-04 08:13 | Diag Imaging Result Doc PS360 ---
EXAM: CHEST-1 VIEW INDICATION: SOB TECHNIQUE: One view COMPARISON: 12/02/2018 FINDINGS: The right central line is in stable position. Mild diffuse interstitial thickening is approximately stable. The more dense opacity at the right lower lung zone indicating atelectasis +/- pneumonia is stable. There is stable pleural fluid that appears loculated on the right. No new consolidation is identified. Cardiac silhouette is stable. IMPRESSION: Essentially stable chest. Electronically signed by Tomas Townsend 12/04/2018 8:11 AM
[2018-12-04] MEDS: PREDNISONE PO SCH (09:24)
[2018-12-04] MEDS: MYCOSTATIN POWDER TOP SCH ×2 (09:24→21:07)
[2018-12-04] MEDS: TOPROL XL PO SCH (09:24)
[2018-12-04] MEDS: FLAGYL PO SCH ×3 (09:24→17:43)
[2018-12-04] MEDS: FOLIC ACID PO SCH (09:24)
[2018-12-04] MEDS: CORDARONE PO SCH (09:24)
[2018-12-04] MEDS: LASIX PO SCH (11:45)
[2018-12-04] MEDS: PROTONIX PO SCH (11:45)
--- NOTE | 2018-12-04 13:28 | PROGRESS NOTE ---
DATE: 12/04/2018 INTERVAL HISTORY: The patient with slightly increased dyspnea again today. Slightly increased nonproductive cough. No other acute events. No other new complaints. REVIEW OF SYSTEMS: A 12 point review of systems negative except as per Interval History. LABORATORIES: Glucose 102. IMAGING: Chest x-ray with essentially unchanged right lower lobe opacity. VITALS: Temperature maximum 98.4 degrees, pulse 66, respirations 19, blood pressure 131/48, O2 saturation 99% on 2 L by nasal cannula. PHYSICAL EXAMINATION: General: No acute distress. Vitals: As above. HEENT: Normocephalic, atraumatic. Moist mucous membranes. Neck: No cervical adenopathy. Cardiovascular: Irregular rhythm, but normal rate. No murmurs noted. Pulmonary: Still with decreased breath sounds at the right base to the mid lung, similar to previous. Otherwise, clear to auscultation. Abdomen: Soft, nontender, nondistended. Bowel sounds positive. Extremities: Peripheral pulses intact. No clubbing or cyanosis. Neurologic: Stable right-sided hemiparesis and expressive aphasia. No new focal deficits. Psychiatric: Awake, alert, cooperative. ASSESSMENT AND PLAN: 1. Right-sided hemothorax due to rib fractures, pulmonary edema, likely acute on chronic diastolic congestive heart failure. The patient initially had chest tube, but has been out for quite some time. Some reaccumulation on x-ray, but largely stable at this point. Some intermittent increase in respiratory symptoms that have responded well to Lasix. BNP was elevated. Echocardiogram with normal EF, but suspect diastolic heart failure. On Zyvox and Merrem for likely pneumonia, but likely nearing the end of her course of therapy for that. Given some increase in symptoms today, we will give another dose of Lasix and monitor. 2. Diarrhea, positive Clostridium difficile. The patient had large watery bowel movement approximately 3 days ago. Only occurred once, but C difficile came back positive. Giving empiric course of Flagyl. No further diarrhea. 3. 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 Off Eliquis and aspirin currently, given hemothorax on admission. 4. Pneumonia. On antibiotics as above. Continue to monitor. 5. Hypertension, stable. Monitor. 6. Hyperlipidemia. Continue statin. 7. Atrial fibrillation. Heart rate remains largely rate controlled. Off anticoagulation currently.
[2018-12-05] MEDS: MERREM 1 GM in NS 50 ML IV SCH ×3 (02:20→19:57)
[2018-12-05] MEDS: XOPENEX NEB INH SCH ×6 (04:04→22:10)
[2018-12-05] MEDS: HUMULIN R SUBQ SCH ×4 (06:03→22:38)
[2018-12-05] MEDS: ZYVOX 600 MG/D5W 600 MG/300 ML IVPB IV SCH ×2 (06:17→17:13)
[2018-12-05] MEDS: MUCOMYST 20% INH SCH ×2 (07:53→19:37)
[2018-12-05] MEDS: FOLIC ACID PO SCH (10:37)
[2018-12-05] MEDS: LASIX PO SCH (10:37)
[2018-12-05] MEDS: FLAGYL PO SCH ×3 (10:37→17:13)
[2018-12-05] MEDS: TOPROL XL PO SCH (10:37)
[2018-12-05] MEDS: CORDARONE PO SCH (10:37)
[2018-12-05] MEDS: PREDNISONE PO SCH (10:38)
[2018-12-05] MEDS: MYCOSTATIN POWDER TOP SCH ×2 (11:38→22:39)
[2018-12-05] MEDS: TYLENOL PO PRN ×2 (11:39→22:51)
--- NOTE | 2018-12-05 13:55 | PROGRESS NOTE ---
DATE: 12/05/2018 INTERVAL HISTORY: The patient's dyspnea improved with the addition of a diuretic. Had a large watery bowel movement this morning. No abdominal pain. Afebrile. No other acute events. No other new complaints. REVIEW OF SYSTEMS: A 12 point review of systems was negative except as per interval history. LABS: Glucose 102 to 271. VITAL SIGNS: Temperature T-max 98.5 degrees, pulse 75, respirations 20, blood pressure 111/41, O2 saturation stable. PHYSICAL EXAMINATION: General: No acute distress. Vitals: As above. HEENT: Normocephalic and atraumatic. Moist mucous membranes. No cervical adenopathy. Cardiovascular: Irregular rhythm but normal rate. No murmur noted. Pulmonary: Decreased breath sounds at the right base to the midline, unchanged. Otherwise clear. Abdomen: Soft, nontender, nondistended. Bowel sounds positive. Extremities: Peripheral pulses intact. No clubbing or cyanosis. Neurologic: Unchanged right-sided hemiparesis and expressive aphasia. No new focal deficits. Psychiatric: Awake, alert, cooperative. ASSESSMENT AND PLAN: 1. Right-sided hemothorax due to rib fractures, pulmonary edema, likely acute on chronic diastolic congestive heart failure. Patient initially had chest tube but has been out for quite a while. Some reaccumulation on chest x-ray but fairly stable on last check. Some intermittent increase in respiratory symptoms that have responded well to Lasix thus far. BNP was elevated. Echocardiogram with normal ejection fraction but suspect diastolic heart failure. On Zyvox and Merrem for likely pneumonia but likely nearing the end of her course of therapy for that. Given frequent recurrence of respiratory symptoms when Lasix is held, we have scheduled her on some daily Lasix. 2. Diarrhea, positive Clostridium difficile. Several days ago, patient had one large watery bowel movement. Clostridium difficile came back positive. It did not reoccur initially but placed on empiric Flagyl anyway. This morning, again with a large watery bowel movement. No abdominal pain or fever but given Clostridium difficile positive, we will add oral vancomycin and monitor. 3. 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 Off Eliquis and aspirin currently, given hemothorax on admission. 4. Pneumonia, on antibiotics as above. Continue to monitor. Can likely discontinue antibiotics soon. We will see what pulmonology says. 5. Hypertension, stable. Monitor. 6. Hyperlipidemia. Continue statin. 7. Atrial fibrillation. Heart rate remains largely controlled. Off anticoagulation currently. 8. Diabetes. Occasional moderate elevations but overall reasonable control on current regimen. Continue to monitor. [facility]
[2018-12-05] MEDS: PROTONIX PO SCH (15:10)
[2018-12-05] MEDS: VANCOCIN PO SCH ×2 (15:13→22:37)
[2018-12-06] MEDS: MERREM 1 GM in NS 50 ML IV SCH ×2 (01:46→11:04)
[2018-12-06] MEDS: VANCOCIN PO SCH ×4 (01:46→22:36)
[2018-12-06] MEDS: XOPENEX NEB INH SCH ×6 (02:38→22:45)
[2018-12-06] MEDS: ZYVOX 600 MG/D5W 600 MG/300 ML IVPB IV SCH (05:21)
[2018-12-06] MEDS: HUMULIN R SUBQ SCH ×4 (06:49→22:36)
[2018-12-06 07:09] LABS: BASO# 0.02 X1000 (0.0-0.2); BASO% 0.2 % (0.0-0.8); EOS# 0.09 X1000 (0.0-0.7); EOS% 0.7 % (0.0-10.0); HEMATOCRIT 32.5 % (37.0-47.0); HEMOGLOBIN 9.9 g/dL (12.0-16.0); IMM GRAN# 0.04 X1000 (0.0-0.04); IMM GRAN% 0.3 % (0.0-0.5); LYMPH# 1.79 X1000 (1.2-3.4); LYMPH% 14.8 % (20.5-51.1); MCH 27.3 PG (27-31); MCHC 30.5 g/dL (33-37); MCV 89.8 FL (81-99); MONO# 1.02 X1000 (0.11-0.59); MONO% 8.4 % (1.7-9.3); MPV 8.6 FL (7.4-10.4); NEUT# 9.17 X1000 (1.4-6.5); NEUT% 75.6 % (42.2-75.2); PLT 454 X1000 (130-400); RBC 3.62 XMIL (4.2-5.4); RDW 20.1 % (11.5-14.5); WBC 12.13 X1000 (4.8-10.8)
[2018-12-06] MEDS: MUCOMYST 20% INH SCH ×2 (07:36→19:30)
--- NOTE | 2018-12-06 07:39 | Diag Imaging Result Doc PS360 ---
CHEST-PORTABLE - 12/06/2018 INDICATION: abnormal exam COMPARISON: 12/04/2018 FINDINGS: Stable right central line and left pacemaker. Stable cardiomegaly and mild pulmonary vascular congestion. There is slight decreased density in the airspace opacification of the right lung base. The left lung remains clear. IMPRESSION: Slightly improved aeration of the right lung base. Electronically signed by Bhargav Bonner 12/06/2018 7:37 AM
[2018-12-06 07:50] LABS: AGAP 13; ALB/GLOB RATIO 0.9; ALKALINE PHOSPHATASE 108 U/L (32-104); BUN 8 mg/dL (8-22); CALCIUM 8.4 mg/dL (8.8-10.2); CHLORIDE 95 mmol/L (98-107); COSMO 277; CREATININE 0.7 mg/dL (0.5-0.9); ESTIMATED GFR > 60; GLUCOSE 118 mg/dL (70-104); GOT 9 U/L (10-30); GPT 9 U/L (10-36); MAGNESIUM 1.9 mg/dL (1.5-2.7); PHOSPHORUS 3.5 mg/dL (2.7-4.5); POTASSIUM 3.8 mmol/L (3.5-5.1); SODIUM 139 mmol/L (136-145); TCO2 31 mmol/L (25-35); TOTAL BILIRUBIN 0.77 mg/dL (0.20-1.00); TOTAL PROTEIN 6.3 g/dL (6.3-8.3)
--- NOTE | 2018-12-06 08:39 | PULMONOLOGY PROGRESS NOTE ---
DATE: 12/05/2018 SUBJECTIVE: The patient is awake, alert, and conversant. She does have expressive aphasia. She has a marginal to weak cough due to inability to close the vocal cords. She does not appear to be significantly wet sounding with her cough. OBJECTIVE: Vital Signs: The patient has been afebrile for the last 24 hours. BP 108/45, heart rate 70, respiratory rate 21, and oxygen saturation 95% on 2 L per nasal cannula. Pupils are equal and reactive. Oropharynx is clear. Neck is supple. Chest reveals diminished breath sounds with crackles at the right base. Cardiac exam S1, S2. Abdomen is soft. Extremities are without edema. LABORATORIES: C. Difficile antigen positive on stool from 12/01/2018 with toxin negative. Chest x- ray yesterday with stable infiltrate at the right base. IMPRESSION: A 73-year-old with the followin. Rib fracture leading to hemothorax. 2. Status post thoracoscopy with chest tube drainage. 3. Pneumonia with resolution of leukocytosis. Antibiotics were augmented on 11/25/2018. 4. Hypoxemic respiratory failure with ongoing mild oxygen requirements. 5. Pleural effusion. RECOMMENDATIONS: 1. Followup chest x-ray tomorrow. 2. Agree with discontinuing antibiotics 12/06/[address] Douglas. cc: Patric Saldaña MD
[2018-12-06] MEDS: FLAGYL PO SCH ×2 (11:05→15:22)
[2018-12-06] MEDS: CORDARONE PO SCH (11:05)
[2018-12-06] MEDS: FOLIC ACID PO SCH (11:05)
[2018-12-06] MEDS: MYCOSTATIN POWDER TOP SCH ×2 (11:06→22:37)
[2018-12-06] MEDS: PREDNISONE PO SCH (11:06)
[2018-12-06] MEDS: LASIX PO SCH (11:06)
[2018-12-06] MEDS: TOPROL XL PO SCH (11:07)
[2018-12-06] MEDS: PROTONIX PO SCH (13:56)
--- NOTE | 2018-12-06 18:23 | PROGRESS NOTE ---
DATE: 12/06/2018 SUBJECTIVE: The patient is resting comfortably at the bedside. No acute events overnight. No other new complaints. OBJECTIVE: Vital signs: Temperature 98.7 degrees, pulse 67, respiratory rate 16, blood pressure 117/42, oxygen saturation 100% on 2 L of nasal cannula.HEENT: Head normocephalic. No trauma. PERRLA. Neck is supple. No JVD. No masses. Central trachea. Chest: Decreased breath sounds at the right base, otherwise clear. Cardiovascular: Irregular rate and rhythm. Abdomen is soft, nontender, nondistended. Positive bowel sounds. Extremities: Peripheral pulses are present. No clubbing, no cyanosis. Neurological: This patient is alert. She has right-sided hemiparesis and expressive aphasia. LABORATORY DATA: WBC 12.1, hemoglobin 9.9, hematocrit 32.5, platelets 454,000. Sodium 139, potassium 3.8, chloride 95, bicarbonate 31, BUN 8, creatinine 0.7, glucose 118, calcium 8.4, albumin 3. ASSESSMENT AND PLAN: 1. Right-sided hemothorax due to rib fracture, pulmonary edema, likely [id number] diastolic congestive heart failure. The patient initially had a chest tube that has been out. She had some reaccumulation on chest x-ray, but she is stable. Sometimes she experienced some respiratory symptoms and she has been responding good to Lasix. BNP was elevated. Echocardiogram with normal ejection fraction, but suspected diastolic failure. She has been on antibiotics for pneumonia, which I have discontinued today. She has not been having fever or chills since last month on the . We will continue with scheduled Lasix. Kidney function has been stable and she is tolerating p.o., negative balance. 2. Diarrhea with positive Clostridium difficile. She is still having liquid bowel movements. It did not reoccur initially but placed on empiric Flagyl. Yesterday after having a large watery bowel movement with no abdominal pain or fever, but given her Clostridium difficile positive, she has been placed on oral vancomycin. Clostridium difficile toxin is negative but the antigen is positive. 3. History of cerebrovascular accident with right-sided hemiparesis and expressive aphasia. Aware. 4. Pneumonia. She has been placed on antibiotics which I have discontinued. 5. Hypertension, stable. We will monitor. 6. Hyperlipidemia. Continue with statins. 7. Atrial fibrillation. The heart rate is controlled. She is not on any anticoagulation due to her previous hemothorax. 8. Diabetes. Continue with same management. cc: Mundo Delvalle MD
--- NOTE | 2018-12-06 22:04 | PULMONOLOGY PROGRESS NOTE ---
DATE: 12/06/2018 SUBJECTIVE: The patient is awake and alert. She has a marginal to poor cough effort. She reports she has been standing and walking in her room with assistance. OBJECTIVE: Vital Signs: The patient has been afebrile for the last 24 hours. Blood pressure 117/42, heart rate 67, respiratory rate 16, oxygen saturation 100% on 2 L per nasal cannula. HEENT: Pupils are equal and reactive. Oropharynx appears clear. Neck: Supple. Chest: Reveals decreased breath sounds right base. Cardiac: S1-S2. Abdomen: Is soft. Extremities: Reveal trace edema. LABORATORIES: White blood count 12.13, hemoglobin 9.9, platelet count 454,000. Sodium 139, potassium 3.8, chloride 95, bicarbonate 31, BUN 8, creatinine 0.7. Chest x-ray reveals slight improved aeration at the right base. IMPRESSION: 73-year-old with 1. Fall with rib fracture leading to hemothorax. 2. Status post thoracoscopy with chest tube drainage. 3. Mild leukocytosis. 4. Hypoxemic respiratory failure. PLAN: 1. Agree with discontinuing antibiotics. 2. Continue bronchial hygiene. 3. Continue to ambulate patient with physical therapy. cc: Patric Saldaña MD
[2018-12-06] MEDS: TYLENOL PO PRN (22:36)
[2018-12-07] MEDS: VANCOCIN PO SCH ×4 (02:36→22:35)
[2018-12-07] MEDS: XOPENEX NEB INH SCH ×6 (03:24→23:45)
[2018-12-07] MEDS: HUMULIN R SUBQ SCH ×4 (06:14→22:35)
[2018-12-07 07:07] LABS: AGAP 12; BUN 10 mg/dL (8-22); CHLORIDE 99 mmol/L (98-107); COSMO 278; CREATININE 0.7 mg/dL (0.5-0.9); ESTIMATED GFR > 60; GLUCOSE 98 mg/dL (70-104); POTASSIUM 4.1 mmol/L (3.5-5.1); SODIUM 140 mmol/L (136-145); TCO2 29 mmol/L (25-35)
[2018-12-07 07:12] LABS: BASO# 0.01 X1000 (0.0-0.2); BASO% 0.1 % (0.0-0.8); EOS# 0.09 X1000 (0.0-0.7); EOS% 0.8 % (0.0-10.0); HEMATOCRIT 31.4 % (37.0-47.0); HEMOGLOBIN 9.5 g/dL (12.0-16.0); IMM GRAN# 0.02 X1000 (0.0-0.04); IMM GRAN% 0.2 % (0.0-0.5); LYMPH# 1.69 X1000 (1.2-3.4); LYMPH% 15.9 % (20.5-51.1); MCH 27.1 PG (27-31); MCHC 30.3 g/dL (33-37); MCV 89.7 FL (81-99); MONO# 1.07 X1000 (0.11-0.59); MONO% 10.1 % (1.7-9.3); MPV 8.9 FL (7.4-10.4); NEUT# 7.73 X1000 (1.4-6.5); NEUT% 72.9 % (42.2-75.2); PLT 414 X1000 (130-400); RDW 20.2 % (11.5-14.5); WBC 10.61 X1000 (4.8-10.8)
[2018-12-07] MEDS: MUCOMYST 20% INH SCH ×2 (07:40→19:50)
[2018-12-07] MEDS: CORDARONE PO SCH (08:07)
[2018-12-07] MEDS: PREDNISONE PO SCH (08:07)
[2018-12-07] MEDS: TOPROL XL PO SCH (08:07)
[2018-12-07] MEDS: FOLIC ACID PO SCH (08:07)
[2018-12-07] MEDS: LASIX PO SCH (08:07)
[2018-12-07] MEDS: MYCOSTATIN POWDER TOP SCH ×2 (08:08→22:35)
--- NOTE | 2018-12-07 11:14 | PROGRESS NOTE ---
DATE: 12/07/2018 SUBJECTIVE: Patient is resting comfortably in bed. No acute events overnight. No new complaints. She is not complaining of chest pain or shortness of breath. She is doing a little bit of physical activity with assistance. OBJECTIVE: Vital Signs: Temperature 98.7 degrees, pulse 62, respiratory rate 16, blood pressure 120/45, and oxygen saturation 95% on room air. HEENT: Head normocephalic. No trauma. PERRLA. Neck: Supple. No JVD. No masses. Central trachea. Chest: Decreased breath sounds at the right base. Otherwise clear. Cardiovascular: Irregular rate and rhythm. Abdomen: Soft, nontender, and nondistended. Positive bowel sounds. Extremities: Peripheral pulses are present. No clubbing. No cyanosis. Neurological: The patient is alert. She has right-sided hemiparesis and expressive aphasia. LABORATORY: WBC 10.6, hemoglobin 9.5, hematocrit 31.4, and platelets 414,000. Sodium 140, potassium 4.1, chloride 99, bicarbonate 29, BUN 10, creatinine 0.7, glucose 98, and calcium 8. ASSESSMENT AND PLAN: 1. Right-sided hemothorax due to rib fracture, pulmonary edema, likely acute on chronic diastolic heart failure exacerbation. This patient initially had a chest tube that has been removed. She has some reaccumulation on the chest x-ray, but she is stable. We will continue with Lasix. Her BNP was elevated. Echocardiogram with normal ejection fraction, but probably diastolic failure. She has been on antibiotics for pneumonia, which has been stopped yesterday. She has not been having fever or chills. We will continue with Lasix. Kidney function stable. Case has been discussed with Pulmonary Department, Dr. Saldaña. He has recommended to keep the patient and get a new lab work in the morning to evaluate the white blood cell count. I feel this patient is really close to being discharged in the next 24 or maybe 48 hours depending on the evaluation. Also, we will get a new x-ray in the morning. 2. Diarrhea with positive C. diff. She is still having some bowel movements, but it looks like it is more soft than liquid. We will continue with oral vancomycin. The C. Difficile toxin is negative but the antigen is positive, but since she was having diarrhea, I preferred to treat it. 3. History of cerebrovascular accident with right-sided hemiparesis and expressive aphasia. Aware. 4. Pneumonia. She was receiving antibiotics which we have stopped already. Leukocyte count normal today. She is not having shortness of breath or signs of infection at this moment. 5. Hypertension, stable. 6. Hyperlipidemia. Continue with statins. 7. Atrial fibrillation, rate controlled. She is not on anticoagulation due to her previous hemothorax. 8. Diabetes. Continue with the same management, stable. cc: Mundo Delvalle MD
[2018-12-07] MEDS: PROTONIX PO SCH (11:19)
[2018-12-07] MEDS: TYLENOL PO PRN (18:00)
--- NOTE | 2018-12-08 00:17 | PULMONOLOGY PROGRESS NOTE ---
DATE: 12/07/2018 SUBJECTIVE: The patient is awake, alert and conversant. Her ability to form a adequate cough is poor, but she has an excellent attempt at trying to cough. She is without voiced complaints. She has expressive aphasia, but does appear to understand conversation. OBJECTIVE: Vital Signs: The patient is afebrile for the last 24 hours. Blood pressure 113/43, heart rate 67, respiratory rate 16, oxygen saturation 94% on 2 L per nasal cannula. HEENT: Pupils are equal and reactive. Oropharynx appears clear. Neck: Supple. Chest: Reveals decreased breath sounds right base. Cardiac: S1 and S2. Abdomen: Soft and without hepatosplenomegaly. LABORATORY DATA: White blood count 10.6, hemoglobin 9.5, platelet count 114,000. Sodium 140, potassium 1, chloride 99, bicarbonate 29, BUN 10, creatinine 0.7. IMPRESSION: The patient is a 73-year-old with: 1. Fall with rib fracture and hemothorax. 2. Status post thoracoscopy with chest tube drainage. 3. Resolving leukocytosis. 4. Status post antibiotic course for pneumonia. 5. Mild hypoxemic respiratory failure. DISCUSSION: The patient is a 73-year-old with the problems outlined above. She continues to improve. She has some leg and chest x-ray improvement. She has no significant rhonchi or secretions noted on examination. She remains afebrile and she now has a normal white blood count. RECOMMENDATIONS: 1. Continue bronchial hygiene. 2. Continue physical therapy. 3. Anticipate discharge in the next 24 to 48 hours if she does not develop progressive leukocytosis or develop a fever off antibiotics. cc: Patric Saldaña MD
[2018-12-08] MEDS: VANCOCIN PO SCH ×3 (01:25→14:06)
[2018-12-08] MEDS: XOPENEX NEB INH SCH ×4 (03:40→15:48)
[2018-12-08] MEDS: HUMULIN R SUBQ SCH ×3 (06:40→17:59)
[2018-12-08 07:00] LABS: HEMATOCRIT 31.3 % (37.0-47.0); HEMOGLOBIN 9.4 g/dL (12.0-16.0); MCV 89.9 FL (81-99); MPV 8.8 FL (7.4-10.4); RBC 3.48 XMIL (4.2-5.4); RDW 20.7 % (11.5-14.5); WBC 9.63 X1000 (4.8-10.8)
--- NOTE | 2018-12-08 07:03 | Diag Imaging Result Doc PS360 ---
EXAM: CHEST-PORTABLE 12/08/2018 HISTORY: dyspnea TECHNIQUE: AP portable at [id number] COMMENT: There is atelectasis and/or pneumonia in the right middle and lower lobes. There is pleural fluid which is probably loculated on the right. The left lung is largely clear and unchanged since 12/06/2018. There is cardiomegaly. Overall compared to the previous study there has been no significant change. IMPRESSION: Right lower and middle lobe pneumonia with pleural effusion. Electronically signed by Melquiades Maldonado 12/08/2018 7:01 AM
[2018-12-08 07:24] LABS: AGAP 12; BUN 8 mg/dL (8-22); CALCIUM 8.1 mg/dL (8.8-10.2); CHLORIDE 99 mmol/L (98-107); COSMO 281; CREATININE 0.6 mg/dL (0.5-0.9); ESTIMATED GFR > 60; GLUCOSE 96 mg/dL (70-104); POTASSIUM 3.5 mmol/L (3.5-5.1); SODIUM 142 mmol/L (136-145); TCO2 31 mmol/L (25-35)
[2018-12-08] MEDS: MUCOMYST 20% INH SCH (07:33)
[2018-12-08] MEDS: CORDARONE PO SCH (10:37)
[2018-12-08] MEDS: TOPROL XL PO SCH (10:37)
[2018-12-08] MEDS: FOLIC ACID PO SCH (10:37)
[2018-12-08] MEDS: LASIX PO SCH (10:37)
[2018-12-08] MEDS: MYCOSTATIN POWDER TOP SCH (10:38)
[2018-12-08] MEDS: PREDNISONE PO SCH (10:38)
--- NOTE | 2018-12-08 13:29 | DISCHARGE SUMMARY ---
ADMISSION DATE: 11/11/2018 DISCHARGE DATE: 12/08/2018 ADMISSION DIAGNOSES: 1. Acute hypoxemic respiratory failure. 2. Blunt trauma to the chest resulting in traumatic hemothorax with multiple rib fractures. 3. Anemia of acute blood loss. 4. History of atrial fibrillation with rate controlled. 5. Chronic anticoagulation secondary to atrial fibrillation. 6. 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 7. Diabetes type 2, diet controlled. 8. Gastroesophageal reflux disease. 9. History of extended-spectrum B-lactamase positive Klebsiella pneumoniae urinary tract infection. DISCHARGE DIAGNOSES: 1. Right-sided hemothorax due to rib fracture, pulmonary edema, chronic diastolic heart failure exacerbation. 2. Diarrhea with positive Clostridium difficile. 3. History of cerebrovascular accident with right-sided hemiparesis and expressive aphasia. 4. Pneumonia, with antibiotic course completed. 5. Hypertension. 6. Hyperlipidemia. 7. Atrial fibrillation, rate controlled. 8. Diabetes mellitus. 9. Anticoagulation held secondary to previous hemothorax. CONSULTS: 1. Dr. Arjun Chow, general surgery. 2. Dr. Patric Saldaña. MICROBIOLOGY: 1. Blood cultures x2 revealed no growth after 5 days. 2. Clostridium difficile toxin A and B were negative. Clostridium difficile antigen is positive on 12/01/2018. DIAGNOSTICS: 1. On 11/11/2018, chest x-ray revealed [id number] size right pleural effusion with right basilar atelectasis and/or infiltrate. 2. On 11/11/2018, CT of the chest revealed a large right effusion, likely containing hemorrhage inferiorly with multiple rib fractures and prominent right lung atelectasis. 3. Abdominal x-ray revealed no acute abnormality. 4. On 11/13/2018, chest x-ray revealed worsened atelectasis or pneumonia, right lower lobe and middle lobe, improved lingular atelectasis. 5. On 11/14/2018, chest x-ray revealed no interval improvement. 6. On 11/15/2018, chest x-ray revealed stable left-sided chest tube in good position. No pneumothorax or significant pleural effusion. Lung volumes remain low. Stable dense consolidation throughout the right lung base. The left lung remains clear. Heart size is normal. Stable right central line. 7. On 11/16/2018, chest x-ray revealed stable to marginal improvement of dense consolidation at the right lung base. 8. On 11/19/2018, chest x-ray revealed mild interval improvement. 9. On 11/29/2018, chest x-ray revealed poor inspiratory effort. There are infiltrates throughout the right lung with atelectasis. There is also pulmonary edema. The heart is not enlarged. No change in the right subclavian Port-A-Cath or the left pacemaker. 10. On 12/02/2018, chest x-ray, improved pulmonary edema. 11. On 12/08/2018, chest x-ray, right middle lobe pneumonia with pleural effusion. PROCEDURES: On 11/12/2018, video-assisted thorascopic drainage of the right hemothorax with 36- Swedish chest tube placement for 3 L of blood evacuated. Video-assisted thorascopic drainage of the right hemothorax with 36-Swedish chest tube placement. Right subclavian triple-lumen catheter placement. Bronchoscopy showed extrinsic compression of all bronchi on the right side limiting exam, difficult passing scope through the mainstem bronchus but no obvious endobronchial lesions. Left upper, lingular, and lower lobes appeared normal. There were greater than 3 L of serosanguineous fluid with clot in the right chest. No obvious bleeding but oozing from multiple surfaces noted. HOSPITAL COURSE: Ms. Shields presented to the emergency room after having a choking episode while eating breakfast. She was found to have a large right hemothorax with multiple rib fractures on the right after a fall. She underwent video-assisted thorascopic drainage of a right hemothorax and 3 L of serosanguineous fluid with clot in the right chest was evacuated. She did tolerate this well. Chest tube was discontinued on November 28. She has had no residual pneumothorax. She was noted to have pneumonia on the right side. She was followed by Dr. Saldaña. Chest x-ray today is stable. She received antibiotic coverage of Merrem and Zyvox. Course was completed. As she has been afebrile with no white count and stable chest x-ray, she will be discharged on no antibiotics. She does have a history of expressive aphasia after a CVA. She was evaluated. This did remain stable throughout the hospitalization. Echocardiogram did reveal some diastolic failure with a normal ejection fraction. She was diuresed and did remain in a negative balance with accumulative I and O balance that is -30,748 mL. She did have C. difficile cultures return with a positive antigen. She was placed on oral vancomycin. During the hospitalization, we monitored electrolytes and repleted or adjusted medications and fluids appropriately. She remained in chronic atrial fibrillation with rate controlled. Eliquis was held due to her hemothorax. We will continue to hold this at present. Despite her being in atrial fibrillation, the risk of falls and rebleeding is too high at this time. She has been followed with physical therapy. She has been willing to participate and thankfully is ready to be discharged to [facility] for rehab. DISCHARGE VITAL SIGNS: Blood pressure is 132/42, with a heart rate of 74, respirations 16, temperature is 98.2 degrees oral. PHYSICAL EXAMINATION: General: This is a 73-year-old female who is sitting up in the bed, in no distress. Cardiovascular: AV paced rhythm. S1 and S2 appreciated. She has no lower extremity edema. Calves are nontender bilaterally. Pulmonary: Breath sounds are diminished throughout. She does have some scattered expiratory wheezes. Chest rises and falls symmetrically with respiration. Gastrointestinal: Abdomen is soft, nontender, nondistended with bowel sounds in all 4 quadrants. Skin: Warm and dry. Neurologic: She is alert oriented. FOLLOWUP: 1. She is to follow up with Dr. Saldaña in [address] Arjun Chow as needed. 3. Her primary care physician, Dr. Jose M Spivey. She will need to see him 1 to 2 weeks after discharge from rehab. She is being discharged and transferred to rehab in stable condition. This is a greater than 30 minute discharge. DISCHARGE MEDICATIONS: 1. Vancomycin 125 mg p.o. q.6 hours x8 days. 2. Ultram 50 mg p.o. b.i.d. 3. Prednisone 10 mg p.o. daily. 4. MiraLAX 17 g p.o. daily. 5. Protonix 40 mg p.o. daily. 6. Methotrexate 12.5 p.o. as directed. 7. Metformin 500 mg p.o. b.i.d. 8. Milk of magnesia 30 mL p.o. daily. 9. Imodium 2 mg p.o. t.i.d. p.r.n. 10. Xopenex nebulizers 1.25 q.4 hours p.r.n. wheezing. 11. Mucinex 1 to 2 tablets p.o. b.i.d. 12. Lasix 40 mg p.o. daily. 13. Ferrous sulfate 324 mg p.o. daily. 14. Cymbalta 60 mg p.o. daily. 15. Baclofen 10 mg p.o. q.8 hours. 16. Lipitor 10 mg p.o. at bedtime. 17. Amiodarone 200 mg p.o. daily. 18. Mucomyst 20%, 3 mL per nebulizer b.i.d. 19. Tylenol 650 mg p.o. q.4 hours p.r.n. pain. 20. Metoprolol succinate 25 mg p.o. daily. 21. Folic acid 1 mg p.o. daily. Dictated by CHASE Huntley for Mundo Delvalle MD cc: MD Rula Chicas CRNP Omar J. Sosa-Chirinos, MD
[2018-12-08] MEDS: PROTONIX PO SCH (14:06)
[2018-12-08 17:40] VITALS: BP 111/75
== END 2018-12-08 18:42 | DRG 163 ==
LOC: SUPCPDRO → ED 09:54 → SUATTDRO 14:42 → EDIPHOLD 14:42 → ICU 22:22 → 4N 11-13 23:03 → ICU 11-30 12:36 → 3N 12-01 12:54
PROVIDERS: ATTEND Internal Medicine
PROC: GE.THRS (2018-11-12 12:16)
CPT/HCPCS: 36430; 70450; 71010; 71045; 71250; 72125; 74000; 74018; 80048; 80053; 80069; 81001; 82550; 82553; 82607; 82728; 82746; 82805; 82948; 83540; 83550; 83605; 83735; 83880; 84100; 84484; 85014; 85018; 85025; 85027; 85610; 85730; 86850; 86900; 86901; 86920; 87040; 87088; 87324; 87449; 93005; 94640; 94667; 94668; 94760; 94761; 94799; 96361; 96365; 96375; 96376; 97110; 97162; 97530; 99285; 99291; A9270; C1758; C9113; G0378; J0131; J0330; J0610; J0696; J1335; J1720; J1756; J1940; J2020; J2185; J2270; J2997; J3370; J3475; J3480; J7030; J7040; J7042; J7050; J7120; J7506; J7512; J8610; P9016; P9017; S0164; XXXXX

== ENCOUNTER 2019-05-28 06:16 | Inpatient (IN) ==
--- NOTE | 2019-05-28 06:58 | PROVIDER DOCUMENTATION ---
HPI-General Adult - General Chief Complaint: Shortness of Breath Stated Complaint: chest wall pain Time Seen by Provider: 05/28/19 06:26 Source: patient, EMS Allergies/Adverse Reactions: Patient Allergies Allergy/AdvReac Type Severity Reaction Status Date / Time No Known Allergies Allergy Verified 09/28/18 14:08 Home Medications: Home Medication List Medication Instructions Recorded Confirmed Last Taken Type ATORVAstatin [Lipitor] 10 mg PO QHS 01/30/18 05/28/19 1 Day Ago History ~09/28/18 Folic Acid 1 mg PO DAILY 01/30/18 05/28/19 09/28/18 History Methotrexate 12.5 tab PO DIRECTED 01/30/18 05/28/19 09/28/18 History Metformin [Glucophage] 500 mg PO BID CC 09/29/18 05/28/19 1 Day Ago History ~09/28/18 Metoprolol Succinate E.r. [Toprol 25 mg PO DAILY 09/29/18 05/28/19 1 Day Ago History Xl] ~09/28/18 Ferrous Gluconate 324 mg PO DAILY #120 tab 11/09/18 05/28/19 Unknown Rx Polyethylene Glycol 3350 [Miralax] 17 gm PO DAILY powder, packet 11/09/18 05/28/19 Unknown Rx Amiodarone [Cordarone] 200 mg PO DAILY #90 tab 12/08/18 05/28/19 Unknown Rx Duloxetine [Cymbalta] 60 mg PO DAILY #30 cap 12/08/18 05/28/19 Unknown Rx Furosemide [Lasix] 40 mg PO DAILY #30 tab 12/08/18 05/28/19 Unknown Rx Pantoprazole [Protonix] 40 mg PO Q24H #60 tab 12/08/18 05/28/19 Unknown Rx Prednisone 10 mg PO DAILY #90 tab 12/08/18 05/28/19 Unknown Rx Magnesium Oxide 250 mg PO DAILY 05/28/19 05/28/19 Unknown History - History of Present Illness -Gen Adult Nature of Presenting Problems: Pt presents with cp, x 4 days, comes and goes, no radiation, sharp, pt denies f/c, will, sob, cough, ap, n/v/d. Pt is lying in bed in no acute distress. Location of Pain/Injury: reports: chest Pain Radiation: reports: no radiation Quality of Pain: reports: sharp Severity: reports: mild Onset/Duration: reports: 4 days ago Timing: reports: still present Context/Activities at Onset: reports: none Modifying Factors: improves with: nothing Associated Symptoms: reports: denies symptoms Similar Symptoms Previously?: No Recently seen or treated by another doctor?: No Review of Systems - Adult - REVIEW OF SYSTEMS - ADULT Constitutional: reports: no symptoms reported Eyes: reports: no symptoms reported Ears, Nose, Mouth & Throat: reports: no symptoms reported Cardiovascular: reports: see HPI Respiratory: reports: no symptoms reported Gastrointestinal: reports: no symptoms reported Genitourinary: reports: no symptoms reported Musculoskeletal: reports: no symptoms reported Integumentary: reports: no symptoms reported Neurological: reports: no symptoms reported Psychiatric: reports: no symptoms reported Endocrine: reports: no symptoms reported Hematologic/Lymphatic: reports: no symptoms reported Allergic/Immunologic: reports: no symptoms reported All Other Systems: Reviewed and Negative Past History - Adult - PAST MEDICAL HISTORY-ADULT Review of Records: reports: Old Records Reviewed, Nursing Assessment Review, Medications Reviewed, Social history reviewed & non-contributory. Major Childhood Illnesses: reports: denies history Cardiovascular: reports: A-Fib, CHF, HTN, hyperlipidemia, pacemaker Respiratory: reports: denies history Gastrointestinal: reports: denies history Obstetrical/Gynecological: reports: denies history Genitourinary: reports: denies history, dialysis Musculoskeletal: reports: denies history Neurological: reports: CVA, stroke deficits Psychiatric: reports: denies history Endocrine/Immune: reports: denies history, Diabetes Other Conditions: reports: denies history, other (UTI) - PRIOR SURGERIES/PROCEDURES Surgical/Procedure History: reports: reviewed, not pertinent, pacemaker - IMMUNIZATION STATUS Childhood Immunizations: UTD Flu Vaccine: UTD - FAMILY HISTORY Family History: reviewed, not pertinent Physical Exam-General - PHYSICAL EXAM-ADULT Initial Vital Signs Reviewed: Yes - CONSTITUTIONAL General Appearance: appears well - EYES Eyes: PERRL/EOMI - HEAD, EARS, NOSE, MOUTH & THROAT HENMT: normocephalic/atraumatic - NECK Neck: normal inspection - RESPIRATORY Respiratory: lungs clear, no respiratory distress, no accessory muscle use - CARDIOVASCULAR Cardiovascular: regular rate, rhythm - GASTROINTESTINAL (ABDOMEN) Abdominal Exam: normal bowel sounds, non tender, soft - LYMPHATIC Lymphatic: no adenopathy - MUSCULOSKELETAL Back Exam: normal inspection Extremity: normal range of motion - SKIN Integumentary: normal color - NEUROLOGIC Neurologic: grossly normal - PSYCHIATRIC Psych/Mental Status: normal mood/affect Progress - PLAN OF CARE/RESULTS Progress/Plan/Lab Results: Orders Category Date Time Status Nursing- Obtain EKG ONCE Care 05/28/19 06:47 Ordered cxr [CHEST-1 VIEW] [RAD] Stat Exams 05/28/19 06:47 Ordered CBC WITH ELECTRONIC DIFF [HEME] Stat Lab 05/28/19 06:47 Uncollected COMPREHENSIVE METABOLIC PANEL [CHEM] Stat Lab 05/28/19 06:47 Uncollected PRO B-NATRIURETIC PEPTIDE Stat Lab 05/28/19 06:47 Uncollected TROPONIN T Stat Lab 05/28/19 06:47 Uncollected EKG [EKG] Stat Ther 05/28/19 06:22 Ordered EKG [EKG] Stat Ther 05/28/19 06:47 Ordered Result Diagrams: 05/28/19 06:50 05/28/19 06:50 - REASSESSMENT Reassessment #1 Time Reassessed: 09:13 Status: improving (IMPROVING IN ER. HOSPITALIST WILL ADMIT) Departure - Departure Date of Disposition Decision: 05/28/19 Time of Disposition Decision: 09:12 DIAGNOSIS: CHF (congestive heart failure), UTI (urinary tract infection) Disposition: ADMITTED INPATIENT 09 Certified Medical Emergency: Emergent Condition: Fair Referrals and Follow-Ups: Jose M Spivey MD [Primary Care Provider] - - Critical Care Note This patient required my direct & personal management of CC.: No Attestation - Physician/ LILY Attestation Patient care was provided by Advanced Practice Provider:: No The physician spent face to face time with patient:: Yes Advanced Practice Provider documentation review:: Supervising physician onsite and consulted in the evaluation and care of this patient. The physician did have a face to face encounter with the patient.
[2019-05-28 07:06] LABS: BASO# 0.02 X1000 (0.0-0.2); BASO% 0.1 % (0.0-0.8); EOS# 2.83 X1000 (0.0-0.7); EOS% 15.2 % (0.0-10.0); HEMATOCRIT 34.5 % (37.0-47.0); HEMOGLOBIN 10.1 g/dL (12.0-16.0); IMM GRAN# 0.07 X1000 (0.0-0.04); IMM GRAN% 0.4 % (0.0-0.5); LYMPH# 0.49 X1000 (1.2-3.4); LYMPH% 2.6 % (20.5-51.1); MCH 25.4 PG (27-31); MCHC 29.3 g/dL (33-37); MCV 86.7 FL (81-99); MONO% 4.8 % (1.7-9.3); MPV 9.4 FL (7.4-10.4); NEUT# 14.26 X1000 (1.4-6.5); NEUT% 76.9 % (42.2-75.2); PLT 551 X1000 (130-400); RBC 3.98 XMIL (4.2-5.4); RDW 19.1 % (11.5-14.5); WBC 18.57 X1000 (4.8-10.8)
--- NOTE | 2019-05-28 07:07 | Diag Imaging Result Doc PS360 ---
EXAM: CHEST-1 VIEW HISTORY: chest pain TECHNIQUE: Single view COMPARISON: 12/08/2018 FINDINGS: Poor inspiratory effort. Heart is mildly prominent. The vessels are distended. There are infiltrates and atelectasis in the lower lungs, right greater than left. Small bilateral pleural effusions/pleural thickening. There is a left-sided pacemaker. Removal of the right sided portacatheter. No pneumothoraces. IMPRESSION: Recurrent pulmonary edema with pleural effusions or pleural thickening and basilar atelectasis/infiltrates Electronically signed by Avery Morales 05/28/2019 7:05 AM
[2019-05-28] MEDS ORDERED: LASIX IV ONE (07:14)
[2019-05-28 07:22] LABS: AGAP 15; ALB/GLOB RATIO 1.5; ALBUMIN 3.7 g/dL (3.5-5.0); ALKALINE PHOSPHATASE 120 U/L (32-104); BUN 11 mg/dL (8-22); CALCIUM 8.2 mg/dL (8.8-10.2); CHLORIDE 96 mmol/L (98-107); COSMO 273; CREATININE 0.9 mg/dL (0.5-0.9); ESTIMATED GFR > 60; GLUCOSE 120 mg/dL (70-104); GOT 16 U/L (10-30); GPT 7 U/L (10-36); POTASSIUM 3.8 mmol/L (3.5-5.1); SODIUM 136 mmol/L (136-145); TCO2 25 mmol/L (25-35); TOTAL BILIRUBIN 2.08 mg/dL (0.20-1.00); TOTAL PROTEIN 6.1 g/dL (6.3-8.3)
[2019-05-28 08:43] LABS: URINE SOURCE CATH
[2019-05-28 08:51] LABS: BILIRUBIN URINE NEGATIVE (NEGATIVE); BLOOD URINE NEGATIVE (NEGATIVE); COLOR YELLOW; GLUCOSE URINE NEGATIVE (NEGATIVE); KETONE URINE TRACE mg/dL (NEGATIVE); LEUKOCYTES URINE SMALL (NEGATIVE); NITRITE URINE NEGATIVE (NEGATIVE); PH URINE 5.5; PROTEIN URINE 30 mg/dL (NEGATIVE); SP GRAVITY URINE 1.023; TURBIDITY URINE CLEAR (CLEAR); UROBILINOGEN URINE 2 mg/dL (NORMAL)
--- NOTE | 2019-05-28 08:52 | EKG Report ---
Test Performed on : 05/28/2019 06:33:21 AM Test Reason : chest wall pain and dyspnea Blood Pressure : / mmHG Vent. Rate : 061 BPM Atrial Rate : 060 BPM P-R Int : 208 ms QRS Dur : 084 ms QT Int : 490 ms P-R-T Axes : 000 070 053 degrees QTc Int : 493 ms Atrial-paced rhythm Septal infarct , age undetermined Abnormal ECG When compared with ECG of 11-NOV-2018 15:45, No significant change was found Unconfirmed Result
[2019-05-28 08:55] LABS: UR EPITHELIAL CELLS >10 /HPF (<10); URINE BACTERIA NEGATIVE /HPF; URINE RBC <10 /HPF (<10); URINE WBC 20-40 /HPF (<10)
[2019-05-28 09:04] LABS: URINE YEAST PRESENT
[2019-05-28 09:05] LABS: URINE CASTS NONE SEEN; URINE CRYSTALS NONE SEEN; URINE SMALL ROUND CELLS NONE SEEN
[2019-05-28] MEDS ORDERED: ROCEPHIN 1 GM in NS 50 ML IV ONE (09:08)
[2019-05-28] MEDS ORDERED: TYLENOL PO PRN (10:37)
[2019-05-28] MEDS ORDERED: ZOFRAN IV PRN (10:37)
[2019-05-28] MEDS ORDERED: DIFLUCAN PO ONE (10:40)
[2019-05-28] MEDS ORDERED: PROTONIX PO SCH (11:15)
--- NOTE | 2019-05-28 11:34 | HISTORY AND PHYSICAL ---
CHIEF COMPLAINT: Shortness of breath, chest wall pain. HISTORY OF PRESENT ILLNESS: This is a 73-year-old female with a history of chronic atrial fibrillation, diabetes mellitus, CVA with right upper and lower extremity hemiparesis, hypertension. She presented to the emergency room from her extended care facility complaining of chest pain that has been intermittent for the past 4 days. She described it as a sharp chest pain. It will last a few seconds and subside on its own. She also has had some increasing shortness of breath that has remained persistent. She denied any fevers or chills, any palpitations. PAST MEDICAL HISTORY: 1. Diabetes mellitus type 2. 2. Gastroesophageal reflux disease. 3. CVA with right-sided hemiparesis with expressive dysphagia. 4. Chronic atrial fibrillation. The patient is not on anticoagulation due to frequent falls and a recent hemothorax. 5. Hypertension. 6. Rheumatoid arthritis. 7. Folic acid deficiency. 8. Recent fall with resulting right hemothorax. PAST SURGICAL HISTORY: Pacemaker placement. SOCIAL HISTORY: She is a resident at an extended care facility. She does not smoke, drink, or use illicit drugs. FAMILY HISTORY: Unknown at this time. REVIEW OF SYSTEMS: She denied any syncope or dizziness, cough, any fevers or chills, any nausea, vomiting, diarrhea, constipation, black or bloody vomitus or stools, any hematuria or dysuria. PHYSICAL EXAMINATION: GENERAL: This is a 73-year-old female who is lying on the stretcher in the emergency room in no distress. VITAL SIGNS: Blood pressure is 123/60, with a heart rate of 60, respirations are 17, temperature is 97.9 degrees oral, with O2 saturation of 100%. HEENT: Eyes: Pupils are equal, round, react to light. EOMs are intact. Sclerae are anicteric. Head: Normocephalic, atraumatic. Mucous membranes are moist. NECK: Supple with trachea midline. CARDIOVASCULAR: Regular rate and rhythm. She is AV paced. S1 and S2 are appreciated. She has bilateral lower extremity edema. Peripheral pulses are palpable x4 extremities. PULMONARY: Breath sounds are clear, diminished throughout. Chest rises and falls symmetrically with respiration. Chest wall is nontender to palpation. GASTROINTESTINAL: Abdomen is soft, nontender, nondistended, with bowel sounds in all 4 quadrants. NEUROLOGIC: She is alert. She is oriented. She does have expressive aphasia. Most words are understandable. She does nod her head yes and no to questions. She is able to lift her left leg and left arm off the bed, and she can wiggle them to command. She is not able to wiggle her right upper or lower extremities. IMAGING AND LABORATORY DATA: WBC is 18.5, with hemoglobin 10.1, hematocrit 34.5, and platelets of 551,000. Sodium 136, potassium 3.8, BUN 11, creatinine 0.9, with glucose of 120. Total bilirubin is 2.08, with AST 16, ALT 7, and alkaline phosphatase 120. Troponin is less than 0.010, with a proBNP of 2387. Urine reveals 20 to 40 microscopic white blood cells, greater than 10 epithelial cells, with yeast present. Chest x-ray reveals recurrent pulmonary edema with pleural effusions that are small, with basilar atelectasis and infiltrates, right greater than left, with a left- sided pacemaker. Blood cultures and urine cultures are pending. ASSESSMENT AND PLAN: 1. Pulmonary edema. 2. Shortness of breath. She was given Lasix 60 intravenously in the emergency room. Sheldon has been placed. Will keep strict intake and output with daily weights. Will repeat intravenous Lasix in the morning, and monitor. Will give supplemental oxygen and diuresis as stated above. Will start incentive spirometer. 3. Bilateral lower lobe infiltrates. Blood cultures have been obtained. Will implement measures as stated above, along with Rocephin and azithromycin for antibiotic coverage, and any further antibiotics will be culture driven. 4. Urinary tract infection with yeast in urine. Will give Diflucan. 5. Leukocytosis, very likely secondary to urinary tract infection, bibasilar infiltrates, and cellulitis to right upper and right lower extremity. 6. Cellulitis, right upper and lower extremities. She has a dressing intact to her right forearm Will culture if there is any drainage. Will consult Wound Care. 7. History of atrial fibrillation in a patient with a permanent pacemaker. At present, she is 100% atrial paced. Will continue her amiodarone, her Toprol. Of note, the patient is not on anticoagulation due to frequent falls and a hemothorax in 10/2018. 8. Gastroesophageal reflux. Will give a proton pump inhibitor. 9. Diabetes mellitus type 2. Pattern blood glucose with sliding scale insulin. 10. Hypertension. Will continue her home medications. 11. Folic acid deficiency. Will continue with supplementation. 12. Anemia. Will continue with her iron supplement. 13. Rheumatoid arthritis. Will continue her methotrexate. 14. Status post cerebrovascular accident with resulting right upper and lower extremity hemiparesis and expressive aphasia. Will repeat a CBC and CMP in the morning. The patient was examined, and plan was discussed with Dr. Wyatt. Further treatments pending hospital course. Dictated by CHASE Huntley for Justin Wyatt MD cc: CHASE Huntley MD [facility]
[2019-05-28] MEDS ORDERED: VANCOMYCIN IV PER PHARMACY MISC SCH (11:45)
[2019-05-28] MEDS: MAXIPIME 2 GM in NS 100 ML IV SCH (12:20)
[2019-05-28] MEDS ORDERED: VANCOMYCIN 1,500 MG in NS 250 ML IV ONE (14:00)
[2019-05-28] MEDS: PROTONIX PO SCH (14:34)
--- NOTE | 2019-05-28 15:05 | PROGRESS NOTE ---
DATE: 05/28/2019 SUBJECTIVE: Patient has no major complaints. She came in today. She is not a great historian. She is from an extended care facility, assisted living. She had chest pain and shortness of breath. Her workup showed pulmonary edema, possibly pneumonia. She also has some cellulitis versus chronic venous changes in her lower extremities. She has a history of atrial fibrillation, of which she has a permanent pacemaker. ASSESSMENT AND PLAN: On exam she has rales, so we will initiate diuretics. We will get serial cardiac enzymes. May have to get Cardiology involved based on the data obtained. We will treat with antibiotics and see how she does. She does have fairly significant erythema. Not entirely sure that may not be a candidal issue. She has a high white count but she is also on low-dose prednisone. Continue her regular medications and follow. We put her on vancomycin and cefepime. cc: Justin Wyatt MD
[2019-05-28] MEDS: GLUCOPHAGE PO SCH (16:20)
[2019-05-28] MEDS: LOVENOX SUBQ SCH (16:20)
[2019-05-28] MEDS: HUMALOG SUBQ SCH ×2 (16:21→20:18)
[2019-05-28] MEDS: LIPITOR PO SCH (20:17)
[2019-05-28] MEDS: LASIX IV SCH (20:17)
[2019-05-29] MEDS: MAXIPIME 2 GM in NS 100 ML IV SCH ×3 (00:32→23:29)
[2019-05-29] MEDS: NORCO-5 PO PRN ×3 (01:37→23:30)
[2019-05-29 05:36] LABS: BASO# 0.02 X1000 (0.0-0.2); BASO% 0.2 % (0.0-0.8); EOS# 2.77 X1000 (0.0-0.7); EOS% 21.5 % (0.0-10.0); HEMATOCRIT 29.1 % (37.0-47.0); HEMOGLOBIN 8.4 g/dL (12.0-16.0); IMM GRAN# 0.06 X1000 (0.0-0.04); IMM GRAN% 0.5 % (0.0-0.5); LYMPH# 0.74 X1000 (1.2-3.4); LYMPH% 5.7 % (20.5-51.1); MCH 25.1 PG (27-31); MCHC 28.9 g/dL (33-37); MCV 87.1 FL (81-99); MONO# 0.66 X1000 (0.11-0.59); MONO% 5.1 % (1.7-9.3); MPV 9.2 FL (7.4-10.4); NEUT# 8.63 X1000 (1.4-6.5); PLT 471 X1000 (130-400); RBC 3.34 XMIL (4.2-5.4); RDW 18.9 % (11.5-14.5); WBC 12.88 X1000 (4.8-10.8)
[2019-05-29 05:46] LABS: AGAP 14; ALB/GLOB RATIO 1.4; ALKALINE PHOSPHATASE 93 U/L (32-104); BUN 11 mg/dL (8-22); CALCIUM 7.5 mg/dL (8.8-10.2); CHLORIDE 99 mmol/L (98-107); COSMO 282; CREATININE 0.9 mg/dL (0.5-0.9); ESTIMATED GFR > 60; GLUCOSE 89 mg/dL (70-104); GOT 7 U/L (10-30); GPT 5 U/L (10-36); POTASSIUM 2.8 mmol/L (3.5-5.1); SODIUM 142 mmol/L (136-145); TCO2 29 mmol/L (25-35); TOTAL BILIRUBIN 1.23 mg/dL (0.20-1.00); TOTAL PROTEIN 5.1 g/dL (6.3-8.3)
[2019-05-29 05:50] LABS: LYMPHS 2 % (21-51); MONO 4 % (1-9); SEGS 94 % (42-75)
[2019-05-29] MEDS: HUMALOG SUBQ SCH ×4 (06:13→20:19)
[2019-05-29] MEDS: PROTONIX PO SCH (06:35)
[2019-05-29] MEDS: MIRALAX PO SCH (08:47)
[2019-05-29] MEDS: GLUCOPHAGE PO SCH ×2 (08:49→16:03)
[2019-05-29] MEDS: FOLIC ACID PO SCH (08:49)
[2019-05-29] MEDS: MAG-OX PO SCH (08:50)
[2019-05-29] MEDS: CYMBALTA PO SCH (08:50)
[2019-05-29] MEDS: PREDNISONE PO SCH (08:51)
[2019-05-29] MEDS: CORDARONE PO SCH (08:51)
[2019-05-29] MEDS: TOPROL XL PO SCH (08:52)
[2019-05-29] MEDS: FERGON PO SCH (08:52)
[2019-05-29] MEDS: LASIX IV SCH ×2 (08:56→20:19)
[2019-05-29] MEDS ORDERED: LASIX IV SCH (09:00)
[2019-05-29] MEDS ORDERED: KLOR-CON PO ONE (13:18)
--- NOTE | 2019-05-29 13:22 | PROGRESS NOTE ---
DATE: 05/29/2019 SUBJECTIVE: The patient is resting comfortable in bed, not in any obvious distress. OBJECTIVE: Vital Signs: Temperature 97.5 degrees, pulse 60, respiratory rate 16, blood pressure is 121/48, oxygen saturation is 100%. HEENT: Atraumatic, normocephalic. Cardiovascular: S1, S2. Respiratory: Has evidence of good entry bilaterally. Abdomen: Soft. Nontender. No masses felt. Extremities: No significant edema noted. Central Nervous System: The patient is awake. LABORATORY DATA: WBC 12.88, hematocrit 29.1, with a platelet count of 471,000. Sodium is 142, potassium is 2.8, chloride is 99, bicarb 29, BUN is 11, creatinine 0.9. ASSESSMENT AND PLAN: 1. Probable acute diastolic congestive heart failure. Continue diuretics. Monitor intake and output as well as daily weights. Follow up on the patient's clinical progression. 2. Pneumonia. Follow up on cultures. Continue antibiotics. 3. Probable urinary tract infection. Follow up on urine cultures. Continue antibiotics. 4. Cellulitis, right upper as well as lower extremity. Continue antibiotics. Follow up on culture if there is any drainage. Wound Care to be consulted. 5. History of atrial fibrillation. Continue rate-controlling agent, as well amiodarone. Patient currently not on anticoagulation due to frequent falls as well as hemothorax in 10/2018. 6. Diabetes mellitus. Continue blood sugar monitoring as well as sliding scale insulin. 7. History of cerebrovascular accident with right upper as well as lower extremity hemiparesis and also expressive aphasia. cc: Arthur Brown MD
[2019-05-29] MEDS: LOVENOX SUBQ SCH (16:04)
[2019-05-29] MEDS: POTASSIUM CHLORIDE 20 MEQ/SWI 20 MEQ/100 ML IVPB IV SCH ×2 (16:05→19:47)
[2019-05-29] MEDS: VANCOMYCIN 1 GM/NS 1 GM/250 ML IVPB IV SCH (20:06)
[2019-05-29] MEDS: LIPITOR PO SCH (20:19)
[2019-05-30 05:31] LABS: BASO# 0.03 X1000 (0.0-0.2); BASO% 0.2 % (0.0-0.8); EOS# 2.33 X1000 (0.0-0.7); EOS% 18.8 % (0.0-10.0); HEMATOCRIT 31.4 % (37.0-47.0); HEMOGLOBIN 9.1 g/dL (12.0-16.0); IMM GRAN# 0.06 X1000 (0.0-0.04); IMM GRAN% 0.5 % (0.0-0.5); LYMPH# 1.05 X1000 (1.2-3.4); LYMPH% 8.5 % (20.5-51.1); MCH 25.3 PG (27-31); MCV 87.2 FL (81-99); MONO# 0.77 X1000 (0.11-0.59); MONO% 6.2 % (1.7-9.3); MPV 9.3 FL (7.4-10.4); NEUT# 8.13 X1000 (1.4-6.5); NEUT% 65.8 % (42.2-75.2); PLT 483 X1000 (130-400); RDW 18.8 % (11.5-14.5); WBC 12.37 X1000 (4.8-10.8)
[2019-05-30] MEDS: HUMALOG SUBQ SCH ×4 (06:04→22:36)
[2019-05-30] MEDS: PROTONIX PO SCH (06:13)
[2019-05-30 06:28] LABS: ALB/GLOB RATIO 1.4; ALBUMIN 3.3 g/dL (3.5-5.0); CALCIUM 7.4 mg/dL (8.8-10.2); POTASSIUM 3.6 mmol/L (3.5-5.1); TOTAL BILIRUBIN 0.95 mg/dL (0.20-1.00); TOTAL PROTEIN 5.7 g/dL (6.3-8.3)
[2019-05-30] MEDS: MIRALAX PO SCH (08:50)
[2019-05-30] MEDS: PREDNISONE PO SCH (08:53)
[2019-05-30] MEDS: FERGON PO SCH (08:53)
[2019-05-30] MEDS: MAG-OX PO SCH (08:53)
[2019-05-30] MEDS: FOLIC ACID PO SCH (08:54)
[2019-05-30] MEDS: GLUCOPHAGE PO SCH ×2 (08:54→16:27)
[2019-05-30] MEDS: CORDARONE PO SCH (08:54)
[2019-05-30] MEDS: CYMBALTA PO SCH (08:54)
[2019-05-30] MEDS: TOPROL XL PO SCH (08:54)
[2019-05-30] MEDS: MAXIPIME 2 GM in NS 100 ML IV SCH ×2 (12:17→22:44)
[2019-05-30] MEDS: VANCOMYCIN 1 GM/NS 1 GM/250 ML IVPB IV SCH (14:32)
[2019-05-30] MEDS: LOVENOX SUBQ SCH (15:06)
--- NOTE | 2019-05-30 16:48 | PROGRESS NOTE ---
DATE: 05/30/2019 SUBJECTIVE: Ms Shields is feeling better. She is breathing comfortably. OBJECTIVE: She remains afebrile, temperature 97.2 degrees, pulse 60 respirations 17, blood pressure 110/45. Pupils are equal and round. Lungs are clear in all lung lind. Cardiovascular regular rate without murmur or S3. Abdomen is soft. Skin is warm and dry. Urine output is 4300 mL. ASSESSMENT AND PLAN: 1. Probable acute diastolic congestive heart failure. Continue diuretics. She seems to be improving. Good clinical progress. 2. Pneumonia. Follow up on her cultures. Continue present antibiotics. 3. Probable urinary tract infection. Continue present antibiotics. 4. Cellulitis, right upper as well as lower extremity. This is improving as well. 5. History of atrial fibrillation. Rate is controlled. 6. Diabetes mellitus type 2. Sugars under good control. 7. History of cerebrovascular accident with right upper as well as lower extremity hemiparesis and expressive aphasia. REVIEW OF ORDERS: I do not see any change. The patient is on Lipitor 10 mg at bedtime, amiodarone 200 mg a day, Cymbalta 60 mg daily, ferrous gluconate 240 mg daily, folic acid 1 mg daily, cefepime 2 g IV q.12, Glucophage 500 mg p.o. b.i.d., methotrexate 12.5 mg, I think she will get this on Wednesday at 9 o'clock. Metoprolol 25 mg daily, Protonix 40 mg daily, MiraLAX 17 g IV daily, prednisone 10 mg p.o. daily, vancomycin 1 g q.24 hours, potassium chloride 40 mEq at 1 time dose today. REVIEW OF LABS: Hematocrit 31 hemoglobin 9.1, platelet count 483,000. Sodium 138, potassium 3.6, chloride 95, BUN 15, creatinine 1.0, blood sugars 126, 104, 94, 130. Note that the urine grew out Klebsiella pneumonia. Blood cultures with no growth and is negative for extended spectrum beta lactamase. cc: Cornelius Gonsales MD
[2019-05-30] MEDS: LIPITOR PO SCH (22:39)
[2019-05-31] MEDS: HUMALOG SUBQ SCH ×4 (06:46→20:33)
[2019-05-31] MEDS: PROTONIX PO SCH (06:50)
[2019-05-31] MEDS ORDERED: METHOTREXATE PO SCH (09:00)
[2019-05-31] MEDS: TOPROL XL PO SCH (09:07)
[2019-05-31] MEDS: MAG-OX PO SCH (09:07)
[2019-05-31] MEDS: PREDNISONE PO SCH (09:08)
[2019-05-31] MEDS: CYMBALTA PO SCH (09:08)
[2019-05-31] MEDS: CORDARONE PO SCH (09:08)
[2019-05-31] MEDS: GLUCOPHAGE PO SCH ×2 (09:08→17:18)
[2019-05-31] MEDS: FERGON PO SCH (09:08)
[2019-05-31] MEDS: MIRALAX PO SCH (09:08)
[2019-05-31] MEDS: FOLIC ACID PO SCH (09:08)
[2019-05-31] MEDS: MAXIPIME 2 GM in NS 100 ML IV SCH ×2 (12:25→23:46)
--- NOTE | 2019-05-31 14:13 | PROGRESS NOTE ---
DATE: 05/31/2019 SUBJECTIVE: Ms. Shields is feeling better, sitting up at the side of the bed. She is breathing better. We need to take her Sheldon catheter out. Continue physical therapy. OBJECTIVE: Vital Signs: Temp 98.1 degrees, pulse 60, respirations 17, blood pressure 135/58. HEENT: Pupils are equal and round. Lungs: Clear in all lung lind. Cardiovascular: Regular rhythm and rate without murmur or S3. Abdomen: Soft. Skin: Warm and dry. ASSESSMENT AND PLAN: 1. Probable acute diastolic congestive heart failure. Continue her diuretics. Seems to be doing better. Gas and air exchange better. 2. Pneumonia. Continue present antibiotics. Clinically improving. 3. Probable urinary tract infection. We will take her Sheldon catheter out. Continue antibiotics. Her cultures of urine grew out Klebsiella pneumoniae, and it is not extended-spectrum beta- lactamase producing. 4. General weakness and deconditioning. We are going to continue physical therapy, and she would like to go back to assisted living, but we need to make sure she can walk and ambulate. 5. Constipation. Bowels have been moving. Will check another chest x-ray in the morning, and discontinue the Sheldon catheter today. 6. Diabetes mellitus. Blood sugar is under good control. cc: Cornelius Gonsales MD
[2019-05-31] MEDS: LOVENOX SUBQ SCH (16:21)
[2019-05-31] MEDS: VANCOMYCIN 1,200 MG in NS 250 ML IV SCH (17:18)
[2019-05-31] MEDS: LIPITOR PO SCH (20:33)
[2019-06-01] MEDS: HUMALOG SUBQ SCH ×4 (06:17→22:30)
[2019-06-01] MEDS: PROTONIX PO SCH (06:20)
--- NOTE | 2019-06-01 08:11 | Diag Imaging Result Doc PS360 ---
EXAM: CHEST-PORTABLE 06/01/2019 HISTORY: pneumonia TECHNIQUE: AP portable upright at 0751 COMMENT: There is increasing pleural fluid on the right compared to 05/28/2019. There is actually improvement in the opacification of the left lower lobe compared to the previous study and the inspiration is better. There are patchy alveolar opacities on the right particularly in the lateral base. IMPRESSION: Pulmonary edema and/or pneumonia with right pleural effusion. Electronically signed by Melquiades Maldonado 06/01/2019 8:09 AM
[2019-06-01] MEDS: GLUCOPHAGE PO SCH ×2 (08:23→16:28)
[2019-06-01] MEDS: FOLIC ACID PO SCH (08:23)
[2019-06-01] MEDS: MAG-OX PO SCH (08:23)
[2019-06-01] MEDS: TOPROL XL PO SCH (08:23)
[2019-06-01] MEDS: FERGON PO SCH (08:23)
[2019-06-01] MEDS: CYMBALTA PO SCH (08:23)
[2019-06-01] MEDS: PREDNISONE PO SCH (08:23)
[2019-06-01] MEDS: CORDARONE PO SCH (08:23)
[2019-06-01] MEDS: MIRALAX PO SCH (08:26)
[2019-06-01] MEDS: MAXIPIME 2 GM in NS 100 ML IV SCH ×2 (11:56→23:00)
[2019-06-01] MEDS: VANCOMYCIN 1,200 MG in NS 250 ML IV SCH (16:28)
[2019-06-01] MEDS: LOVENOX SUBQ SCH (16:28)
--- NOTE | 2019-06-01 17:40 | PROGRESS NOTE ---
DATE: 06/01/2019 SUBJECTIVE: Ms. Shields reports that she does feel better. She is a little bit stronger. She remains afebrile. OBJECTIVE: Vital Signs: Temperature 98.1, pulse 59, respirations 16, blood pressure 142/57. HEENT: Pupils are equal and round. Lungs: Clear in all lung lind. Cardiovascular: Regular rate without murmur or S3. LABORATORY DATA: Blood sugars 139, 148. Chest x-ray from this morning: Pulmonary edema and pneumonia, right pleural effusion. Labs from the 3rd reviewed. ASSESSMENT AND PLAN: 1. Probable acute diastolic congestive heart failure. Continue diuretics. She does appear to be feeling better and doing better. 2. Pneumonia. Clinically better. Continue present antibiotics. 3. Urinary tract infection. We took out her Sheldon catheter. Urine did grow out Klebsiella pneumoniae, but did not have an duiuspgt-kuvuuoif-egvt-lactamase-producing organism. 4. General weakness and deconditioning. Continue physical therapy. 5. Bowels are moving. We discontinued her Sheldon catheter. 6. Diabetes mellitus type 2. Sugars appear to be under good control. REVIEW OF ORDERS: Lipitor 10 mg a day, Cordarone 200 mg a day, Cymbalta 60 mg a day, folic acid 1 mg a day, magnesium oxide 250 mg a day, cefepime 2 g IV every 12 hours, metformin 500 mg b.i.d., methotrexate 12.5 mg which she takes once a week on Wednesday, metoprolol succinate 25 mg a day, Protonix 40 mg p.o. daily, polyethylene glycol 17 grams p.o. daily, vancomycin 1200 mg every 24 hours cc: Cornelius Gonsales MD
[2019-06-01] MEDS: LIPITOR PO SCH (22:30)
[2019-06-02] MEDS: HUMALOG SUBQ SCH ×3 (06:29→16:56)
[2019-06-02] MEDS: PROTONIX PO SCH (06:30)
[2019-06-02] MEDS: MAG-OX PO SCH (08:19)
[2019-06-02] MEDS: CYMBALTA PO SCH (08:19)
[2019-06-02] MEDS: CORDARONE PO SCH (08:19)
[2019-06-02] MEDS: TOPROL XL PO SCH (08:19)
[2019-06-02] MEDS: GLUCOPHAGE PO SCH ×2 (08:19→15:54)
[2019-06-02] MEDS: PREDNISONE PO SCH (08:20)
[2019-06-02] MEDS: FOLIC ACID PO SCH (08:20)
[2019-06-02] MEDS: FERGON PO SCH (08:20)
[2019-06-02] MEDS: MIRALAX PO SCH (08:21)
--- NOTE | 2019-06-02 10:18 | DISCHARGE SUMMARY ---
ADMISSION DATE: 05/28/2019 DISCHARGE DATE: 06/02/2019 HOSPITAL COURSE: Ms. Shields is a 73-year-old followed by Dr. Jose M Spivey. She presented on 05/28/2019 with shortness of breath, chest wall pain. A 73-year-old with a history of chronic atrial fibrillation, diabetes mellitus, history of CVA, right upper and lower extremity hemiparesis, hypertension, presented to the emergency room from her extended care facility complaining of chest pain, intermittent for the last 4 days, described as sharp chest pain. It will last a few seconds and subside. She had increasing shortness of breath. Denied any fever or chills. PAST MEDICAL HISTORY: 1. Diabetes mellitus type 2. 2. Gastroesophageal reflux disease. 3. CVA with right-sided hemiparesis, expressive dysphagia. 4. Chronic atrial fibrillation. Patient not on anticoagulation due to frequent falls and recent hemothorax. 5. Hypertension. 6. Rheumatoid arthritis. 7. Folic acid deficiency. 8. Recent fall with resulting in right hemothorax. ADMISSION DIAGNOSES: 1. Some pulmonary venous hypertension and pulmonary edema. 2. Shortness of breath. She was given some Lasix 40 mg intravenous and diuresed a little bit. Breathing seemed to improve. 3. Bilateral lower lobe infiltrates versus atelectasis. Getting Rocephin and azithromycin, and she seemed to recover as far as her breathing goes. 4. Urinary tract infection with yeast in the urine. Given Diflucan. 5. Leukocytosis, very likely secondary to urinary tract infection and possible bibasilar infiltrates. 6. Cellulitis, right upper and lower extremity. We continued topical care and this seemed to improve. 7. History of atrial fibrillation. The patient with a permanent pacemaker. Rate was controlled. She appeared to be 100% paced. 8. Gastroesophageal reflux. Continue proton pump inhibitor. 9. Diabetes mellitus type 2. Sugars were watched and pattern sugars and remained well controlled. 10. Hypertension. Blood pressure well controlled. 11. Folic acid deficiency. Continue supplementation. 12. Anemia. 13. Rheumatoid arthritis. Continue methotrexate once a week. 14. Status post cerebrovascular accident with right upper and lower extremity hemiparesis. We did initiate some physical therapy. She showed steady improvement. Her chest x-ray on 05/28 showed recurrent pulmonary edema with pleural effusion, pleural thickening and pleural atelectasis and infiltrate. Her EKG showed atrial paced rhythm consistent with paced rhythm. Followup chest x-ray on 06/01: Pulmonary edema and pneumonia with right pleural effusion, but it looked more consistent with atelectasis. She was feeling much better, felt she could go back to assisted living. DISCHARGE MEDICATIONS: We will put her on Lipitor 10 mg at bedtime, Cordarone 200 mg daily, Cymbalta 60 mg a day, ferrous gluconate 324 mg p.o. daily, folic acid 1 mg daily, Lasix 40 mg p.o. daily, magnesium oxide 250 mg daily, Glucophage 500 mg p.o. b.i.d., methotrexate 12.5 mg tablet once a week I believe, metoprolol succinate ER 25 mg p.o. daily, Protonix 40 mg p.o. daily, MiraLAX 17 g daily, prednisone 10 mg daily. I will leave her on Levaquin antibiotic 500 mg a day p.o. for another 7 days. CULTURES: There were no organisms that grew on culture. Her urine culture grew out Klebsiella pneumonia. It was not extended spectrum beta lactamase producing, and it was sensitive to Levaquin. cc: Cornelius Gonsales MD
[2019-06-02] MEDS: MAXIPIME 2 GM in NS 100 ML IV SCH (12:11)
--- NOTE | 2019-06-02 13:36 | DISCHARGE SUMMARY ---
ADMISSION DATE: 05/28/2019 DISCHARGE DATE: 06/02/2019 ADDENDUM: Note that she had a fall and chest trauma several months ago. She still has some very small loculations of pleural fluid on the right and some atelectasis. No sign of pneumonia. She really does not have underlying COPD, and she has an echocardiogram that shows she has good left ventricular function, but I think she would benefit from some oxygen, help to expand the lungs and help with her atelectasis right now. She does have some hypoxemia when she ambulates. So, we will get her set to get 2 L of nasal cannula continuous, and hopefully her lungs will improve and expanded. In the next couple months, she will be able to get off the oxygen. cc: Cornelius Gonsales MD
[2019-06-02] MEDS ORDERED: DUONEB (A & A) INH ONE (15:35)
[2019-06-02] MEDS: LOVENOX SUBQ SCH (15:52)
[2019-06-02 16:39] VITALS: BP 125/44
[2019-06-02] MEDS: VANCOMYCIN 1,200 MG in NS 250 ML IV SCH (16:58)
== END 2019-06-02 17:34 | disposition home health service (06) | DRG 292 ==
LOC: SUPCPDRO → ED 06:16 → EDIPHOLD 06:17 → SUATTDRO 06:17 → 1N 13:16
PROVIDERS: ATTEND Emergency Medicine